=== PATIENT | female | born 1950 | race Native Hawaiian/Other Pacific Islander ===

== ENCOUNTER → 2018-04-23 09:42 | Outpatient (CLI) | payer MEDICARE, OTHER, SELFPAY ==
--- NOTE | 2018-04-23 09:44 | DI.RAD.S_ITS ---
PROCEDURE: XR LUMBAR SPINE 2-3V INDICATIONS: LOW BACK PAIN TECHNIQUE: 3 views of the lumbar spine were acquired. COMPARISON: None. FINDINGS: Bones: 5 [id number] vertebrae are present. There is normal bony alignment. No vertebral body compression fractures. No suspicious bony lesions. Mild degenerative disc disease and facet osteoarthritis along the lumbosacral spine, best seen at L5-S1. Soft tissues: Overlying bowel gas pattern is normal. No suspicious soft tissue calcifications. IMPRESSION: No trauma or. There is mild degenerative disc disease and facet osteoarthritis along the lumbosacral spine, but not to the degree that definite spinal and foraminal stenosis would be suspected Dictated by: Bib Proctor M.D. on 04/23/2018 at 10:07 Approved by: Bib Proctor M.D. on 04/23/2018 at 10:09
== END ==
PROVIDERS: PCP Family Medicine; Visit Provider Family Medicine
DX: M54.5 Low back pain (principal); M51.37 Other intervertebral disc degeneration, lumbosacral region; M47.817 Spondylosis without myelopathy or radiculopathy, lumbosacral region
CPT/HCPCS: 72100

== ENCOUNTER → 2018-05-12 11:41 | Outpatient (CLI) | payer MEDICARE, OTHER, SELFPAY | PROVIDERS: PCP Family Medicine; Visit Provider Family Medicine | DX: M54.5 Low back pain (principal) ==

== ENCOUNTER → 2018-05-30 17:45 | Outpatient (CLI) | payer MEDICARE, OTHER, SELFPAY ==
--- NOTE | 2018-05-30 17:47 | DI.MRI.S_ITS ---
PROCEDURE: MR LUMBAR SPINE WO CON INDICATIONS: Severe low back pain right sided, TECHNIQUE: Noncontrast sagittal T1 spin echo and T2 fast echo, sagittal STIR, axial T1 and T2 fast spin echo through the lumbar spine. In cases with scoliosis, additional coronal T2 fast spin echo may be performed. COMPARISON: [facility], CR, XR LUMBAR SPINE 2-3V, 04/23/2018, 9:24. FINDINGS: Image quality: Excellent. Alignment and Curvature: There is minimal retrolisthesis of L2 on L3. 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 Marrow signal is otherwise normal. No acute vertebral body compression fractures. Spinal Cord: Conus medullaris terminates at the L1-L2 level. Visualized cord demonstrates normal signal and size. Paraspinous Soft Tissues: No paravertebral masses. L1-L2: Preserved disc height. Mild disc desiccation. There is mild posterior disc bulge. The central canal is patent. No foraminal stenosis. L2-L3: Mild loss of disc height and disc desiccation. There is circumferential disc bulge. The central canal is minimally narrowed. Mild bilateral foraminal stenosis. L3-L4: Preserved disc height. Moderate disc desiccation. There is mild broad disc bulge. Mild bilateral facet arthropathy and hypertrophy of ligamentum flavum. The central canal is patent. Mild bilateral foraminal stenosis. L4-L5: Preserved disc height. Moderate disc desiccation. There is mild broad disc bulge. Mild bilateral facet arthropathy and hypertrophy of ligamentum flavum. The central canal is patent. Mild bilateral foraminal stenosis. L5-S1: Preserved disc height. Moderate disc desiccation. There is mild broad disc bulge. Mild bilateral facet arthropathy. The central canal is patent. No foraminal stenosis. IMPRESSION: 1. Multilevel degenerative disc disease and facet arthropathy as described. 2. No significant central canal stenosis. 3. Mild bilateral foraminal stenosis at L2-L3, L3-L4 and L4-L5. Dictated by: Devonte Guerrero M.D. on 05/31/2018 at 19:50 Approved by: Devonte Guerrero M.D. on 06/02/2018 at 8:25
== END ==
PROVIDERS: PCP Family Medicine; Visit Provider Family Medicine
DX: M51.16 Intervertebral disc disorders with radiculopathy, lumbar region (principal); M51.17 Intervertebral disc disorders with radiculopathy, lumbosacral region; M47.26 Other spondylosis with radiculopathy, lumbar region; M47.27 Other spondylosis with radiculopathy, lumbosacral region; M48.061 Spinal stenosis, lumbar region without neurogenic claudication
CPT/HCPCS: 72148

== ENCOUNTER 2018-10-17 13:00 | Outpatient (RCR) | payer MEDICARE, OTHER, SELFPAY ==
--- NOTE | 2018-07-22 17:42 | PT.OIE ---
Current Diagnoses Radiculopathy, lumbosacral region (07/22/18) Past Medical History (Last Reviewed 04/21/18 @ 16:54 by Abdullahi Kim MD) Low back pain with sciatica (Chronic) Gastroesophageal reflux disease without esophagitis (Chronic 09/27/15) Mixed hyperlipidemia (Chronic 09/27/15) Overactive bladder (Chronic 09/27/15) Parkinson's disease (Chronic 09/27/15) Seasonal allergic rhinitis (Chronic 09/27/15) Plantar fasciitis of right foot (Chronic 12/17/17) GERD (gastroesophageal reflux disease) (Acute) Allergic rhinitis (Chronic) Chronic back pain (Chronic) Deviated septum (Chronic) Diabetes (Chronic) Eczema (Chronic) Hearing loss (Chronic) Hyperlipemia (Chronic) Hypertension (Chronic) Parkinson's disease (Chronic ~2008) Urinary incontinence (Chronic) Vertigo (Chronic) Foot pain (Resolved) Past Surgical History (Last Reviewed 04/21/18 @ 16:54 by Abdullahi Kim MD) Status post cholecystectomy Provider Visit Care Team Role Provider Type Suresh Severino MD Attending Provider Physician Primary Care Provider Specialty: Internal Medicine Address: [address] [place] [address] Email: Physical Therapy Initial Evaluation PT-OP-A Visit Information Start: 07/22/18 15:53 Freq: Status: Active Protocol: Document 07/22/18 17:30 EA (Rec: 07/23/18 14:29 EA [id number]) Out-Patient Physical Therapy Visit Information Visit Information Visit Type Initial Evaluation Visit Start Time 15:15 Visit Stop Time 15:55 Total Visit Minutes 40 Visit Number 1 Evaluation Information Evaluation Date 07/22/18 PT-OP-B Current Condition Start: 07/22/18 15:53 Freq: Status: Active Protocol: Document 07/22/18 17:30 EA (Rec: 07/23/18 14:29 EA [id number]) Current Condition History of Current Condition Onset Date Chronic LBP: aggravated 2017 Current Complaints Localized LBP R > L History of Current Condition Present condition of low back pain has been on and off years ago and easily managed with rest and medication; last summer she reported that pain started to increase and never go away; states pain is intermittent and localized to low back area and aggravated more upon standing and walking . Pt denies loss of function and sensory alteration both LE . 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 Prior Treatments and Tests None identified Future Testing and Treatments Planned None identified Treatment Goals Patient/Caregiver Goals Be able to walk and stand more than 5 or 10 mins. Prior Functional Status Baseline Function- ADL's Independent Baseline Function- Mobility Independent Baseline Function- Gait Able to amb > 10 mins wiht no AD Baseline Function- Work/School activites with standing position > than 10 mins Current Functional Impairments (Reported) Functional Limitations- ADL's Unable to perform ADL's that requires > 5 mins of standing Functional Limitations- Mobility/Gait Limited to 0-5 mins amb PT-OP-C Subjective Start: 07/22/18 15:53 Freq: Status: Active Protocol: Document 07/22/18 17:30 EA (Rec: 07/23/18 14:29 EA [id number]) OP-PT Subjective Patient Comments Patient Comments Patient would like to be able to walk more than 5 or 10 mins without increase in back symptoms. Patient Reported Progress Worse Patient Questionnaires Oswestry Low Back Index Oswestry Impairment 40 to 59% Impaired (Score 40- 59) PT-OP-F Manual Assessment Start: 07/22/18 15:53 Freq: Status: Active Protocol: Document 07/22/18 17:30 EA (Rec: 07/23/18 14:29 EA [id number]) Manual Assessments Soft Tissue Assessment Soft Tissue Mobility Assessment Tightness to right paralumbars , QL Joint Mobility Assessment Joint Mobility Assessment L2-L5 facets hypomobility PT-OP-G Mobility & Gait Start: 07/22/18 15:53 Freq: Status: Active Protocol: Document 07/22/18 17:30 EA (Rec: 07/23/18 14:29 EA [id number]) OP Gait Assessment Gait Gait Assistance Required: Independent Able to Maintain Weight Bearing Status Yes During Gait Assistive Devices Assistive Device Straight Cane Gait Deviations General Gait Pattern Festinating Comments Gait Comments mild Shuffling (PD ) PT-OP-J Posture/Palpation/Skin Start: 07/22/18 15:53 Freq: Status: Active Protocol: Document 07/22/18 17:31 EA (Rec: 07/24/18 12:37 EA [id number]) Posture Evaluation Position Standing Head/C-Spine Posture Forward Head T-Spine Posture Increased Kyphosis L-Spine Posture Increased Lordosis Shoulder Posture (L) Rounded (R) Rounded Scapula Posture (L) Protracted (R) Protracted Pelvis Posture Anteriorly Tilted (R) Iliac Crest Superior (R) Iliac Crest Inferior Ankle/Foot Posture (L) Forefoot Abducted (R) Forefoot Abducted Palpation Assessment Location One Palpation Location Right pralaumbras, QL Palpation Findings Soft Tissue Tightness Tenderness PT-OP-K Range of Motion Start: 07/22/18 15:53 Freq: Status: Active Protocol: Document 07/22/18 17:31 EA (Rec: 07/24/18 12:37 EA [id number]) Lumbar Spine Range of Motion Lumbar Spine Active Percentage Testing Position Standing Flexion 85 Extension 65 Rotation Left 50 Rotation Right 50 Lateral Flexion Left 65 Lateral Flexion Right 65 ROM Limitations Soft Tissue Tightness Pain PT-OP-L Special Tests Start: 07/22/18 15:53 Freq: Status: Active Protocol: Document 07/22/18 17:30 EA (Rec: 07/23/18 14:29 EA [id number]) Special Tests Lumbar Spine Special Tests Other- 1 Test Results Post quadrant test: positive to right facets joint dysfunction Straight Leg Raise Test Results negative Slump Test Results negative PT-OP-M Strength Start: 07/22/18 15:53 Freq: Status: Active Protocol: Document 07/22/18 17:30 EA (Rec: 07/23/18 14:29 EA [id number]) Trunk Strength Trunk Manual Muscle Testing Flexion 4- Good- Extension 4- Good- Rotation Left 4 Good Rotation Right 4 Good Lateral Flexion Left 4- Good- Lateral Flexion Right 4- Good- PT-OP-Q Treatments Start: 07/22/18 15:53 Freq: Status: Active Protocol: Document 07/22/18 17:30 EA (Rec: 07/23/18 14:29 EA [id number]) Self-Care/Home Management Treatment Education Patient Education Body Mechanics Fall Risk Home Exercise Program Posture Safety PT-OP-T Assessment and Plan Start: 07/22/18 15:53 Freq: Status: Active Protocol: Document 07/22/18 17:30 EA (Rec: 07/23/18 14:29 EA [id number]) Physical Therapy Assessment Rehab Potential Rehabilitation Potential Fair Evaluation Complexity Number of Personal Factors/Comorbidities 1-2 Number of Body Systems Impaired 3 Clinical Presentation at Evaluation Evolving Impairments Impairments Activity Tolerance Balance Functional Mobility Gait Pain Posture ROM Soft Tissue Mobility Strength Other Impairments Chronicity of the condition Goals Five Impairment No HEP in place Athletic Turf Worker Goal (LTG) Patient will comply to HEP and will exhibit safety to all recommended home exercises program. LTG Duration 4 wks Four Impairment Impaired lumbosacral ROM [facility] Goal (LTG) Patient will reach near to normal lumbar Extension/side flexion, rotation with no symptoms provocation to enhance functional mobility. LTG Duration 4 wks Three Impairment Impaired tolerance to ADL's Athletic Turf Worker Goal (LTG) Patient will increase tolerance to ADL's > 5mins without increase in low back pain LTG Duration 4 wks Two Impairment Impaired standing tolerance [facility] Goal (LTG) Patient will tolerate standing good posture more than 5 mins with no increase in symptoms LTG Duration 4 wks One Impairment Limited ambulation tolerance [facility] Goal (LTG) Patient will ambulate > 10 mins with no increase in back symptoms with STC. LTG Duration 4 wks Assessment Summary Assessment Pleasant 68 y/o F patient with referring diagnosis of lumbar radiculopathy. Today patient demonstrates stiff hip gait with signs of PD gait. Special tests reveals positive with lumbar facets joint dysfunction to right side with no nerve root involvement. Moderate tenderness noted over right paralumbars and with limited ROM to SF/Extension/ rotation on both side. Due to above bodily dysfunction, patient unable to perform long standing, walking, and other activities that requires standing posture. In my professional opinion, patient would benefit with skilled PT to address the aforementioned issues. Physical Therapy Plan Frequency and Duration Frequency of Treatment 2x/Week Plan of Care Start Date 07/22/18 Plan of Care End Date 09/02/18 Therapeutic Interventions Therapeutic Interventions Coordination Training Gait Training Joint Mobilizations Manual Therapy Patient/Caregiver Education Self-Care/Home Management Soft Tissue Mobilization Therapeutic Exercises Modalities Cold Pack/Ice Massage Electric Stimulation Hot Packs Next Visit Focus/Plan Next Note Type Treatment Note Next Visit Plan Provide HEP
--- NOTE | 2018-07-22 17:43 | PT.OPPOC ---
Current Diagnoses Radiculopathy, lumbosacral region (07/22/18) Provider Visit Care Team Role Provider Type Suresh Severino MD Attending Provider Physician Primary Care Provider Specialty: Internal Medicine Address: [address] [place] [address], [facility] Email: Plan Of Care PT-OP-T Assessment and Plan Start: 07/22/18 15:53 Freq: Status: Active Protocol: Document 07/22/18 17:30 EA (Rec: 07/23/18 14:29 EA [id number]) Physical Therapy Assessment Rehab Potential Rehabilitation Potential Fair Evaluation Complexity Number of Personal Factors/Comorbidities 1-2 Number of Body Systems Impaired 3 Clinical Presentation at Evaluation Evolving Impairments Impairments Activity Tolerance Balance Functional Mobility Gait Pain Posture ROM Soft Tissue Mobility Strength Other Impairments Chronicity of the condition Goals Five Impairment No HEP in place Claim Clerk Goal (LTG) Patient will comply to HEP and will exhibit safety to all recommended home exercises program. LTG Duration 4 wks Four Impairment Impaired lumbosacral ROM Claim Clerk Goal (LTG) Patient will reach near to normal lumbar Extension/side flexion, rotation with no symptoms provocation to enhance functional mobility. LTG Duration 4 wks Three Impairment Impaired tolerance to ADL's Claim Clerk Goal (LTG) Patient will increase tolerance to ADL's > 5mins without increase in low back pain LTG Duration 4 wks Two Impairment Impaired standing tolerance Claim Clerk Goal (LTG) Patient will tolerate standing good posture more than 5 mins with no increase in symptoms LTG Duration 4 wks One Impairment Limited ambulation tolerance Claim Clerk Goal (LTG) Patient will ambulate > 10 mins with no increase in back symptoms with STC. LTG Duration 4 wks Assessment Summary Assessment Pleasant 68 y/o F patient with referring diagnosis of lumbar radiculopathy. Today patient demonstrates stiff hip gait with signs of PD gait. Special tests reveals positive with lumbar facets joint dysfunction to right side with no nerve root involvement. Moderate tenderness noted over right paralumbars and with limited ROM to SF/Extension/ rotation on both side. Due to above bodily dysfunction, patient unable to perform long standing, walking, and other activities that requires standing posture. In my professional opinion, patient would benefit with skilled PT to address the aforementioned issues. Physical Therapy Plan Frequency and Duration Frequency of Treatment 2x/Week Plan of Care Start Date 07/22/18 Plan of Care End Date 09/02/18 Therapeutic Interventions Therapeutic Interventions Coordination Training Gait Training Joint Mobilizations Manual Therapy Patient/Caregiver Education Self-Care/Home Management Soft Tissue Mobilization Therapeutic Exercises Modalities Cold Pack/Ice Massage Electric Stimulation Hot Packs Next Visit Focus/Plan Next Note Type Treatment Note Next Visit Plan Provide HEP Plan of Care Dates Plan of Care Start Date 07/22/18 Plan of Care End Date 09/02/18 Please Sign and Return: I have reviewed this Plan of Care and certify that the skilled therapy services above are required to meet the patient?s needs. Physician Signature Date Printed Name and Credentials Clinical Instructor Signature Printed Name and Credentials
--- NOTE | 2018-07-25 15:48 | PT.OTN ---
Current Diagnoses Radiculopathy, lumbosacral region (07/25/18) Physical Therapy Treatment Note PT-OP-A Visit Information Start: 07/22/18 15:53 Freq: Status: Active Protocol: Document 07/25/18 15:12 SA (Rec: 07/25/18 15:24 SA [id number]) Out-Patient Physical Therapy Visit Information Visit Information Visit Type Treatment Note Visit Start Time 14:25 Visit Stop Time 15:10 Total Visit Minutes 45 Visit Number 2 Number of STILL OPERATOR BATCH OR CONTINUOUS Visits 1 PT-OP-B Current Condition Start: 07/22/18 15:53 Freq: Status: Active Protocol: Document 07/22/18 17:30 EA (Rec: 07/23/18 14:29 EA [id number]) Current Condition History of Current Condition Onset Date Chronic LBP: aggravated 2017 Current Complaints Localized LBP R > L History of Current Condition Present condition of low back pain has been on and off years ago and easily managed with rest and medication; last summer she reported that pain started to increase and never go away; states pain is intermittent and localized to low back area and aggravated more upon standing and walking . Pt denies loss of function and sensory alteration both LE . 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 Prior Treatments and Tests None identified Future Testing and Treatments Planned None identified Treatment Goals Patient/Caregiver Goals Be able to walk and stand more than 5 or 10 mins. Prior Functional Status Baseline Function- ADL's Independent Baseline Function- Mobility Independent Baseline Function- Gait Able to amb > 10 mins wiht no AD Baseline Function- Work/School activites with standing position > than 10 mins Current Functional Impairments (Reported) Functional Limitations- ADL's Unable to perform ADL's that requires > 5 mins of standing Functional Limitations- Mobility/Gait Limited to 0-5 mins amb PT-OP-C Subjective Start: 07/22/18 15:53 Freq: Status: Active Protocol: Document 07/25/18 15:12 SA (Rec: 07/25/18 15:24 SA [id number]) OP-PT Subjective Patient Comments Patient Comments Pt has been doing seated stretches at home with good tolerance. Haven't tried walking much lately. PT-OP-F Manual Assessment Start: 07/22/18 15:53 Freq: Status: Active Protocol: Document 07/22/18 17:30 EA (Rec: 07/23/18 14:29 EA [id number]) Manual Assessments Soft Tissue Assessment Soft Tissue Mobility Assessment Tightness to right paralumbars , QL Joint Mobility Assessment Joint Mobility Assessment L2-L5 facets hypomobility PT-OP-G Mobility & Gait Start: 07/22/18 15:53 Freq: Status: Active Protocol: Document 07/22/18 17:30 EA (Rec: 07/23/18 14:29 EA [id number]) OP Gait Assessment Gait Gait Assistance Required: Independent Able to Maintain Weight Bearing Status Yes During Gait Assistive Devices Assistive Device Straight Cane Gait Deviations General Gait Pattern Festinating Comments Gait Comments mild Shuffling (PD ) PT-OP-J Posture/Palpation/Skin Start: 07/22/18 15:53 Freq: Status: Active Protocol: Document 07/22/18 17:31 EA (Rec: 07/24/18 12:37 EA [id number]) Posture Evaluation Position Standing Head/C-Spine Posture Forward Head T-Spine Posture Increased Kyphosis L-Spine Posture Increased Lordosis Shoulder Posture (L) Rounded (R) Rounded Scapula Posture (L) Protracted (R) Protracted Pelvis Posture Anteriorly Tilted (R) Iliac Crest Superior (R) Iliac Crest Inferior Ankle/Foot Posture (L) Forefoot Abducted (R) Forefoot Abducted Palpation Assessment Location One Palpation Location Right pralaumbras, QL Palpation Findings Soft Tissue Tightness Tenderness PT-OP-K Range of Motion Start: 07/22/18 15:53 Freq: Status: Active Protocol: Document 07/22/18 17:31 EA (Rec: 07/24/18 12:37 EA [id number]) Lumbar Spine Range of Motion Lumbar Spine Active Percentage Testing Position Standing Flexion 85 Extension 65 Rotation Left 50 Rotation Right 50 Lateral Flexion Left 65 Lateral Flexion Right 65 ROM Limitations Soft Tissue Tightness Pain PT-OP-L Special Tests Start: 07/22/18 15:53 Freq: Status: Active Protocol: Document 07/22/18 17:30 EA (Rec: 07/23/18 14:29 EA [id number]) Special Tests Lumbar Spine Special Tests Other- 1 Test Results Post quadrant test: positive to right facets joint dysfunction Straight Leg Raise Test Results negative Slump Test Results negative PT-OP-M Strength Start: 07/22/18 15:53 Freq: Status: Active Protocol: Document 07/22/18 17:30 EA (Rec: 07/23/18 14:29 EA [id number]) Trunk Strength Trunk Manual Muscle Testing Flexion 4- Good- Extension 4- Good- Rotation Left 4 Good Rotation Right 4 Good Lateral Flexion Left 4- Good- Lateral Flexion Right 4- Good- PT-OP-Q Treatments Start: 07/22/18 15:53 Freq: Status: Active Protocol: Document 07/25/18 15:12 SA (Rec: 07/25/18 15:24 SA [id number]) Therapeutic Exercises Supine Exercises Pelvic tilts Reps/Minutes 10x Comments Tactile cues for technique. HS stretch Side bilateral Reps/Minutes 2x 20 each Sitting Exercises QL stretch Side bilateral Reps/Minutes 30 x 2 Comments Focus on stretching R side Standing Exercises Lateral trunk lean Resistance towards L side Equipment Used at wall Reps/Minutes 2x 30 Comments to tolerance Manual Therapy Treatment Soft Tissue Mobilization STM/MFR Body Location Lumbar paraspinals/QL Mobilization Type Cross-Friction Myofascial Release Rolling Sustained Pressure Intensity/Depth Moderate Body Position Hooklying Comments Pt in L side lying position, focus on R lumbar paraspinals PT-OP-R Modalities Start: 07/22/18 15:53 Freq: Status: Active Protocol: Document 07/25/18 15:12 SA (Rec: 07/25/18 15:48 SA [email or web address]) Electric Stimulation Electric Stimulation IFC Body Location Lumbar paraspinals Duration (Minutes) 15 Contraction Type Normal Target/Sweep Sweep Patient Position Hooklying Combined With Heat/Cold Hot Pack PT-OP-T Assessment and Plan Start: 07/22/18 15:53 Freq: Status: Active Protocol: Document 07/25/18 15:12 SA (Rec: 07/25/18 15:48 [email or web address]) Physical Therapy Assessment Assessment Summary Assessment Pt presents with tigh R lumbar paraspinals and QL. Limits prolonged standing/walking activity d/t pain. HEP hand out given with stretches to complete at home. STM and E- stim completed to address pain and muscle tightness spasm. Physical Therapy Plan Next Visit Focus/Plan Next Note Type Treatment Note Next Visit Plan Assess response to STM and e- stim. Progress stretching program and core strengthening .
--- NOTE | 2018-08-01 15:43 | PT.OTN ---
Current Diagnoses Radiculopathy, lumbosacral region (08/01/18) Physical Therapy Treatment Note PT-OP-A Visit Information Start: 07/22/18 15:53 Freq: Status: Active Protocol: Document 08/01/18 15:32 SA (Rec: 08/01/18 15:43 SA [email or web address]) Out-Patient Physical Therapy Visit Information Visit Information Visit Type Treatment Note Visit Start Time 14:25 Visit Stop Time 15:15 Visit Number 3 Number of INCLINOMETER TESTER Visits 1 PT-OP-B Current Condition Start: 07/22/18 15:53 Freq: Status: Active Protocol: Document 07/22/18 17:30 EA (Rec: 07/23/18 14:29 EA [id number]) Current Condition History of Current Condition Onset Date Chronic LBP: aggravated 2017 Current Complaints Localized LBP R > L History of Current Condition Present condition of low back pain has been on and off years ago and easily managed with rest and medication; last summer she reported that pain started to increase and never go away; states pain is intermittent and localized to low back area and aggravated more upon standing and walking . Pt denies loss of function and sensory alteration both LE . 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 Prior Treatments and Tests None identified Future Testing and Treatments Planned None identified Treatment Goals Patient/Caregiver Goals Be able to walk and stand more than 5 or 10 mins. Prior Functional Status Baseline Function- ADL's Independent Baseline Function- Mobility Independent Baseline Function- Gait Able to amb > 10 mins wiht no AD Baseline Function- Work/School activites with standing position > than 10 mins Current Functional Impairments (Reported) Functional Limitations- ADL's Unable to perform ADL's that requires > 5 mins of standing Functional Limitations- Mobility/Gait Limited to 0-5 mins amb PT-OP-C Subjective Start: 07/22/18 15:53 Freq: Status: Active Protocol: Document 08/01/18 15:32 SA (Rec: 08/01/18 15:43 SA [email or web address]) OP-PT Subjective Patient Comments Patient Comments Pt needed clarification with some of her HEP, has been consistent at home. Tolerated manual therapy well but was a little sore after last visit. PT-OP-F Manual Assessment Start: 07/22/18 15:53 Freq: Status: Active Protocol: Document 07/22/18 17:30 EA (Rec: 07/23/18 14:29 EA [id number]) Manual Assessments Soft Tissue Assessment Soft Tissue Mobility Assessment Tightness to right paralumbars , QL Joint Mobility Assessment Joint Mobility Assessment L2-L5 facets hypomobility PT-OP-G Mobility & Gait Start: 07/22/18 15:53 Freq: Status: Active Protocol: Document 07/22/18 17:30 EA (Rec: 07/23/18 14:29 EA [id number]) OP Gait Assessment Gait Gait Assistance Required: Independent Able to Maintain Weight Bearing Status Yes During Gait Assistive Devices Assistive Device Straight Cane Gait Deviations General Gait Pattern Festinating Comments Gait Comments mild Shuffling (PD ) PT-OP-J Posture/Palpation/Skin Start: 07/22/18 15:53 Freq: Status: Active Protocol: Document 07/22/18 17:31 EA (Rec: 07/24/18 12:37 EA [id number]) Posture Evaluation Position Standing Head/C-Spine Posture Forward Head T-Spine Posture Increased Kyphosis L-Spine Posture Increased Lordosis Shoulder Posture (L) Rounded (R) Rounded Scapula Posture (L) Protracted (R) Protracted Pelvis Posture Anteriorly Tilted (R) Iliac Crest Superior (R) Iliac Crest Inferior Ankle/Foot Posture (L) Forefoot Abducted (R) Forefoot Abducted Palpation Assessment Location One Palpation Location Right pralaumbras, QL Palpation Findings Soft Tissue Tightness Tenderness PT-OP-K Range of Motion Start: 07/22/18 15:53 Freq: Status: Active Protocol: Document 07/22/18 17:31 EA (Rec: 07/24/18 12:37 EA [id number]) Lumbar Spine Range of Motion Lumbar Spine Active Percentage Testing Position Standing Flexion 85 Extension 65 Rotation Left 50 Rotation Right 50 Lateral Flexion Left 65 Lateral Flexion Right 65 ROM Limitations Soft Tissue Tightness Pain PT-OP-L Special Tests Start: 07/22/18 15:53 Freq: Status: Active Protocol: Document 07/22/18 17:30 EA (Rec: 07/23/18 14:29 EA [id number]) Special Tests Lumbar Spine Special Tests Other- 1 Test Results Post quadrant test: positive to right facets joint dysfunction Straight Leg Raise Test Results negative Slump Test Results negative PT-OP-M Strength Start: 07/22/18 15:53 Freq: Status: Active Protocol: Document 07/22/18 17:30 EA (Rec: 07/23/18 14:29 EA [id number]) Trunk Strength Trunk Manual Muscle Testing Flexion 4- Good- Extension 4- Good- Rotation Left 4 Good Rotation Right 4 Good Lateral Flexion Left 4- Good- Lateral Flexion Right 4- Good- PT-OP-Q Treatments Start: 07/22/18 15:53 Freq: Status: Active Protocol: Document 08/01/18 15:32 SA (Rec: 08/01/18 15:43 SA [email or web address]) Therapeutic Exercises Supine Exercises SL heel slides with abdominal bracing Side bilateral Reps/Minutes 10x each Pelvic tilts Reps/Minutes 15x Comments tactile cues HS stretch Side bilateral Reps/Minutes 2x 20 each Sitting Exercises QL stretch Side bilateral Reps/Minutes 30 x 2 Comments Focus on stretching R side Standing Exercises Lateral trunk lean Resistance towards L side Equipment Used at wall Reps/Minutes 2x 30 Comments to tolerance PT-OP-R Modalities Start: 07/22/18 15:53 Freq: Status: Active Protocol: Document 08/01/18 15:43 SA (Rec: 08/01/18 15:43 SA [email or web address]) Electric Stimulation Electric Stimulation IFC Contraction Type Normal Target/Sweep Sweep Cycle Continuous Patient Position Hooklying Combined With Heat/Cold Hot Pack PT-OP-T Assessment and Plan Start: 07/22/18 15:53 Freq: Status: Active Protocol: Document 08/01/18 15:32 SA (Rec: 08/01/18 15:43 SA [email or web address]) Physical Therapy Assessment Progress Towards Goals Progress Towards Goals Progressing Toward Goals Progress Comments Pt reports decreased pain overall but had some pain setting tables for restoration thanksgiving dinner earlier today. Assessment Summary Assessment Pt tolerated STM/E-stim well with some soreness but overall decrease in pain and improved tolerance of ADLs. Physical Therapy Plan Next Visit Focus/Plan Next Note Type Treatment Note Next Visit Plan Continue STM/E-stim and progress core stabilization as tolerated.
--- NOTE | 2018-08-12 16:07 | PT.OTN ---
Current Diagnoses Radiculopathy, lumbosacral region (08/12/18) Physical Therapy Treatment Note PT-OP-A Visit Information Start: 07/22/18 15:53 Freq: Status: Active Protocol: Document 08/12/18 15:52 EA (Rec: 08/12/18 16:01 EA [id number]) Out-Patient Physical Therapy Visit Information Visit Information Visit Type Treatment Note Visit Start Time 15:15 Visit Stop Time 16:00 Visit Number 4 Number of LUNCHROOM AIDE Visits 1 PT-OP-B Current Condition Start: 07/22/18 15:53 Freq: Status: Active Protocol: Document 07/22/18 17:30 EA (Rec: 07/23/18 14:29 EA [id number]) Current Condition History of Current Condition Onset Date Chronic LBP: aggravated 2017 Current Complaints Localized LBP R > L History of Current Condition Present condition of low back pain has been on and off years ago and easily managed with rest and medication; last summer she reported that pain started to increase and never go away; states pain is intermittent and localized to low back area and aggravated more upon standing and walking . Pt denies loss of function and sensory alteration both LE . 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 Prior Treatments and Tests None identified Future Testing and Treatments Planned None identified Treatment Goals Patient/Caregiver Goals Be able to walk and stand more than 5 or 10 mins. Prior Functional Status Baseline Function- ADL's Independent Baseline Function- Mobility Independent Baseline Function- Gait Able to amb > 10 mins wiht no AD Baseline Function- Work/School activites with standing position > than 10 mins Current Functional Impairments (Reported) Functional Limitations- ADL's Unable to perform ADL's that requires > 5 mins of standing Functional Limitations- Mobility/Gait Limited to 0-5 mins amb PT-OP-C Subjective Start: 07/22/18 15:53 Freq: Status: Active Protocol: Document 08/12/18 15:52 EA (Rec: 08/12/18 16:01 EA [id number]) OP-PT Subjective Patient Comments Patient Comments Pt received with cane with shuffling gait; states she always forgot to remember. Patient also reports low back pain is still on off but is now compliant with HEP. PT-OP-F Manual Assessment Start: 07/22/18 15:53 Freq: Status: Active Protocol: Document 07/22/18 17:30 EA (Rec: 07/23/18 14:29 EA [id number]) Manual Assessments Soft Tissue Assessment Soft Tissue Mobility Assessment Tightness to right paralumbars , QL Joint Mobility Assessment Joint Mobility Assessment L2-L5 facets hypomobility PT-OP-G Mobility & Gait Start: 07/22/18 15:53 Freq: Status: Active Protocol: Document 07/22/18 17:30 EA (Rec: 07/23/18 14:29 EA [id number]) OP Gait Assessment Gait Gait Assistance Required: Independent Able to Maintain Weight Bearing Status Yes During Gait Assistive Devices Assistive Device Straight Cane Gait Deviations General Gait Pattern Festinating Comments Gait Comments mild Shuffling (PD ) PT-OP-J Posture/Palpation/Skin Start: 07/22/18 15:53 Freq: Status: Active Protocol: Document 07/22/18 17:31 EA (Rec: 07/24/18 12:37 EA [id number]) Posture Evaluation Position Standing Head/C-Spine Posture Forward Head T-Spine Posture Increased Kyphosis L-Spine Posture Increased Lordosis Shoulder Posture (L) Rounded (R) Rounded Scapula Posture (L) Protracted (R) Protracted Pelvis Posture Anteriorly Tilted (R) Iliac Crest Superior (R) Iliac Crest Inferior Ankle/Foot Posture (L) Forefoot Abducted (R) Forefoot Abducted Palpation Assessment Location One Palpation Location Right pralaumbras, QL Palpation Findings Soft Tissue Tightness Tenderness PT-OP-K Range of Motion Start: 07/22/18 15:53 Freq: Status: Active Protocol: Document 07/22/18 17:31 EA (Rec: 07/24/18 12:37 EA [id number]) Lumbar Spine Range of Motion Lumbar Spine Active Percentage Testing Position Standing Flexion 85 Extension 65 Rotation Left 50 Rotation Right 50 Lateral Flexion Left 65 Lateral Flexion Right 65 ROM Limitations Soft Tissue Tightness Pain PT-OP-L Special Tests Start: 07/22/18 15:53 Freq: Status: Active Protocol: Document 07/22/18 17:30 EA (Rec: 07/23/18 14:29 EA [id number]) Special Tests Lumbar Spine Special Tests Other- 1 Test Results Post quadrant test: positive to right facets joint dysfunction Straight Leg Raise Test Results negative Slump Test Results negative PT-OP-M Strength Start: 07/22/18 15:53 Freq: Status: Active Protocol: Document 07/22/18 17:30 EA (Rec: 07/23/18 14:29 EA [id number]) Trunk Strength Trunk Manual Muscle Testing Flexion 4- Good- Extension 4- Good- Rotation Left 4 Good Rotation Right 4 Good Lateral Flexion Left 4- Good- Lateral Flexion Right 4- Good- PT-OP-Q Treatments Start: 07/22/18 15:53 Freq: Status: Active Protocol: Document 08/12/18 15:52 EA (Rec: 08/12/18 16:01 EA [id number]) Cardio Equipment Recumbent Stepper (Sci-Fit) Duration (Minutes) 5 Resistance 2 Seat Position 12 Therapeutic Exercises Supine Exercises 2 Supine Exercise Name Trunk rotation Reps/Minutes x 10reps x 2 sets 1 Supine Exercise Name PPT w/ head lift w/ SLR Reps/Minutes x 5 reps x 5 reps Comments isomet to head and PPt Pelvic tilts Supine Exercise Name PPT with marching Equipment Used x 5 marching x 5 reps HS stretch Side bilateral Reps/Minutes 2x 20 each Sitting Exercises QL stretch Side bilateral Reps/Minutes 30 x 2 Comments Focus on stretching R side Manual Therapy Treatment Soft Tissue Mobilization STM/MFR Body Location Lumbar paraspinals/QL Mobilization Type Cross-Friction Myofascial Release Rolling Sustained Pressure Intensity/Depth Moderate Body Position Hooklying Comments Pt in L side lying position, focus on R lumbar paraspinals PT-OP-R Modalities Start: 07/22/18 15:53 Freq: Status: Active Protocol: Document 08/12/18 15:52 EA (Rec: 08/12/18 16:01 EA [id number]) Electric Stimulation Electric Stimulation IFC Body Location Lumbar paraspinals Duration (Minutes) 15 Contraction Type Normal Target/Sweep Sweep Patient Position Sitting Combined With Heat/Cold Hot Pack PT-OP-T Assessment and Plan Start: 07/22/18 15:53 Freq: Status: Active Protocol: Document 08/12/18 15:52 EA (Rec: 08/12/18 16:01 EA [id number]) Physical Therapy Assessment Assessment Summary Assessment Pt tolerated treatment well. recommends to use cane/gait devices for safety. Physical Therapy Plan Next Visit Focus/Plan Next Note Type Treatment Note Next Visit Plan Continue STM/E-stim and progress core stabilization as tolerated.
--- NOTE | 2018-08-15 15:20 | PT.OTN ---
Current Diagnoses Radiculopathy, lumbosacral region (08/15/18) Physical Therapy Treatment Note PT-OP-A Visit Information Start: 07/22/18 15:53 Freq: Status: Active Protocol: Document 08/15/18 15:10 SA (Rec: 08/15/18 15:20 SA [email or web address]) Out-Patient Physical Therapy Visit Information Visit Information Visit Type Treatment Note Visit Start Time 14:30 Visit Stop Time 15:15 Visit Number 5 Number of SENIOR ANALYTICAL CHEMIST Visits 2 PT-OP-B Current Condition Start: 07/22/18 15:53 Freq: Status: Active Protocol: Document 07/22/18 17:30 EA (Rec: 07/23/18 14:29 EA [id number]) Current Condition History of Current Condition Onset Date Chronic LBP: aggravated 2017 Current Complaints Localized LBP R > L History of Current Condition Present condition of low back pain has been on and off years ago and easily managed with rest and medication; last summer she reported that pain started to increase and never go away; states pain is intermittent and localized to low back area and aggravated more upon standing and walking . Pt denies loss of function and sensory alteration both LE . 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 Prior Treatments and Tests None identified Future Testing and Treatments Planned None identified Treatment Goals Patient/Caregiver Goals Be able to walk and stand more than 5 or 10 mins. Prior Functional Status Baseline Function- ADL's Independent Baseline Function- Mobility Independent Baseline Function- Gait Able to amb > 10 mins wiht no AD Baseline Function- Work/School activites with standing position > than 10 mins Current Functional Impairments (Reported) Functional Limitations- ADL's Unable to perform ADL's that requires > 5 mins of standing Functional Limitations- Mobility/Gait Limited to 0-5 mins amb PT-OP-C Subjective Start: 07/22/18 15:53 Freq: Status: Active Protocol: Document 08/15/18 15:10 SA (Rec: 08/15/18 15:20 SA [email or web address]) OP-PT Subjective Patient Comments Patient Comments Pt reports having increased low back soreness from helping decorate holiness, notes that she was more aware of her posture and body mechanics and was able to correct during. Pt using SPC today. PT-OP-F Manual Assessment Start: 07/22/18 15:53 Freq: Status: Active Protocol: Document 07/22/18 17:30 EA (Rec: 07/23/18 14:29 EA [id number]) Manual Assessments Soft Tissue Assessment Soft Tissue Mobility Assessment Tightness to right paralumbars , QL Joint Mobility Assessment Joint Mobility Assessment L2-L5 facets hypomobility PT-OP-G Mobility & Gait Start: 07/22/18 15:53 Freq: Status: Active Protocol: Document 07/22/18 17:30 EA (Rec: 07/23/18 14:29 EA [id number]) OP Gait Assessment Gait Gait Assistance Required: Independent Able to Maintain Weight Bearing Status Yes During Gait Assistive Devices Assistive Device Straight Cane Gait Deviations General Gait Pattern Festinating Comments Gait Comments mild Shuffling (PD ) PT-OP-J Posture/Palpation/Skin Start: 07/22/18 15:53 Freq: Status: Active Protocol: Document 07/22/18 17:31 EA (Rec: 07/24/18 12:37 EA [id number]) Posture Evaluation Position Standing Head/C-Spine Posture Forward Head T-Spine Posture Increased Kyphosis L-Spine Posture Increased Lordosis Shoulder Posture (L) Rounded (R) Rounded Scapula Posture (L) Protracted (R) Protracted Pelvis Posture Anteriorly Tilted (R) Iliac Crest Superior (R) Iliac Crest Inferior Ankle/Foot Posture (L) Forefoot Abducted (R) Forefoot Abducted Palpation Assessment Location One Palpation Location Right pralaumbras, QL Palpation Findings Soft Tissue Tightness Tenderness PT-OP-K Range of Motion Start: 07/22/18 15:53 Freq: Status: Active Protocol: Document 07/22/18 17:31 EA (Rec: 07/24/18 12:37 EA [id number]) Lumbar Spine Range of Motion Lumbar Spine Active Percentage Testing Position Standing Flexion 85 Extension 65 Rotation Left 50 Rotation Right 50 Lateral Flexion Left 65 Lateral Flexion Right 65 ROM Limitations Soft Tissue Tightness Pain PT-OP-L Special Tests Start: 07/22/18 15:53 Freq: Status: Active Protocol: Document 07/22/18 17:30 EA (Rec: 07/23/18 14:29 EA [id number]) Special Tests Lumbar Spine Special Tests Other- 1 Test Results Post quadrant test: positive to right facets joint dysfunction Straight Leg Raise Test Results negative Slump Test Results negative PT-OP-M Strength Start: 07/22/18 15:53 Freq: Status: Active Protocol: Document 07/22/18 17:30 EA (Rec: 07/23/18 14:29 EA [id number]) Trunk Strength Trunk Manual Muscle Testing Flexion 4- Good- Extension 4- Good- Rotation Left 4 Good Rotation Right 4 Good Lateral Flexion Left 4- Good- Lateral Flexion Right 4- Good- PT-OP-Q Treatments Start: 07/22/18 15:53 Freq: Status: Active Protocol: Document 08/15/18 15:10 SA (Rec: 08/15/18 15:20 SA [email or web address]) Therapeutic Exercises Supine Exercises 2 Supine Exercise Name Trunk rotation Reps/Minutes x 10reps x 2 sets 1 Supine Exercise Name PPT w/ head lift w/ SLR Reps/Minutes x 5 reps x 5 reps Comments isomet to head and PPt SL heel slides with abdominal bracing Side bilateral Reps/Minutes 10x each Pelvic tilts Supine Exercise Name PPT with marching Equipment Used x 5 marching x 5 reps HS stretch Side bilateral Reps/Minutes 2x 20 each Sitting Exercises QL stretch Side bilateral Reps/Minutes 30 x 2 Comments Focus on stretching R side Manual Therapy Treatment Soft Tissue Mobilization STM/MFR Body Location Lumbar paraspinals/QL Mobilization Type Cross-Friction Myofascial Release Rolling Sustained Pressure Intensity/Depth Moderate Body Position Hooklying Comments Pt seated with forward leaning onto mat/pillows. PT-OP-R Modalities Start: 07/22/18 15:53 Freq: Status: Active Protocol: Document 08/15/18 15:10 SA (Rec: 08/15/18 15:20 SA [email or web address]) Electric Stimulation Electric Stimulation IFC Body Location Lumbar paraspinals Duration (Minutes) 15 Contraction Type Normal Target/Sweep Sweep Patient Position Sitting Combined With Heat/Cold Hot Pack PT-OP-T Assessment and Plan Start: 07/22/18 15:53 Freq: Status: Active Protocol: Document 08/15/18 15:10 SA (Rec: 08/15/18 15:20 SA [email or web address]) Physical Therapy Assessment Progress Towards Goals Progress Towards Goals Progressing Toward Goals Assessment Summary Assessment Noted tightness through R lumbar paraspinals with relief after STM and heat and noted decrease in tightness. Physical Therapy Plan Next Visit Focus/Plan Next Note Type Treatment Note Next Visit Plan Continue with STM, E-stim and progressing core stability program.
--- NOTE | 2018-08-19 16:39 | PT.OTN ---
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 Pt denies loss of function and sensory alteration both LE . 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 Prior Treatments and Tests None identified Future Testing and Treatments Planned None identified Treatment Goals Patient/Caregiver Goals Be able to walk and stand more than 5 or 10 mins. Prior Functional Status Baseline Function- ADL's Independent Baseline Function- Mobility Independent Baseline Function- Gait Able to amb > 10 mins wiht no AD Baseline Function- Work/School activites with standing position > than 10 mins Current Functional Impairments (Reported) Functional Limitations- ADL's Unable to perform ADL's that requires > 5 mins of standing Functional Limitations- Mobility/Gait Limited to 0-5 mins amb PT-OP-C Subjective Start: 07/22/18 15:53 Freq: Status: Active Protocol: Document 08/19/18 15:19 EA (Rec: 08/19/18 15:52 EA [id number]) OP-PT Subjective Patient Comments Patient Comments Pt reports I overdo it; 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 Patient Reported Progress Improving PT-OP-F Manual Assessment Start: 07/22/18 15:53 Freq: Status: Active Protocol: Document 07/22/18 17:30 EA (Rec: 07/23/18 14:29 EA [id number]) Manual Assessments Soft Tissue Assessment Soft Tissue Mobility Assessment Tightness to right paralumbars , QL Joint Mobility Assessment Joint Mobility Assessment L2-L5 facets hypomobility PT-OP-G Mobility & Gait Start: 07/22/18 15:53 Freq: Status: Active Protocol: Document 07/22/18 17:30 EA (Rec: 07/23/18 14:29 EA [id number]) OP Gait Assessment Gait Gait Assistance Required: Independent Able to Maintain Weight Bearing Status Yes During Gait Assistive Devices Assistive Device Straight Cane Gait Deviations General Gait Pattern Festinating Comments Gait Comments mild Shuffling (PD ) PT-OP-J Posture/Palpation/Skin Start: 07/22/18 15:53 Freq: Status: Active Protocol: Document 07/22/18 17:31 EA (Rec: 07/24/18 12:37 EA [id number]) Posture Evaluation Position Standing Head/C-Spine Posture Forward Head T-Spine Posture Increased Kyphosis L-Spine Posture Increased Lordosis Shoulder Posture (L) Rounded (R) Rounded Scapula Posture (L) Protracted (R) Protracted Pelvis Posture Anteriorly Tilted (R) Iliac Crest Superior (R) Iliac Crest Inferior Ankle/Foot Posture (L) Forefoot Abducted (R) Forefoot Abducted Palpation Assessment Location One Palpation Location Right pralaumbras, QL Palpation Findings Soft Tissue Tightness Tenderness PT-OP-K Range of Motion Start: 07/22/18 15:53 Freq: Status: Active Protocol: Document 07/22/18 17:31 EA (Rec: 07/24/18 12:37 EA [id number]) Lumbar Spine Range of Motion Lumbar Spine Active Percentage Testing Position Standing Flexion 85 Extension 65 Rotation Left 50 Rotation Right 50 Lateral Flexion Left 65 Lateral Flexion Right 65 ROM Limitations Soft Tissue Tightness Pain PT-OP-L Special Tests Start: 07/22/18 15:53 Freq: Status: Active Protocol: Document 07/22/18 17:30 EA (Rec: 07/23/18 14:29 EA [id number]) Special Tests Lumbar Spine Special Tests Other- 1 Test Results Post quadrant test: positive to right facets joint dysfunction Straight Leg Raise Test Results negative Slump Test Results negative PT-OP-M Strength Start: 07/22/18 15:53 Freq: Status: Active Protocol: Document 07/22/18 17:30 EA (Rec: 07/23/18 14:29 EA [id number]) Trunk Strength Trunk Manual Muscle Testing Flexion 4- Good- Extension 4- Good- Rotation Left 4 Good Rotation Right 4 Good Lateral Flexion Left 4- Good- Lateral Flexion Right 4- Good- PT-OP-Q Treatments Start: 07/22/18 15:53 Freq: Status: Active Protocol: Document 08/19/18 15:19 EA (Rec: 08/19/18 15:52 EA [id number]) Cardio Equipment Recumbent Bicycle Duration (Minutes) 5 Resistance 4 Seat Position 5 Therapeutic Exercises Supine Exercises 2 Supine Exercise Name Trunk rotation Reps/Minutes x 10reps x 2 sets 1 Supine Exercise Name PPT w/ head lift w/ SLR Reps/Minutes x 5 reps x 5 reps Comments isomet to head and PPt Pelvic tilts Supine Exercise Name PPT with marching Equipment Used x 5 marching x 5 reps HS stretch Side bilateral Reps/Minutes 2x 20 each Sitting Exercises QL stretch Side bilateral Reps/Minutes 30 x 2 Comments Focus on stretching R side Manual Therapy Treatment Soft Tissue Mobilization STM/MFR Body Location Lumbar paraspinals/QL Mobilization Type Rolling Sustained Pressure Trigger Point Release Intensity/Depth Moderate Comments sit on EOB lowest height while leaning towars floor; with rotation. PT-OP-R Modalities Start: 07/22/18 15:53 Freq: Status: Active Protocol: Document 08/19/18 15:19 EA (Rec: 08/19/18 15:52 EA [id number]) Electric Stimulation Electric Stimulation IFC Body Location Lumbar paraspinals Duration (Minutes) 15 Contraction Type Normal Target/Sweep Sweep Patient Position Sitting Combined With Heat/Cold Hot Pack PT-OP-T Assessment and Plan Start: 07/22/18 15:53 Freq: Status: Active Protocol: Document 08/19/18 15:19 EA (Rec: 08/19/18 15:52 EA [id number]) Physical Therapy Assessment Assessment Summary Assessment Relief of discomfort and tightness noted after manual therapy. Patient advised to perform fwd leaning to the floor at home to do frequently . Physical Therapy Plan Next Visit Focus/Plan Next Note Type Treatment Note Next Visit Plan Continue with STM, E-stim and progressing core stability program.
--- NOTE | 2018-08-22 15:43 | PT.OTN ---
Current Diagnoses Radiculopathy, lumbosacral region (08/22/18) Physical Therapy Treatment Note PT-OP-A Visit Information Start: 07/22/18 15:53 Freq: Status: Active Protocol: Document 08/22/18 15:35 SA (Rec: 08/22/18 15:43 SA [id number]) Out-Patient Physical Therapy Visit Information Visit Information Visit Type Treatment Note Visit Start Time 14:30 Visit Stop Time 15:17 Visit Number 7 Number of MANAGEMENT LEAD Visits 1 PT-OP-B Current Condition Start: 07/22/18 15:53 Freq: Status: Active Protocol: Document 07/22/18 17:30 EA (Rec: 07/23/18 14:29 EA [id number]) Current Condition History of Current Condition Onset Date Chronic LBP: aggravated 2017 Current Complaints Localized LBP R > L History of Current Condition Present condition of low back pain has been on and off years ago and easily managed with rest and medication; last summer she reported that pain started to increase and never go away; states pain is intermittent and localized to low back area and aggravated more upon standing and walking . Pt denies loss of function and sensory alteration both LE . 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 Prior Treatments and Tests None identified Future Testing and Treatments Planned None identified Treatment Goals Patient/Caregiver Goals Be able to walk and stand more than 5 or 10 mins. Prior Functional Status Baseline Function- ADL's Independent Baseline Function- Mobility Independent Baseline Function- Gait Able to amb > 10 mins wiht no AD Baseline Function- Work/School activites with standing position > than 10 mins Current Functional Impairments (Reported) Functional Limitations- ADL's Unable to perform ADL's that requires > 5 mins of standing Functional Limitations- Mobility/Gait Limited to 0-5 mins amb PT-OP-C Subjective Start: 07/22/18 15:53 Freq: Status: Active Protocol: Document 08/22/18 15:35 SA (Rec: 08/22/18 15:43 SA [id number]) OP-PT Subjective Patient Comments Patient Comments Feeling about the same today, felt a little after last visit but it did not last. PT-OP-F Manual Assessment Start: 07/22/18 15:53 Freq: Status: Active Protocol: Document 07/22/18 17:30 EA (Rec: 07/23/18 14:29 EA [id number]) Manual Assessments Soft Tissue Assessment Soft Tissue Mobility Assessment Tightness to right paralumbars , QL Joint Mobility Assessment Joint Mobility Assessment L2-L5 facets hypomobility PT-OP-G Mobility & Gait Start: 07/22/18 15:53 Freq: Status: Active Protocol: Document 07/22/18 17:30 EA (Rec: 07/23/18 14:29 EA [id number]) OP Gait Assessment Gait Gait Assistance Required: Independent Able to Maintain Weight Bearing Status Yes During Gait Assistive Devices Assistive Device Straight Cane Gait Deviations General Gait Pattern Festinating Comments Gait Comments mild Shuffling (PD ) PT-OP-J Posture/Palpation/Skin Start: 07/22/18 15:53 Freq: Status: Active Protocol: Document 07/22/18 17:31 EA (Rec: 07/24/18 12:37 EA [id number]) Posture Evaluation Position Standing Head/C-Spine Posture Forward Head T-Spine Posture Increased Kyphosis L-Spine Posture Increased Lordosis Shoulder Posture (L) Rounded (R) Rounded Scapula Posture (L) Protracted (R) Protracted Pelvis Posture Anteriorly Tilted (R) Iliac Crest Superior (R) Iliac Crest Inferior Ankle/Foot Posture (L) Forefoot Abducted (R) Forefoot Abducted Palpation Assessment Location One Palpation Location Right pralaumbras, QL Palpation Findings Soft Tissue Tightness Tenderness PT-OP-K Range of Motion Start: 07/22/18 15:53 Freq: Status: Active Protocol: Document 07/22/18 17:31 EA (Rec: 07/24/18 12:37 EA [id number]) Lumbar Spine Range of Motion Lumbar Spine Active Percentage Testing Position Standing Flexion 85 Extension 65 Rotation Left 50 Rotation Right 50 Lateral Flexion Left 65 Lateral Flexion Right 65 ROM Limitations Soft Tissue Tightness Pain PT-OP-L Special Tests Start: 07/22/18 15:53 Freq: Status: Active Protocol: Document 07/22/18 17:30 EA (Rec: 07/23/18 14:29 EA [id number]) Special Tests Lumbar Spine Special Tests Other- 1 Test Results Post quadrant test: positive to right facets joint dysfunction Straight Leg Raise Test Results negative Slump Test Results negative PT-OP-M Strength Start: 07/22/18 15:53 Freq: Status: Active Protocol: Document 07/22/18 17:30 EA (Rec: 07/23/18 14:29 EA [id number]) Trunk Strength Trunk Manual Muscle Testing Flexion 4- Good- Extension 4- Good- Rotation Left 4 Good Rotation Right 4 Good Lateral Flexion Left 4- Good- Lateral Flexion Right 4- Good- PT-OP-Q Treatments Start: 07/22/18 15:53 Freq: Status: Active Protocol: Document 08/22/18 15:35 SA (Rec: 08/22/18 15:43 SA [email or web address]) Cardio Equipment Recumbent Bicycle Duration (Minutes) 5 Resistance 5 Seat Position 5 Therapeutic Exercises Supine Exercises 2 Supine Exercise Name Trunk rotation Reps/Minutes x 10reps x 2 sets 1 Supine Exercise Name PPT w/ head lift w/ SLR Reps/Minutes x 5 reps x 5 reps Comments isomet to head and PPt SL heel slides with abdominal bracing Side bilateral Reps/Minutes 10x each Pelvic tilts Supine Exercise Name PPT with marching Equipment Used x 5 marching x 5 reps HS stretch Side bilateral Reps/Minutes 2x 20 each Sitting Exercises QL stretch Side bilateral Reps/Minutes 30 x 2 Comments Focus on stretching R side Manual Therapy Treatment Soft Tissue Mobilization STM/MFR Body Location Lumbar paraspinals/QL Mobilization Type Rolling Sustained Pressure Trigger Point Release Intensity/Depth Moderate Comments Pt seated with leaning onto mat/pillows. PT-OP-R Modalities Start: 07/22/18 15:53 Freq: Status: Active Protocol: Document 08/22/18 15:35 SA (Rec: 08/22/18 15:43 SA [email or web address]) Electric Stimulation Electric Stimulation IFC Body Location Lumbar paraspinals Duration (Minutes) 15 Contraction Type Normal Target/Sweep Sweep Patient Position Sitting Combined With Heat/Cold Hot Pack PT-OP-T Assessment and Plan Start: 07/22/18 15:53 Freq: Status: Active Protocol: Document 08/22/18 15:35 SA (Rec: 08/22/18 15:43 SA [id number]) Physical Therapy Assessment Assessment Summary Assessment Review of forward leaning stretch for HEP, pt making gradual gains and tolerating manual therapy well. Physical Therapy Plan Next Visit Focus/Plan Next Note Type Treatment Note Next Visit Plan Continue to progress core stability as tolerated and E- stim/manual for pain management.
--- NOTE | 2018-08-26 16:45 | PT.OTN ---
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 Pt denies loss of function and sensory alteration both LE . 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 Prior Treatments and Tests None identified Future Testing and Treatments Planned None identified Treatment Goals Patient/Caregiver Goals Be able to walk and stand more than 5 or 10 mins. Prior Functional Status Baseline Function- ADL's Independent Baseline Function- Mobility Independent Baseline Function- Gait Able to amb > 10 mins wiht no AD Baseline Function- Work/School activites with standing position > than 10 mins Current Functional Impairments (Reported) Functional Limitations- ADL's Unable to perform ADL's that requires > 5 mins of standing Functional Limitations- Mobility/Gait Limited to 0-5 mins amb PT-OP-C Subjective Start: 07/22/18 15:53 Freq: Status: Active Protocol: Document 08/26/18 15:21 EA (Rec: 08/26/18 15:24 EA [id number]) OP-PT Subjective Patient Comments Patient Comments Pt reports she was dizzy after last session and balance is quite hard; states she is much feeling better today. Patient Reported Progress Improving PT-OP-F Manual Assessment Start: 07/22/18 15:53 Freq: Status: Active Protocol: Document 07/22/18 17:30 EA (Rec: 07/23/18 14:29 EA [id number]) Manual Assessments Soft Tissue Assessment Soft Tissue Mobility Assessment Tightness to right paralumbars , QL Joint Mobility Assessment Joint Mobility Assessment L2-L5 facets hypomobility PT-OP-G Mobility & Gait Start: 07/22/18 15:53 Freq: Status: Active Protocol: Document 07/22/18 17:30 EA (Rec: 07/23/18 14:29 EA [id number]) OP Gait Assessment Gait Gait Assistance Required: Independent Able to Maintain Weight Bearing Status Yes During Gait Assistive Devices Assistive Device Straight Cane Gait Deviations General Gait Pattern Festinating Comments Gait Comments mild Shuffling (PD ) PT-OP-J Posture/Palpation/Skin Start: 07/22/18 15:53 Freq: Status: Active Protocol: Document 07/22/18 17:31 EA (Rec: 07/24/18 12:37 EA [id number]) Posture Evaluation Position Standing Head/C-Spine Posture Forward Head T-Spine Posture Increased Kyphosis L-Spine Posture Increased Lordosis Shoulder Posture (L) Rounded (R) Rounded Scapula Posture (L) Protracted (R) Protracted Pelvis Posture Anteriorly Tilted (R) Iliac Crest Superior (R) Iliac Crest Inferior Ankle/Foot Posture (L) Forefoot Abducted (R) Forefoot Abducted Palpation Assessment Location One Palpation Location Right pralaumbras, QL Palpation Findings Soft Tissue Tightness Tenderness PT-OP-K Range of Motion Start: 07/22/18 15:53 Freq: Status: Active Protocol: Document 07/22/18 17:31 EA (Rec: 07/24/18 12:37 EA [id number]) Lumbar Spine Range of Motion Lumbar Spine Active Percentage Testing Position Standing Flexion 85 Extension 65 Rotation Left 50 Rotation Right 50 Lateral Flexion Left 65 Lateral Flexion Right 65 ROM Limitations Soft Tissue Tightness Pain PT-OP-L Special Tests Start: 07/22/18 15:53 Freq: Status: Active Protocol: Document 07/22/18 17:30 EA (Rec: 07/23/18 14:29 EA [id number]) Special Tests Lumbar Spine Special Tests Other- 1 Test Results Post quadrant test: positive to right facets joint dysfunction Straight Leg Raise Test Results negative Slump Test Results negative PT-OP-M Strength Start: 07/22/18 15:53 Freq: Status: Active Protocol: Document 07/22/18 17:30 EA (Rec: 07/23/18 14:29 EA [id number]) Trunk Strength Trunk Manual Muscle Testing Flexion 4- Good- Extension 4- Good- Rotation Left 4 Good Rotation Right 4 Good Lateral Flexion Left 4- Good- Lateral Flexion Right 4- Good- PT-OP-Q Treatments Start: 07/22/18 15:53 Freq: Status: Active Protocol: Document 08/26/18 15:21 EA (Rec: 08/26/18 15:24 EA [id number]) Therapeutic Exercises Supine Exercises 2 Supine Exercise Name Trunk rotation Reps/Minutes x 10reps x 2 sets 1 Supine Exercise Name PPT w/ head lift w/ SLR Reps/Minutes x 5 reps x 5 reps Comments isomet to head and PPt Pelvic tilts Supine Exercise Name PPT with marching Equipment Used x 5 marching x 5 reps HS stretch Side bilateral Reps/Minutes 2x 20 each Sitting Exercises 1 Sitting Exercise Name Paralumbars stretch Reps/Minutes x 10 reps x 5 SH Comments FWD flexion with arm support in thefront (bolster) QL stretch Side bilateral Reps/Minutes 30 x 2 Comments Focus on stretching R side Manual Therapy Treatment Soft Tissue Mobilization STM/MFR Body Location Lumbar paraspinals/QL Mobilization Type Rolling Sustained Pressure Trigger Point Release Intensity/Depth Moderate Comments Pt seated with leaning onto bolster PT-OP-R Modalities Start: 07/22/18 15:53 Freq: Status: Active Protocol: Document 08/26/18 15:21 EA (Rec: 08/26/18 15:24 EA [id number]) Electric Stimulation Electric Stimulation IFC Body Location Lumbar paraspinals Duration (Minutes) 15 Contraction Type Normal Target/Sweep Sweep Patient Position Sitting Combined With Heat/Cold Hot Pack PT-OP-T Assessment and Plan Start: 07/22/18 15:53 Freq: Status: Active Protocol: Document 08/26/18 15:55 EA (Rec: 08/26/18 15:56 EA [id number]) Physical Therapy Assessment Assessment Summary Assessment Slight tenderness only onted to left QL, paralumabrs and SI joint. No discomfort noted during therex. Patient is progressing well. Physical Therapy Plan Next Visit Focus/Plan Next Note Type Treatment Note
--- NOTE | 2018-08-29 15:39 | PT.OTN ---
Current Diagnoses Radiculopathy, lumbosacral region (08/29/18) Physical Therapy Treatment Note PT-OP-A Visit Information Start: 07/22/18 15:53 Freq: Status: Active Protocol: Document 08/29/18 15:32 SA (Rec: 08/29/18 15:39 SA [email or web address]) Out-Patient Physical Therapy Visit Information Visit Information Visit Type Treatment Note Visit Start Time 14:30 Visit Stop Time 15:17 Visit Number 9 Number of TECHNICAL ADJUSTER Visits 1 PT-OP-B Current Condition Start: 07/22/18 15:53 Freq: Status: Active Protocol: Document 07/22/18 17:30 EA (Rec: 07/23/18 14:29 EA [id number]) Current Condition History of Current Condition Onset Date Chronic LBP: aggravated 2017 Current Complaints Localized LBP R > L History of Current Condition Present condition of low back pain has been on and off years ago and easily managed with rest and medication; last summer she reported that pain started to increase and never go away; states pain is intermittent and localized to low back area and aggravated more upon standing and walking . Pt denies loss of function and sensory alteration both LE . 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 Prior Treatments and Tests None identified Future Testing and Treatments Planned None identified Treatment Goals Patient/Caregiver Goals Be able to walk and stand more than 5 or 10 mins. Prior Functional Status Baseline Function- ADL's Independent Baseline Function- Mobility Independent Baseline Function- Gait Able to amb > 10 mins wiht no AD Baseline Function- Work/School activites with standing position > than 10 mins Current Functional Impairments (Reported) Functional Limitations- ADL's Unable to perform ADL's that requires > 5 mins of standing Functional Limitations- Mobility/Gait Limited to 0-5 mins amb PT-OP-C Subjective Start: 07/22/18 15:53 Freq: Status: Active Protocol: Document 08/29/18 15:32 SA (Rec: 08/29/18 15:39 SA [email or web address]) OP-PT Subjective Patient Comments Patient Comments No c/o dizziness. Pt reports she has decreased frequency with LBP but about the same intensity. Patient Reported Progress Improving PT-OP-F Manual Assessment Start: 07/22/18 15:53 Freq: Status: Active Protocol: Document 07/22/18 17:30 EA (Rec: 07/23/18 14:29 EA [id number]) Manual Assessments Soft Tissue Assessment Soft Tissue Mobility Assessment Tightness to right paralumbars , QL Joint Mobility Assessment Joint Mobility Assessment L2-L5 facets hypomobility PT-OP-G Mobility & Gait Start: 07/22/18 15:53 Freq: Status: Active Protocol: Document 07/22/18 17:30 EA (Rec: 07/23/18 14:29 EA [id number]) OP Gait Assessment Gait Gait Assistance Required: Independent Able to Maintain Weight Bearing Status Yes During Gait Assistive Devices Assistive Device Straight Cane Gait Deviations General Gait Pattern Festinating Comments Gait Comments mild Shuffling (PD ) PT-OP-J Posture/Palpation/Skin Start: 07/22/18 15:53 Freq: Status: Active Protocol: Document 07/22/18 17:31 EA (Rec: 07/24/18 12:37 EA [id number]) Posture Evaluation Position Standing Head/C-Spine Posture Forward Head T-Spine Posture Increased Kyphosis L-Spine Posture Increased Lordosis Shoulder Posture (L) Rounded (R) Rounded Scapula Posture (L) Protracted (R) Protracted Pelvis Posture Anteriorly Tilted (R) Iliac Crest Superior (R) Iliac Crest Inferior Ankle/Foot Posture (L) Forefoot Abducted (R) Forefoot Abducted Palpation Assessment Location One Palpation Location Right pralaumbras, QL Palpation Findings Soft Tissue Tightness Tenderness PT-OP-K Range of Motion Start: 07/22/18 15:53 Freq: Status: Active Protocol: Document 07/22/18 17:31 EA (Rec: 07/24/18 12:37 EA [id number]) Lumbar Spine Range of Motion Lumbar Spine Active Percentage Testing Position Standing Flexion 85 Extension 65 Rotation Left 50 Rotation Right 50 Lateral Flexion Left 65 Lateral Flexion Right 65 ROM Limitations Soft Tissue Tightness Pain PT-OP-L Special Tests Start: 07/22/18 15:53 Freq: Status: Active Protocol: Document 07/22/18 17:30 EA (Rec: 07/23/18 14:29 EA [id number]) Special Tests Lumbar Spine Special Tests Other- 1 Test Results Post quadrant test: positive to right facets joint dysfunction Straight Leg Raise Test Results negative Slump Test Results negative PT-OP-M Strength Start: 07/22/18 15:53 Freq: Status: Active Protocol: Document 07/22/18 17:30 EA (Rec: 07/23/18 14:29 EA [id number]) Trunk Strength Trunk Manual Muscle Testing Flexion 4- Good- Extension 4- Good- Rotation Left 4 Good Rotation Right 4 Good Lateral Flexion Left 4- Good- Lateral Flexion Right 4- Good- PT-OP-Q Treatments Start: 07/22/18 15:53 Freq: Status: Active Protocol: Document 08/29/18 15:32 SA (Rec: 08/29/18 15:39 SA [email or web address]) Cardio Equipment Recumbent Stepper (Sci-Fit) Duration (Minutes) 5 Resistance 4 Therapeutic Exercises Supine Exercises 2 Supine Exercise Name Trunk rotation Reps/Minutes x 10reps x 2 sets 1 Supine Exercise Name PPT w/ head lift w/ SLR Reps/Minutes x 5 reps x 5 reps Comments isomet to head and PPt SL heel slides with abdominal bracing Side bilateral Reps/Minutes 10x each Pelvic tilts Supine Exercise Name PPT with marching Equipment Used x 5 marching x 5 reps HS stretch Side bilateral Reps/Minutes 2x 20 each Sitting Exercises QL stretch Side bilateral Reps/Minutes 30 x 2 Comments Focus on stretching R side Manual Therapy Treatment Soft Tissue Mobilization STM/MFR Body Location Lumbar paraspinals/QL Mobilization Type Rolling Sustained Pressure Trigger Point Release Intensity/Depth Moderate Comments Pt seated with leaning onto bolster PT-OP-R Modalities Start: 07/22/18 15:53 Freq: Status: Active Protocol: Document 08/29/18 15:32 SA (Rec: 08/29/18 15:39 SA [email or web address]) Electric Stimulation Electric Stimulation IFC Body Location Lumbar paraspinals Duration (Minutes) 15 Contraction Type Normal Target/Sweep Sweep Patient Position Sitting Combined With Heat/Cold Hot Pack PT-OP-T Assessment and Plan Start: 07/22/18 15:53 Freq: Status: Active Protocol: Document 08/29/18 15:32 SA (Rec: 08/29/18 15:39 SA [email or web address]) Physical Therapy Assessment Assessment Summary Assessment Pt consistent with HEP, demonstrates good exercise tolerance and improving lumbar mobility. Physical Therapy Plan Next Visit Focus/Plan Next Note Type Treatment Note Next Visit Plan Continue to progress stretching and core stability program as tolerated.
--- NOTE | 2018-09-23 15:37 | PT.OTN ---
Current Diagnoses Radiculopathy, lumbosacral region (09/23/18) Physical Therapy Treatment Note PT-OP-A Visit Information Start: 07/22/18 15:53 Freq: Status: Active Protocol: Document 09/23/18 15:29 SA (Rec: 09/23/18 15:37 SA [email or web address]) Out-Patient Physical Therapy Visit Information Visit Information Visit Type Treatment Note Visit Start Time 13:45 Visit Stop Time 14:33 Visit Number 9 Number of SAND ANALYST Visits 2 PT-OP-B Current Condition Start: 07/22/18 15:53 Freq: Status: Active Protocol: Document 07/22/18 17:30 EA (Rec: 07/23/18 14:29 EA [id number]) Current Condition History of Current Condition Onset Date Chronic LBP: aggravated 2017 Current Complaints Localized LBP R > L History of Current Condition Present condition of low back pain has been on and off years ago and easily managed with rest and medication; last summer she reported that pain started to increase and never go away; states pain is intermittent and localized to low back area and aggravated more upon standing and walking . Pt denies loss of function and sensory alteration both LE . 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 Prior Treatments and Tests None identified Future Testing and Treatments Planned None identified Treatment Goals Patient/Caregiver Goals Be able to walk and stand more than 5 or 10 mins. Prior Functional Status Baseline Function- ADL's Independent Baseline Function- Mobility Independent Baseline Function- Gait Able to amb > 10 mins wiht no AD Baseline Function- Work/School activites with standing position > than 10 mins Current Functional Impairments (Reported) Functional Limitations- ADL's Unable to perform ADL's that requires > 5 mins of standing Functional Limitations- Mobility/Gait Limited to 0-5 mins amb PT-OP-C Subjective Start: 07/22/18 15:53 Freq: Status: Active Protocol: Document 09/23/18 15:29 SA (Rec: 09/23/18 15:37 SA [email or web address]) OP-PT Subjective Patient Comments Patient Comments Pt reports having overdone it over the holidays with cooking and carrying gifts. Continues with stretching at home. PT-OP-F Manual Assessment Start: 07/22/18 15:53 Freq: Status: Active Protocol: Document 07/22/18 17:30 EA (Rec: 07/23/18 14:29 EA [id number]) Manual Assessments Soft Tissue Assessment Soft Tissue Mobility Assessment Tightness to right paralumbars , QL Joint Mobility Assessment Joint Mobility Assessment L2-L5 facets hypomobility PT-OP-G Mobility & Gait Start: 07/22/18 15:53 Freq: Status: Active Protocol: Document 07/22/18 17:30 EA (Rec: 07/23/18 14:29 EA [id number]) OP Gait Assessment Gait Gait Assistance Required: Independent Able to Maintain Weight Bearing Status Yes During Gait Assistive Devices Assistive Device Straight Cane Gait Deviations General Gait Pattern Festinating Comments Gait Comments mild Shuffling (PD ) PT-OP-J Posture/Palpation/Skin Start: 07/22/18 15:53 Freq: Status: Active Protocol: Document 07/22/18 17:31 EA (Rec: 07/24/18 12:37 EA [id number]) Posture Evaluation Position Standing Head/C-Spine Posture Forward Head T-Spine Posture Increased Kyphosis L-Spine Posture Increased Lordosis Shoulder Posture (L) Rounded (R) Rounded Scapula Posture (L) Protracted (R) Protracted Pelvis Posture Anteriorly Tilted (R) Iliac Crest Superior (R) Iliac Crest Inferior Ankle/Foot Posture (L) Forefoot Abducted (R) Forefoot Abducted Palpation Assessment Location One Palpation Location Right pralaumbras, QL Palpation Findings Soft Tissue Tightness Tenderness PT-OP-K Range of Motion Start: 07/22/18 15:53 Freq: Status: Active Protocol: Document 07/22/18 17:31 EA (Rec: 07/24/18 12:37 EA [id number]) Lumbar Spine Range of Motion Lumbar Spine Active Percentage Testing Position Standing Flexion 85 Extension 65 Rotation Left 50 Rotation Right 50 Lateral Flexion Left 65 Lateral Flexion Right 65 ROM Limitations Soft Tissue Tightness Pain PT-OP-L Special Tests Start: 07/22/18 15:53 Freq: Status: Active Protocol: Document 07/22/18 17:30 EA (Rec: 07/23/18 14:29 EA [id number]) Special Tests Lumbar Spine Special Tests Other- 1 Test Results Post quadrant test: positive to right facets joint dysfunction Straight Leg Raise Test Results negative Slump Test Results negative PT-OP-M Strength Start: 07/22/18 15:53 Freq: Status: Active Protocol: Document 07/22/18 17:30 EA (Rec: 07/23/18 14:29 EA [id number]) Trunk Strength Trunk Manual Muscle Testing Flexion 4- Good- Extension 4- Good- Rotation Left 4 Good Rotation Right 4 Good Lateral Flexion Left 4- Good- Lateral Flexion Right 4- Good- PT-OP-Q Treatments Start: 07/22/18 15:53 Freq: Status: Active Protocol: Document 09/23/18 15:29 SA (Rec: 09/23/18 15:37 SA [email or web address]) Cardio Equipment Recumbent Stepper (Sci-Fit) Duration (Minutes) 5 Resistance 4 Therapeutic Exercises Supine Exercises 2 Supine Exercise Name Trunk rotation Reps/Minutes x 10reps x 2 sets 1 Supine Exercise Name PPT w/ head lift w/ SLR Reps/Minutes x 5 reps x 5 reps Comments isomet to head and PPt SL heel slides with abdominal bracing Side bilateral Reps/Minutes 10x each Pelvic tilts Supine Exercise Name PPT with marching Equipment Used x 5 marching x 5 reps HS stretch Side bilateral Reps/Minutes 2x 20 each Sitting Exercises QL stretch Side bilateral Reps/Minutes 30 x 2 Comments Focus on stretching R side Manual Therapy Treatment Soft Tissue Mobilization STM/MFR Body Location Lumbar paraspinals/QL Mobilization Type Rolling Sustained Pressure Trigger Point Release Body Position Sitting PT-OP-R Modalities Start: 07/22/18 15:53 Freq: Status: Active Protocol: Document 09/23/18 15:29 SA (Rec: 09/23/18 15:37 [email or web address]) Electric Stimulation Electric Stimulation IFC Body Location Lumbar paraspinals Duration (Minutes) 15 Contraction Type Normal Target/Sweep Sweep Patient Position Sitting Combined With Heat/Cold Hot Pack PT-OP-T Assessment and Plan Start: 07/22/18 15:53 Freq: Status: Active Protocol: Document 09/23/18 15:29 SA (Rec: 09/23/18 15:37 [email or web address]) Physical Therapy Assessment Assessment Summary Assessment Pt with slight increase in symptoms, noted tightness through L QL and paraspinals that responded well with manual therapy. Physical Therapy Plan Next Visit Focus/Plan Next Note Type Treatment Note Next Visit Plan Progress strengthening/ stability program. Follow up with postural correction recommendations.
--- NOTE | 2018-09-26 13:53 | PT.OTN ---
Current Diagnoses Radiculopathy, lumbosacral region (09/26/18) Physical Therapy Treatment Note PT-OP-A Visit Information Start: 07/22/18 15:53 Freq: Status: Active Protocol: Document 09/26/18 13:43 SA (Rec: 09/26/18 13:53 SA [email or web address]) Out-Patient Physical Therapy Visit Information Visit Information Visit Type Treatment Note Visit Start Time 12:15 Visit Stop Time 13:05 Visit Number 11 Number of OIL WELL PUMPER Visits 3 PT-OP-B Current Condition Start: 07/22/18 15:53 Freq: Status: Active Protocol: Document 07/22/18 17:30 EA (Rec: 07/23/18 14:29 EA [id number]) Current Condition History of Current Condition Onset Date Chronic LBP: aggravated 2017 Current Complaints Localized LBP R > L History of Current Condition Present condition of low back pain has been on and off years ago and easily managed with rest and medication; last summer she reported that pain started to increase and never go away; states pain is intermittent and localized to low back area and aggravated more upon standing and walking . Pt denies loss of function and sensory alteration both LE . 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 Prior Treatments and Tests None identified Future Testing and Treatments Planned None identified Treatment Goals Patient/Caregiver Goals Be able to walk and stand more than 5 or 10 mins. Prior Functional Status Baseline Function- ADL's Independent Baseline Function- Mobility Independent Baseline Function- Gait Able to amb > 10 mins wiht no AD Baseline Function- Work/School activites with standing position > than 10 mins Current Functional Impairments (Reported) Functional Limitations- ADL's Unable to perform ADL's that requires > 5 mins of standing Functional Limitations- Mobility/Gait Limited to 0-5 mins amb PT-OP-C Subjective Start: 07/22/18 15:53 Freq: Status: Active Protocol: Document 09/26/18 13:43 SA (Rec: 09/26/18 13:53 SA [email or web address]) OP-PT Subjective Patient Comments Patient Comments PT reports she is having a good week, feeling like the new Parkinson's medication is helping and her LB symptoms have decreased in occurance. PT-OP-F Manual Assessment Start: 07/22/18 15:53 Freq: Status: Active Protocol: Document 07/22/18 17:30 EA (Rec: 07/23/18 14:29 EA [id number]) Manual Assessments Soft Tissue Assessment Soft Tissue Mobility Assessment Tightness to right paralumbars , QL Joint Mobility Assessment Joint Mobility Assessment L2-L5 facets hypomobility PT-OP-G Mobility & Gait Start: 07/22/18 15:53 Freq: Status: Active Protocol: Document 07/22/18 17:30 EA (Rec: 07/23/18 14:29 EA [id number]) OP Gait Assessment Gait Gait Assistance Required: Independent Able to Maintain Weight Bearing Status Yes During Gait Assistive Devices Assistive Device Straight Cane Gait Deviations General Gait Pattern Festinating Comments Gait Comments mild Shuffling (PD ) PT-OP-J Posture/Palpation/Skin Start: 07/22/18 15:53 Freq: Status: Active Protocol: Document 07/22/18 17:31 EA (Rec: 07/24/18 12:37 EA [id number]) Posture Evaluation Position Standing Head/C-Spine Posture Forward Head T-Spine Posture Increased Kyphosis L-Spine Posture Increased Lordosis Shoulder Posture (L) Rounded (R) Rounded Scapula Posture (L) Protracted (R) Protracted Pelvis Posture Anteriorly Tilted (R) Iliac Crest Superior (R) Iliac Crest Inferior Ankle/Foot Posture (L) Forefoot Abducted (R) Forefoot Abducted Palpation Assessment Location One Palpation Location Right pralaumbras, QL Palpation Findings Soft Tissue Tightness Tenderness PT-OP-K Range of Motion Start: 07/22/18 15:53 Freq: Status: Active Protocol: Document 07/22/18 17:31 EA (Rec: 07/24/18 12:37 EA [id number]) Lumbar Spine Range of Motion Lumbar Spine Active Percentage Testing Position Standing Flexion 85 Extension 65 Rotation Left 50 Rotation Right 50 Lateral Flexion Left 65 Lateral Flexion Right 65 ROM Limitations Soft Tissue Tightness Pain PT-OP-L Special Tests Start: 07/22/18 15:53 Freq: Status: Active Protocol: Document 07/22/18 17:30 EA (Rec: 07/23/18 14:29 EA [id number]) Special Tests Lumbar Spine Special Tests Other- 1 Test Results Post quadrant test: positive to right facets joint dysfunction Straight Leg Raise Test Results negative Slump Test Results negative PT-OP-M Strength Start: 07/22/18 15:53 Freq: Status: Active Protocol: Document 07/22/18 17:30 EA (Rec: 07/23/18 14:29 EA [id number]) Trunk Strength Trunk Manual Muscle Testing Flexion 4- Good- Extension 4- Good- Rotation Left 4 Good Rotation Right 4 Good Lateral Flexion Left 4- Good- Lateral Flexion Right 4- Good- PT-OP-Q Treatments Start: 07/22/18 15:53 Freq: Status: Active Protocol: Document 09/26/18 13:43 SA (Rec: 09/26/18 13:53 SA [email or web address]) Cardio Equipment Recumbent Bicycle Duration (Minutes) 6 Resistance 4 Therapeutic Exercises Supine Exercises 2 Supine Exercise Name Trunk rotation Reps/Minutes x 10reps x 2 sets 1 Supine Exercise Name PPT w/ head lift w/ SLR Reps/Minutes 10 reps each Comments isomet to head and PPt SL heel slides with abdominal bracing Side bilateral Reps/Minutes 10x each Pelvic tilts Supine Exercise Name PPT with marching Equipment Used x 5 marching x 5 reps Sitting Exercises QL stretch Side bilateral Reps/Minutes 30 x 2 Comments Focus on stretching R side Other Exercises Wall postural stretch Side bilateral Reps/Minutes 30 x 3 Comments Focus on thoracic ext and neutral spine Manual Therapy Treatment Soft Tissue Mobilization STM/MFR Body Location Lumbar paraspinals/QL Mobilization Type Rolling Sustained Pressure Trigger Point Release Body Position Sitting PT-OP-R Modalities Start: 07/22/18 15:53 Freq: Status: Active Protocol: Document 09/26/18 13:43 SA (Rec: 09/26/18 13:53 SA [email or web address]) Electric Stimulation Electric Stimulation IFC Body Location Lumbar paraspinals Duration (Minutes) 15 Contraction Type Normal Target/Sweep Sweep Patient Position Sitting Combined With Heat/Cold Hot Pack PT-OP-T Assessment and Plan Start: 07/22/18 15:53 Freq: Status: Active Protocol: Document 09/26/18 13:43 SA (Rec: 09/26/18 13:53 SA [email or web address]) Physical Therapy Assessment Assessment Summary Assessment Decreased muscle tightness noted through lumbar paraspinals. Education on postural correction in both seated/standing and wall stretch given for HEP. Pt feels she is walking better and notes an improvement in shuffling when she pays attention to her posture. Physical Therapy Plan Next Visit Focus/Plan Next Note Type Treatment Note Next Visit Plan Progress core stab. program and assess posture with mobility tasks.
--- NOTE | 2018-09-30 17:00 | PT.OPPOC ---
Current Diagnoses Radiculopathy, lumbosacral region (09/30/18) Provider Visit Care Team Role Provider Type Suresh Severino MD Attending Provider Physician Primary Care Provider Specialty: Internal Medicine Address: [address] [place] [address], [facility] Email: Plan Of Care PT-OP-T Assessment and Plan Start: 07/22/18 15:53 Freq: Status: Active Protocol: Document 09/30/18 15:09 FARTUN (Rec: 09/30/18 15:13 FARTUN [id number]) Physical Therapy Assessment Rehab Potential Rehabilitation Potential Fair Impairments Impairments Activity Tolerance Balance Functional Mobility Gait Pain Posture ROM Soft Tissue Mobility Strength Other Impairments Chronicity of the condition Goals Five Impairment No HEP in place Wood Model Builder Goal (LTG) Patient will comply to HEP and will exhibit safety to all recommended home exercises program. LTG Duration 4 wks Four Impairment Impaired lumbosacral ROM Fpc Goal (LTG) Patient will reach near to normal lumbar Extension/side flexion, rotation with no symptoms provocation to enhance functional mobility. LTG Duration 4 wks Three Impairment Impaired tolerance to ADL's Fpc Goal (LTG) Patient will increase tolerance to ADL's > 5mins without increase in low back pain LTG Duration 4 wks Two Impairment Impaired standing tolerance Fpc Goal (LTG) Patient will tolerate standing good posture more than 5 mins with no increase in symptoms LTG Duration 4 wks One Impairment Limited ambulation tolerance Wood Model Builder Goal (LTG) Patient will ambulate > 10 mins with no increase in back symptoms with STC. LTG Duration 4 wks Progress Towards Goals Progress Towards Goals Slow Progress due to Activity Tolerance Slow Progress due to Medical Issues Assessment Summary Assessment Pleasant 68 y/o F patient with a referring diagnosis of lumbar radiculopathy that has been under my care for almost two months now. Patient exhibited slow progress at this time due to other medical issues. Obesity and movement disorder seems to limit patient ability to tolerate recommended exercises and corrected posture. Patient at this time learned home exercises program safely and has been following recommended body mechanics. Patient reports of pain frequency also has been less in the past weeks. Patient willingness to continue skilled PT still high . Patient will continue to benefit skilled PT with the main focus of decreasing back symptoms. Physical Therapy Plan Frequency and Duration Frequency of Treatment 2x/Week Duration of Treatment 4 wks Plan of Care Start Date 09/30/18 Plan of Care End Date 10/28/18 Therapeutic Interventions Therapeutic Interventions Coordination Training Gait Training Joint Mobilizations Manual Therapy Patient/Caregiver Education Self-Care/Home Management Soft Tissue Mobilization Therapeutic Exercises Modalities Cold Pack/Ice Massage Electric Stimulation Hot Packs Next Visit Focus/Plan Next Note Type Treatment Note Next Visit Plan Progress core stab. program and assess posture with mobility tasks. Plan of Care Dates Plan of Care Start Date 09/30/18 Plan of Care End Date 10/28/18 Please Sign and Return: I have reviewed this Plan of Care and certify that the skilled therapy services above are required to meet the patient?s needs. Physician Signature Date Printed Name and Credentials Clinical Instructor Signature Printed Name and Credentials
--- NOTE | 2018-09-30 17:00 | PT.OTRE ---
Current Diagnoses Radiculopathy, lumbosacral region (09/30/18) Past Medical History (Last Reviewed 04/21/18 @ 16:54 by Abdullahi Kim MD) Low back pain with sciatica (Chronic) Gastroesophageal reflux disease without esophagitis (Chronic 09/27/15) Mixed hyperlipidemia (Chronic 09/27/15) Overactive bladder (Chronic 09/27/15) Parkinson's disease (Chronic 09/27/15) Seasonal allergic rhinitis (Chronic 09/27/15) Plantar fasciitis of right foot (Chronic 12/17/17) GERD (gastroesophageal reflux disease) (Acute) Allergic rhinitis (Chronic) Chronic back pain (Chronic) Deviated septum (Chronic) Diabetes (Chronic) Eczema (Chronic) Hearing loss (Chronic) Hyperlipemia (Chronic) Hypertension (Chronic) Parkinson's disease (Chronic ~2008) Urinary incontinence (Chronic) Vertigo (Chronic) Foot pain (Resolved) Surgical History (Last Reviewed 04/21/18 @ 16:54 by Abdullahi Kim MD) Status post cholecystectomy Provider Visit Care Team Role Provider Type Suresh Severino MD Attending Provider Physician Primary Care Provider Specialty: Internal Medicine Address: [address] [place] [address], [facility] Email: Physical Therapy Re-Evaluation PT-OP-A Visit Information Start: 07/22/18 15:53 Freq: Status: Active Protocol: Document 09/30/18 15:09 EA (Rec: 09/30/18 15:13 EA [id number]) Out-Patient Physical Therapy Visit Information Visit Information Visit Type Treatment Note Visit Start Time 14:30 Visit Stop Time 15:17 Visit Number 12 Number of EMBOSSING PRESS OPERATOR APPRENTICE Visits 1 PT-OP-B Current Condition Start: 07/22/18 15:53 Freq: Status: Active Protocol: Document 07/22/18 17:30 EA (Rec: 07/23/18 14:29 EA [id number]) Current Condition History of Current Condition Onset Date Chronic LBP: aggravated 2017 Current Complaints Localized LBP R > L History of Current Condition Present condition of low back pain has been on and off years ago and easily managed with rest and medication; last summer she reported that pain started to increase and never go away; states pain is intermittent and localized to low back area and aggravated more upon standing and walking . Pt denies loss of function and sensory alteration both LE . 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 Prior Treatments and Tests None identified Future Testing and Treatments Planned None identified Treatment Goals Patient/Caregiver Goals Be able to walk and stand more than 5 or 10 mins. Prior Functional Status Baseline Function- ADL's Independent Baseline Function- Mobility Independent Baseline Function- Gait Able to amb > 10 mins wiht no AD Baseline Function- Work/School activites with standing position > than 10 mins Current Functional Impairments (Reported) Functional Limitations- ADL's Unable to perform ADL's that requires > 5 mins of standing Functional Limitations- Mobility/Gait Limited to 0-5 mins amb PT-OP-C Subjective Start: 07/22/18 15:53 Freq: Status: Active Protocol: Document 09/30/18 15:09 EA (Rec: 09/30/18 15:13 EA [id number]) OP-PT Subjective Patient Comments Patient Comments Pt reports less frequent pain but intensity is not change; states standing for a long time increased pain. Patient Reported Progress Improving PT-OP-F Manual Assessment Start: 07/22/18 15:53 Freq: Status: Active Protocol: Document 09/30/18 17:00 EA (Rec: 10/01/18 07:27 EA [id number]) Manual Assessments Soft Tissue Assessment Soft Tissue Mobility Assessment Tightness to right paralumbars , QL Joint Mobility Assessment Joint Mobility Assessment L2-L5 facets hypomobility PT-OP-G Mobility & Gait Start: 07/22/18 15:53 Freq: Status: Active Protocol: Document 09/30/18 17:00 EA (Rec: 10/01/18 07:27 EA [id number]) OP Gait Assessment Gait Gait Assistance Required: Independent Able to Maintain Weight Bearing Status Yes During Gait Assistive Devices Assistive Device Straight Cane Gait Deviations General Gait Pattern Festinating Comments Gait Comments mild Shuffling (PD ) PT-OP-J Posture/Palpation/Skin Start: 07/22/18 15:53 Freq: Status: Active Protocol: Document 09/30/18 17:00 EA (Rec: 10/01/18 07:27 EA [id number]) Posture Evaluation Position Standing Head/C-Spine Posture Forward Head T-Spine Posture Increased Kyphosis L-Spine Posture Increased Lordosis Shoulder Posture (L) Rounded (R) Rounded Scapula Posture (L) Protracted (R) Protracted Pelvis Posture Anteriorly Tilted (R) Iliac Crest Superior (R) Iliac Crest Inferior Ankle/Foot Posture (L) Forefoot Abducted (R) Forefoot Abducted Palpation Assessment Location One Palpation Location Right pralaumbras, QL Palpation Findings Soft Tissue Tightness Tenderness PT-OP-K Range of Motion Start: 07/22/18 15:53 Freq: Status: Active Protocol: Document 09/30/18 17:00 EA (Rec: 10/01/18 07:28 EA [id number]) Lumbar Spine Range of Motion Lumbar Spine Active Percentage Testing Position Standing Flexion 85 Extension 65 Rotation Left 50 Rotation Right 50 Lateral Flexion Left 65 Lateral Flexion Right 65 ROM Limitations Soft Tissue Tightness Pain PT-OP-L Special Tests Start: 07/22/18 15:53 Freq: Status: Active Protocol: Document 09/30/18 17:00 EA (Rec: 10/01/18 07:27 EA [id number]) Special Tests Lumbar Spine Special Tests Other- 1 Test Results Post quadrant test: positive to right facets joint dysfunction Straight Leg Raise Test Results negative Slump Test Results negative PT-OP-M Strength Start: 07/22/18 15:53 Freq: Status: Active Protocol: Document 09/30/18 17:00 EA (Rec: 10/01/18 07:27 EA [id number]) Trunk Strength Trunk Manual Muscle Testing Flexion 4- Good- Extension 4- Good- Rotation Left 4 Good Rotation Right 4 Good Lateral Flexion Left 4- Good- Lateral Flexion Right 4- Good- PT-OP-Q Treatments Start: 07/22/18 15:53 Freq: Status: Active Protocol: Document 09/30/18 17:00 EA (Rec: 10/01/18 07:28 EA [id number]) Therapeutic Exercises Supine Exercises 2 Supine Exercise Name Trunk rotation Reps/Minutes x 10reps x 2 sets 1 Supine Exercise Name PPT w/ head lift w/ SLR Reps/Minutes 10 reps each Comments isomet to head and PPt SL heel slides with abdominal bracing Side bilateral Reps/Minutes 10x each Pelvic tilts Supine Exercise Name PPT with marching Equipment Used x 5 marching x 5 reps HS stretch Side bilateral Reps/Minutes 2x 20 each Sitting Exercises 1 Sitting Exercise Name Paralumbars stretch Reps/Minutes x 10 reps x 5 SH Comments FWD flexion with arm support in thefront (bolster) QL stretch Side bilateral Reps/Minutes 30 x 2 Comments Focus on stretching R side Standing Exercises Lateral trunk lean Resistance towards L side Equipment Used at wall Reps/Minutes 2x 30 Comments to tolerance Other Exercises Wall postural stretch Side bilateral Reps/Minutes 30 x 3 Comments Focus on thoracic ext and neutral spine Manual Therapy Treatment Soft Tissue Mobilization STM/MFR Body Location Lumbar paraspinals/QL Mobilization Type Rolling Sustained Pressure Trigger Point Release Body Position Sitting PT-OP-R Modalities Start: 07/22/18 15:53 Freq: Status: Active Protocol: Document 09/30/18 17:00 EA (Rec: 10/01/18 07:29 EA [id number]) Electric Stimulation Electric Stimulation IFC Body Location Lumbar paraspinals Duration (Minutes) 15 Intensity 27 Contraction Type Normal Target/Sweep Sweep Patient Position Sitting Combined With Heat/Cold Hot Pack PT-OP-T Assessment and Plan Start: 07/22/18 15:53 Freq: Status: Active Protocol: Document 09/30/18 15:09 EA (Rec: 09/30/18 15:13 EA [id number]) Physical Therapy Assessment Rehab Potential Rehabilitation Potential Fair Impairments Impairments Activity Tolerance Balance Functional Mobility Gait Pain Posture ROM Soft Tissue Mobility Strength Other Impairments Chronicity of the condition Goals Five Impairment No HEP in place Programming Coordinator Goal (LTG) Patient will comply to HEP and will exhibit safety to all recommended home exercises program. LTG Duration 4 wks Four Impairment Impaired lumbosacral ROM Programming Coordinator Goal (LTG) Patient will reach near to normal lumbar Extension/side flexion, rotation with no symptoms provocation to enhance functional mobility. LTG Duration 4 wks Three Impairment Impaired tolerance to ADL's Programming Coordinator Goal (LTG) Patient will increase tolerance to ADL's > 5mins without increase in low back pain LTG Duration 4 wks Two Impairment Impaired standing tolerance Prison Goal (LTG) Patient will tolerate standing good posture more than 5 mins with no increase in symptoms LTG Duration 4 wks One Impairment Limited ambulation tolerance Programming Coordinator Goal (LTG) Patient will ambulate > 10 mins with no increase in back symptoms with STC. LTG Duration 4 wks Progress Towards Goals Progress Towards Goals Slow Progress due to Activity Tolerance Slow Progress due to Medical Issues Assessment Summary Assessment Pleasant 68 y/o F patient with a referring diagnosis of lumbar radiculopathy that has been under my care for almost two months now. Patient exhibited slow progress at this time due to other medical issues. Obesity and movement disorder seems to limit patient ability to tolerate recommended exercises and corrected posture. Patient at this time learned home exercises program safely and has been following recommended body mechanics. Patient reports of pain frequency also has been less in the past weeks. Patient willingness to continue skilled PT still high . Patient will continue to benefit skilled PT with the main focus of decreasing back symptoms. Physical Therapy Plan Frequency and Duration Frequency of Treatment 2x/Week Duration of Treatment 4 wks Plan of Care Start Date 09/30/18 Plan of Care End Date 10/28/18 Therapeutic Interventions Therapeutic Interventions Coordination Training Gait Training Joint Mobilizations Manual Therapy Patient/Caregiver Education Self-Care/Home Management Soft Tissue Mobilization Therapeutic Exercises Modalities Cold Pack/Ice Massage Electric Stimulation Hot Packs Next Visit Focus/Plan Next Note Type Treatment Note Next Visit Plan Progress core stab. program and assess posture with mobility tasks.
--- NOTE | 2018-10-03 10:59 | PT.OTN ---
Current Diagnoses Radiculopathy, lumbosacral region (10/03/18) Physical Therapy Treatment Note PT-OP-A Visit Information Start: 07/22/18 15:53 Freq: Status: Active Protocol: Document 10/03/18 10:48 SA (Rec: 10/03/18 10:59 SA [id number]) Out-Patient Physical Therapy Visit Information Visit Information Visit Type Treatment Note Visit Start Time 08:15 Visit Stop Time 09:05 Visit Number 13 Number of RADIAL DRILL PRESS OPERATOR Visits 1 PT-OP-B Current Condition Start: 07/22/18 15:53 Freq: Status: Active Protocol: Document 07/22/18 17:30 EA (Rec: 07/23/18 14:29 EA [id number]) Current Condition History of Current Condition Onset Date Chronic LBP: aggravated 2017 Current Complaints Localized LBP R > L History of Current Condition Present condition of low back pain has been on and off years ago and easily managed with rest and medication; last summer she reported that pain started to increase and never go away; states pain is intermittent and localized to low back area and aggravated more upon standing and walking . Pt denies loss of function and sensory alteration both LE . 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 Prior Treatments and Tests None identified Future Testing and Treatments Planned None identified Treatment Goals Patient/Caregiver Goals Be able to walk and stand more than 5 or 10 mins. Prior Functional Status Baseline Function- ADL's Independent Baseline Function- Mobility Independent Baseline Function- Gait Able to amb > 10 mins wiht no AD Baseline Function- Work/School activites with standing position > than 10 mins Current Functional Impairments (Reported) Functional Limitations- ADL's Unable to perform ADL's that requires > 5 mins of standing Functional Limitations- Mobility/Gait Limited to 0-5 mins amb PT-OP-C Subjective Start: 07/22/18 15:53 Freq: Status: Active Protocol: Document 10/03/18 10:48 SA (Rec: 10/03/18 10:59 SA [id number]) OP-PT Subjective Patient Comments Patient Comments Pt reports she is walking beter and paying more attention to not shuffling, feels her low back pain is decreasing in occurance. PT-OP-F Manual Assessment Start: 07/22/18 15:53 Freq: Status: Active Protocol: Document 09/30/18 17:00 EA (Rec: 10/01/18 07:27 EA [id number]) Manual Assessments Soft Tissue Assessment Soft Tissue Mobility Assessment Tightness to right paralumbars , QL Joint Mobility Assessment Joint Mobility Assessment L2-L5 facets hypomobility PT-OP-G Mobility & Gait Start: 07/22/18 15:53 Freq: Status: Active Protocol: Document 09/30/18 17:00 EA (Rec: 10/01/18 07:27 EA [id number]) OP Gait Assessment Gait Gait Assistance Required: Independent Able to Maintain Weight Bearing Status Yes During Gait Assistive Devices Assistive Device Straight Cane Gait Deviations General Gait Pattern Festinating Comments Gait Comments mild Shuffling (PD ) PT-OP-J Posture/Palpation/Skin Start: 07/22/18 15:53 Freq: Status: Active Protocol: Document 09/30/18 17:00 EA (Rec: 10/01/18 07:27 EA [id number]) Posture Evaluation Position Standing Head/C-Spine Posture Forward Head T-Spine Posture Increased Kyphosis L-Spine Posture Increased Lordosis Shoulder Posture (L) Rounded (R) Rounded Scapula Posture (L) Protracted (R) Protracted Pelvis Posture Anteriorly Tilted (R) Iliac Crest Superior (R) Iliac Crest Inferior Ankle/Foot Posture (L) Forefoot Abducted (R) Forefoot Abducted Palpation Assessment Location One Palpation Location Right pralaumbras, QL Palpation Findings Soft Tissue Tightness Tenderness PT-OP-K Range of Motion Start: 07/22/18 15:53 Freq: Status: Active Protocol: Document 09/30/18 17:00 EA (Rec: 10/01/18 07:28 EA [id number]) Lumbar Spine Range of Motion Lumbar Spine Active Percentage Testing Position Standing Flexion 85 Extension 65 Rotation Left 50 Rotation Right 50 Lateral Flexion Left 65 Lateral Flexion Right 65 ROM Limitations Soft Tissue Tightness Pain PT-OP-L Special Tests Start: 07/22/18 15:53 Freq: Status: Active Protocol: Document 09/30/18 17:00 EA (Rec: 10/01/18 07:27 EA [id number]) Special Tests Lumbar Spine Special Tests Other- 1 Test Results Post quadrant test: positive to right facets joint dysfunction Straight Leg Raise Test Results negative Slump Test Results negative PT-OP-M Strength Start: 07/22/18 15:53 Freq: Status: Active Protocol: Document 09/30/18 17:00 EA (Rec: 10/01/18 07:27 EA [id number]) Trunk Strength Trunk Manual Muscle Testing Flexion 4- Good- Extension 4- Good- Rotation Left 4 Good Rotation Right 4 Good Lateral Flexion Left 4- Good- Lateral Flexion Right 4- Good- PT-OP-Q Treatments Start: 07/22/18 15:53 Freq: Status: Active Protocol: Document 10/03/18 10:48 SA (Rec: 10/03/18 10:59 SA [email or web address]) Cardio Equipment Recumbent Stepper (Sci-Fit) Duration (Minutes) 6 Resistance 4 Therapeutic Exercises Supine Exercises Pelvic tilts Supine Exercise Name PPT with marching Equipment Used 10x each leg Sitting Exercises Seated pelvic tilt with controlled marching Side bilateral Reps/Minutes 10 x each 1 Sitting Exercise Name Paralumbars stretch Reps/Minutes x 10 reps x 5 SH Comments FWD flexion with arm support in thefront (bolster) QL stretch Side bilateral Reps/Minutes 30 x 2 Comments Focus on stretching R side Standing Exercises Lateral trunk lean Resistance towards L side Equipment Used at wall Reps/Minutes 2x 30 Comments to tolerance Other Exercises Wall postural stretch Side bilateral Reps/Minutes 30 x 3 Comments Focus on thoracic ext and neutral spine Manual Therapy Treatment Soft Tissue Mobilization STM/MFR Body Location Lumbar paraspinals/QL Mobilization Type Rolling Sustained Pressure Trigger Point Release Body Position Sitting PT-OP-R Modalities Start: 07/22/18 15:53 Freq: Status: Active Protocol: Document 10/03/18 10:48 SA (Rec: 10/03/18 10:59 SA [email or web address]) Electric Stimulation Electric Stimulation IFC Body Location Lumbar paraspinals Duration (Minutes) 15 Intensity 26 Contraction Type Normal Target/Sweep Sweep Patient Position Sitting Combined With Heat/Cold Hot Pack PT-OP-T Assessment and Plan Start: 07/22/18 15:53 Freq: Status: Active Protocol: Document 10/03/18 10:48 SA (Rec: 10/03/18 10:59 SA [email or web address]) Physical Therapy Assessment Assessment Summary Assessment Pt progressing well, on new Parkinson's med that she believes are helping. Doing well with postural awareness and HEP. Physical Therapy Plan Next Visit Focus/Plan Next Note Type Treatment Note Next Visit Plan Progress core stab and postural correction program as tolerated.
--- NOTE | 2018-10-07 12:05 | PT.OTN ---
Current Diagnoses Radiculopathy, lumbosacral region (10/07/18) Physical Therapy Treatment Note PT-OP-A Visit Information Start: 07/22/18 15:53 Freq: Status: Active Protocol: Document 10/07/18 10:27 EA (Rec: 10/07/18 10:31 EA [id number]) Out-Patient Physical Therapy Visit Information Visit Information Visit Type Treatment Note Visit Start Time 09:45 Visit Stop Time 10:30 Visit Number 14 Number of INSIDE STEWARD/STEWARDESS Visits 1 PT-OP-B Current Condition Start: 07/22/18 15:53 Freq: Status: Active Protocol: Document 07/22/18 17:30 EA (Rec: 07/23/18 14:29 EA [id number]) Current Condition History of Current Condition Onset Date Chronic LBP: aggravated 2017 Current Complaints Localized LBP R > L History of Current Condition Present condition of low back pain has been on and off years ago and easily managed with rest and medication; last summer she reported that pain started to increase and never go away; states pain is intermittent and localized to low back area and aggravated more upon standing and walking . Pt denies loss of function and sensory alteration both LE . 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 Prior Treatments and Tests None identified Future Testing and Treatments Planned None identified Treatment Goals Patient/Caregiver Goals Be able to walk and stand more than 5 or 10 mins. Prior Functional Status Baseline Function- ADL's Independent Baseline Function- Mobility Independent Baseline Function- Gait Able to amb > 10 mins wiht no AD Baseline Function- Work/School activites with standing position > than 10 mins Current Functional Impairments (Reported) Functional Limitations- ADL's Unable to perform ADL's that requires > 5 mins of standing Functional Limitations- Mobility/Gait Limited to 0-5 mins amb PT-OP-C Subjective Start: 07/22/18 15:53 Freq: Status: Active Protocol: Document 10/07/18 10:27 EA (Rec: 10/07/18 10:31 EA [id number]) OP-PT Subjective Patient Comments Patient Comments Pt reports low pain is improving; states complaint with HEP and aware of proper sitting and standing posture PT-OP-F Manual Assessment Start: 07/22/18 15:53 Freq: Status: Active Protocol: Document 09/30/18 17:00 EA (Rec: 10/01/18 07:27 EA [id number]) Manual Assessments Soft Tissue Assessment Soft Tissue Mobility Assessment Tightness to right paralumbars , QL Joint Mobility Assessment Joint Mobility Assessment L2-L5 facets hypomobility PT-OP-G Mobility & Gait Start: 07/22/18 15:53 Freq: Status: Active Protocol: Document 09/30/18 17:00 EA (Rec: 10/01/18 07:27 EA [id number]) OP Gait Assessment Gait Gait Assistance Required: Independent Able to Maintain Weight Bearing Status Yes During Gait Assistive Devices Assistive Device Straight Cane Gait Deviations General Gait Pattern Festinating Comments Gait Comments mild Shuffling (PD ) PT-OP-J Posture/Palpation/Skin Start: 07/22/18 15:53 Freq: Status: Active Protocol: Document 09/30/18 17:00 EA (Rec: 10/01/18 07:27 EA [id number]) Posture Evaluation Position Standing Head/C-Spine Posture Forward Head T-Spine Posture Increased Kyphosis L-Spine Posture Increased Lordosis Shoulder Posture (L) Rounded (R) Rounded Scapula Posture (L) Protracted (R) Protracted Pelvis Posture Anteriorly Tilted (R) Iliac Crest Superior (R) Iliac Crest Inferior Ankle/Foot Posture (L) Forefoot Abducted (R) Forefoot Abducted Palpation Assessment Location One Palpation Location Right pralaumbras, QL Palpation Findings Soft Tissue Tightness Tenderness PT-OP-K Range of Motion Start: 07/22/18 15:53 Freq: Status: Active Protocol: Document 09/30/18 17:00 EA (Rec: 10/01/18 07:28 EA [id number]) Lumbar Spine Range of Motion Lumbar Spine Active Percentage Testing Position Standing Flexion 85 Extension 65 Rotation Left 50 Rotation Right 50 Lateral Flexion Left 65 Lateral Flexion Right 65 ROM Limitations Soft Tissue Tightness Pain PT-OP-L Special Tests Start: 07/22/18 15:53 Freq: Status: Active Protocol: Document 09/30/18 17:00 EA (Rec: 10/01/18 07:27 EA [id number]) Special Tests Lumbar Spine Special Tests Other- 1 Test Results Post quadrant test: positive to right facets joint dysfunction Straight Leg Raise Test Results negative Slump Test Results negative PT-OP-M Strength Start: 07/22/18 15:53 Freq: Status: Active Protocol: Document 09/30/18 17:00 EA (Rec: 10/01/18 07:27 EA [id number]) Trunk Strength Trunk Manual Muscle Testing Flexion 4- Good- Extension 4- Good- Rotation Left 4 Good Rotation Right 4 Good Lateral Flexion Left 4- Good- Lateral Flexion Right 4- Good- PT-OP-Q Treatments Start: 07/22/18 15:53 Freq: Status: Active Protocol: Document 10/07/18 10:27 EA (Rec: 10/07/18 10:31 EA [id number]) Cardio Equipment Recumbent Stepper (Sci-Fit) Duration (Minutes) 6 Resistance 4 Therapeutic Exercises Supine Exercises 2 Supine Exercise Name Trunk rotation Reps/Minutes x 10reps x 2 sets 1 Supine Exercise Name PPT w/ head lift w/ SLR Reps/Minutes 10 reps each Comments isomet to head and PPt Pelvic tilts Supine Exercise Name PPT with marching Equipment Used 10x each leg HS stretch Side bilateral Reps/Minutes 2x 20 each Sitting Exercises 1 Sitting Exercise Name Paralumbars stretch Reps/Minutes x 10 reps x 5 SH Comments FWD flexion with arm support in thefront (bolster) QL stretch Side bilateral Reps/Minutes 30 x 2 Comments Focus on stretching R side Other Exercises Wall postural stretch Side bilateral Reps/Minutes 30 x 3 Comments Focus on thoracic ext and neutral spine Manual Therapy Treatment Soft Tissue Mobilization STM/MFR Body Location Lumbar paraspinals/QL Mobilization Type Rolling Sustained Pressure Trigger Point Release Body Position Sitting Self-Care/Home Management Treatment Education Patient Education Body Mechanics Pain Management Posture PT-OP-R Modalities Start: 07/22/18 15:53 Freq: Status: Active Protocol: Document 10/07/18 10:27 EA (Rec: 10/07/18 10:31 EA [id number]) Electric Stimulation Electric Stimulation IFC Body Location Lumbar paraspinals Duration (Minutes) 15 Intensity 26 Contraction Type Normal Target/Sweep Sweep Patient Position Sitting Combined With Heat/Cold Hot Pack PT-OP-T Assessment and Plan Start: 07/22/18 15:53 Freq: Status: Active Protocol: Document 10/07/18 10:27 EA (Rec: 10/07/18 10:31 EA [id number]) Physical Therapy Assessment Assessment Summary Assessment Noted decreased low back symptoms with improved lumbar ROM. Patient is progressing well. Physical Therapy Plan Next Visit Focus/Plan Next Note Type Treatment Note Next Visit Plan Progress core stab and postural correction program as tolerated.
--- NOTE | 2018-10-10 16:05 | PT.OTN ---
Current Diagnoses Radiculopathy, lumbosacral region (10/10/18) Physical Therapy Treatment Note PT-OP-A Visit Information Start: 07/22/18 15:53 Freq: Status: Active Protocol: Document 10/10/18 15:57 SA (Rec: 10/10/18 16:05 SA [email or web address]) Out-Patient Physical Therapy Visit Information Visit Information Visit Type Treatment Note Visit Start Time 13:45 Visit Stop Time 14:32 Visit Number 15 Number of COMMUNITY HEALTH EDUCATOR Visits 1 PT-OP-B Current Condition Start: 07/22/18 15:53 Freq: Status: Active Protocol: Document 07/22/18 17:30 EA (Rec: 07/23/18 14:29 EA [id number]) Current Condition History of Current Condition Onset Date Chronic LBP: aggravated 2017 Current Complaints Localized LBP R > L History of Current Condition Present condition of low back pain has been on and off years ago and easily managed with rest and medication; last summer she reported that pain started to increase and never go away; states pain is intermittent and localized to low back area and aggravated more upon standing and walking . Pt denies loss of function and sensory alteration both LE . 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 Prior Treatments and Tests None identified Future Testing and Treatments Planned None identified Treatment Goals Patient/Caregiver Goals Be able to walk and stand more than 5 or 10 mins. Prior Functional Status Baseline Function- ADL's Independent Baseline Function- Mobility Independent Baseline Function- Gait Able to amb > 10 mins wiht no AD Baseline Function- Work/School activites with standing position > than 10 mins Current Functional Impairments (Reported) Functional Limitations- ADL's Unable to perform ADL's that requires > 5 mins of standing Functional Limitations- Mobility/Gait Limited to 0-5 mins amb PT-OP-C Subjective Start: 07/22/18 15:53 Freq: Status: Active Protocol: Document 10/10/18 15:57 SA (Rec: 10/10/18 16:05 SA [email or web address]) OP-PT Subjective Patient Comments Patient Comments Pt progressing with decreasing pain levels and consistancy with HEP. PT-OP-F Manual Assessment Start: 07/22/18 15:53 Freq: Status: Active Protocol: Document 09/30/18 17:00 EA (Rec: 10/01/18 07:27 EA [id number]) Manual Assessments Soft Tissue Assessment Soft Tissue Mobility Assessment Tightness to right paralumbars , QL Joint Mobility Assessment Joint Mobility Assessment L2-L5 facets hypomobility PT-OP-G Mobility & Gait Start: 07/22/18 15:53 Freq: Status: Active Protocol: Document 09/30/18 17:00 EA (Rec: 10/01/18 07:27 EA [id number]) OP Gait Assessment Gait Gait Assistance Required: Independent Able to Maintain Weight Bearing Status Yes During Gait Assistive Devices Assistive Device Straight Cane Gait Deviations General Gait Pattern Festinating Comments Gait Comments mild Shuffling (PD ) PT-OP-J Posture/Palpation/Skin Start: 07/22/18 15:53 Freq: Status: Active Protocol: Document 09/30/18 17:00 EA (Rec: 10/01/18 07:27 EA [id number]) Posture Evaluation Position Standing Head/C-Spine Posture Forward Head T-Spine Posture Increased Kyphosis L-Spine Posture Increased Lordosis Shoulder Posture (L) Rounded (R) Rounded Scapula Posture (L) Protracted (R) Protracted Pelvis Posture Anteriorly Tilted (R) Iliac Crest Superior (R) Iliac Crest Inferior Ankle/Foot Posture (L) Forefoot Abducted (R) Forefoot Abducted Palpation Assessment Location One Palpation Location Right pralaumbras, QL Palpation Findings Soft Tissue Tightness Tenderness PT-OP-K Range of Motion Start: 07/22/18 15:53 Freq: Status: Active Protocol: Document 09/30/18 17:00 EA (Rec: 10/01/18 07:28 EA [id number]) Lumbar Spine Range of Motion Lumbar Spine Active Percentage Testing Position Standing Flexion 85 Extension 65 Rotation Left 50 Rotation Right 50 Lateral Flexion Left 65 Lateral Flexion Right 65 ROM Limitations Soft Tissue Tightness Pain PT-OP-L Special Tests Start: 07/22/18 15:53 Freq: Status: Active Protocol: Document 09/30/18 17:00 EA (Rec: 10/01/18 07:27 EA [id number]) Special Tests Lumbar Spine Special Tests Other- 1 Test Results Post quadrant test: positive to right facets joint dysfunction Straight Leg Raise Test Results negative Slump Test Results negative PT-OP-M Strength Start: 07/22/18 15:53 Freq: Status: Active Protocol: Document 09/30/18 17:00 EA (Rec: 10/01/18 07:27 EA [id number]) Trunk Strength Trunk Manual Muscle Testing Flexion 4- Good- Extension 4- Good- Rotation Left 4 Good Rotation Right 4 Good Lateral Flexion Left 4- Good- Lateral Flexion Right 4- Good- PT-OP-Q Treatments Start: 07/22/18 15:53 Freq: Status: Active Protocol: Document 10/10/18 15:57 SA (Rec: 10/10/18 16:05 SA [email or web address]) Cardio Equipment Recumbent Elliptical ([employer]) Duration (Minutes) 6 Resistance 4 Therapeutic Exercises Supine Exercises 2 Supine Exercise Name Trunk rotation Reps/Minutes x 10reps x 2 sets 1 Supine Exercise Name PPT w/ head lift w/ SLR Reps/Minutes 10 reps each Comments isomet to head and PPt HS stretch Side bilateral Reps/Minutes 2x 20 each Sitting Exercises Seated pelvic tilt with controlled marching Side bilateral Reps/Minutes 15x each QL stretch Side bilateral Reps/Minutes 30 x 2 Comments Focus on stretching R side Other Exercises Wall postural stretch Side bilateral Reps/Minutes 30 x 3 Comments Focus on thoracic ext and neutral spine Manual Therapy Treatment Soft Tissue Mobilization STM/MFR Body Location Lumbar paraspinals/QL Mobilization Type Rolling Sustained Pressure Trigger Point Release Body Position Sitting PT-OP-R Modalities Start: 07/22/18 15:53 Freq: Status: Active Protocol: Document 10/10/18 15:57 SA (Rec: 10/10/18 16:05 [email or web address]) Electric Stimulation Electric Stimulation IFC Body Location Lumbar paraspinals Duration (Minutes) 15 Intensity 26 Contraction Type Normal Target/Sweep Sweep Patient Position Sitting Combined With Heat/Cold Hot Pack PT-OP-T Assessment and Plan Start: 07/22/18 15:53 Freq: Status: Active Protocol: Document 10/10/18 15:57 SA (Rec: 10/10/18 16:05 [email or web address]) Physical Therapy Assessment Assessment Summary Assessment Pt progressing well with decreasing sx, and ability to tolerate standing activity with increasing postural awareness. Physical Therapy Plan Next Visit Focus/Plan Next Note Type Treatment Note Next Visit Plan Cont to progress core stab program and postural awareness as tolerated.
--- NOTE | 2018-10-14 16:12 | PT.OTN ---
Current Diagnoses Radiculopathy, lumbosacral region (10/14/18) Physical Therapy Treatment Note PT-OP-A Visit Information Start: 07/22/18 15:53 Freq: Status: Active Protocol: Document 10/14/18 15:49 SA (Rec: 10/14/18 16:12 SA [email or web address]) Out-Patient Physical Therapy Visit Information Visit Information Visit Type Treatment Note Visit Start Time 13:45 Visit Stop Time 14:35 Visit Number 16 Number of JEWEL STRIPPER Visits 2 PT-OP-B Current Condition Start: 07/22/18 15:53 Freq: Status: Active Protocol: Document 07/22/18 17:30 EA (Rec: 07/23/18 14:29 EA [id number]) Current Condition History of Current Condition Onset Date Chronic LBP: aggravated 2017 Current Complaints Localized LBP R > L History of Current Condition Present condition of low back pain has been on and off years ago and easily managed with rest and medication; last summer she reported that pain started to increase and never go away; states pain is intermittent and localized to low back area and aggravated more upon standing and walking . Pt denies loss of function and sensory alteration both LE . 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 Prior Treatments and Tests None identified Future Testing and Treatments Planned None identified Treatment Goals Patient/Caregiver Goals Be able to walk and stand more than 5 or 10 mins. Prior Functional Status Baseline Function- ADL's Independent Baseline Function- Mobility Independent Baseline Function- Gait Able to amb > 10 mins wiht no AD Baseline Function- Work/School activites with standing position > than 10 mins Current Functional Impairments (Reported) Functional Limitations- ADL's Unable to perform ADL's that requires > 5 mins of standing Functional Limitations- Mobility/Gait Limited to 0-5 mins amb PT-OP-C Subjective Start: 07/22/18 15:53 Freq: Status: Active Protocol: Document 10/14/18 15:49 SA (Rec: 10/14/18 16:12 SA [email or web address]) OP-PT Subjective Patient Comments Patient Comments Pt reports having overdone it last week with cleaning and moving furniture in home. She had one painful day but felt better the next day and is back to baseline. PT-OP-F Manual Assessment Start: 07/22/18 15:53 Freq: Status: Active Protocol: Document 09/30/18 17:00 EA (Rec: 10/01/18 07:27 EA [id number]) Manual Assessments Soft Tissue Assessment Soft Tissue Mobility Assessment Tightness to right paralumbars , QL Joint Mobility Assessment Joint Mobility Assessment L2-L5 facets hypomobility PT-OP-G Mobility & Gait Start: 07/22/18 15:53 Freq: Status: Active Protocol: Document 09/30/18 17:00 EA (Rec: 10/01/18 07:27 EA [id number]) OP Gait Assessment Gait Gait Assistance Required: Independent Able to Maintain Weight Bearing Status Yes During Gait Assistive Devices Assistive Device Straight Cane Gait Deviations General Gait Pattern Festinating Comments Gait Comments mild Shuffling (PD ) PT-OP-J Posture/Palpation/Skin Start: 07/22/18 15:53 Freq: Status: Active Protocol: Document 09/30/18 17:00 EA (Rec: 10/01/18 07:27 EA [id number]) Posture Evaluation Position Standing Head/C-Spine Posture Forward Head T-Spine Posture Increased Kyphosis L-Spine Posture Increased Lordosis Shoulder Posture (L) Rounded (R) Rounded Scapula Posture (L) Protracted (R) Protracted Pelvis Posture Anteriorly Tilted (R) Iliac Crest Superior (R) Iliac Crest Inferior Ankle/Foot Posture (L) Forefoot Abducted (R) Forefoot Abducted Palpation Assessment Location One Palpation Location Right pralaumbras, QL Palpation Findings Soft Tissue Tightness Tenderness PT-OP-K Range of Motion Start: 07/22/18 15:53 Freq: Status: Active Protocol: Document 09/30/18 17:00 EA (Rec: 10/01/18 07:28 EA [id number]) Lumbar Spine Range of Motion Lumbar Spine Active Percentage Testing Position Standing Flexion 85 Extension 65 Rotation Left 50 Rotation Right 50 Lateral Flexion Left 65 Lateral Flexion Right 65 ROM Limitations Soft Tissue Tightness Pain PT-OP-L Special Tests Start: 07/22/18 15:53 Freq: Status: Active Protocol: Document 09/30/18 17:00 EA (Rec: 10/01/18 07:27 EA [id number]) Special Tests Lumbar Spine Special Tests Other- 1 Test Results Post quadrant test: positive to right facets joint dysfunction Straight Leg Raise Test Results negative Slump Test Results negative PT-OP-M Strength Start: 07/22/18 15:53 Freq: Status: Active Protocol: Document 09/30/18 17:00 EA (Rec: 10/01/18 07:27 EA [id number]) Trunk Strength Trunk Manual Muscle Testing Flexion 4- Good- Extension 4- Good- Rotation Left 4 Good Rotation Right 4 Good Lateral Flexion Left 4- Good- Lateral Flexion Right 4- Good- PT-OP-Q Treatments Start: 07/22/18 15:53 Freq: Status: Active Protocol: Document 10/14/18 15:49 SA (Rec: 10/14/18 16:12 SA [email or web address]) Cardio Equipment Recumbent Stepper ([employer]) Duration (Minutes) 6 Resistance 4 Therapeutic Exercises Sitting Exercises Seated pelvic tilt with controlled marching Side bilateral Reps/Minutes 20x each 1 Sitting Exercise Name Paralumbars stretch Reps/Minutes x 10 reps x 5 SH Comments FWD flexion with arm support in thefront (bolster) QL stretch Side bilateral Reps/Minutes 30 x 2 Comments Focus on stretching R side Other Exercises seated ball squeeze Equipment Used ball Reps/Minutes 10 x 10 Comments cues for engaging pelvic floor /abdominals Wall postural stretch Side bilateral Reps/Minutes 30 x 3 Comments Focus on thoracic ext and neutral spine Manual Therapy Treatment Soft Tissue Mobilization STM/MFR Body Location Lumbar paraspinals/QL Mobilization Type Rolling Sustained Pressure Trigger Point Release Body Position Sitting Comments L side focus PT-OP-R Modalities Start: 07/22/18 15:53 Freq: Status: Active Protocol: Document 10/14/18 16:12 SA (Rec: 10/14/18 16:12 SA [email or web address]) Electric Stimulation Electric Stimulation IFC Body Location Lumbar paraspinals Duration (Minutes) 15 Intensity 26 Contraction Type Normal Target/Sweep Sweep Patient Position Sitting Combined With Heat/Cold Hot Pack PT-OP-T Assessment and Plan Start: 07/22/18 15:53 Freq: Status: Active Protocol: Document 10/14/18 15:49 SA (Rec: 10/14/18 16:12 SA [email or web address]) Physical Therapy Assessment Assessment Summary Assessment Pt continues to progress with minor set back last week. Consistent with HEP and tolerating progressions well. Improving postural awareness. Physical Therapy Plan Next Visit Focus/Plan Next Note Type Treatment Note Next Visit Plan Pt continues to progress, with decreased symptoms and improving activity tolerance outside of clinic.
--- NOTE | 2018-10-17 14:02 | PT.OTN ---
Current Diagnoses Radiculopathy, lumbosacral region (10/17/18) Physical Therapy Treatment Note PT-OP-A Visit Information Start: 07/22/18 15:53 Freq: Status: Active Protocol: Document 10/17/18 13:50 SA (Rec: 10/17/18 14:02 SA [email or web address]) Out-Patient Physical Therapy Visit Information Visit Information Visit Type Treatment Note Visit Start Time 13:00 Visit Stop Time 13:50 Total Visit Minutes 50 Visit Number 17 Number of DANCING MASTER Visits 3 PT-OP-B Current Condition Start: 07/22/18 15:53 Freq: Status: Active Protocol: Document 07/22/18 17:30 EA (Rec: 07/23/18 14:29 EA [id number]) Current Condition History of Current Condition Onset Date Chronic LBP: aggravated 2017 Current Complaints Localized LBP R > L History of Current Condition Present condition of low back pain has been on and off years ago and easily managed with rest and medication; last summer she reported that pain started to increase and never go away; states pain is intermittent and localized to low back area and aggravated more upon standing and walking . Pt denies loss of function and sensory alteration both LE . 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 Prior Treatments and Tests None identified Future Testing and Treatments Planned None identified Treatment Goals Patient/Caregiver Goals Be able to walk and stand more than 5 or 10 mins. Prior Functional Status Baseline Function- ADL's Independent Baseline Function- Mobility Independent Baseline Function- Gait Able to amb > 10 mins wiht no AD Baseline Function- Work/School activites with standing position > than 10 mins Current Functional Impairments (Reported) Functional Limitations- ADL's Unable to perform ADL's that requires > 5 mins of standing Functional Limitations- Mobility/Gait Limited to 0-5 mins amb PT-OP-C Subjective Start: 07/22/18 15:53 Freq: Status: Active Protocol: Document 10/17/18 13:50 SA (Rec: 10/17/18 14:02 SA [email or web address]) OP-PT Subjective Patient Comments Patient Comments Pt was sore after last visit, reports not feeling well and having increased body soreness . Did her HEP a few times but did skip a day. PT-OP-F Manual Assessment Start: 07/22/18 15:53 Freq: Status: Active Protocol: Document 09/30/18 17:00 EA (Rec: 10/01/18 07:27 EA [id number]) Manual Assessments Soft Tissue Assessment Soft Tissue Mobility Assessment Tightness to right paralumbars , QL Joint Mobility Assessment Joint Mobility Assessment L2-L5 facets hypomobility PT-OP-G Mobility & Gait Start: 07/22/18 15:53 Freq: Status: Active Protocol: Document 09/30/18 17:00 EA (Rec: 10/01/18 07:27 EA [id number]) OP Gait Assessment Gait Gait Assistance Required: Independent Able to Maintain Weight Bearing Status Yes During Gait Assistive Devices Assistive Device Straight Cane Gait Deviations General Gait Pattern Festinating Comments Gait Comments mild Shuffling (PD ) PT-OP-J Posture/Palpation/Skin Start: 07/22/18 15:53 Freq: Status: Active Protocol: Document 09/30/18 17:00 EA (Rec: 10/01/18 07:27 EA [id number]) Posture Evaluation Position Standing Head/C-Spine Posture Forward Head T-Spine Posture Increased Kyphosis L-Spine Posture Increased Lordosis Shoulder Posture (L) Rounded (R) Rounded Scapula Posture (L) Protracted (R) Protracted Pelvis Posture Anteriorly Tilted (R) Iliac Crest Superior (R) Iliac Crest Inferior Ankle/Foot Posture (L) Forefoot Abducted (R) Forefoot Abducted Palpation Assessment Location One Palpation Location Right pralaumbras, QL Palpation Findings Soft Tissue Tightness Tenderness PT-OP-K Range of Motion Start: 07/22/18 15:53 Freq: Status: Active Protocol: Document 09/30/18 17:00 EA (Rec: 10/01/18 07:28 EA [id number]) Lumbar Spine Range of Motion Lumbar Spine Active Percentage Testing Position Standing Flexion 85 Extension 65 Rotation Left 50 Rotation Right 50 Lateral Flexion Left 65 Lateral Flexion Right 65 ROM Limitations Soft Tissue Tightness Pain PT-OP-L Special Tests Start: 07/22/18 15:53 Freq: Status: Active Protocol: Document 09/30/18 17:00 EA (Rec: 10/01/18 07:27 EA [id number]) Special Tests Lumbar Spine Special Tests Other- 1 Test Results Post quadrant test: positive to right facets joint dysfunction Straight Leg Raise Test Results negative Slump Test Results negative PT-OP-M Strength Start: 07/22/18 15:53 Freq: Status: Active Protocol: Document 09/30/18 17:00 EA (Rec: 10/01/18 07:27 EA [id number]) Trunk Strength Trunk Manual Muscle Testing Flexion 4- Good- Extension 4- Good- Rotation Left 4 Good Rotation Right 4 Good Lateral Flexion Left 4- Good- Lateral Flexion Right 4- Good- PT-OP-Q Treatments Start: 07/22/18 15:53 Freq: Status: Active Protocol: Document 10/17/18 13:50 SA (Rec: 10/17/18 14:02 SA [email or web address]) Cardio Equipment Recumbent Stepper ([employer]) Duration (Minutes) 6 Resistance 2.8 Other Cues for long strides Therapeutic Exercises Supine Exercises 1 Supine Exercise Name PPT w/ head lift w/ SLR Reps/Minutes 12 x each Comments isomet to head and PPt HS stretch Side bilateral Equipment Used manual Reps/Minutes 30 x 3 each Sitting Exercises Seated pelvic tilt with controlled marching Side bilateral Reps/Minutes 20x each QL stretch Side bilateral Reps/Minutes 30 x 2 Comments Focus on stretching R side Other Exercises seated ball squeeze Equipment Used ball Reps/Minutes 10 x 10 Comments cues for engaging pelvic floor /abdominals Wall postural stretch Side bilateral Reps/Minutes 30 x 3 Comments Focus on thoracic ext and neutral spine Manual Therapy Treatment Soft Tissue Mobilization STM/MFR Body Location Lumbar paraspinals/QL Mobilization Type Rolling Sustained Pressure Trigger Point Release Body Position Sitting PT-OP-R Modalities Start: 07/22/18 15:53 Freq: Status: Active Protocol: Document 10/17/18 13:50 SA (Rec: 10/17/18 14:02 SA [email or web address]) Electric Stimulation Electric Stimulation IFC Body Location Lumbar paraspinals Duration (Minutes) 15 Intensity 23 Contraction Type Normal Target/Sweep Sweep Patient Position Sitting Combined With Heat/Cold Hot Pack PT-OP-T Assessment and Plan Start: 07/22/18 15:53 Freq: Status: Active Protocol: Document 10/17/18 13:50 SA (Rec: 10/17/18 14:02 SA [email or web address]) Physical Therapy Assessment Assessment Summary Assessment Pt tolerating ther ex well and mostly consistent with HEP, Improving posture especially with gait. Physical Therapy Plan Next Visit Focus/Plan Next Note Type Treatment Note Next Visit Plan Cont to progress core stability program and stretching as tolerated.
--- NOTE | 2018-10-21 16:05 | PT.OTN ---
Current Diagnoses Radiculopathy, lumbosacral region (10/21/18) Physical Therapy Treatment Note PT-OP-A Visit Information Start: 07/22/18 15:53 Freq: Status: Active Protocol: Document 10/21/18 15:08 EA (Rec: 10/21/18 15:15 EA [id number]) Out-Patient Physical Therapy Visit Information Visit Information Visit Type Treatment Note Visit Start Time 14:30 Visit Stop Time 15:18 Total Visit Minutes 48 Visit Number 18 PT-OP-B Current Condition Start: 07/22/18 15:53 Freq: Status: Active Protocol: Document 07/22/18 17:30 EA (Rec: 07/23/18 14:29 EA [id number]) Current Condition History of Current Condition Onset Date Chronic LBP: aggravated 2017 Current Complaints Localized LBP R > L History of Current Condition Present condition of low back pain has been on and off years ago and easily managed with rest and medication; last summer she reported that pain started to increase and never go away; states pain is intermittent and localized to low back area and aggravated more upon standing and walking . Pt denies loss of function and sensory alteration both LE . 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 Prior Treatments and Tests None identified Future Testing and Treatments Planned None identified Treatment Goals Patient/Caregiver Goals Be able to walk and stand more than 5 or 10 mins. Prior Functional Status Baseline Function- ADL's Independent Baseline Function- Mobility Independent Baseline Function- Gait Able to amb > 10 mins wiht no AD Baseline Function- Work/School activites with standing position > than 10 mins Current Functional Impairments (Reported) Functional Limitations- ADL's Unable to perform ADL's that requires > 5 mins of standing Functional Limitations- Mobility/Gait Limited to 0-5 mins amb PT-OP-C Subjective Start: 07/22/18 15:53 Freq: Status: Active Protocol: Document 10/21/18 15:08 EA (Rec: 10/21/18 15:15 EA [id number]) OP-PT Subjective Patient Comments Patient Comments Pt reports no pain or discomfort to low back since the last visit; states low back is improving well. Pt also mentioned that she is ready for anothe prohram once she is discharge to her low back complaint. Patient Reported Progress Improving PT-OP-F Manual Assessment Start: 07/22/18 15:53 Freq: Status: Active Protocol: Document 09/30/18 17:00 EA (Rec: 10/01/18 07:27 EA [id number]) Manual Assessments Soft Tissue Assessment Soft Tissue Mobility Assessment Tightness to right paralumbars , QL Joint Mobility Assessment Joint Mobility Assessment L2-L5 facets hypomobility PT-OP-G Mobility & Gait Start: 07/22/18 15:53 Freq: Status: Active Protocol: Document 09/30/18 17:00 EA (Rec: 10/01/18 07:27 EA [id number]) OP Gait Assessment Gait Gait Assistance Required: Independent Able to Maintain Weight Bearing Status Yes During Gait Assistive Devices Assistive Device Straight Cane Gait Deviations General Gait Pattern Festinating Comments Gait Comments mild Shuffling (PD ) PT-OP-J Posture/Palpation/Skin Start: 07/22/18 15:53 Freq: Status: Active Protocol: Document 09/30/18 17:00 EA (Rec: 10/01/18 07:27 EA [id number]) Posture Evaluation Position Standing Head/C-Spine Posture Forward Head T-Spine Posture Increased Kyphosis L-Spine Posture Increased Lordosis Shoulder Posture (L) Rounded (R) Rounded Scapula Posture (L) Protracted (R) Protracted Pelvis Posture Anteriorly Tilted (R) Iliac Crest Superior (R) Iliac Crest Inferior Ankle/Foot Posture (L) Forefoot Abducted (R) Forefoot Abducted Palpation Assessment Location One Palpation Location Right pralaumbras, QL Palpation Findings Soft Tissue Tightness Tenderness PT-OP-K Range of Motion Start: 07/22/18 15:53 Freq: Status: Active Protocol: Document 09/30/18 17:00 EA (Rec: 10/01/18 07:28 EA [id number]) Lumbar Spine Range of Motion Lumbar Spine Active Percentage Testing Position Standing Flexion 85 Extension 65 Rotation Left 50 Rotation Right 50 Lateral Flexion Left 65 Lateral Flexion Right 65 ROM Limitations Soft Tissue Tightness Pain PT-OP-L Special Tests Start: 07/22/18 15:53 Freq: Status: Active Protocol: Document 09/30/18 17:00 EA (Rec: 10/01/18 07:27 EA [id number]) Special Tests Lumbar Spine Special Tests Other- 1 Test Results Post quadrant test: positive to right facets joint dysfunction Straight Leg Raise Test Results negative Slump Test Results negative PT-OP-M Strength Start: 07/22/18 15:53 Freq: Status: Active Protocol: Document 09/30/18 17:00 EA (Rec: 10/01/18 07:27 EA [id number]) Trunk Strength Trunk Manual Muscle Testing Flexion 4- Good- Extension 4- Good- Rotation Left 4 Good Rotation Right 4 Good Lateral Flexion Left 4- Good- Lateral Flexion Right 4- Good- PT-OP-Q Treatments Start: 07/22/18 15:53 Freq: Status: Active Protocol: Document 10/21/18 15:08 EA (Rec: 10/21/18 15:15 EA [id number]) Cardio Equipment Recumbent Stepper (Sci-Fit) Duration (Minutes) 6 Resistance 2.8 Other Cues for long strides Therapeutic Exercises Supine Exercises 3 Supine Exercise Name Bridge and bridge with pilvic rotation Reps/Minutes x 5 reps x 5 sets 2 Supine Exercise Name Trunk rotation Reps/Minutes x 10reps x 2 sets 1 Supine Exercise Name PPT w/ head lift w/ SLR Reps/Minutes 12 x each Comments isomet to head and PPt SL heel slides with abdominal bracing Supine Exercise Name PPT with marching Reps/Minutes x 5 reps x 5 sets HS stretch Side bilateral Equipment Used manual Reps/Minutes 30 x 3 each Sitting Exercises Seated pelvic tilt with controlled marching Side bilateral Reps/Minutes 20x each 1 Sitting Exercise Name Paralumbars stretch Reps/Minutes x 10 reps x 5 SH Comments FWD flexion with arm support in thefront (bolster) QL stretch Side bilateral Reps/Minutes 30 x 2 Comments Focus on stretching R side Other Exercises seated ball squeeze Equipment Used ball Reps/Minutes 10 x 10 Comments cues for engaging pelvic floor /abdominals PT-OP-R Modalities Start: 07/22/18 15:53 Freq: Status: Active Protocol: Document 10/21/18 15:08 EA (Rec: 10/21/18 15:15 EA [id number]) Hot Pack/Cold Pack Treatment Hot Pack Location Paralumbars Treatment Duration (minutes) 10 Patient Tolerance Good PT-OP-T Assessment and Plan Start: 07/22/18 15:53 Freq: Status: Active Protocol: Document 10/21/18 15:08 EA (Rec: 10/21/18 15:15 EA [id number]) Physical Therapy Assessment Assessment Summary Assessment No signs of discomfort noted during therex. Patient is progressing well. Physical Therapy Plan Next Visit Focus/Plan Next Visit Plan Discharge patient to [facility] as necessary.
--- NOTE | 2019-01-13 15:49 | PT.OPDS ---
Current Diagnoses Radiculopathy, lumbosacral region (10/17/18) Provider Visit Care Team Role Provider Type Suresh Severino MD Attending Provider Physician Primary Care Provider Specialty: Internal Medicine Address: [address] [place] [address], [facility] Email: Visit Number Visit Number 18 Discharge Summary PT-OP-B Current Condition Start: 07/22/18 15:53 Freq: Status: Active Protocol: Document 07/22/18 17:30 EA (Rec: 07/23/18 14:29 EA [id number]) Current Condition History of Current Condition Onset Date Chronic LBP: aggravated 2017 Current Complaints Localized LBP R > L History of Current Condition Present condition of low back pain has been on and off years ago and easily managed with rest and medication; last summer she reported that pain started to increase and never go away; states pain is intermittent and localized to low back area and aggravated more upon standing and walking . Pt denies loss of function and sensory alteration both LE . 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 Prior Treatments and Tests None identified Future Testing and Treatments Planned None identified Treatment Goals Patient/Caregiver Goals Be able to walk and stand more than 5 or 10 mins. Prior Functional Status Baseline Function- ADL's Independent Baseline Function- Mobility Independent Baseline Function- Gait Able to amb > 10 mins wiht no AD Baseline Function- Work/School activites with standing position > than 10 mins Current Functional Impairments (Reported) Functional Limitations- ADL's Unable to perform ADL's that requires > 5 mins of standing Functional Limitations- Mobility/Gait Limited to 0-5 mins amb PT-OP-C Subjective Start: 07/22/18 15:53 Freq: Status: Active Protocol: Document 01/13/19 15:47 EA (Rec: 01/13/19 15:49 EA [id number]) OP-PT Subjective Patient Comments Patient Comments Pt is discharge after her request on last visit. PT-OP-F Manual Assessment Start: 07/22/18 15:53 Freq: Status: Active Protocol: Document 09/30/18 17:00 EA (Rec: 10/01/18 07:27 EA [id number]) Manual Assessments Soft Tissue Assessment Soft Tissue Mobility Assessment Tightness to right paralumbars , QL Joint Mobility Assessment Joint Mobility Assessment L2-L5 facets hypomobility PT-OP-G Mobility & Gait Start: 07/22/18 15:53 Freq: Status: Active Protocol: Document 09/30/18 17:00 EA (Rec: 10/01/18 07:27 EA [id number]) OP Gait Assessment Gait Gait Assistance Required: Independent Able to Maintain Weight Bearing Status Yes During Gait Assistive Devices Assistive Device Straight Cane Gait Deviations General Gait Pattern Festinating Comments Gait Comments mild Shuffling (PD ) PT-OP-J Posture/Palpation/Skin Start: 07/22/18 15:53 Freq: Status: Active Protocol: Document 09/30/18 17:00 EA (Rec: 10/01/18 07:27 EA [id number]) Posture Evaluation Position Standing Head/C-Spine Posture Forward Head T-Spine Posture Increased Kyphosis L-Spine Posture Increased Lordosis Shoulder Posture (L) Rounded (R) Rounded Scapula Posture (L) Protracted (R) Protracted Pelvis Posture Anteriorly Tilted (R) Iliac Crest Superior (R) Iliac Crest Inferior Ankle/Foot Posture (L) Forefoot Abducted (R) Forefoot Abducted Palpation Assessment Location One Palpation Location Right pralaumbras, QL Palpation Findings Soft Tissue Tightness Tenderness PT-OP-K Range of Motion Start: 07/22/18 15:53 Freq: Status: Active Protocol: Document 09/30/18 17:00 EA (Rec: 10/01/18 07:28 EA [id number]) Lumbar Spine Range of Motion Lumbar Spine Active Percentage Testing Position Standing Flexion 85 Extension 65 Rotation Left 50 Rotation Right 50 Lateral Flexion Left 65 Lateral Flexion Right 65 ROM Limitations Soft Tissue Tightness Pain PT-OP-L Special Tests Start: 07/22/18 15:53 Freq: Status: Active Protocol: Document 09/30/18 17:00 EA (Rec: 10/01/18 07:27 EA [id number]) Special Tests Lumbar Spine Special Tests Other- 1 Test Results Post quadrant test: positive to right facets joint dysfunction Straight Leg Raise Test Results negative Slump Test Results negative PT-OP-M Strength Start: 07/22/18 15:53 Freq: Status: Active Protocol: Document 09/30/18 17:00 EA (Rec: 10/01/18 07:27 EA [id number]) Trunk Strength Trunk Manual Muscle Testing Flexion 4- Good- Extension 4- Good- Rotation Left 4 Good Rotation Right 4 Good Lateral Flexion Left 4- Good- Lateral Flexion Right 4- Good- PT-OP-T Assessment and Plan Start: 07/22/18 15:53 Freq: Status: Active Protocol: Document 01/13/19 15:47 EA (Rec: 01/13/19 15:49 EA [id number]) Physical Therapy Assessment Assessment Summary Assessment Pt is discharge upon request on last visit. Physical Therapy Plan Discharge Physical Therapy Discharge Reasons Patient Request
== END 2019-03-12 12:19 | disposition home or self-care (01) ==
LOC: PHYS 13:00
PROVIDERS: PCP Student in an Organized Health Care Education/Training Program; Visit Provider Student in an Organized Health Care Education/Training Program
DX: M54.17 Radiculopathy, lumbosacral region (principal)
CPT/HCPCS: 97014; 97110; 97140; 97162; 97535; G0283

== ENCOUNTER 2019-02-20 11:00 | Outpatient (RCR) | payer MEDICARE, OTHER, SELFPAY ==
--- NOTE | 2019-01-26 14:19 | PT.OIE ---
Current Diagnoses Parkinson's disease (01/26/19) Past Medical History (Last Reviewed 04/21/18 @ 16:54 by Abdullahi Kim MD) Low back pain with sciatica (Chronic) Gastroesophageal reflux disease without esophagitis (Chronic 09/27/15) Mixed hyperlipidemia (Chronic 09/27/15) Overactive bladder (Chronic 09/27/15) Parkinson's disease (Chronic 09/27/15) Seasonal allergic rhinitis (Chronic 09/27/15) Plantar fasciitis of right foot (Chronic 12/17/17) GERD (gastroesophageal reflux disease) (Acute) Allergic rhinitis (Chronic) Chronic back pain (Chronic) Deviated septum (Chronic) Diabetes (Chronic) Eczema (Chronic) Hearing loss (Chronic) Hyperlipemia (Chronic) Hypertension (Chronic) Parkinson's disease (Chronic ~2008) Urinary incontinence (Chronic) Vertigo (Chronic) Foot pain (Resolved) Past Surgical History (Last Reviewed 04/21/18 @ 16:54 by Abdullahi Kim MD) Status post cholecystectomy Provider Visit Care Team Role Provider Type ALIDA Richards Primary Care Provider Advanced Lawn Mower Specialty: Family Practice Address: [address] [place] [address], [id number] Email: Ofelia Simon MD Attending Provider Non-Staff Specialty: Neurology Address: [address] [place] [address], [id number] Email: Physical Therapy Initial Evaluation PT-OP-A Visit Information Start: 01/26/19 08:29 Freq: Status: Active Protocol: Document 01/26/19 11:00 AMB (Rec: 01/26/19 12:47 AMB [email or web address]) Out-Patient Physical Therapy Visit Information Visit Information Visit Type Initial Evaluation Visit Start Time 11:00 Visit Stop Time 11:55 Total Visit Minutes 55 Visit Number 1 PT-OP-B Current Condition Start: 01/26/19 08:29 Freq: Status: Active Protocol: Document 01/26/19 11:00 AMB (Rec: 01/26/19 14:01 AMB [email or web address]) Current Condition History of Current Condition Onset Date chronic Current Complaints difficulty with gross and fine motor activities due to Parkinson's. History of Current Condition Ale reports she has had the diagnosis of Parkinson's for about 10 years. About 6 months ago, she got a new neurologist, who changed her medications, and she has noticed significant improvement. That said, she is no longer able to walk the 2 miles per day that she used to. She denies recent falls, but is fearful of falling. She lives alone in a single level home with 2 steps with a railing to enter. She does all of her own driving, cleaning and cooking, but does use a stool to do yardwork and no longer mows her lawn. Treatment Goals Patient/Caregiver Goals Improve gait/ balance, bed mobility, sit to stand from low surface, donning a jacket, folding laundry. Current Functional Impairments (Reported) Functional Limitations- ADL's Difficulty donning a jacket, getting up from a low surface. It has been years since she has attempted a floor transfer . Personal Factors Other Personal Factors That May Effect Back pain, posterior R knee Therapy/Recovery pain, long standing intermittent vertigo per the patient associated with her allergies that she takes meclizine for PRN, urinary incontinence. PT-OP-D Balance Start: 01/26/19 08:29 Freq: Status: Active Protocol: Document 01/26/19 11:00 AMB (Rec: 01/26/19 13:02 AMB [email or web address]) Balance Tests Single Limb Standing Single Limb- Right unable Single Limb- Left unable Semi-Tandem Standing Semi-Tandem Standing Balance good with EO, unable with EC Other Other Balance Tests Performed NBOS with HT 30 seconds. PT-OP-E Functional Tests Start: 01/26/19 08:29 Freq: Status: Active Protocol: Document 01/26/19 11:00 AMB (Rec: 01/26/19 13:02 AMB [email or web address]) Functional Tests 6 Minute Walk Test Distance 1039 Device Used none Comments no LOB, but no armswing on L Five Times Sit to Stand Test Score 12 PT-OP-G Mobility & Gait Start: 01/26/19 08:29 Freq: Status: Active Protocol: Document 01/26/19 11:00 AMB (Rec: 01/26/19 13:02 AMB [email or web address]) OP Gait Assessment Comments Gait Comments Pt ambulates with bilateral feet turned out, poor swing through. Reduced trunk rotation, minimal arm swing on the right and absent on the left. No AD. PT-OP-H Neuro Start: 01/26/19 08:29 Freq: Status: Active Protocol: Document 01/26/19 12:47 AMB (Rec: 01/26/19 12:59 AMB [email or web address]) Coordination Evaluation Upper Extremity Tests Left Pronation/Supination Test Minimal Impairment Lower Extremity Tests Foot Tapping Test Minimal Impairment PT-OP-J Posture/Palpation/Skin Start: 01/26/19 08:29 Freq: Status: Active Protocol: Document 01/26/19 12:47 AMB (Rec: 01/26/19 12:59 AMB [email or web address]) Posture Evaluation Comments Posture Comments Pt with sig. forward head, thoracic kyphosis, with tendency to externall rotation hips bilaterally PT-OP-K Range of Motion Start: 01/26/19 08:29 Freq: Status: Active Protocol: Document 01/26/19 12:47 AMB (Rec: 01/26/19 12:59 AMB [email or web address]) Shoulder Goniometric Range of Motion Shoulder Measured in Degrees Right Active Flexion 130 Left Active Flexion 120 PT-OP-M Strength Start: 01/26/19 08:29 Freq: Status: Active Protocol: Document 01/26/19 12:47 AMB (Rec: 01/26/19 12:59 AMB [email or web address]) Knee Strength Knee Manual Muscle Testing Right Flexion (S2) 4 Good Extension (L3) 4+ Good+ Left Flexion (S2) 4+ Good+ Extension (L3) 4+ Good+ Ankle/Foot Strength Ankle and Foot Manual Muscle Testing Right Dorsiflexion (L4) 4+ Good+ Left Dorsiflexion (L4) 4 Good PT-OP-Q Treatments Start: 01/26/19 08:29 Freq: Status: Active Protocol: Document 01/26/19 11:00 AMB (Rec: 01/26/19 14:01 AMB [email or web address]) Neuro Re-Education Treatment Balance Activities 1 Details Forward stepping without UE support Reps/Duration 10 ea LE Comments vc for BIG LE and UE movement. PT-OP-T Assessment and Plan Start: 01/26/19 08:29 Freq: Status: Active Protocol: Document 01/26/19 11:00 AMB (Rec: 01/26/19 14:18 AMB [email or web address]) Physical Therapy Assessment Rehab Potential Rehabilitation Potential Good Evaluation Complexity Number of Personal Factors/Comorbidities 3 or More Number of Body Systems Impaired 4 or More Clinical Presentation at Evaluation Evolving Impairments Impairments Activity Tolerance Balance Functional Activities Gait ROM Transfers Goals Four Impairment Upper extremity function Short Term Goal (STG) Ale will don a jacket in less than 30 seconds. STG Duration 2 weeks Penitentiary Goal (LTG) Ale will improve her shoulder flexion to bilaterally 140 degrees of flexion. LTG Duration 4 weeks Three Impairment transfers Short Term Goal (STG) Ale will move from sit to stand from a 12 height chair without use of UEs. STG Duration 2 weeks [employer] Se[employer] Goal (LTG) Ale will perform all bed mobility independently. LTG Duration 4 weeks Two Impairment Impaired standing tolerance Penitentiary Goal (LTG) Patient will tolerate standing good posture more than 5 mins with no increase in symptoms LTG Duration 4 wks One Impairment Gait Short Term Goal (STG) Ale will walk for 4 minutes over grass, gravel, and slight inclines safely and without fear of falling. [employer] Goal (LTG) Ale will improve her 6 minute walk test score by one standard deviation to at least 1341 feet. LTG Duration 4 weeks Assessment Summary Assessment Ale attends physical therapy with the diagnosis of Parkinson's disease. She ambulates without assistive device and has resting tremor of both UEs. Her 6 minute walk test was over 2 standard deviations away from the norm for her gender/age. The quality of her gait was also impaired with decreased trunk rotation/ arm swing and decreased stability especially with fatigue. While she does not report falls, she is fearful of them, and has reduced her activity level significantly over the last few years. She will benefit from the [facility] program for Parkinson's. Physical Therapy Plan Frequency and Duration Frequency of Treatment 4x/Week Duration of Treatment 4 weeks Plan of Care Start Date 01/26/19 Plan of Care End Date 03/23/19 Therapeutic Interventions Therapeutic Interventions Gait Training Home Exercise Program Manual Therapy Neuromuscular Re-education Self-Care/Home Management Therapeutic Activities Therapeutic Exercises Next Visit Focus/Plan Next Note Type Treatment Note Next Visit Plan Begin LSVT BIG treatment
--- NOTE | 2019-01-26 14:22 | PT.OPPOC ---
Current Diagnoses Parkinson's disease (01/26/19) Provider Visit Care Team Role Provider Type ALIDA Richards Primary Care Provider Advanced Office Specialist Specialty: Family Practice Address: [address] [place] [address], [id number] Email: Ofelia Simon MD Attending Provider Non-Staff Specialty: Neurology Address: [address] [place] [address], [id number] Email: Plan Of Care PT-OP-T Assessment and Plan Start: 01/26/19 08:29 Freq: Status: Active Protocol: Document 01/26/19 11:00 AMB (Rec: 01/26/19 14:18 AMB [email or web address]) Physical Therapy Assessment Rehab Potential Rehabilitation Potential Good Evaluation Complexity Number of Personal Factors/Comorbidities 3 or More Number of Body Systems Impaired 4 or More Clinical Presentation at Evaluation Evolving Impairments Impairments Activity Tolerance Balance Functional Activities Gait ROM Transfers Goals Four Impairment Upper extremity function Short Term Goal (STG) Ale will don a jacket in less than 30 seconds. STG Duration 2 weeks Halfway Goal (LTG) Ale will improve her shoulder flexion to bilaterally 140 degrees of flexion. LTG Duration 4 weeks Three Impairment transfers Short Term Goal (STG) Ale will move from sit to stand from a 12 height chair without use of UEs. STG Duration 2 weeks Halfway Goal (LTG) Ale will perform all bed mobility independently. LTG Duration 4 weeks Two Impairment Impaired standing tolerance Intensive Care Nurse Goal (LTG) Patient will tolerate standing good posture more than 5 mins with no increase in symptoms LTG Duration 4 wks One Impairment Gait Short Term Goal (STG) Ale will walk for 4 minutes over grass, gravel, and slight inclines safely and without fear of falling. Halfway Goal (LTG) Ale will improve her 6 minute walk test score by one standard deviation to at least 1341 feet. LTG Duration 4 weeks Assessment Summary Assessment Ale attends physical therapy with the diagnosis of Parkinson's disease. She ambulates without assistive device and has resting tremor of both UEs. Her 6 minute walk test was over 2 standard deviations away from the norm for her gender/age. The quality of her gait was also impaired with decreased trunk rotation/ arm swing and decreased stability especially with fatigue. While she does not report falls, she is fearful of them, and has reduced her acitivity level significantly over the last few years. She will benefit from the [facility] program for Parkinson's. Physical Therapy Plan Frequency and Duration Frequency of Treatment 4x/Week Duration of Treatment 4 weeks Plan of Care Start Date 01/26/19 Plan of Care End Date 03/23/19 Therapeutic Interventions Therapeutic Interventions Gait Training Home Exercise Program Manual Therapy Neuromuscular Re-education Self-Care/Home Management Therapeutic Activities Therapeutic Exercises Next Visit Focus/Plan Next Note Type Treatment Note Next Visit Plan Begin LSVT MOVL treatment Plan of Care Dates Plan of Care Start Date 01/26/19 Plan of Care End Date 03/23/19 Please Sign and Return: I have reviewed this Plan of Care and certify that the skilled therapy services above are required to meet the patient?s needs. Physician Signature Date Printed Name and Credentials Clinical Instructor Signature Printed Name and Credentials
--- NOTE | 2019-01-27 12:53 | PT.OTN ---
Current Diagnoses Parkinson's disease (01/27/19) Physical Therapy Treatment Note PT-OP-A Visit Information Start: 01/26/19 08:29 Freq: Status: Active Protocol: Document 01/27/19 11:00 AMB (Rec: 01/27/19 12:53 AMB [email or web address]) Out-Patient Physical Therapy Visit Information Visit Information Visit Type Treatment Note Visit Start Time 11:00 Visit Stop Time 12:00 Total Visit Minutes 55 Visit Number 2 PT-OP-B Current Condition Start: 01/26/19 08:29 Freq: Status: Active Protocol: Document 01/26/19 11:00 AMB (Rec: 01/26/19 14:01 AMB [email or web address]) Current Condition History of Current Condition Onset Date chronic Current Complaints difficulty with gross and fine motor activities due to Parkinson's. History of Current Condition Ale reports she has had the diagnosis of Parkinson's for about 10 years. About 6 months ago, she got a new neurologist, who changed her medications, and she has noticed significant improvement. That said, she is no longer able to walk the 2 miles per day that she used to. She denies recent falls, but is fearful of falling. She lives alone in a single level home with 2 steps with a railing to enter. She does all of her own driving, cleaning and cooking, but does use a stool to do yardwork and no longer mows her lawn. Treatment Goals Patient/Caregiver Goals Improve gait/ balance, bed mobility, sit to stand from low surface, donning a jacket, folding laundry. Current Functional Impairments (Reported) Functional Limitations- ADL's Difficulty donning a jacket, getting up from a low surface. It has been years since she has attempted a floor transfer . Personal Factors Other Personal Factors That May Effect Back pain, posterior R knee Therapy/Recovery pain, long standing intermittent vertigo per the patient associated with her allergies that she takes meclinzine for PRN, urinary incontinence. 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 PT-OP-D Balance Start: 01/26/19 08:29 Freq: Status: Active Protocol: Document 01/26/19 11:00 AMB (Rec: 01/26/19 13:02 AMB [email or web address]) Balance Tests Single Limb Standing Single Limb- Right unable Single Limb- Left unable Semi-Tandem Standing Semi-Tandem Standing Balance good with EO, unable with EC Other Other Balance Tests Performed NBOS with HT 30 seconds. PT-OP-E Functional Tests Start: 01/26/19 08:29 Freq: Status: Active Protocol: Document 01/26/19 11:00 AMB (Rec: 01/26/19 13:02 AMB [email or web address]) Functional Tests 6 Minute Walk Test Distance 1039 Device Used none Comments no LOB, but no armswing on L Five Times Sit to Stand Test Score 12 PT-OP-G Mobility & Gait Start: 01/26/19 08:29 Freq: Status: Active Protocol: Document 01/26/19 11:00 AMB (Rec: 01/26/19 13:02 AMB [email or web address]) OP Gait Assessment Comments Gait Comments Pt ambulates with bilateral feet turned out, poor swing through. Reduced trunk rotation, minimal arm swing on the right and absent on the left. No AD. PT-OP-H Neuro Start: 01/26/19 08:29 Freq: Status: Active Protocol: Document 01/26/19 12:47 AMB (Rec: 01/26/19 12:59 AMB [email or web address]) Coordination Evaluation Upper Extremity Tests Left Pronation/Supination Test Minimal Impairment Lower Extremity Tests Foot Tapping Test Minimal Impairment PT-OP-J Posture/Palpation/Skin Start: 01/26/19 08:29 Freq: Status: Active Protocol: Document 01/26/19 12:47 AMB (Rec: 01/26/19 12:59 AMB [email or web address]) Posture Evaluation Comments Posture Comments Pt with sig. forward head, thoracic kyphosis, with tendency to externall rotation hips bilaterally PT-OP-K Range of Motion Start: 01/26/19 08:29 Freq: Status: Active Protocol: Document 01/26/19 12:47 AMB (Rec: 01/26/19 12:59 AMB [email or web address]) Shoulder Goniometric Range of Motion Shoulder Measured in Degrees Right Active Flexion 130 Left Active Flexion 120 PT-OP-M Strength Start: 01/26/19 08:29 Freq: Status: Active Protocol: Document 01/26/19 12:47 AMB (Rec: 01/26/19 12:59 AMB [email or web address]) Knee Strength Knee Manual Muscle Testing Right Flexion (S2) 4 Good Extension (L3) 4+ Good+ Left Flexion (S2) 4+ Good+ Extension (L3) 4+ Good+ Ankle/Foot Strength Ankle and Foot Manual Muscle Testing Right Dorsiflexion (L4) 4+ Good+ Left Dorsiflexion (L4) 4 Good PT-OP-Q Treatments Start: 01/26/19 08:29 Freq: Status: Active Protocol: Document 01/27/19 11:00 AMB (Rec: 01/27/19 12:53 AMB [email or web address]) Therapeutic Activity Therapeutic Activity 2 Name bed mobility Comments encouraged bent knees, log roll, bridging for easier movement 1 Name sit to stand Reps/Minutes 5 Comments low plinth Neuro Re-Education Treatment Balance Activities 2 Details forward and sideways rock and reach Reps/Duration x10 ea side Comments UE support with chair 1 Details Forward, side, backward stepping Equipment with UE support Reps/Duration 10 ea LE Comments vc for BIG LE and UE movement. Coordination Activities 2 Details side to side Reps/Duration 8 sets of 10 1 Details floor to ceiling Reps/Duration 8 sets of 10 PT-OP-T Assessment and Plan Start: 01/26/19 08:29 Freq: Status: Active Protocol: Document 01/27/19 11:00 AMB (Rec: 01/27/19 12:53 AMB [email or web address]) Physical Therapy Assessment Assessment Summary Assessment Ale did well today, harder to keep the left arm big than the right. Physical Therapy Plan Next Visit Focus/Plan Next Note Type Treatment Note Next Visit Plan Begin LSVT BIG treatment
--- NOTE | 2019-01-28 15:54 | PT.OTN ---
Current Diagnoses Parkinson's disease (01/28/19) Physical Therapy Treatment Note PT-OP-A Visit Information Start: 01/26/19 08:29 Freq: Status: Active Protocol: Document 01/28/19 11:00 AMB (Rec: 01/28/19 15:54 AMB [email or web address]) Out-Patient Physical Therapy Visit Information Visit Information Visit Type Treatment Note Visit Start Time 11:00 Visit Stop Time 12:00 Total Visit Minutes 60 Visit Number 3 PT-OP-B Current Condition Start: 01/26/19 08:29 Freq: Status: Active Protocol: Document 01/26/19 11:00 AMB (Rec: 01/26/19 14:01 AMB [email or web address]) Current Condition History of Current Condition Onset Date chronic Current Complaints difficulty with gross and fine motor activities due to Parkinson's. History of Current Condition Ale reports she has had the diagnosis of Parkinson's for about 10 years. About 6 months ago, she got a new neurologist, who changed her medications, and she has noticed significant improvement. That said, she is no longer able to walk the 2 miles per day that she used to. She denies recent falls, but is fearful of falling. She lives alone in a single level home with 2 steps with a railing to enter. She does all of her own driving, cleaning and cooking, but does use a stool to do yardwork and no longer mows her lawn. Treatment Goals Patient/Caregiver Goals Improve gait/ balance, bed mobility, sit to stand from low surface, donning a jacket, folding laundry. Current Functional Impairments (Reported) Functional Limitations- ADL's Difficulty donning a jacket, getting up from a low surface. It has been years since she has attempted a floor transfer . Personal Factors Other Personal Factors That May Effect Back pain, posterior R knee Therapy/Recovery pain, long standing intermittent vertigo per the patient associated with her allergies that she takes meclinzine for PRN, urinary incontinence. PT-OP-C Subjective Start: 01/26/19 08:29 Freq: Status: Active Protocol: Document 01/28/19 11:00 AMB (Rec: 01/28/19 15:54 AMB [email or web address]) OP-PT Subjective Patient Comments Patient Comments Ale states that folding was easier yesterday. Getting into bed was also easier, but the rolling over in bed (on her mattress) is still hard because it is much softer than the tables here. PT-OP-D Balance Start: 01/26/19 08:29 Freq: Status: Active Protocol: Document 01/26/19 11:00 AMB (Rec: 01/26/19 13:02 AMB [email or web address]) Balance Tests Single Limb Standing Single Limb- Right unable Single Limb- Left unable Semi-Tandem Standing Semi-Tandem Standing Balance good with EO, unable with EC Other Other Balance Tests Performed NBOS with HT 30 seconds. PT-OP-E Functional Tests Start: 01/26/19 08:29 Freq: Status: Active Protocol: Document 01/26/19 11:00 AMB (Rec: 01/26/19 13:02 AMB [email or web address]) Functional Tests 6 Minute Walk Test Distance 1039 Device Used none Comments no LOB, but no armswing on L Five Times Sit to Stand Test Score 12 PT-OP-G Mobility & Gait Start: 01/26/19 08:29 Freq: Status: Active Protocol: Document 01/26/19 11:00 AMB (Rec: 01/26/19 13:02 AMB [email or web address]) OP Gait Assessment Comments Gait Comments Pt ambulates with bilateral feet turned out, poor swing through. Reduced trunk rotation, minimal arm swing on the right and absent on the left. No AD. PT-OP-H Neuro Start: 01/26/19 08:29 Freq: Status: Active Protocol: Document 01/26/19 12:47 AMB (Rec: 01/26/19 12:59 AMB [email or web address]) Coordination Evaluation Upper Extremity Tests Left Pronation/Supination Test Minimal Impairment Lower Extremity Tests Foot Tapping Test Minimal Impairment PT-OP-J Posture/Palpation/Skin Start: 01/26/19 08:29 Freq: Status: Active Protocol: Document 01/26/19 12:47 AMB (Rec: 01/26/19 12:59 AMB [email or web address]) Posture Evaluation Comments Posture Comments Pt with sig. forward head, thoracic kyphosis, with tendency to externall rotation hips bilaterally PT-OP-K Range of Motion Start: 01/26/19 08:29 Freq: Status: Active Protocol: Document 01/26/19 12:47 AMB (Rec: 01/26/19 12:59 AMB [email or web address]) Shoulder Goniometric Range of Motion Shoulder Measured in Degrees Right Active Flexion 130 Left Active Flexion 120 PT-OP-M Strength Start: 01/26/19 08:29 Freq: Status: Active Protocol: Document 01/26/19 12:47 AMB (Rec: 01/26/19 12:59 AMB [email or web address]) Knee Strength Knee Manual Muscle Testing Right Flexion (S2) 4 Good Extension (L3) 4+ Good+ Left Flexion (S2) 4+ Good+ Extension (L3) 4+ Good+ Ankle/Foot Strength Ankle and Foot Manual Muscle Testing Right Dorsiflexion (L4) 4+ Good+ Left Dorsiflexion (L4) 4 Good PT-OP-Q Treatments Start: 01/26/19 08:29 Freq: Status: Active Protocol: Document 01/28/19 11:00 AMB (Rec: 01/28/19 15:54 AMB [email or web address]) Therapeutic Exercises Standing Exercises 1 Standing Exercise Name t band shoulder extension Resistance #3 Comments alternating Therapeutic Activity Therapeutic Activity 2 Name bed mobility Comments encouraged bent knees, log roll, bridging for easier movement 1 Name sit to stand Reps/Minutes 10 Comments low plinth Gait Training Gait Activity 2 Description hurdles Surface firm Comments needed UE support 1 Description BIG walking Device Used none Level of Assistance SBA Surface smooth Distance/Duration 10 min Treatment Focus even arm swing Neuro Re-Education Treatment Balance Activities 2 Details forward and sideways rock and reach Reps/Duration x10 ea side Comments UE support with chair 1 Details Forward, side, backward stepping Equipment with UE support Reps/Duration 10 ea LE Comments vc for BIG LE and UE movement. Coordination Activities 2 Details side to side Reps/Duration 8 sets of 10 1 Details floor to ceiling Reps/Duration 8 sets of 10 PT-OP-T Assessment and Plan Start: 01/26/19 08:29 Freq: Status: Active Protocol: Document 01/28/19 11:00 AMB (Rec: 01/28/19 15:54 AMB [email or web address]) Physical Therapy Assessment Assessment Summary Assessment Pt did well with mirror feedback, beginning to understand idea that what feels normal is not big enough . Physical Therapy Plan Next Visit Focus/Plan Next Note Type Treatment Note Next Visit Plan Continue to progress gait
--- NOTE | 2019-02-03 12:00 | PT.OTN ---
Current Diagnoses Parkinson's disease (02/03/19) Physical Therapy Treatment Note PT-OP-A Visit Information Start: 01/26/19 08:29 Freq: Status: Active Protocol: Document 02/03/19 11:00 AMB (Rec: 02/04/19 08:51 AMB [email or web address]) Out-Patient Physical Therapy Visit Information Visit Information Visit Type Treatment Note Visit Start Time 11:00 Visit Stop Time 12:00 Total Visit Minutes 60 Visit Number 4 PT-OP-B Current Condition Start: 01/26/19 08:29 Freq: Status: Active Protocol: Document 01/26/19 11:00 AMB (Rec: 01/26/19 14:01 AMB [email or web address]) Current Condition History of Current Condition Onset Date chronic Current Complaints difficulty with gross and fine motor activities due to Parkinson's. History of Current Condition Ale reports she has had the diagnosis of Parkinson's for about 10 years. About 6 months ago, she got a new neurologist, who changed her medications, and she has noticed significant improvement. That said, she is no longer able to walk the 2 miles per day that she used to. She denies recent falls, but is fearful of falling. She lives alone in a single level home with 2 steps with a railing to enter. She does all of her own driving, cleaning and cooking, but does use a stool to do yardwork and no longer mows her lawn. Treatment Goals Patient/Caregiver Goals Improve gait/ balance, bed mobility, sit to stand from low surface, donning a jacket, folding laundry. Current Functional Impairments (Reported) Functional Limitations- ADL's Difficulty donning a jacket, getting up from a low surface. It has been years since she has attempted a floor transfer . Personal Factors Other Personal Factors That May Effect Back pain, posterior R knee Therapy/Recovery pain, long standing intermittent vertigo per the patient associated with her allergies that she takes meclinzine for PRN, urinary incontinence. PT-OP-C Subjective Start: 01/26/19 08:29 Freq: Status: Active Protocol: Document 02/03/19 11:00 AMB (Rec: 02/04/19 08:51 AMB [email or web address]) OP-PT Subjective Patient Comments Patient Comments Ale's back was painful after helping out at her [employer] sale over the weekend, but she has been doing her exercises. PT-OP-D Balance Start: 01/26/19 08:29 Freq: Status: Active Protocol: Document 01/26/19 11:00 AMB (Rec: 01/26/19 13:02 AMB [email or web address]) Balance Tests Single Limb Standing Single Limb- Right unable Single Limb- Left unable Semi-Tandem Standing Semi-Tandem Standing Balance good with EO, unable with EC Other Other Balance Tests Performed NBOS with HT 30 seconds. PT-OP-E Functional Tests Start: 01/26/19 08:29 Freq: Status: Active Protocol: Document 01/26/19 11:00 AMB (Rec: 01/26/19 13:02 AMB [email or web address]) Functional Tests 6 Minute Walk Test Distance 1039 Device Used none Comments no LOB, but no armswing on L Five Times Sit to Stand Test Score 12 PT-OP-G Mobility & Gait Start: 01/26/19 08:29 Freq: Status: Active Protocol: Document 01/26/19 11:00 AMB (Rec: 01/26/19 13:02 AMB [email or web address]) OP Gait Assessment Comments Gait Comments Pt ambulates with bilateral feet turned out, poor swing through. Reduced trunk rotation, minimal arm swing on the right and absent on the left. No AD. PT-OP-H Neuro Start: 01/26/19 08:29 Freq: Status: Active Protocol: Document 01/26/19 12:47 AMB (Rec: 01/26/19 12:59 AMB [email or web address]) Coordination Evaluation Upper Extremity Tests Left Pronation/Supination Test Minimal Impairment Lower Extremity Tests Foot Tapping Test Minimal Impairment PT-OP-J Posture/Palpation/Skin Start: 01/26/19 08:29 Freq: Status: Active Protocol: Document 01/26/19 12:47 AMB (Rec: 01/26/19 12:59 AMB [email or web address]) Posture Evaluation Comments Posture Comments Pt with sig. forward head, thoracic kyphosis, with tendency to externall rotation hips bilaterally PT-OP-K Range of Motion Start: 01/26/19 08:29 Freq: Status: Active Protocol: Document 01/26/19 12:47 AMB (Rec: 01/26/19 12:59 AMB [email or web address]) Shoulder Goniometric Range of Motion Shoulder Measured in Degrees Right Active Flexion 130 Left Active Flexion 120 PT-OP-M Strength Start: 01/26/19 08:29 Freq: Status: Active Protocol: Document 01/26/19 12:47 AMB (Rec: 01/26/19 12:59 AMB [email or web address]) Knee Strength Knee Manual Muscle Testing Right Flexion (S2) 4 Good Extension (L3) 4+ Good+ Left Flexion (S2) 4+ Good+ Extension (L3) 4+ Good+ Ankle/Foot Strength Ankle and Foot Manual Muscle Testing Right Dorsiflexion (L4) 4+ Good+ Left Dorsiflexion (L4) 4 Good PT-OP-Q Treatments Start: 01/26/19 08:29 Freq: Status: Active Protocol: Document 02/03/19 11:00 AMB (Rec: 02/04/19 08:51 AMB [email or web address]) Therapeutic Exercises Standing Exercises 1 Standing Exercise Name t band shoulder extension Resistance #3 Reps/Minutes 2x10 Comments alternating Therapeutic Activity Therapeutic Activity 1 Name sit to stand Reps/Minutes 10 Comments low plinth Gait Training Gait Activity 1 Description BIG walking Device Used none Level of Assistance SBA Surface smooth Distance/Duration 10 min Treatment Focus even arm swing Comments with mirror feedback Neuro Re-Education Treatment Balance Activities 2 Details forward and sideways rock and reach Reps/Duration x10 ea side Comments UE support with chair 1 Details Forward, side, backward stepping Equipment with UE support Reps/Duration 10 ea LE Comments vc for BIG LE and UE movement. Coordination Activities 2 Details side to side Reps/Duration 8 sets of 10 1 Details floor to ceiling Reps/Duration 8 sets of 10 PT-OP-T Assessment and Plan Start: 01/26/19 08:29 Freq: Status: Active Protocol: Document 02/03/19 11:00 AMB (Rec: 02/04/19 08:51 AMB [email or web address]) Physical Therapy Assessment Assessment Summary Assessment Ale continues to require light UE support to get maximum amplitude with exercises, but could consider to start decreasing reliance on UE support. Physical Therapy Plan Next Visit Focus/Plan Next Note Type Treatment Note Next Visit Plan Continue to progress gait
--- NOTE | 2019-02-05 13:44 | PT.OTN ---
Current Diagnoses Parkinson's disease (02/05/19) Physical Therapy Treatment Note PT-OP-A Visit Information Start: 01/26/19 08:29 Freq: Status: Active Protocol: Document 02/04/19 11:00 AMB (Rec: 02/05/19 13:04 AMB [email or web address]) Out-Patient Physical Therapy Visit Information Visit Information Visit Type Treatment Note Visit Start Time 11:00 Visit Stop Time 12:00 Total Visit Minutes 60 Visit Number 5 PT-OP-B Current Condition Start: 01/26/19 08:29 Freq: Status: Active Protocol: Document 01/26/19 11:00 AMB (Rec: 01/26/19 14:01 AMB [email or web address]) Current Condition History of Current Condition Onset Date chronic Current Complaints difficulty with gross and fine motor activities due to Parkinson's. History of Current Condition Ale reports she has had the diagnosis of Parkinson's for about 10 years. About 6 months ago, she got a new neurologist, who changed her medications, and she has noticed significant improvement. That said, she is no longer able to walk the 2 miles per day that she used to. She denies recent falls, but is fearful of falling. She lives alone in a single level home with 2 steps with a railing to enter. She does all of her own driving, cleaning and cooking, but does use a stool to do yardwork and no longer mows her lawn. Treatment Goals Patient/Caregiver Goals Improve gait/ balance, bed mobility, sit to stand from low surface, donning a jacket, folding laundry. Current Functional Impairments (Reported) Functional Limitations- ADL's Difficulty donning a jacket, getting up from a low surface. It has been years since she has attempted a floor transfer . Personal Factors Other Personal Factors That May Effect Back pain, posterior R knee Therapy/Recovery pain, long standing intermittent vertigo per the patient associated with her allergies that she takes meclinzine for PRN, urinary incontinence. PT-OP-C Subjective Start: 01/26/19 08:29 Freq: Status: Active Protocol: Document 02/04/19 11:00 AMB (Rec: 02/05/19 13:04 AMB [email or web address]) OP-PT Subjective Patient Comments Patient Comments Ale is doing well, noticing improvement with bed mobility, people are telling her she is looking better when she is walking. PT-OP-D Balance Start: 01/26/19 08:29 Freq: Status: Active Protocol: Document 01/26/19 11:00 AMB (Rec: 01/26/19 13:02 AMB [email or web address]) Balance Tests Single Limb Standing Single Limb- Right unable Single Limb- Left unable Semi-Tandem Standing Semi-Tandem Standing Balance good with EO, unable with EC Other Other Balance Tests Performed NBOS with HT 30 seconds. PT-OP-E Functional Tests Start: 01/26/19 08:29 Freq: Status: Active Protocol: Document 01/26/19 11:00 AMB (Rec: 01/26/19 13:02 AMB [email or web address]) Functional Tests 6 Minute Walk Test Distance 1039 Device Used none Comments no LOB, but no armswing on L Five Times Sit to Stand Test Score 12 PT-OP-G Mobility & Gait Start: 01/26/19 08:29 Freq: Status: Active Protocol: Document 01/26/19 11:00 AMB (Rec: 01/26/19 13:02 AMB [email or web address]) OP Gait Assessment Comments Gait Comments Pt ambulates with bilateral feet turned out, poor swing through. Reduced trunk rotation, minimal arm swing on the right and absent on the left. No AD. PT-OP-H Neuro Start: 01/26/19 08:29 Freq: Status: Active Protocol: Document 01/26/19 12:47 AMB (Rec: 01/26/19 12:59 AMB [email or web address]) Coordination Evaluation Upper Extremity Tests Left Pronation/Supination Test Minimal Impairment Lower Extremity Tests Foot Tapping Test Minimal Impairment PT-OP-J Posture/Palpation/Skin Start: 01/26/19 08:29 Freq: Status: Active Protocol: Document 01/26/19 12:47 AMB (Rec: 01/26/19 12:59 AMB [email or web address]) Posture Evaluation Comments Posture Comments Pt with sig. forward head, thoracic kyphosis, with tendency to externall rotation hips bilaterally PT-OP-K Range of Motion Start: 01/26/19 08:29 Freq: Status: Active Protocol: Document 01/26/19 12:47 AMB (Rec: 01/26/19 12:59 AMB [email or web address]) Shoulder Goniometric Range of Motion Shoulder Measured in Degrees Right Active Flexion 130 Left Active Flexion 120 PT-OP-M Strength Start: 05/13/19 08:29 Freq: Status: Active Protocol: Document 01/26/19 12:47 AMB (Rec: 01/26/19 12:59 AMB [email or web address]) Knee Strength Knee Manual Muscle Testing Right Flexion (S2) 4 Good Extension (L3) 4+ Good+ Left Flexion (S2) 4+ Good+ Extension (L3) 4+ Good+ Ankle/Foot Strength Ankle and Foot Manual Muscle Testing Right Dorsiflexion (L4) 4+ Good+ Left Dorsiflexion (L4) 4 Good PT-OP-Q Treatments Start: 01/26/19 08:29 Freq: Status: Active Protocol: Document 02/04/19 11:00 AMB (Rec: 02/05/19 13:43 AMB [email or web address]) Therapeutic Exercises Standing Exercises 1 Standing Exercise Name t band shoulder extension Resistance #3 Reps/Minutes 2x10 Comments alternating Therapeutic Activity Therapeutic Activity 1 Name sit to stand Reps/Minutes 10 Comments 16 box Gait Training Gait Activity 1 Description BIG walking Device Used none Level of Assistance SBA Surface outdoors Distance/Duration 10 min Treatment Focus even arm swing Comments over uneven terrain- grass, curb, stairs- CGA to descend stairs Neuro Re-Education Treatment Balance Activities 2 Details forward and sideways rock and reach Reps/Duration x10 ea side Comments UE support with chair 1 Details Forward, side, backward stepping Equipment with UE support Reps/Duration 10 ea LE Comments vc for BIG LE and UE movement. Coordination Activities 2 Details side to side Reps/Duration 8 sets of 10 1 Details floor to ceiling Reps/Duration 8 sets of 10 PT-OP-T Assessment and Plan Start: 01/26/19 08:29 Freq: Status: Active Protocol: Document 02/04/19 11:00 AMB (Rec: 02/05/19 13:04 AMB [email or web address]) Physical Therapy Assessment Assessment Summary Assessment Pt needed 1 instance of Wolf to descend stairs safely, got fatigued/SOB with walking outside for 6 minutes (slight incline). Physical Therapy Plan Next Visit Focus/Plan Next Note Type Treatment Note Next Visit Plan Progress dynamic balance
--- NOTE | 2019-02-05 14:16 | PT.OTN ---
Current Diagnoses Parkinson's disease (02/05/19) Physical Therapy Treatment Note PT-OP-A Visit Information Start: 01/26/19 08:29 Freq: Status: Active Protocol: Document 02/05/19 11:00 AMB (Rec: 02/05/19 14:16 AMB [email or web address]) Out-Patient Physical Therapy Visit Information Visit Information Visit Type Treatment Note Visit Start Time 11:00 Visit Stop Time 12:00 Total Visit Minutes 60 Visit Number 5 PT-OP-B Current Condition Start: 01/26/19 08:29 Freq: Status: Active Protocol: Document 01/26/19 11:00 AMB (Rec: 01/26/19 14:01 AMB [email or web address]) Current Condition History of Current Condition Onset Date chronic Current Complaints difficulty with gross and fine motor activities due to Parkinson's. History of Current Condition Ale reports she has had the diagnosis of Parkinson's for about 10 years. About 6 months ago, she got a new neurologist, who changed her medications, and she has noticed significant improvement. That said, she is no longer able to walk the 2 miles per day that she used to. She denies recent falls, but is fearful of falling. She lives alone in a single level home with 2 steps with a railing to enter. She does all of her own driving, cleaning and cooking, but does use a stool to do yardwork and no longer mows her lawn. Treatment Goals Patient/Caregiver Goals Improve gait/ balance, bed mobility, sit to stand from low surface, donning a jacket, folding laundry. Current Functional Impairments (Reported) Functional Limitations- ADL's Difficulty donning a jacket, getting up from a low surface. It has been years since she has attempted a floor transfer . Personal Factors Other Personal Factors That May Effect Back pain, posterior R knee Therapy/Recovery pain, long standing intermittent vertigo per the patient associated with her allergies that she takes meclinzine for PRN, urinary incontinence. PT-OP-C Subjective Start: 01/26/19 08:29 Freq: Status: Active Protocol: Document 02/05/19 11:00 AMB (Rec: 02/05/19 14:16 AMB [email or web address]) OP-PT Subjective Patient Comments Patient Comments Ale states her back did not hurt at all with her exercises , but leaning over and picking up bags out of the closet did flare her sx. PT-OP-D Balance Start: 01/26/19 08:29 Freq: Status: Active Protocol: Document 01/26/19 11:00 AMB (Rec: 01/26/19 13:02 AMB [email or web address]) Balance Tests Single Limb Standing Single Limb- Right unable Single Limb- Left unable Semi-Tandem Standing Semi-Tandem Standing Balance good with EO, unable with EC Other Other Balance Tests Performed NBOS with HT 30 seconds. PT-OP-E Functional Tests Start: 01/26/19 08:29 Freq: Status: Active Protocol: Document 01/26/19 11:00 AMB (Rec: 01/26/19 13:02 AMB [email or web address]) Functional Tests 6 Minute Walk Test Distance 1039 Device Used none Comments no LOB, but no armswing on L Five Times Sit to Stand Test Score 12 PT-OP-G Mobility & Gait Start: 01/26/19 08:29 Freq: Status: Active Protocol: Document 01/26/19 11:00 AMB (Rec: 01/26/19 13:02 AMB [email or web address]) OP Gait Assessment Comments Gait Comments Pt ambulates with bilateral feet turned out, poor swing through. Reduced trunk rotation, minimal arm swing on the right and absent on the left. No AD. PT-OP-H Neuro Start: 01/26/19 08:29 Freq: Status: Active Protocol: Document 01/26/19 12:47 AMB (Rec: 01/26/19 12:59 AMB [email or web address]) Coordination Evaluation Upper Extremity Tests Left Pronation/Supination Test Minimal Impairment Lower Extremity Tests Foot Tapping Test Minimal Impairment PT-OP-J Posture/Palpation/Skin Start: 01/26/19 08:29 Freq: Status: Active Protocol: Document 01/26/19 12:47 AMB (Rec: 01/26/19 12:59 AMB [email or web address]) Posture Evaluation Comments Posture Comments Pt with sig. forward head, thoracic kyphosis, with tendency to externall rotation hips bilaterally PT-OP-K Range of Motion Start: 01/26/19 08:29 Freq: Status: Active Protocol: Document 01/26/19 12:47 AMB (Rec: 01/26/19 12:59 AMB [email or web address]) Shoulder Goniometric Range of Motion Shoulder Measured in Degrees Right Active Flexion 130 Left Active Flexion 120 PT-OP-M Strength Start: 01/26/19 08:29 Freq: Status: Active Protocol: Document 01/26/19 12:47 AMB (Rec: 01/26/19 12:59 AMB [email or web address]) Knee Strength Knee Manual Muscle Testing Right Flexion (S2) 4 Good Extension (L3) 4+ Good+ Left Flexion (S2) 4+ Good+ Extension (L3) 4+ Good+ Ankle/Foot Strength Ankle and Foot Manual Muscle Testing Right Dorsiflexion (L4) 4+ Good+ Left Dorsiflexion (L4) 4 Good PT-OP-Q Treatments Start: 01/26/19 08:29 Freq: Status: Active Protocol: Document 02/05/19 11:00 AMB (Rec: 02/05/19 14:16 AMB [email or web address]) Therapeutic Exercises Standing Exercises 1 Standing Exercise Name t band shoulder extension Resistance #3 Reps/Minutes 2x10 Comments alternating Therapeutic Activity Therapeutic Activity 2 Name 10# lift from knee to waist Reps/Minutes 10 min Comments vc hips back posture 1 Name sit to stand Reps/Minutes 10 Comments low plinth Gait Training Gait Activity 1 Description BIG walking Device Used none Level of Assistance SBA Surface smooth surfaces Distance/Duration 5 min Treatment Focus even arm swing Comments inside Neuro Re-Education Treatment Balance Activities 2 Details forward and sideways rock and reach Reps/Duration x12 ea side Comments UE support with chair 1 Details Forward, side, backward stepping Equipment with UE support Reps/Duration 10 ea LE Comments vc for BIG LE and UE movement. Coordination Activities 2 Details side to side Reps/Duration 8 sets of 10 1 Details floor to ceiling Reps/Duration 8 sets of 10 PT-OP-T Assessment and Plan Start: 01/26/19 08:29 Freq: Status: Active Protocol: Document 02/05/19 11:00 AMB (Rec: 02/05/19 14:16 AMB [email or web address]) Physical Therapy Assessment Assessment Summary Assessment Ale did have some back pain after lifting training today, but it resolved quickly with stretching. Physical Therapy Plan Next Visit Focus/Plan Next Note Type Treatment Note Next Visit Plan Progress dynamic balance
--- NOTE | 2019-02-06 15:51 | PT.OTN ---
Current Diagnoses Parkinson's disease (02/06/19) Physical Therapy Treatment Note PT-OP-A Visit Information Start: 01/26/19 08:29 Freq: Status: Active Protocol: Document 02/06/19 11:00 AMB (Rec: 02/06/19 13:46 AMB [email or web address]) Out-Patient Physical Therapy Visit Information Visit Information Visit Type Treatment Note Visit Start Time 11:00 Visit Stop Time 12:00 Total Visit Minutes 60 Visit Number 7 PT-OP-B Current Condition Start: 01/26/19 08:29 Freq: Status: Active Protocol: Document 01/26/19 11:00 AMB (Rec: 01/26/19 14:01 AMB [email or web address]) Current Condition History of Current Condition Onset Date chronic Current Complaints difficulty with gross and fine motor activities due to Parkinson's. History of Current Condition Ale reports she has had the diagnosis of Parkinson's for about 10 years. About 6 months ago, she got a new neurologist, who changed her medications, and she has noticed significant improvement. That said, she is no longer able to walk the 2 miles per day that she used to. She denies recent falls, but is fearful of falling. She lives alone in a single level home with 2 steps with a railing to enter. She does all of her own driving, cleaning and cooking, but does use a stool to do yardwork and no longer mows her lawn. Treatment Goals Patient/Caregiver Goals Improve gait/ balance, bed mobility, sit to stand from low surface, donning a jacket, folding laundry. Current Functional Impairments (Reported) Functional Limitations- ADL's Difficulty donning a jacket, getting up from a low surface. It has been years since she has attempted a floor transfer . Personal Factors Other Personal Factors That May Effect Back pain, posterior R knee Therapy/Recovery pain, long standing intermittent vertigo per the patient associated with her allergies that she takes meclinzine for PRN, urinary incontinence. PT-OP-C Subjective Start: 01/26/19 08:29 Freq: Status: Active Protocol: Document 02/06/19 11:00 AMB (Rec: 02/06/19 15:51 AMB [email or web address]) OP-PT Subjective Patient Comments Patient Comments The patient states she is doing well today. Going to be doing yardwork today. PT-OP-D Balance Start: 01/26/19 08:29 Freq: Status: Active Protocol: Document 01/26/19 11:00 AMB (Rec: 01/26/19 13:02 AMB [email or web address]) Balance Tests Single Limb Standing Single Limb- Right unable Single Limb- Left unable Semi-Tandem Standing Semi-Tandem Standing Balance good with EO, unable with EC Other Other Balance Tests Performed NBOS with HT 30 seconds. PT-OP-E Functional Tests Start: 01/26/19 08:29 Freq: Status: Active Protocol: Document 01/26/19 11:00 AMB (Rec: 01/26/19 13:02 AMB [email or web address]) Functional Tests 6 Minute Walk Test Distance 1039 Device Used none Comments no LOB, but no armswing on L Five Times Sit to Stand Test Score 12 PT-OP-G Mobility & Gait Start: 01/26/19 08:29 Freq: Status: Active Protocol: Document 01/26/19 11:00 AMB (Rec: 01/26/19 13:02 AMB [email or web address]) OP Gait Assessment Comments Gait Comments Pt ambulates with bilateral feet turned out, poor swing through. Reduced trunk rotation, minimal arm swing on the right and absent on the left. No AD. PT-OP-H Neuro Start: 01/26/19 08:29 Freq: Status: Active Protocol: Document 01/26/19 12:47 AMB (Rec: 01/26/19 12:59 AMB [email or web address]) Coordination Evaluation Upper Extremity Tests Left Pronation/Supination Test Minimal Impairment Lower Extremity Tests Foot Tapping Test Minimal Impairment PT-OP-J Posture/Palpation/Skin Start: 01/26/19 08:29 Freq: Status: Active Protocol: Document 01/26/19 12:47 AMB (Rec: 01/26/19 12:59 AMB [email or web address]) Posture Evaluation Comments Posture Comments Pt with sig. forward head, thoracic kyphosis, with tendency to externall rotation hips bilaterally PT-OP-K Range of Motion Start: 01/26/19 08:29 Freq: Status: Active Protocol: Document 01/26/19 12:47 AMB (Rec: 01/26/19 12:59 AMB [email or web address]) Shoulder Goniometric Range of Motion Shoulder Measured in Degrees Right Active Flexion 130 Left Active Flexion 120 PT-OP-M Strength Start: 01/26/19 08:29 Freq: Status: Active Protocol: Document 01/26/19 12:47 AMB (Rec: 01/26/19 12:59 AMB [email or web address]) Knee Strength Knee Manual Muscle Testing Right Flexion (S2) 4 Good Extension (L3) 4+ Good+ Left Flexion (S2) 4+ Good+ Extension (L3) 4+ Good+ Ankle/Foot Strength Ankle and Foot Manual Muscle Testing Right Dorsiflexion (L4) 4+ Good+ Left Dorsiflexion (L4) 4 Good PT-OP-Q Treatments Start: 01/26/19 08:29 Freq: Status: Active Protocol: Document 02/06/19 11:00 AMB (Rec: 02/06/19 15:51 AMB [email or web address]) Therapeutic Activity Therapeutic Activity 1 Name sit to stand Reps/Minutes 10 Comments 16 box Gait Training Gait Activity 2 Description forward, sideways, backward walking Device Used none Level of Assistance smooth 1 Description BIG walking Device Used none Level of Assistance SBA Surface smooth surfaces Distance/Duration 5 min Treatment Focus even arm swing Comments inside Neuro Re-Education Treatment Balance Activities 2 Details forward and sideways rock and reach Reps/Duration x12 ea side Comments UE support with chair 1 Details Forward, side, backward stepping Equipment with UE support Reps/Duration 10 ea LE Comments vc for BIG LE and UE movement. Coordination Activities 2 Details side to side Reps/Duration 8 sets of 10 1 Details floor to ceiling Reps/Duration 8 sets of 10 PT-OP-T Assessment and Plan Start: 01/26/19 08:29 Freq: Status: Active Protocol: Document 02/06/19 11:00 AMB (Rec: 02/06/19 15:51 AMB [email or web address]) Physical Therapy Assessment Assessment Summary Assessment Ale is progressing appropriately, still took 12 seconds to do 5x sit to stand. Physical Therapy Plan Next Visit Focus/Plan Next Note Type Treatment Note Next Visit Plan Progress dynamic balance. Recheck 6 minute walk test.
--- NOTE | 2019-02-10 15:39 | PT.OTN ---
Current Diagnoses Parkinson's disease (02/10/19) Physical Therapy Treatment Note PT-OP-A Visit Information Start: 01/26/19 08:29 Freq: Status: Active Protocol: Document 02/10/19 11:00 AMB (Rec: 02/10/19 13:00 AMB [email or web address]) Out-Patient Physical Therapy Visit Information Visit Information Visit Type Treatment Note Visit Start Time 11:00 Visit Stop Time 12:00 Total Visit Minutes 60 Visit Number 8 PT-OP-B Current Condition Start: 01/26/19 08:29 Freq: Status: Active Protocol: Document 01/26/19 11:00 AMB (Rec: 01/26/19 14:01 AMB [email or web address]) Current Condition History of Current Condition Onset Date chronic Current Complaints difficulty with gross and fine motor activities due to Parkinson's. History of Current Condition Ale reports she has had the diagnosis of Parkinson's for about 10 years. About 6 months ago, she got a new neurologist, who changed her medications, and she has noticed significant improvement. That said, she is no longer able to walk the 2 miles per day that she used to. She denies recent falls, but is fearful of falling. She lives alone in a single level home with 2 steps with a railing to enter. She does all of her own driving, cleaning and cooking, but does use a stool to do yardwork and no longer mows her lawn. Treatment Goals Patient/Caregiver Goals Improve gait/ balance, bed mobility, sit to stand from low surface, donning a jacket, folding laundry. Current Functional Impairments (Reported) Functional Limitations- ADL's Difficulty donning a jacket, getting up from a low surface. It has been years since she has attempted a floor transfer . Personal Factors Other Personal Factors That May Effect Back pain, posterior R knee Therapy/Recovery pain, long standing intermittent vertigo per the patient associated with her allergies that she takes meclinzine for PRN, urinary incontinence. PT-OP-C Subjective Start: 01/26/19 08:29 Freq: Status: Active Protocol: Document 02/10/19 11:00 AMB (Rec: 02/10/19 13:00 AMB [email or web address]) OP-PT Subjective Patient Comments Patient Comments Ale states she is tired, she went window shopping on Saturday and did yardwork on Saturday and is still recovering, but she is doing all of her exercises. PT-OP-D Balance Start: 01/26/19 08:29 Freq: Status: Active Protocol: Document 01/26/19 11:00 AMB (Rec: 01/26/19 13:02 AMB [email or web address]) Balance Tests Single Limb Standing Single Limb- Right unable Single Limb- Left unable Semi-Tandem Standing Semi-Tandem Standing Balance good with EO, unable with EC Other Other Balance Tests Performed NBOS with HT 30 seconds. PT-OP-E Functional Tests Start: 01/26/19 08:29 Freq: Status: Active Protocol: Document 01/26/19 11:00 AMB (Rec: 01/26/19 13:02 AMB [email or web address]) Functional Tests 6 Minute Walk Test Distance 1039 Device Used none Comments no LOB, but no armswing on L Five Times Sit to Stand Test Score 12 PT-OP-G Mobility & Gait Start: 01/26/19 08:29 Freq: Status: Active Protocol: Document 01/26/19 11:00 AMB (Rec: 01/26/19 13:02 AMB [email or web address]) OP Gait Assessment Comments Gait Comments Pt ambulates with bilateral feet turned out, poor swing through. Reduced trunk rotation, minimal arm swing on the right and absent on the left. No AD. PT-OP-H Neuro Start: 01/26/19 08:29 Freq: Status: Active Protocol: Document 01/26/19 12:47 AMB (Rec: 01/26/19 12:59 AMB [email or web address]) Coordination Evaluation Upper Extremity Tests Left Pronation/Supination Test Minimal Impairment Lower Extremity Tests Foot Tapping Test Minimal Impairment PT-OP-J Posture/Palpation/Skin Start: 01/26/19 08:29 Freq: Status: Active Protocol: Document 01/26/19 12:47 AMB (Rec: 01/26/19 12:59 AMB [email or web address]) Posture Evaluation Comments Posture Comments Pt with sig. forward head, thoracic kyphosis, with tendency to externall rotation hips bilaterally PT-OP-K Range of Motion Start: 01/26/19 08:29 Freq: Status: Active Protocol: Document 01/26/19 12:47 AMB (Rec: 01/26/19 12:59 AMB [email or web address]) Shoulder Goniometric Range of Motion Shoulder Measured in Degrees Right Active Flexion 130 Left Active Flexion 120 PT-OP-M Strength Start: 01/26/19 08:29 Freq: Status: Active Protocol: Document 01/26/19 12:47 AMB (Rec: 01/26/19 12:59 AMB [email or web address]) Knee Strength Knee Manual Muscle Testing Right Flexion (S2) 4 Good Extension (L3) 4+ Good+ Left Flexion (S2) 4+ Good+ Extension (L3) 4+ Good+ Ankle/Foot Strength Ankle and Foot Manual Muscle Testing Right Dorsiflexion (L4) 4+ Good+ Left Dorsiflexion (L4) 4 Good PT-OP-Q Treatments Start: 01/26/19 08:29 Freq: Status: Active Protocol: Document 02/10/19 11:00 AMB (Rec: 02/10/19 13:00 AMB [email or web address]) Gait Training Gait Activity 2 Description stairs Device Used 1 rail Distance/Duration 2 flights, ascend descend 1 Description BIG walking Device Used none Level of Assistance SBA Surface smooth surfaces Distance/Duration 5 min Treatment Focus even arm swing Comments inside Neuro Re-Education Treatment Balance Activities 2 Details forward and sideways rock and reach Reps/Duration x12 ea side Comments UE support with chair 1 Details Forward, side, backward stepping Equipment with UE support Reps/Duration 10 ea LE Comments vc for BIG LE and UE movement. Coordination Activities 2 Details side to side Reps/Duration 8 sets of 10 1 Details floor to ceiling Reps/Duration 8 sets of 10 PT-OP-T Assessment and Plan Start: 01/26/19 08:29 Freq: Status: Active Protocol: Document 02/10/19 11:00 AMB (Rec: 02/10/19 13:00 AMB [email or web address]) Physical Therapy Assessment Assessment Summary Assessment Ale continues to get SOB with walking faster, and needs vc for good gait mechanics, but SpO2 was 98 after stairs. Physical Therapy Plan Next Visit Focus/Plan Next Note Type Treatment Note Next Visit Plan Progress dynamic balance. Recheck 6 minute walk test.
--- NOTE | 2019-02-11 13:35 | PT.OTN ---
Current Diagnoses Parkinson's disease (02/11/19) Physical Therapy Treatment Note PT-OP-A Visit Information Start: 01/26/19 08:29 Freq: Status: Active Protocol: Document 02/11/19 11:00 AMB (Rec: 02/11/19 13:35 AMB [email or web address]) Out-Patient Physical Therapy Visit Information Visit Information Visit Type Treatment Note Visit Start Time 11:00 Visit Stop Time 12:00 Total Visit Minutes 60 Visit Number 9 PT-OP-B Current Condition Start: 01/26/19 08:29 Freq: Status: Active Protocol: Document 01/26/19 11:00 AMB (Rec: 01/26/19 14:01 AMB [email or web address]) Current Condition History of Current Condition Onset Date chronic Current Complaints difficulty with gross and fine motor activities due to Parkinson's. History of Current Condition Ale reports she has had the diagnosis of Parkinson's for about 10 years. About 6 months ago, she got a new neurologist, who changed her medications, and she has noticed significant improvement. That said, she is no longer able to walk the 2 miles per day that she used to. She denies recent falls, but is fearful of falling. She lives alone in a single level home with 2 steps with a railing to enter. She does all of her own driving, cleaning and cooking, but does use a stool to do yardwork and no longer mows her lawn. Treatment Goals Patient/Caregiver Goals Improve gait/ balance, bed mobility, sit to stand from low surface, donning a jacket, folding laundry. Current Functional Impairments (Reported) Functional Limitations- ADL's Difficulty donning a jacket, getting up from a low surface. It has been years since she has attempted a floor transfer . Personal Factors Other Personal Factors That May Effect Back pain, posterior R knee Therapy/Recovery pain, long standing intermittent vertigo per the patient associated with her allergies that she takes meclinzine for PRN, urinary incontinence. PT-OP-C Subjective Start: 01/26/19 08:29 Freq: Status: Active Protocol: Document 02/11/19 11:00 AMB (Rec: 02/11/19 13:35 AMB [email or web address]) OP-PT Subjective Patient Comments Patient Comments Ale was quite tired yesterday, and is still a bit tired today. PT-OP-D Balance Start: 01/26/19 08:29 Freq: Status: Active Protocol: Document 01/26/19 11:00 AMB (Rec: 01/26/19 13:02 AMB [email or web address]) Balance Tests Single Limb Standing Single Limb- Right unable Single Limb- Left unable Semi-Tandem Standing Semi-Tandem Standing Balance good with EO, unable with EC Other Other Balance Tests Performed NBOS with HT 30 seconds. PT-OP-E Functional Tests Start: 01/26/19 08:29 Freq: Status: Active Protocol: Document 01/26/19 11:00 AMB (Rec: 01/26/19 13:02 AMB [email or web address]) Functional Tests 6 Minute Walk Test Distance 1039 Device Used none Comments no LOB, but no armswing on L Five Times Sit to Stand Test Score 12 PT-OP-G Mobility & Gait Start: 01/26/19 08:29 Freq: Status: Active Protocol: Document 01/26/19 11:00 AMB (Rec: 01/26/19 13:02 AMB [email or web address]) OP Gait Assessment Comments Gait Comments Pt ambulates with bilateral feet turned out, poor swing through. Reduced trunk rotation, minimal arm swing on the right and absent on the left. No AD. PT-OP-H Neuro Start: 01/26/19 08:29 Freq: Status: Active Protocol: Document 01/26/19 12:47 AMB (Rec: 01/26/19 12:59 AMB [email or web address]) Coordination Evaluation Upper Extremity Tests Left Pronation/Supination Test Minimal Impairment Lower Extremity Tests Foot Tapping Test Minimal Impairment PT-OP-J Posture/Palpation/Skin Start: 01/26/19 08:29 Freq: Status: Active Protocol: Document 01/26/19 12:47 AMB (Rec: 01/26/19 12:59 AMB [email or web address]) Posture Evaluation Comments Posture Comments Pt with sig. forward head, thoracic kyphosis, with tendency to externall rotation hips bilaterally PT-OP-K Range of Motion Start: 01/26/19 08:29 Freq: Status: Active Protocol: Document 01/26/19 12:47 AMB (Rec: 01/26/19 12:59 AMB [email or web address]) Shoulder Goniometric Range of Motion Shoulder Measured in Degrees Right Active Flexion 130 Left Active Flexion 120 PT-OP-M Strength Start: 01/26/19 08:29 Freq: Status: Active Protocol: Document 01/26/19 12:47 AMB (Rec: 01/26/19 12:59 AMB [email or web address]) Knee Strength Knee Manual Muscle Testing Right Flexion (S2) 4 Good Extension (L3) 4+ Good+ Left Flexion (S2) 4+ Good+ Extension (L3) 4+ Good+ Ankle/Foot Strength Ankle and Foot Manual Muscle Testing Right Dorsiflexion (L4) 4+ Good+ Left Dorsiflexion (L4) 4 Good PT-OP-Q Treatments Start: 01/26/19 08:29 Freq: Status: Active Protocol: Document 02/11/19 11:00 AMB (Rec: 02/11/19 13:35 AMB [email or web address]) Therapeutic Exercises Standing Exercises 2 Standing Exercise Name alternating tap ups Reps/Minutes 2x15 Comments 4 step 1 Standing Exercise Name t band shoulder extension Resistance #3 Reps/Minutes 2x10 Comments alternating Therapeutic Activity Therapeutic Activity 3 Name donning jacket Comments punch/ using momentum 1 Name sit to stand Reps/Minutes 10 Comments 16 box Gait Training Gait Activity 1 Description BIG walking Device Used none Level of Assistance SBA Surface smooth surfaces Distance/Duration 5 min Treatment Focus even arm swing Comments inside Neuro Re-Education Treatment Balance Activities 2 Details forward and sideways rock and reach Reps/Duration x12 ea side Comments UE support with chair 1 Details Forward, side, backward stepping Equipment with UE support Reps/Duration 10 ea LE Comments vc for BIG LE and UE movement. Coordination Activities 2 Details side to side Reps/Duration 8 sets of 10 1 Details floor to ceiling Reps/Duration 8 sets of 10 PT-OP-T Assessment and Plan Start: 01/26/19 08:29 Freq: Status: Active Protocol: Document 02/11/19 11:00 AMB (Rec: 02/11/19 13:35 AMB [email or web address]) Physical Therapy Assessment Assessment Summary Assessment Pt finds dressing to be difficult on some days, but not all days. Physical Therapy Plan Next Visit Focus/Plan Next Note Type Progress Note Next Visit Plan 10th visit next visit
--- NOTE | 2019-02-12 16:40 | PT.OTN ---
Current Diagnoses Parkinson's disease (02/12/19) Physical Therapy Treatment Note PT-OP-A Visit Information Start: 01/26/19 08:29 Freq: Status: Active Protocol: Document 02/12/19 11:00 AMB (Rec: 02/12/19 16:40 AMB [email or web address]) Out-Patient Physical Therapy Visit Information Visit Information Visit Type Treatment Note Visit Start Time 11:00 Visit Stop Time 12:00 Total Visit Minutes 60 Visit Number 10 PT-OP-B Current Condition Start: 01/26/19 08:29 Freq: Status: Active Protocol: Document 01/26/19 11:00 AMB (Rec: 01/26/19 14:01 AMB [email or web address]) Current Condition History of Current Condition Onset Date chronic Current Complaints difficulty with gross and fine motor activities due to Parkinson's. History of Current Condition Ale reports she has had the diagnosis of Parkinson's for about 10 years. About 6 months ago, she got a new neurologist, who changed her medications, and she has noticed significant improvement. That said, she is no longer able to walk the 2 miles per day that she used to. She denies recent falls, but is fearful of falling. She lives alone in a single level home with 2 steps with a railing to enter. She does all of her own driving, cleaning and cooking, but does use a stool to do yardwork and no longer mows her lawn. Treatment Goals Patient/Caregiver Goals Improve gait/ balance, bed mobility, sit to stand from low surface, donning a jacket, folding laundry. Current Functional Impairments (Reported) Functional Limitations- ADL's Difficulty donning a jacket, getting up from a low surface. It has been years since she has attempted a floor transfer . Personal Factors Other Personal Factors That May Effect Back pain, posterior R knee Therapy/Recovery pain, long standing intermittent vertigo per the patient associated with her allergies that she takes meclinzine for PRN, urinary incontinence. PT-OP-C Subjective Start: 01/26/19 08:29 Freq: Status: Active Protocol: Document 02/12/19 11:00 AMB (Rec: 02/12/19 16:40 AMB [email or web address]) OP-PT Subjective Patient Comments Patient Comments Better today, concerned about balance- sounds like ability to dual task while walking. PT-OP-D Balance Start: 01/26/19 08:29 Freq: Status: Active Protocol: Document 01/26/19 11:00 AMB (Rec: 01/26/19 13:02 AMB [email or web address]) Balance Tests Single Limb Standing Single Limb- Right unable Single Limb- Left unable Semi-Tandem Standing Semi-Tandem Standing Balance good with EO, unable with EC Other Other Balance Tests Performed NBOS with HT 30 seconds. PT-OP-E Functional Tests Start: 01/26/19 08:29 Freq: Status: Active Protocol: Document 01/26/19 11:00 AMB (Rec: 01/26/19 13:02 AMB [email or web address]) Functional Tests 6 Minute Walk Test Distance 1039 Device Used none Comments no LOB, but no armswing on L Five Times Sit to Stand Test Score 12 PT-OP-G Mobility & Gait Start: 01/26/19 08:29 Freq: Status: Active Protocol: Document 01/26/19 11:00 AMB (Rec: 01/26/19 13:02 AMB [email or web address]) OP Gait Assessment Comments Gait Comments Pt ambulates with bilateral feet turned out, poor swing through. Reduced trunk rotation, minimal arm swing on the right and absent on the left. No AD. PT-OP-H Neuro Start: 01/26/19 08:29 Freq: Status: Active Protocol: Document 01/26/19 12:47 AMB (Rec: 01/26/19 12:59 AMB [email or web address]) Coordination Evaluation Upper Extremity Tests Left Pronation/Supination Test Minimal Impairment Lower Extremity Tests Foot Tapping Test Minimal Impairment PT-OP-J Posture/Palpation/Skin Start: 01/26/19 08:29 Freq: Status: Active Protocol: Document 01/26/19 12:47 AMB (Rec: 01/26/19 12:59 AMB [email or web address]) Posture Evaluation Comments Posture Comments Pt with sig. forward head, thoracic kyphosis, with tendency to externall rotation hips bilaterally PT-OP-K Range of Motion Start: 01/26/19 08:29 Freq: Status: Active Protocol: Document 01/26/19 12:47 AMB (Rec: 01/26/19 12:59 AMB [email or web address]) Shoulder Goniometric Range of Motion Shoulder Measured in Degrees Right Active Flexion 130 Left Active Flexion 120 PT-OP-M Strength Start: 01/26/19 08:29 Freq: Status: Active Protocol: Document 01/26/19 12:47 AMB (Rec: 01/26/19 12:59 AMB [email or web address]) Knee Strength Knee Manual Muscle Testing Right Flexion (S2) 4 Good Extension (L3) 4+ Good+ Left Flexion (S2) 4+ Good+ Extension (L3) 4+ Good+ Ankle/Foot Strength Ankle and Foot Manual Muscle Testing Right Dorsiflexion (L4) 4+ Good+ Left Dorsiflexion (L4) 4 Good PT-OP-Q Treatments Start: 01/26/19 08:29 Freq: Status: Active Protocol: Document 02/12/19 11:00 AMB (Rec: 02/12/19 16:40 AMB [email or web address]) Gait Training Gait Activity 1 Description BIG walking Device Used none Level of Assistance SBA Surface smooth surfaces Distance/Duration 5 min Treatment Focus even arm swing Comments dual task, naming animals Neuro Re-Education Treatment Balance Activities 3 Details stride stance Comments EO HT/ EC 2 Details forward and sideways rock and reach Reps/Duration x12 ea side Comments UE support with chair 1 Details Forward, side, backward stepping Equipment with UE support Reps/Duration 10 ea LE Comments vc for BIG LE and UE movement. Coordination Activities 2 Details side to side Reps/Duration 8 sets of 10 1 Details floor to ceiling Reps/Duration 8 sets of 10 PT-OP-T Assessment and Plan Start: 01/26/19 08:29 Freq: Status: Active Protocol: Document 02/12/19 11:00 AMB (Rec: 02/12/19 16:40 AMB [email or web address]) Physical Therapy Assessment Assessment Summary Assessment Pt with difficulty dual tasking, static balance is ok, but dizziness does increase with fast head turns Physical Therapy Plan Next Visit Focus/Plan Next Note Type Treatment Note Next Visit Plan Progress balance while dual tasking, carrying
--- NOTE | 2019-02-13 17:50 | PT.OTN ---
Current Diagnoses Parkinson's disease (02/13/19) Physical Therapy Treatment Note PT-OP-A Visit Information Start: 01/26/19 08:29 Freq: Status: Active Protocol: Document 02/13/19 11:00 AMB (Rec: 02/13/19 17:50 AMB [email or web address]) Out-Patient Physical Therapy Visit Information Visit Information Visit Type Treatment Note Visit Start Time 11:00 Visit Stop Time 12:00 Total Visit Minutes 60 Visit Number 11 PT-OP-B Current Condition Start: 01/26/19 08:29 Freq: Status: Active Protocol: Document 01/26/19 11:00 AMB (Rec: 01/26/19 14:01 AMB [email or web address]) Current Condition History of Current Condition Onset Date chronic Current Complaints difficulty with gross and fine motor activities due to Parkinson's. History of Current Condition Ale reports she has had the diagnosis of Parkinson's for about 10 years. About 6 months ago, she got a new neurologist, who changed her medications, and she has noticed significant improvement. That said, she is no longer able to walk the 2 miles per day that she used to. She denies recent falls, but is fearful of falling. She lives alone in a single level home with 2 steps with a railing to enter. She does all of her own driving, cleaning and cooking, but does use a stool to do yardwork and no longer mows her lawn. Treatment Goals Patient/Caregiver Goals Improve gait/ balance, bed mobility, sit to stand from low surface, donning a jacket, folding laundry. Current Functional Impairments (Reported) Functional Limitations- ADL's Difficulty donning a jacket, getting up from a low surface. It has been years since she has attempted a floor transfer . Personal Factors Other Personal Factors That May Effect Back pain, posterior R knee Therapy/Recovery pain, long standing intermittent vertigo per the patient associated with her allergies that she takes meclinzine for PRN, urinary incontinence. PT-OP-C Subjective Start: 01/26/19 08:29 Freq: Status: Active Protocol: Document 02/13/19 11:00 AMB (Rec: 02/13/19 17:50 AMB [email or web address]) OP-PT Subjective Patient Comments Patient Comments Ale is doing well today, she is going to be going to [place] so she will be doing a lot of walking today. PT-OP-D Balance Start: 01/26/19 08:29 Freq: Status: Active Protocol: Document 01/26/19 11:00 AMB (Rec: 01/26/19 13:02 AMB [email or web address]) Balance Tests Single Limb Standing Single Limb- Right unable Single Limb- Left unable Semi-Tandem Standing Semi-Tandem Standing Balance good with EO, unable with EC Other Other Balance Tests Performed NBOS with HT 30 seconds. PT-OP-E Functional Tests Start: 01/26/19 08:29 Freq: Status: Active Protocol: Document 01/26/19 11:00 AMB (Rec: 01/26/19 13:02 AMB [email or web address]) Functional Tests 6 Minute Walk Test Distance 1039 Device Used none Comments no LOB, but no armswing on L Five Times Sit to Stand Test Score 12 PT-OP-G Mobility & Gait Start: 01/26/19 08:29 Freq: Status: Active Protocol: Document 01/26/19 11:00 AMB (Rec: 01/26/19 13:02 AMB [email or web address]) OP Gait Assessment Comments Gait Comments Pt ambulates with bilateral feet turned out, poor swing through. Reduced trunk rotation, minimal arm swing on the right and absent on the left. No AD. PT-OP-H Neuro Start: 01/26/19 08:29 Freq: Status: Active Protocol: Document 01/26/19 12:47 AMB (Rec: 01/26/19 12:59 AMB [email or web address]) Coordination Evaluation Upper Extremity Tests Left Pronation/Supination Test Minimal Impairment Lower Extremity Tests Foot Tapping Test Minimal Impairment PT-OP-J Posture/Palpation/Skin Start: 01/26/19 08:29 Freq: Status: Active Protocol: Document 01/26/19 12:47 AMB (Rec: 01/26/19 12:59 AMB [email or web address]) Posture Evaluation Comments Posture Comments Pt with sig. forward head, thoracic kyphosis, with tendency to externall rotation hips bilaterally PT-OP-K Range of Motion Start: 01/26/19 08:29 Freq: Status: Active Protocol: Document 01/26/19 12:47 AMB (Rec: 01/26/19 12:59 AMB [email or web address]) Shoulder Goniometric Range of Motion Shoulder Measured in Degrees Right Active Flexion 130 Left Active Flexion 120 PT-OP-M Strength Start: 01/26/19 08:29 Freq: Status: Active Protocol: Document 01/26/19 12:47 AMB (Rec: 01/26/19 12:59 AMB [email or web address]) Knee Strength Knee Manual Muscle Testing Right Flexion (S2) 4 Good Extension (L3) 4+ Good+ Left Flexion (S2) 4+ Good+ Extension (L3) 4+ Good+ Ankle/Foot Strength Ankle and Foot Manual Muscle Testing Right Dorsiflexion (L4) 4+ Good+ Left Dorsiflexion (L4) 4 Good PT-OP-Q Treatments Start: 01/26/19 08:29 Freq: Status: Active Protocol: Document 02/13/19 11:00 AMB (Rec: 02/13/19 17:50 AMB [email or web address]) Therapeutic Activity Therapeutic Activity 1 Name sit to stand Reps/Minutes 10 Comments 16 box Gait Training Gait Activity 3 Description walking with HT Comments horizontal and vertical. while carrying water cup. 1 Description BIG walking Device Used none Level of Assistance SBA Surface smooth surfaces Distance/Duration 5 min Treatment Focus even arm swing Comments dual task, naming animals Neuro Re-Education Treatment Balance Activities 3 Details stride stance Comments EO HT/ EC 2 Details forward and sideways rock and reach Reps/Duration x12 ea side Comments UE support with chair 1 Details Forward, side, backward stepping Equipment with UE support Reps/Duration 10 ea LE Comments vc for BIG LE and UE movement. Coordination Activities 2 Details side to side Reps/Duration 8 sets of 10 1 Details floor to ceiling Reps/Duration 8 sets of 10 PT-OP-T Assessment and Plan Start: 01/26/19 08:29 Freq: Status: Active Protocol: Document 02/13/19 11:00 AMB (Rec: 02/13/19 17:50 AMB [email or web address]) Physical Therapy Assessment Assessment Summary Assessment Pt did well with carrying tasks. Head turns while walking are more difficult. Physical Therapy Plan Next Visit Focus/Plan Next Note Type Treatment Note Next Visit Plan Progress balance while dual tasking, carrying
--- NOTE | 2019-02-16 14:12 | PT.OTN ---
Current Diagnoses Parkinson's disease (02/16/19) Physical Therapy Treatment Note PT-OP-A Visit Information Start: 01/26/19 08:29 Freq: Status: Active Protocol: Document 02/16/19 11:00 AMB (Rec: 02/16/19 13:12 AMB [email or web address]) Out-Patient Physical Therapy Visit Information Visit Information Visit Type Treatment Note PT-OP-B Current Condition Start: 01/26/19 08:29 Freq: Status: Active Protocol: Document 01/26/19 11:00 AMB (Rec: 01/26/19 14:01 AMB [email or web address]) Current Condition History of Current Condition Onset Date chronic Current Complaints difficulty with gross and fine motor activities due to Parkinson's. History of Current Condition Ale reports she has had the diagnosis of Parkinson's for about 10 years. About 6 months ago, she got a new neurologist, who changed her medications, and she has noticed significant improvement. That said, she is no longer able to walk the 2 miles per day that she used to. She denies recent falls, but is fearful of falling. She lives alone in a single level home with 2 steps with a railing to enter. She does all of her own driving, cleaning and cooking, but does use a stool to do yardwork and no longer mows her lawn. Treatment Goals Patient/Caregiver Goals Improve gait/ balance, bed mobility, sit to stand from low surface, donning a jacket, folding laundry. Current Functional Impairments (Reported) Functional Limitations- ADL's Difficulty donning a jacket, getting up from a low surface. It has been years since she has attempted a floor transfer . Personal Factors Other Personal Factors That May Effect Back pain, posterior R knee Therapy/Recovery pain, long standing intermittent vertigo per the patient associated with her allergies that she takes meclinzine for PRN, urinary incontinence. PT-OP-C Subjective Start: 01/26/19 08:29 Freq: Status: Active Protocol: Document 02/16/19 11:00 AMB (Rec: 02/16/19 14:12 AMB [email or web address]) OP-PT Subjective Patient Comments Patient Comments Ale walked 4x as long at her [place] walk this year as she did last year. She walked a mile with her cane. PT-OP-D Balance Start: 01/26/19 08:29 Freq: Status: Active Protocol: Document 01/26/19 11:00 AMB (Rec: 01/26/19 13:02 AMB [email or web address]) Balance Tests Single Limb Standing Single Limb- Right unable Single Limb- Left unable Semi-Tandem Standing Semi-Tandem Standing Balance good with EO, unable with EC Other Other Balance Tests Performed NBOS with HT 30 seconds. PT-OP-E Functional Tests Start: 01/26/19 08:29 Freq: Status: Active Protocol: Document 01/26/19 11:00 AMB (Rec: 01/26/19 13:02 AMB [email or web address]) Functional Tests 6 Minute Walk Test Distance 1039 Device Used none Comments no LOB, but no armswing on L Five Times Sit to Stand Test Score 12 PT-OP-G Mobility & Gait Start: 01/26/19 08:29 Freq: Status: Active Protocol: Document 01/26/19 11:00 AMB (Rec: 01/26/19 13:02 AMB [email or web address]) OP Gait Assessment Comments Gait Comments Pt ambulates with bilateral feet turned out, poor swing through. Reduced trunk rotation, minimal arm swing on the right and absent on the left. No AD. PT-OP-H Neuro Start: 01/26/19 08:29 Freq: Status: Active Protocol: Document 01/26/19 12:47 AMB (Rec: 01/26/19 12:59 AMB [email or web address]) Coordination Evaluation Upper Extremity Tests Left Pronation/Supination Test Minimal Impairment Lower Extremity Tests Foot Tapping Test Minimal Impairment PT-OP-J Posture/Palpation/Skin Start: 01/26/19 08:29 Freq: Status: Active Protocol: Document 01/26/19 12:47 AMB (Rec: 01/26/19 12:59 AMB [email or web address]) Posture Evaluation Comments Posture Comments Pt with sig. forward head, thoracic kyphosis, with tendency to externall rotation hips bilaterally PT-OP-K Range of Motion Start: 01/26/19 08:29 Freq: Status: Active Protocol: Document 01/26/19 12:47 AMB (Rec: 01/26/19 12:59 AMB [email or web address]) Shoulder Goniometric Range of Motion Shoulder Measured in Degrees Right Active Flexion 130 Left Active Flexion 120 PT-OP-M Strength Start: 01/26/19 08:29 Freq: Status: Active Protocol: Document 01/26/19 12:47 AMB (Rec: 01/26/19 12:59 AMB [email or web address]) Knee Strength Knee Manual Muscle Testing Right Flexion (S2) 4 Good Extension (L3) 4+ Good+ Left Flexion (S2) 4+ Good+ Extension (L3) 4+ Good+ Ankle/Foot Strength Ankle and Foot Manual Muscle Testing Right Dorsiflexion (L4) 4+ Good+ Left Dorsiflexion (L4) 4 Good PT-OP-Q Treatments Start: 01/26/19 08:29 Freq: Status: Active Protocol: Document 02/16/19 11:00 AMB (Rec: 02/16/19 14:12 AMB [email or web address]) Gait Training Gait Activity 3 Description walking with HT Comments horizontal and vertical. carrying 10# box. Throw toss ball. 1 Description BIG walking Device Used none Level of Assistance SBA Surface smooth surfaces Distance/Duration 5 min Treatment Focus even arm swing Comments dual task, conversation Neuro Re-Education Treatment Balance Activities 3 Details stride stance Comments EO HT/ EC 2 Details forward and sideways rock and reach Reps/Duration x12 ea side Comments UE support with chair 1 Details Forward, side, backward stepping Equipment with UE support Reps/Duration 10 ea LE Comments vc for BIG LE and UE movement. Coordination Activities 2 Details side to side Reps/Duration 8 sets of 10 1 Details floor to ceiling Reps/Duration 8 sets of 10 PT-OP-T Assessment and Plan Start: 01/26/19 08:29 Freq: Status: Active Protocol: Document 02/16/19 11:00 AMB (Rec: 02/16/19 14:12 AMB [email or web address]) Physical Therapy Assessment Assessment Summary Assessment Ale had a good day today, dual tasks are difficult, but better with sit to stand. Physical Therapy Plan Next Visit Focus/Plan Next Note Type Treatment Note Next Visit Plan Progress balance while dual tasking, carrying
--- NOTE | 2019-02-17 12:32 | PT.OTN ---
Current Diagnoses Parkinson's disease (02/17/19) Physical Therapy Treatment Note PT-OP-A Visit Information Start: 01/26/19 08:29 Freq: Status: Active Protocol: Document 02/17/19 11:00 AMB (Rec: 02/17/19 12:31 AMB [email or web address]) Out-Patient Physical Therapy Visit Information Visit Information Visit Type Treatment Note Visit Start Time 11:00 Visit Stop Time 12:00 Total Visit Minutes 60 Visit Number 13 PT-OP-B Current Condition Start: 01/26/19 08:29 Freq: Status: Active Protocol: Document 01/26/19 11:00 AMB (Rec: 01/26/19 14:01 AMB [email or web address]) Current Condition History of Current Condition Onset Date chronic Current Complaints difficulty with gross and fine motor activities due to Parkinson's. History of Current Condition Ale reports she has had the diagnosis of Parkinson's for about 10 years. About 6 months ago, she got a new neurologist, who changed her medications, and she has noticed significant improvement. That said, she is no longer able to walk the 2 miles per day that she used to. She denies recent falls, but is fearful of falling. She lives alone in a single level home with 2 steps with a railing to enter. She does all of her own driving, cleaning and cooking, but does use a stool to do yardwork and no longer mows her lawn. Treatment Goals Patient/Caregiver Goals Improve gait/ balance, bed mobility, sit to stand from low surface, donning a jacket, folding laundry. Current Functional Impairments (Reported) Functional Limitations- ADL's Difficulty donning a jacket, getting up from a low surface. It has been years since she has attempted a floor transfer . Personal Factors Other Personal Factors That May Effect Back pain, posterior R knee Therapy/Recovery pain, long standing intermittent vertigo per the patient associated with her allergies that she takes meclinzine for PRN, urinary incontinence. PT-OP-C Subjective Start: 01/26/19 08:29 Freq: Status: Active Protocol: Document 02/17/19 11:00 AMB (Rec: 02/17/19 12:31 AMB [email or web address]) OP-PT Subjective Patient Comments Patient Comments Doing well, but has been noticing increased posterior knee pain. PT-OP-D Balance Start: 01/26/19 08:29 Freq: Status: Active Protocol: Document 01/26/19 11:00 AMB (Rec: 01/26/19 13:02 AMB [email or web address]) Balance Tests Single Limb Standing Single Limb- Right unable Single Limb- Left unable Semi-Tandem Standing Semi-Tandem Standing Balance good with EO, unable with EC Other Other Balance Tests Performed NBOS with HT 30 seconds. PT-OP-E Functional Tests Start: 01/26/19 08:29 Freq: Status: Active Protocol: Document 01/26/19 11:00 AMB (Rec: 01/26/19 13:02 AMB [email or web address]) Functional Tests 6 Minute Walk Test Distance 1039 Device Used none Comments no LOB, but no armswing on L Five Times Sit to Stand Test Score 12 PT-OP-G Mobility & Gait Start: 01/26/19 08:29 Freq: Status: Active Protocol: Document 01/26/19 11:00 AMB (Rec: 01/26/19 13:02 AMB [email or web address]) OP Gait Assessment Comments Gait Comments Pt ambulates with bilateral feet turned out, poor swing through. Reduced trunk rotation, minimal arm swing on the right and absent on the left. No AD. PT-OP-H Neuro Start: 01/26/19 08:29 Freq: Status: Active Protocol: Document 01/26/19 12:47 AMB (Rec: 01/26/19 12:59 AMB [email or web address]) Coordination Evaluation Upper Extremity Tests Left Pronation/Supination Test Minimal Impairment Lower Extremity Tests Foot Tapping Test Minimal Impairment PT-OP-J Posture/Palpation/Skin Start: 01/26/19 08:29 Freq: Status: Active Protocol: Document 01/26/19 12:47 AMB (Rec: 01/26/19 12:59 AMB [email or web address]) Posture Evaluation Comments Posture Comments Pt with sig. forward head, thoracic kyphosis, with tendency to externall rotation hips bilaterally PT-OP-K Range of Motion Start: 01/26/19 08:29 Freq: Status: Active Protocol: Document 01/26/19 12:47 AMB (Rec: 01/26/19 12:59 AMB [email or web address]) Shoulder Goniometric Range of Motion Shoulder Measured in Degrees Right Active Flexion 130 Left Active Flexion 120 PT-OP-M Strength Start: 01/26/19 08:29 Freq: Status: Active Protocol: Document 01/26/19 12:47 AMB (Rec: 01/26/19 12:59 AMB [email or web address]) Knee Strength Knee Manual Muscle Testing Right Flexion (S2) 4 Good Extension (L3) 4+ Good+ Left Flexion (S2) 4+ Good+ Extension (L3) 4+ Good+ Ankle/Foot Strength Ankle and Foot Manual Muscle Testing Right Dorsiflexion (L4) 4+ Good+ Left Dorsiflexion (L4) 4 Good PT-OP-Q Treatments Start: 01/26/19 08:29 Freq: Status: Active Protocol: Document 02/17/19 11:00 AMB (Rec: 02/17/19 12:31 AMB [email or web address]) Gait Training Gait Activity 3 Description walking with HT Comments horizontal and vertical. 1 Description BIG walking Device Used none Level of Assistance SBA Surface smooth surfaces Distance/Duration 5 min Treatment Focus even arm swing Comments dual task, conversation, naming food alphabetically Neuro Re-Education Treatment Balance Activities 3 Details stride stance Comments EO HT/ EC 2 Details forward and sideways rock and reach Reps/Duration x12 ea side Comments UE support with chair 1 Details Forward, side, backward stepping Equipment with UE support Reps/Duration 10 ea LE Comments vc for BIG LE and UE movement. 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 Physical Therapy Plan Next Visit Focus/Plan Next Note Type Treatment Note Next Visit Plan Progress balance while dual tasking, carrying
--- NOTE | 2019-02-18 13:47 | PT.OTN ---
Current Diagnoses Parkinson's disease (02/17/19) Physical Therapy Treatment Note PT-OP-A Visit Information Start: 01/26/19 08:29 Freq: Status: Active Protocol: Document 02/18/19 11:00 AMB (Rec: 02/18/19 13:01 AMB [email or web address]) Out-Patient Physical Therapy Visit Information Visit Information Visit Type Treatment Note Visit Start Time 11:00 Visit Stop Time 12:00 Total Visit Minutes 60 Visit Number 14 PT-OP-B Current Condition Start: 01/26/19 08:29 Freq: Status: Active Protocol: Document 01/26/19 11:00 AMB (Rec: 01/26/19 14:01 AMB [email or web address]) Current Condition History of Current Condition Onset Date chronic Current Complaints difficulty with gross and fine motor activities due to Parkinson's. History of Current Condition Ale reports she has had the diagnosis of Parkinson's for about 10 years. About 6 months ago, she got a new neurologist, who changed her medications, and she has noticed significant improvement. That said, she is no longer able to walk the 2 miles per day that she used to. She denies recent falls, but is fearful of falling. She lives alone in a single level home with 2 steps with a railing to enter. She does all of her own driving, cleaning and cooking, but does use a stool to do yardwork and no longer mows her lawn. Treatment Goals Patient/Caregiver Goals Improve gait/ balance, bed mobility, sit to stand from low surface, donning a jacket, folding laundry. Current Functional Impairments (Reported) Functional Limitations- ADL's Difficulty donning a jacket, getting up from a low surface. It has been years since she has attempted a floor transfer . Personal Factors Other Personal Factors That May Effect Back pain, posterior R knee Therapy/Recovery pain, long standing intermittent vertigo per the patient associated with her allergies that she takes meclinzine for PRN, urinary incontinence. PT-OP-C Subjective Start: 01/26/19 08:29 Freq: Status: Active Protocol: Document 02/18/19 11:00 AMB (Rec: 02/18/19 13:01 AMB [email or web address]) OP-PT Subjective Patient Comments Patient Comments Pt doing well overall. Tried doing some exercises without UE support at home. PT-OP-D Balance Start: 01/26/19 08:29 Freq: Status: Active Protocol: Document 01/26/19 11:00 AMB (Rec: 01/26/19 13:02 AMB [email or web address]) Balance Tests Single Limb Standing Single Limb- Right unable Single Limb- Left unable Semi-Tandem Standing Semi-Tandem Standing Balance good with EO, unable with EC Other Other Balance Tests Performed NBOS with HT 30 seconds. PT-OP-E Functional Tests Start: 01/26/19 08:29 Freq: Status: Active Protocol: Document 02/18/19 11:21 AMB (Rec: 02/18/19 11:22 AMB [id number]) Functional Tests 6 Minute Walk Test Distance 1260 Device Used none PT-OP-G Mobility & Gait Start: 01/26/19 08:29 Freq: Status: Active Protocol: Document 01/26/19 11:00 AMB (Rec: 01/26/19 13:02 AMB [email or web address]) OP Gait Assessment Comments Gait Comments Pt ambulates with bilateral feet turned out, poor swing through. Reduced trunk rotation, minimal arm swing on the right and absent on the left. No AD. PT-OP-H Neuro Start: 01/26/19 08:29 Freq: Status: Active Protocol: Document 01/26/19 12:47 AMB (Rec: 01/26/19 12:59 AMB [email or web address]) Coordination Evaluation Upper Extremity Tests Left Pronation/Supination Test Minimal Impairment Lower Extremity Tests Foot Tapping Test Minimal Impairment PT-OP-J Posture/Palpation/Skin Start: 01/26/19 08:29 Freq: Status: Active Protocol: Document 01/26/19 12:47 AMB (Rec: 01/26/19 12:59 AMB [email or web address]) Posture Evaluation Comments Posture Comments Pt with sig. forward head, thoracic kyphosis, with tendency to externall rotation hips bilaterally PT-OP-K Range of Motion Start: 01/26/19 08:29 Freq: Status: Active Protocol: Document 01/26/19 12:47 AMB (Rec: 01/26/19 12:59 AMB [email or web address]) Shoulder Goniometric Range of Motion Shoulder Measured in Degrees Right Active Flexion 130 Left Active Flexion 120 PT-OP-M Strength Start: 01/26/19 08:29 Freq: Status: Active Protocol: Document 01/26/19 12:47 AMB (Rec: 01/26/19 12:59 AMB [email or web address]) Knee Strength Knee Manual Muscle Testing Right Flexion (S2) 4 Good Extension (L3) 4+ Good+ Left Flexion (S2) 4+ Good+ Extension (L3) 4+ Good+ Ankle/Foot Strength Ankle and Foot Manual Muscle Testing Right Dorsiflexion (L4) 4+ Good+ Left Dorsiflexion (L4) 4 Good PT-OP-Q Treatments Start: 01/26/19 08:29 Freq: Status: Active Protocol: Document 02/18/19 11:00 AMB (Rec: 02/18/19 13:01 AMB [email or web address]) Therapeutic Activity Therapeutic Activity 1 Name sit to stand Reps/Minutes 10 Comments 16 box Gait Training Gait Activity 1 Description BIG walking Device Used none Level of Assistance SBA Surface smooth surfaces Distance/Duration 6 min Treatment Focus even arm swing Neuro Re-Education Treatment Balance Activities 3 Details stride stance Comments EO HT/ EC 2 Details forward and sideways rock and reach Reps/Duration x12 ea side Comments UE support with chair 1 Details Forward, side, backward stepping Equipment with UE support Reps/Duration 10 ea LE Comments vc for BIG LE and UE movement. Coordination Activities 2 Details side to side Reps/Duration 8 sets of 10 1 Details floor to ceiling Reps/Duration 8 sets of 10 PT-OP-T Assessment and Plan Start: 01/26/19 08:29 Freq: Status: Active Protocol: Document 02/18/19 11:00 AMB (Rec: 02/18/19 13:01 AMB [email or web address]) Physical Therapy Assessment Assessment Summary Assessment Pt improved her 6MWT today in comparison to eval. Physical Therapy Plan Next Visit Focus/Plan Next Note Type Discharge Summary
--- NOTE | 2019-02-20 13:18 | PT.OTN ---
Current Diagnoses Parkinson's disease (02/20/19) Physical Therapy Treatment Note PT-OP-A Visit Information Start: 01/26/19 08:29 Freq: Status: Active Protocol: Document 02/20/19 11:00 AMB (Rec: 02/20/19 13:10 AMB [email or web address]) Out-Patient Physical Therapy Visit Information Visit Information Visit Type Discharge Summary Visit Start Time 11:00 Visit Stop Time 12:00 Total Visit Minutes 60 Visit Number 15 PT-OP-B Current Condition Start: 01/26/19 08:29 Freq: Status: Active Protocol: Document 01/26/19 11:00 AMB (Rec: 01/26/19 14:01 AMB [email or web address]) Current Condition History of Current Condition Onset Date chronic Current Complaints difficulty with gross and fine motor activities due to Parkinson's. History of Current Condition Ale reports she has had the diagnosis of Parkinson's for about 10 years. About 6 months ago, she got a new neurologist, who changed her medications, and she has noticed significant improvement. That said, she is no longer able to walk the 2 miles per day that she used to. She denies recent falls, but is fearful of falling. She lives alone in a single level home with 2 steps with a railing to enter. She does all of her own driving, cleaning and cooking, but does use a stool to do yardwork and no longer mows her lawn. Treatment Goals Patient/Caregiver Goals Improve gait/ balance, bed mobility, sit to stand from low surface, donning a jacket, folding laundry. Current Functional Impairments (Reported) Functional Limitations- ADL's Difficulty donning a jacket, getting up from a low surface. It has been years since she has attempted a floor transfer . Personal Factors Other Personal Factors That May Effect Back pain, posterior R knee Therapy/Recovery pain, long standing intermittent vertigo per the patient associated with her allergies that she takes meclinzine for PRN, urinary incontinence. PT-OP-C Subjective Start: 01/26/19 08:29 Freq: Status: Active Protocol: Document 02/20/19 11:00 AMB (Rec: 02/20/19 13:10 AMB [email or web address]) OP-PT Subjective Patient Comments Patient Comments Pt with increased back pain last two days, unsure why, but overall doing ok. PT-OP-D Balance Start: 01/26/19 08:29 Freq: Status: Active Protocol: Document 01/26/19 11:00 AMB (Rec: 01/26/19 13:02 AMB [email or web address]) Balance Tests Single Limb Standing Single Limb- Right unable Single Limb- Left unable Semi-Tandem Standing Semi-Tandem Standing Balance good with EO, unable with EC Other Other Balance Tests Performed NBOS with HT 30 seconds. PT-OP-E Functional Tests Start: 01/26/19 08:29 Freq: Status: Active Protocol: Document 02/18/19 11:21 AMB (Rec: 02/18/19 11:22 AMB [id number]) Functional Tests 6 Minute Walk Test Distance 1260 Device Used none PT-OP-G Mobility & Gait Start: 01/26/19 08:29 Freq: Status: Active Protocol: Document 01/26/19 11:00 AMB (Rec: 01/26/19 13:02 AMB [email or web address]) OP Gait Assessment Comments Gait Comments Pt ambulates with bilateral feet turned out, poor swing through. Reduced trunk rotation, minimal arm swing on the right and absent on the left. No AD. PT-OP-H Neuro Start: 01/26/19 08:29 Freq: Status: Active Protocol: Document 01/26/19 12:47 AMB (Rec: 01/26/19 12:59 AMB [email or web address]) Coordination Evaluation Upper Extremity Tests Left Pronation/Supination Test Minimal Impairment Lower Extremity Tests Foot Tapping Test Minimal Impairment PT-OP-J Posture/Palpation/Skin Start: 01/26/19 08:29 Freq: Status: Active Protocol: Document 01/26/19 12:47 AMB (Rec: 01/26/19 12:59 AMB [email or web address]) Posture Evaluation Comments Posture Comments Pt with sig. forward head, thoracic kyphosis, with tendency to externall rotation hips bilaterally PT-OP-K Range of Motion Start: 01/26/19 08:29 Freq: Status: Active Protocol: Document 02/20/19 11:11 AMB (Rec: 02/20/19 11:21 AMB [id number]) Shoulder Goniometric Range of Motion Shoulder Measured in Degrees Right Active Flexion 155 Left Active Flexion 135 PT-OP-M Strength Start: 01/26/19 08:29 Freq: Status: Active Protocol: Document 01/26/19 12:47 AMB (Rec: 01/26/19 12:59 AMB [email or web address]) Knee Strength Knee Manual Muscle Testing Right Flexion (S2) 4 Good Extension (L3) 4+ Good+ Left Flexion (S2) 4+ Good+ Extension (L3) 4+ Good+ Ankle/Foot Strength Ankle and Foot Manual Muscle Testing Right Dorsiflexion (L4) 4+ Good+ Left Dorsiflexion (L4) 4 Good PT-OP-Q Treatments Start: 01/26/19 08:29 Freq: Status: Active Protocol: Document 02/20/19 11:00 AMB (Rec: 02/20/19 13:10 AMB [email or web address]) Therapeutic Activity Therapeutic Activity 1 Name sit to stand Reps/Minutes 10 Comments 16 box Gait Training Gait Activity 1 Description BIG walking Device Used none Level of Assistance SBA Surface smooth surfaces Distance/Duration 5 min Treatment Focus even arm swing Neuro Re-Education Treatment Balance Activities 2 Details forward and sideways rock and reach Reps/Duration x12 ea side Comments Sideways needed UE support- not forward 1 Details Forward, side, backward stepping Reps/Duration 10 ea LE Comments vc for BIG LE and UE movement. Backward stepping needed UE support, others did not. Coordination Activities 2 Details side to side Reps/Duration 8 sets of 10 1 Details floor to ceiling Reps/Duration 8 sets of 10 PT-OP-T Assessment and Plan Start: 01/26/19 08:29 Freq: Status: Active Protocol: Document 02/20/19 11:00 AMB (Rec: 02/20/19 11:18 AMB [id number]) Physical Therapy Assessment Goals Five Impairment No HEP in place [employer] Goal (LTG) Patient will comply to HEP and will exhibit safety to all recommended home exercises program. LTG Duration MET Four Impairment Upper extremity function Short Term Goal (STG) Ale will don a jacket in less than 30 seconds. STG Duration MET [employer] Goal (LTG) Ale will improve her shoulder flexion to bilaterally 140 degrees of flexion. LTG Duration PROGRESS MADE Three Impairment transfers Short Term Goal (STG) Ale will move from sit to stand from a 12 height chair without use of UEs. STG Duration NOT MET, 16 chair only [employer] Goal (LTG) Ale will perform all bed mobility independently. LTG Duration MET Two Impairment Impaired standing tolerance [employer] Goal (LTG) Patient will tolerate standing good posture more than 5 mins with no increase in symptoms LTG Duration MET INTERMITTENTLY- depends on how her back has been feeling One Impairment Gait Short Term Goal (STG) Ale will walk for 4 minutes over grass, gravel, and slight inclines safely and without fear of falling. STG Duration MET [facility] Goal (LTG) Ale will improve her 6 minute walk test score by one standard deviation to at least 1341 feet. LTG Duration PROGRESS MADE Assessment Summary Assessment Pt is doing well. Her back pain comes and goes, but overall is better. She is faster with dressing more consistently, and her gait has improved well. She continues to have dizziness with head turns, but this is being managed by her ENT. 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 Physical Therapy Plan Discharge Physical Therapy Discharge Reasons Goals Met Discharge Comments Ale has improved well and should continue to improve as long as she is able to continue exercising.
== END 2019-03-12 11:24 | disposition home or self-care (01) ==
LOC: PHYS 11:00
PROVIDERS: PCP Nurse Practitioner; Visit Provider Psychiatry & Neurology Neurology
DX: G20 Parkinson's disease (principal)
CPT/HCPCS: 97112; 97116; 97162; 97530

== ENCOUNTER → 2019-06-05 10:39 | Outpatient (CLI) | payer MEDICARE, OTHER, SELFPAY ==
--- NOTE | 2019-06-05 | DI.MG.S_ITS ---
BILATERAL DIGITAL SCREENING MAMMOGRAM 3D/2D WITH CAD: 06/05/2019 CLINICAL: Routine screening. Comparison is made to exams dated: 06/03/2017 mammogram, 03/27/2016 mammogram, and 11/02/2014 mammogram - [facility]. The tissue of both breasts is predominantly fatty. Current study was also evaluated with a Computer Aided Detection (CAD) system. No significant masses, calcifications, or other findings are seen in either breast. There has been no significant interval change. IMPRESSION: NEGATIVE There is no mammographic evidence of malignancy. A 1 year screening mammogram is recommended. This exam was interpreted at Station ID: [id number]. NOTE: For mammograms, a report in lay terms will be sent to the patient. Approximately 15% of breast malignancies will not be visualized mammographically. In the management of a palpable breast mass, a negative mammogram must not discourage biopsy of a clinically suspicious lesion. Electronically Signed By: Henny cuellar/mingo:06/08/2019 16:28:04 letter sent: Normal Exam ACR BI-RADS Category 1: Negative [id number]
== END ==
PROVIDERS: PCP Nurse Practitioner; Visit Provider Nurse Practitioner
DX: Z12.31 Encounter for screening mammogram for malignant neoplasm of breast (principal)
CPT/HCPCS: 77063; 77067

== ENCOUNTER → 2019-06-08 08:27 | Outpatient (CLI) | payer MEDICARE, OTHER, SELFPAY | PROVIDERS: PCP Nurse Practitioner; Visit Provider Nurse Practitioner | DX: Z12.31 Encounter for screening mammogram for malignant neoplasm of breast (principal); Z53.9 Procedure and treatment not carried out, unspecified reason ==

== ENCOUNTER → 2019-11-23 16:37 | Outpatient (CLI) | payer MEDICARE, OTHER, SELFPAY | PROVIDERS: PCP Nurse Practitioner; Visit Provider Obstetrics & Gynecology | DX: R32 Unspecified urinary incontinence (principal) | CPT/HCPCS: 87077; 87086; 87186 ==

== ENCOUNTER → 2019-12-02 12:20 | Outpatient (CLI) | payer MEDICARE, OTHER, SELFPAY | PROVIDERS: PCP Nurse Practitioner; Referring Provider Obstetrics & Gynecology; Visit Provider Obstetrics & Gynecology | DX: N39.0 Urinary tract infection, site not specified (principal) | CPT/HCPCS: 87086 ==

== ENCOUNTER → 2020-02-11 10:31 | Outpatient (CLI) | payer MEDICARE, OTHER, SELFPAY ==
--- NOTE | 2020-02-11 10:33 | DI.RAD.S_ITS ---
PROCEDURE: XR LUMBAR SPINE MIN 4V INDICATIONS: LBP TECHNIQUE: 4 views of the lumbar spine were acquired. COMPARISON: [facility], , XR LUMBAR SPINE 2-3V, 04/23/2018, 9:24. FINDINGS: Bones: 5 nonrib-bearing vertebrae are present. There is normal bony alignment. No vertebral body compression fractures. No suspicious bony lesions. Note is made of a mild degree of degenerative disc height reduction and endplate osteophyte formation over the upper and middle thirds of the LS spine. Mild facet osteoarthritis is present at the middle third of the LS spine and become slightly more prominent at L4-5 and L5-S1. Soft tissues: Overlying bowel gas pattern is normal. No suspicious soft tissue calcifications. Oblique images: No pars defects. IMPRESSION: Mild degenerative disc disease and facet osteoarthritis little if any worsening from the comparison study from 04/23/18. No compression fracture found. Dictated by: Bib Proctor M.D. on 02/11/2020 at 11:27 Approved by: Bib Proctor M.D. on 02/11/2020 at 11:29
== END ==
PROVIDERS: PCP Nurse Practitioner; Referring Provider Physical Medicine & Rehabilitation; Visit Provider Physical Medicine & Rehabilitation
DX: M51.16 Intervertebral disc disorders with radiculopathy, lumbar region (principal); M47.26 Other spondylosis with radiculopathy, lumbar region; M47.27 Other spondylosis with radiculopathy, lumbosacral region
CPT/HCPCS: 72110

== ENCOUNTER → 2020-09-14 15:42 | Outpatient (CLI) | payer MEDICARE, OTHER, SELFPAY ==
--- NOTE | 2020-09-14 15:43 | DI.MRI.S_ITS ---
PROCEDURE: MR LUMBAR SPINE WO CON INDICATIONS: LOW BACK PAIN TECHNIQUE: Noncontrast sagittal T1 spin echo and T2 fast echo, sagittal STIR, axial T1 and T2 fast spin echo through the lumbar spine. In cases with scoliosis, additional coronal T2 fast spin echo may be performed. COMPARISON: [facility], MR, MR LUMBAR SPINE WO CON, 05/30/2018, 18:12. [facility], CR, XR LUMBAR SPINE 2-3V, 04/23/2018, 9:24. FINDINGS: Image quality: Excellent. Alignment and Curvature: 5 lumbar type vertebral bodies are present by plain film. Mild grade 1 retrolisthesis of L2 on L3, L3 on L4, and L5 on S1. There is otherwise normal bony alignment. Bone Marrow: Marrow is of normal overall signal. No acute vertebral body compression fractures. Minimal reactive signal within the endplates adjacent to the L3-L4 and L4-L5 intervertebral discs. Spinal Cord: Conus medullaris terminates at the mid L2 level. Visualized cord demonstrates normal signal and size. Paraspinous Soft Tissues: No paravertebral masses. L1-L2: Mild disc desiccation and diffuse disc bulge. Mild facet and ligamentum flavum hypertrophy. Mild canal stenosis. Mild bilateral foraminal stenosis. No change. L2-L3: Mild disc height loss. Moderate disc desiccation. Mild diffuse disc bulge. Mild facet and ligamentum flavum hypertrophy. Mild epidural lipomatosis. Mild canal stenosis. Mild bilateral foraminal stenosis. No change. L3-L4: Moderate disc desiccation. Mild diffuse disc bulge. Mild facet and ligamentum flavum hypertrophy. Mild epidural lipomatosis. Mild canal stenosis. Moderate bilateral foraminal stenosis. No change. L4-L5: Moderate disc desiccation. Mild diffuse disc bulge. Mild facet and ligamentum flavum hypertrophy. Mild epidural lipomatosis. Mild canal stenosis. Moderate bilateral foraminal stenosis. No change. L5-S1: Moderate disc desiccation. Mild diffuse disc bulge. Mild bilateral facet hypertrophy. Mild canal stenosis. Moderate bilateral foraminal stenosis. No change. IMPRESSION: 1. Multilevel degenerative disc and facet disease, as well as ligamentum flavum hypertrophy and epidural lipomatosis. 2. Multilevel mild canal stenoses. 3. Multilevel foraminal stenoses, worst at L3-L4, L4-L5, and L5-S1 where there are moderate foraminal stenoses present. Dictated by: April Antonio M.D. on 09/14/2020 at 16:42 Approved by: April Antonio M.D. on 09/14/2020 at 16:45
== END ==
PROVIDERS: PCP Nurse Practitioner; Referring Provider Physical Medicine & Rehabilitation Pain Medicine; Visit Provider Physical Medicine & Rehabilitation Pain Medicine
DX: M54.5 Low back pain (principal); M48.061 Spinal stenosis, lumbar region without neurogenic claudication; E88.2 Lipomatosis, not elsewhere classified
CPT/HCPCS: 72148

== ENCOUNTER → 2021-04-04 09:39 | Outpatient (CLI) | payer MEDICARE, OTHER, SELFPAY ==
--- NOTE | 2021-04-04 | DI.MRI.S_ITS ---
PROCEDURE: MR BRAIN (IAC) WWO CON INDICATIONS: bilateral tinnitus TECHNIQUE: Noncontrast sagittal T1 spin echo, axial FLAIR, axial gradient echo, axial diffusion and ADC through the brain. Axial thin-slice 3D CISS, coronal TruFISP, axial T1 spin echo with fat saturation through the internal auditory canals. After the administration of contrast, thin slice axial and coronal T1 spin echo with fat saturation through the internal auditory canals, and axial T1 spin echo with fat saturation through the brain. COMPARISON: None. FINDINGS: Image quality: Degraded by patient motion artifact. Cerebellopontine angles: No cerebellopontine angle masses. Inner ear structures appear normally formed. No suspicious enhancement in the internal auditory canal or along the course of the 7th cranial nerve. CSF spaces: Ventricles are normal in size and shape. No extra-axial fluid collections. Basal cisterns are patent. Brain: No intracranial bleeds or mass effects. Mcdonald-white matter interface is intact. No abnormal intracranial enhancement. 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 Diffusion weighted images demonstrate no acute ischemic insults. Brainstem appears normal. Normal intravascular flow voids are present. Dural sinuses demonstrate normal postcontrast enhancement. Skull and face: Calvarial marrow signal is normal. Orbits appear normal. Sinuses: Small mucous retention cyst noted in the right maxillary sinus. The mastoids are clear. IMPRESSION: 1. No acute intracranial disease process. 2. No abnormal intracranial mass or mass effect. 3. No vestibular schwannoma. 4. No suspicious postcontrast enhancement. 5. No areas of acute or chronic infarction. Dictated by: Stephanie Ordaz MD, PhD on 04/04/2021 at 16:41 Approved by: Stephanie Ordaz MD, PhD on 04/04/2021 at 16:45
== END ==
PROVIDERS: PCP Nurse Practitioner; Referring Provider Otolaryngology; Visit Provider Otolaryngology
DX: H90.5 Unspecified sensorineural hearing loss (principal); H93.13 Tinnitus, bilateral; G20 Parkinson's disease; J34.1 Cyst and mucocele of nose and nasal sinus
CPT/HCPCS: 70553; A9579

== ENCOUNTER → 2021-04-28 12:07 | Outpatient (CLI) | payer MEDICARE, OTHER, SELFPAY ==
--- NOTE | 2021-04-28 12:08 | DI.US.S_ITS ---
PROCEDURE: US PERIPH VENOUS LOW EXTREM LT INDICATIONS: LT LEG SWELLING , PAIN TECHNIQUE: Real-time imaging, as well as color and pulse Doppler interrogation, were performed of the lower extremity deep veins from the inguinal ligament to the popliteal fossa. COMPARISON: None. FINDINGS: The common femoral, femoral and popliteal veins are normally compressible, and free of intraluminal thrombus. Color and pulse Doppler demonstrate normal phasic intraluminal flow. There is normal augmentation response to distal compression maneuver. IMPRESSION: No DVT in the left lower extremity. Dictated by: Omar Vyas M.D. on 04/28/2021 at 12:47 Approved by: Omar Vyas M.D. on 04/28/2021 at 12:49
== END ==
PROVIDERS: PCP Nurse Practitioner; Referring Provider Registered Nurse; Visit Provider Registered Nurse
DX: R60.0 Localized edema (principal); M79.605 Pain in left leg
CPT/HCPCS: 93971

== ENCOUNTER → 2021-05-03 09:29 | Outpatient (CLI) | payer MEDICARE, OTHER, SELFPAY ==
[2021-05-03 10:56] LABS: Alanine Aminotransferase 9 IU/L (<35); Albumin 4.6 g/dL (3.5-5.0); Albumin Globulin Ratio 1.3 (1.0-2.8); Alkaline Phosphatase 148 U/L (38-126); Aspartate Aminotransferase 45 IU/L (14-36); BUN Creatinine Ratio 31.6 (6-22); Bilirubin Total 1.5 mg/dL (0.2-1.3); Blood Urea Nitrogen 18 mg/dL (7-17); Calcium 10.2 mg/dL (8.4-10.2); Carbon Dioxide 28 mmol/L (22-32); Chloride 99 mmol/L (98-107); Cholesterol 207 mg/dL (140-199); Estimated Glomerular Filt Rate > 60.0 mL/min (>60); Globulin 3.6 g/dL (1.7-4.1); Glucose 137 mg/dL (80-110); HDL Cholesterol 54 mg/dL (40-60); HEMOLYSIS < 15 (0-50); LDL Cholesterol Calculated 112 mg/dL (<100); Potassium 4.1 mmol/L (3.4-5.1); Sodium 136 mmol/L (137-145); Total Protein 8.2 g/dL (6.3-8.2); Triglycerides 204 mg/dL (35-150)
[2021-05-03 11:33] LABS: Free T3, Triiodothyronine Free 4.36 pg/mL (2.77-5.27); Free T4, Direct Thyroxine 1.49 ng/dL (0.78-2.19)
[2021-05-03 11:47] LABS: Thyroid Stimulating Hormone 0.835 uIU/mL (0.47-4.68)
== END ==
PROVIDERS: PCP Nurse Practitioner; Referring Provider Nurse Practitioner; Visit Provider Nurse Practitioner
DX: E78.5 Hyperlipidemia, unspecified (principal); F32.9 Major depressive disorder, single episode, unspecified; G20 Parkinson's disease; Z79.899 Other long term (current) drug therapy
CPT/HCPCS: 36415; 80053; 80061; 84439; 84443; 84481

== ENCOUNTER → 2021-05-31 08:07 | Outpatient (CLI) | payer MEDICARE, OTHER, SELFPAY ==
--- NOTE | 2021-05-31 08:08 | DI.US.S_ITS ---
PROCEDURE: US ABDOMEN LIMITED INDICATIONS: POSSIBLE FATTY LIVER TECHNIQUE: Real-time scanning was performed of the abdominal and retroperitoneal organs, with image documentation. COMPARISON: None. FINDINGS: Liver: Liver is normal in size and homogeneously increased in echotexture. Gallbladder: Surgically absent Biliary ducts: Intrahepatic bile ducts are non-dilated. Extrahepatic bile duct caliber measures 5.3 mm. Normal is 6-7 mm or less in diameter, or 10 mm or less post-cholecystectomy. Pancreas: Not well seen IMPRESSION: 1. Hepatic steatosis. 2. No acute process. Dictated by: April Antonio M.D. on 05/31/2021 at 11:22 Approved by: April Antonio M.D. on 05/31/2021 at 11:23
[2021-05-31 10:44] LABS: Hemoglobin A1C% w Est Avg Glu 6.4 % (4.0-6.0)
[2021-05-31 11:41] LABS: Alanine Aminotransferase < 4 IU/L (<35); Albumin 4.2 g/dL (3.5-5.0); Albumin Globulin Ratio 1.4 (1.0-2.8); Alkaline Phosphatase 114 U/L (38-126); Aspartate Aminotransferase 24 IU/L (14-36); Bilirubin Unconjugated 0.7 mg/dL (0.0-1.1); Glucose 127 mg/dL (80-110); HEMOLYSIS < 15 (0-50); Total Protein 7.2 g/dL (6.3-8.2)
== END ==
PROVIDERS: PCP Nurse Practitioner; Referring Provider Nurse Practitioner; Visit Provider Nurse Practitioner
DX: R79.89 Other specified abnormal findings of blood chemistry (principal); R73.01 Impaired fasting glucose; K76.0 Fatty (change of) liver, not elsewhere classified
CPT/HCPCS: 36415; 76705; 80076; 82947; 83036

== ENCOUNTER 2021-08-04 18:53 | Emergency (ER) | payer MEDICARE, OTHER, SELFPAY ==
[2021-08-04 18:58] VITALS: BP 155/75; PULSE 98; RESP 16; TEMP 36.3; O2SAT 96; BMI 45.6
[2021-08-04 23:46] VITALS: BP 149/92; PULSE 84; RESP 20; O2SAT 96
--- NOTE | 2021-08-04 23:48 | PC.NURSE ---
she scratched her lower right leg tonight causing blood to squirt.medics put kerlix pressure dressing on with coban and tape,no new blood on dressing,when I removed the dressing blood squirted About one foot,I cleaned the area and noted a pinpoint area that was oozing blood,surgicel with 4 by 4 covering with coban covering.
--- NOTE | 2021-08-04 23:48 | ED.EXTPRO ---
HPI - Extremity Problem General Chief complaint: Extremity Problem,Nontraumatic Stated complaint: RIGHT CALF BROKE VEIN BLOOD EVERYWHERE Time Seen by Provider: 08/04/21 23:48 Source: patient Mode of arrival: Ambulatory History of Present Illness HPI Narrative: 71-year-old woman with history of Parkinson's disease, morbid obesity currently on Celecoxib was at home this evening reach down to scratch the right outer calf and then noticed dramatic bleeding. Completely painless. She has a small superficial varicosity that she scratched and has continued to bleed. She has had an extended emergency room stay due to high volumes and after 5 not hours of compression it is still bleeding. Related Data Home Medications Medication Instructions Recorded Confirmed ASPIRIN (Aspirin EC) 81 mg PO Q DAY #0 01/10/11 04/20/21 [ALLERGY SHOTS] #0 01/10/11 04/20/21 carbidopa 25 mg-levodopa 100 mg 1 tab PO QID tab 11/16/19 04/20/21 tablet carbidopa ER 50 mg-levodopa 200 mg 1 tab PO BEDTIME 11/16/19 04/20/21 tablet,extended release magnesium oxide 250 mg PO DAILY 11/16/19 04/20/21 ropinirole 8 mg tablet,extended 8 mg PO DAILY 11/16/19 04/20/21 release 24 hr (Requip XL) acetaminophen 500 mg capsule 1,000 mg PO Q6H PRN 02/24/20 04/20/21 loratadine 10 mg tablet (Claritin) 10 mg PO DAILY 02/24/20 04/20/21 meclizine 25 mg tablet 25 mg PO DAILY 02/24/20 04/20/21 omega-3 fatty acids 1,000 mg 1,000 mg PO BID 05/11/21 05/11/21 capsule (Fish Oil Concentrate) Previous Rx's Medication Instructions Recorded disabled parking permit See Rx Instructions .ROUTE 05/08/18 .COMPLEX #1 celecoxib 200 mg capsule See Rx Instructions .ROUTE 08/02/20 .COMPLEX #180 cap duloxetine 30 mg capsule,delayed 30 mg PO BID #180 cap 08/26/20 release omeprazole 40 mg capsule,delayed 40 mg PO QDAY #90 cap 05/11/21 release cholecalciferol (vitamin D3) 50 50 mcg PO DAILY #180 cap 06/16/21 mcg (2,000 unit) capsule tolterodine 2 mg capsule,extended See Rx Instructions .ROUTE 07/21/21 release 24 hr .COMPLEX #90 cap Allergies Allergy/AdvReac Type Severity Reaction Status Date / Time CONSUELO Inhibitors Allergy Mild COUGH Verified 08/04/21 19:01 [CONSUELO INHIBITORS] Review of Systems Review of Systems Narrative: Pertinent positive and negative findings as per HPI Remainder of review of systems is otherwise unremarkable for Constitutional: Fevers, chills, weakness ENT: No sore throat, neck pain, ear pain CV: Chest pain, palpitations, Respiratory: Cough, wheeze, dyspnea GI: Nausea, vomiting, diarrhea, : Dysuria, hematuria, Patient History Medical History Allergic rhinitis Chronic back pain Depression Deviated septum Diabetes Eczema Facet arthropathy, lumbar Foot pain Gastroesophageal reflux disease without esophagitis (09/27/15) GERD (gastroesophageal reflux disease) Hearing loss Hepatic steatosis Hyperlipemia Hypertension Leg edema, left Low back pain with sciatica Mixed hyperlipidemia (09/27/15) Obesity, Class III, BMI 40-49.9 (morbid obesity) Other dietary vitamin B12 deficiency anemia Overactive bladder (09/27/15) Parkinson's disease (09/27/15) Parkinson's disease (~2008) Plantar fasciitis of right foot (12/17/17) Pre-diabetes Seasonal allergic rhinitis (09/27/15) Urinary incontinence Urinary urgency Vertigo Surgical History Status post cholecystectomy Family History Brother Stroke Father No problems noted. Mother No problems noted. Sister No problems noted. Social History Smoking Status: Never smoker Smoking Status: Never smoker Substance Use Type: does not use Exam Narrative Exam Narrative: General: Alert appropriate in no acute distress Respiratory: Able to speak in full sentences, no obvious respiratory distress Skin: No obvious rashes, warm and dry Neurologic: Grossly intact no obvious asymmetries or abnormalities Psych: appropriate insight and affect, cooperative Extremity: Right lateral calf with 2 superficial varicosity 1 of which has a small abrasion across it and is continuing to bleed despite hours of pressure. Initial Vital Signs Initial Vital Signs: Vital Signs Temperature 97.3 F L 08/04/21 18:58 Pulse Rate 98 H 08/04/21 18:58 Respiratory Rate 16 08/04/21 18:58 Blood Pressure 155/75 H 08/04/21 18:58 Pulse Oximetry 96 08/04/21 18:58 Procedures Laceration Repair Right lateral calf varicosity: Time of procedure: 00:59 Site: lower extremity Side (If applicable): right Size (cm): 1 Description: other (Bleeding superficial varicosity) Local Anesthetic: lidocaine 1% Amount of anesthesia used (mL): 2 Skin layer closed with: nylon Number of sutures: 1 Technique: horizontal mattress Course Vital Signs Vital signs: Vital Signs - 8 hr 08/04/21 18:58 08/04/21 23:46 Temperature 97.3 F L Pulse Rate 98 H 84 Respiratory Rate 16 20 Blood Pressure 155/75 H 149/92 H Pulse Oximetry 96 96 MDM - Extremity (Nontraumatic) MDM Narrative Medical decision making narrative: 71-year-old woman who has scratched a superficial varicosity continue bleeding. Was anesthetized with lidocaine, of horizontal mattress suture was used for hemostasis with excellent results. She will need the suture out in about a week. No evidence of additional injury or damage in she is safe for home discharge Discharge Plan Departure Patient Disposition: Home Clinical Impression: Superficial varicosities, Bleeding Instructions: DI on Treatment of Varicose Veins of the Leg Activity Restrictions/Additional Instructions: Thank you for coming in today, I appreciate your patience with your extended wait. You scratched a superficial blood vessel and caused it to bleed. It was anesthetized and a small stitch was placed to control the bleeding. You will need the stitch taken out on or about 1127. You can go to your primary care physician or return to the emergency department or walk-in clinic to have the stent removed. Please keep a small dressing and antibiotic ointment over the stitch. If you have new or worsening symptoms or continued bleeding, please return to the ER Prescriptions: No Action ASPIRIN (Aspirin EC) 81 mg PO Q DAY Qty: 0 0RF [ALLERGY SHOTS] Qty: 0 0RF disabled parking permit See Rx Instructions .ROUTE .COMPLEX Qty: 1 0RF Dose Instruction: I find that patient has a medical condition that qualifies for disabled parking priveleges ; ; Rx Instructions: I find that patient has a medical condition that qualifies for disabled parking priveleges ; ; tolterodine 2 mg capsule,extended release 24hr See Rx Instructions .ROUTE .COMPLEX Qty: 90 2RF Hold Instructions: waiting to see urology, did not start Dose Instruction: TAKE ONE CAPSULE BY MOUTH ONE TIME DAILY Rx Instructions: TAKE ONE CAPSULE BY MOUTH ONE TIME DAILY carbidopa-levodopa 25-100 mg tablet 1 tab PO QID 0RF ropinirole [Requip XL] 8 mg tablet extended release 24 hr 8 mg PO DAILY 0RF carbidopa-levodopa 50-200 mg tablet extended release 1 tab PO BEDTIME 0RF magnesium oxide 250 mg magnesium tablet 250 mg PO DAILY 0RF cholecalciferol (vitamin D3) 50 mcg (2,000 unit) capsule 50 mcg PO DAILY Qty: 180 3RF celecoxib 200 mg capsule See Rx Instructions .ROUTE .COMPLEX Qty: 180 3RF Dose Instruction: TAKE ONE CAPSULE BY MOUTH ONE TIME DAILY Rx Instructions: TAKE ONE CAPSULE BY MOUTH TWICE DAILY duloxetine 30 mg capsule,delayed release(DR/EC) 30 mg PO BID Qty: 180 3RF Rx Instructions: Take 1 cap twice per day. omega-3 fatty acids [Fish Oil Concentrate] 1,000 mg capsule 1,000 mg PO BID 0RF omeprazole 40 mg capsule,delayed release(DR/EC) 40 mg PO QDAY Qty: 90 3RF acetaminophen 500 mg capsule 1,000 mg PO Q6H PRN0RF meclizine 25 mg tablet 25 mg PO DAILY 0RF loratadine [Claritin] 10 mg tablet 10 mg PO DAILY 0RF Referrals: Kaye Cox ARNP [Primary Care Provider] -
[2021-08-05] MEDS: BACITRACIN OINT 0.9 GM PCKT 1 APPLIC TOP (00:55)
[2021-08-05] MEDS: LIDOCAINE 1% (PF) 2 ML INJ (00:56)
[2021-08-05 00:59] VITALS: BP 155/74; PULSE 80; RESP 16; O2SAT 98
== END 2021-08-05 01:06 | disposition home or self-care (01) ==
PROVIDERS: Emergency Provider Emergency Medicine; PCP Nurse Practitioner
DX: I83.891 Varicose veins of right lower extremity with other complications (principal); R58 Hemorrhage, not elsewhere classified
CPT/HCPCS: 12001; 99282

== ENCOUNTER → 2021-12-18 09:18 | Outpatient (CLI) | payer MEDICARE, OTHER, SELFPAY ==
[2021-12-18 11:07] LABS: Alanine Aminotransferase 7 IU/L (<35); Albumin 4.4 g/dL (3.5-5.0); Albumin Globulin Ratio 1.3 (1.0-2.8); Alkaline Phosphatase 107 U/L (38-126); Aspartate Aminotransferase 34 IU/L (14-36); BUN Creatinine Ratio 39.1 (6-22); Bilirubin Total 1.2 mg/dL (0.2-1.3); Blood Urea Nitrogen 27 mg/dL (7-17); Calcium 9.8 mg/dL (8.4-10.2); Carbon Dioxide 30 mmol/L (22-32); Chloride 100 mmol/L (98-107); Cholesterol 203 mg/dL (140-199); Estimated Glomerular Filt Rate > 60.0 mL/min (>60); Globulin 3.4 g/dL (1.7-4.1); Glucose 137 mg/dL (80-110); HDL Cholesterol 51 mg/dL (40-60); HEMOLYSIS < 15 (0-50); Hemoglobin A1C% w Est Avg Glu 6.8 % (4.0-6.0); LDL Cholesterol Calculated 119 mg/dL (<100); Potassium 4.3 mmol/L (3.4-5.1); Sodium 137 mmol/L (137-145); Total Protein 7.8 g/dL (6.3-8.2); Triglycerides 167 mg/dL (35-150)
== END ==
PROVIDERS: PCP Nurse Practitioner; Referring Provider Nurse Practitioner; Visit Provider Nurse Practitioner
DX: R73.01 Impaired fasting glucose (principal); E78.5 Hyperlipidemia, unspecified; E78.2 Mixed hyperlipidemia; Z79.899 Other long term (current) drug therapy
CPT/HCPCS: 36415; 80053; 80061; 83036

== ENCOUNTER → 2022-06-21 11:07 | Outpatient (CLI) | payer MEDICARE, OTHER, SELFPAY ==
[2022-06-21 12:02] LABS: Hemoglobin A1C% w Est Avg Glu 6.6 % (4.0-6.0)
[2022-06-21 12:09] LABS: Alanine Aminotransferase 7 IU/L (<35); Albumin 4.2 g/dL (3.5-5.0); Albumin Globulin Ratio 1.1 (1.0-2.8); Alkaline Phosphatase 123 U/L (38-126); Aspartate Aminotransferase 36 IU/L (14-36); BUN Creatinine Ratio 28.3 (6-22); Bilirubin Total 1.3 mg/dL (0.2-1.3); Blood Urea Nitrogen 17 mg/dL (7-17); Calcium 9.5 mg/dL (8.4-10.2); Carbon Dioxide 29 mmol/L (22-32); Chloride 100 mmol/L (98-107); Cholesterol 190 mg/dL (140-199); Estimated Glomerular Filt Rate > 60 mL/min (>60); Globulin 3.8 g/dL (1.7-4.1); Glucose 118 mg/dL (80-110); HDL Cholesterol 47 mg/dL (40-60); HEMOLYSIS < 15 (0-50); LDL Cholesterol Calculated 113 mg/dL (<100); Potassium 4.1 mmol/L (3.4-5.1); Sodium 140 mmol/L (137-145); Triglycerides 151 mg/dL (35-150)
[2022-06-21 12:32] LABS: Free T3, Triiodothyronine Free 4.74 pg/mL (2.77-5.27); Free T4, Direct Thyroxine 1.52 ng/dL (0.78-2.19)
== END ==
PROVIDERS: PCP Nurse Practitioner; Referring Provider Nurse Practitioner; Visit Provider Nurse Practitioner
DX: R73.01 Impaired fasting glucose (principal); E78.5 Hyperlipidemia, unspecified; K76.0 Fatty (change of) liver, not elsewhere classified; R73.03 Prediabetes; R79.89 Other specified abnormal findings of blood chemistry; Z79.899 Other long term (current) drug therapy
CPT/HCPCS: 36415; 80053; 80061; 83036; 84439; 84443; 84481

== ENCOUNTER → 2022-10-27 12:30 | Outpatient (CLI) | payer MEDICARE, OTHER, SELFPAY ==
[2022-10-27 14:21] LABS: Influenza A - CEPHEID Flu A NEGATIVE (NEGATIVE); Influenza B - CEPHEID Flu B NEGATIVE (NEGATIVE); Respiratory Syncytial Virus Negative (Negative)
[2022-10-27 14:22] LABS: COVID-19 CEPHEID 4-PLEX PCR Negative (Negative)
== END ==
PROVIDERS: Family Provider Nurse Practitioner; PCP Nurse Practitioner; Visit Provider Physician Assistant
DX: J02.9 Acute pharyngitis, unspecified (principal); Z20.822 Contact with and (suspected) exposure to COVID-19
CPT/HCPCS: 0241U; 87070

== ENCOUNTER → 2022-11-10 09:14 | Outpatient (CLI) | payer MEDICARE, OTHER, SELFPAY ==
[2022-11-10 10:07] LABS: Alanine Aminotransferase 10 IU/L (<35); Albumin 4.5 g/dL (3.5-5.0); Albumin Globulin Ratio 1.1 (1.0-2.8); Alkaline Phosphatase 140 U/L (38-126); Aspartate Aminotransferase 26 IU/L (14-36); BUN Creatinine Ratio 37.9 (6-22); Bilirubin Total 1.2 mg/dL (0.2-1.3); Blood Urea Nitrogen 22 mg/dL (7-17); Calcium 10.4 mg/dL (8.4-10.2); Carbon Dioxide 31 mmol/L (22-32); Chloride 96 mmol/L (98-107); Cholesterol 139 mg/dL (140-199); Estimated Glomerular Filt Rate > 60 mL/min (>60); Glucose 154 mg/dL (80-110); HDL Cholesterol 49 mg/dL (40-60); HEMOLYSIS < 15 (0-50); LDL Cholesterol Calculated 62 mg/dL (<100); Potassium 4.1 mmol/L (3.4-5.1); Sodium 139 mmol/L (137-145); Total Protein 8.5 g/dL (6.3-8.2); Triglycerides 138 mg/dL (35-150)
[2022-11-10 10:19] LABS: Hemoglobin A1C% w Est Avg Glu 7.2 % (4.0-6.0)
[2022-11-10 15:13] LABS: Creatinine Urine Random 108.3 mg/dL
[2022-11-10 15:16] LABS: Microalbumi Creatinin Ratio Ur 33.2 ug/mg CR (<30); Microalbumin Urine Random 3.6 mg/dL (0-1.6)
== END ==
PROVIDERS: Family Provider Nurse Practitioner; PCP Nurse Practitioner; Referring Provider Nurse Practitioner; Visit Provider Nurse Practitioner
DX: E11.69 Type 2 diabetes mellitus with other specified complication (principal); E11.9 Type 2 diabetes mellitus without complications; E78.5 Hyperlipidemia, unspecified; Z79.899 Other long term (current) drug therapy
CPT/HCPCS: 36415; 80053; 80061; 82043; 82570; 83036

== ENCOUNTER 2023-01-11 13:45 | Outpatient (RCR) | payer MEDICARE, OTHER, SELFPAY ==
--- NOTE | 2022-09-26 12:00 | PT.OPPOC ---
Physical, Occupational & Speech Therapy At [facility] Current Diagnoses Parkinson's disease (09/26/22) Other abnormalities of gait and mobility (09/26/22) Repeated falls (09/26/22) Weakness (09/26/22) Visit Care Team Role Provider Type ALIDA Richards Attending Provider Advanced Shirt Closer Family Provider Primary Care Provider Referring Provider Specialty: [facility] Address: [address] [place] [address], [facility] Email: [email or web address] Plan Of Care PT-OP-T Assessment and Plan Start: 09/26/22 08:30 Freq: Status: Active Protocol: Document 09/26/22 11:15 AW (Rec: 09/26/22 13:45 AW [id number]) Physical Therapy Assessment Rehab Potential Rehabilitation Potential Good Evaluation Complexity Number of Personal Factors/Comorbidities 3 or More Number of Body Systems Impaired 4 or More Clinical Presentation at Evaluation Evolving Impairments Impairments Balance,Functional Activities, Gait,Pain,Posture,Strength, Transfers Goals Four Impairment balance Mcc Goal (LTG) Pt will score 45 or greater on Mejias Balance Scale as a measure of reduced falls risk. LTG Duration 12/19/22 Three Impairment transfers Mcc Goal (LTG) Pt will complete floor recovery with environmental support SBA. LTG Duration 12/19/22 Two Impairment transfers Short Term Goal (STG) Ale will complete 12 reps on 30 Second Sit to Stand test from standard height chair without use of UE's. STG Duration 11/07/22 Computer Aided Drafter Goal (LTG) Pt will perform all bed mobility independently LTG Duration 12/19/22 One Impairment gait Short Term Goal (STG) Ale will walk 1010 feet on 6 Minute Walk Test with tripod cane or LRAD with no LOB. Mcc Goal (LTG) Ale will walk 1100 feet or greater on 6 Minute Walk Test with tripod cane or LRAD with no LOB. Assessment Summary Assessment Ale is a 72 yo woman with 10 + year history of Parkinson's disease. She attends physical therapy with increasing falls frequency (4 falls in the past six months) and hopes to improve her strength and mobility to reduce falls risk. She completed LSVT BIG protocol in 2019 and kept up with her daily exercises for a while but it has now been several months since she did them. At discharge from [facility], her 6 Minute Walk Test was 1260 feet with no cane. On assessment today, Ale walked 916 feet with a tripod cane. She is expected to benefit from skilled PT to address her gait and balance impairments for reduction in falls risk. Physical Therapy Plan Frequency and Duration Frequency of Treatment 2x/Week Plan of Care Start Date 09/26/22 Plan of Care End Date 12/19/22 Next Visit Focus/Plan Next Note Type Treatment Note Next Visit Plan Assess DGI. Initiate selected BIG exercises. Static balance. Dynamic balance as tolerated. Plan of Care Dates Plan of Care Start Date 09/26/22 Plan of Care End Date 12/19/22 Electronically Signed by: America Jefferson, PT 09/27/22 [id number] If you are in agreement with this Plan of Care, please return a signed and dated copy. I have reviewed this Plan of Care and certify that the skilled therapy services above are required to meet the patient?s needs. Physician Signature Date Printed Name and Credentials Clinical Instructor Signature Printed Name and Credentials
--- NOTE | 2022-09-26 12:00 | PT.OIE ---
Current Diagnoses Parkinson's disease (09/26/22) Other abnormalities of gait and mobility (09/26/22) Repeated falls (09/26/22) Weakness (09/26/22) Past Medical History (Last Reviewed 08/15/22 @ 09:16 by ALIDA Richards) Allergic rhinitis Chronic back pain Chronic lower back pain Depression Deviated septum Diabetes Eczema Facet arthropathy, lumbar Foot pain Gastroesophageal reflux disease without esophagitis (09/27/15) GERD (gastroesophageal reflux disease) Hearing loss Hepatic steatosis Hyperlipemia Hyperlipidemia associated with type 2 diabetes mellitus Hypertension Leg edema, left Low back pain with sciatica Mixed hyperlipidemia (09/27/15) Obesity, Class III, BMI 40-49.9 (morbid obesity) Other dietary vitamin B12 deficiency anemia Overactive bladder (09/27/15) Parkinson's disease (09/27/15) Parkinson's disease (~2008) Plantar fasciitis of right foot (12/17/17) Pre-diabetes Seasonal allergic rhinitis (09/27/15) Urinary incontinence Urinary urgency Vertigo Past Surgical History (Last Reviewed 08/15/22 @ 09:16 by ALIDA Richards) Status post cholecystectomy Visit Care Team Role Provider Type ALIDA Richards Attending Provider Advanced Substation Design Draftsperson Family Provider Primary Care Provider Referring Provider Specialty: [facility] Address: [address] [place] [address], [facility] Email: [email or web address] Physical Therapy Initial Evaluation PT-OP-A Visit Information Start: 09/26/22 08:30 Freq: Status: Active Protocol: Document 09/26/22 11:15 AW (Rec: 09/26/22 08:50 AW [id number]) Out-Patient Physical Therapy Visit Information Visit Information Visit Type Initial Evaluation Visit Start Time 10:30 Visit Stop Time 11:15 Total Visit Minutes 45 Visit Number 1 Evaluation Information Evaluation Date 09/26/22 PT-OP-B Current Condition Start: 09/26/22 08:30 Freq: Status: Active Protocol: Document 09/26/22 11:15 AW (Rec: 09/26/22 08:50 AW [id number]) Current Condition History of Current Condition Onset Date chronic Current Complaints falls, decreased balance, decreased strength History of Current Condition Ale was diagnosed with Parkinson's disease ~12 years ago. She had good response to medication changes 3-4 years ago. In the past 6 months, her tremors (BUE primarily and now LLE>RLE) have worsened and are affecting her balance. She has fallen 4 times in the past six months - stepping off a curb, chasing her dog, moving her garbage cans outside in the dark, and missing a chair while attempting to sit at [facility]. She is unable to get herself off the floor and has had to call EMS. She now has a Apozy alert device. She is scheduled with [facility] neurology next week and hopes to have her medication adjusted again to see if that helps. She is now using a tripod cane when outside of the house. She is often carrying it as a backup in case she needs it. She lives alone in a single level home with 2 steps/railing to enter. She drives, cooks, and cleans . She has reinforcing iron worker helper for deep cleaning and yard work. She has a bed rail and uses it to assist with bed mobility. She sleeps in either the bed or in her lift recliner. Prior Treatments and Tests PT for back pain in 2018. PT per LSVT BIG protocol 2019. Treatment Goals Patient/Caregiver Goals Improve strength in arms and legs to be able to get up and down from the floor. Improve balance to the point of not needing assistive device. Personal Factors Other Personal Factors That May Effect Back pain, R knee pain, Therapy/Recovery intermittent vertigo related to allergies (takes meclizine prn and gets monthly shots), urinary incontinence, BMI>45. PT-OP-C Subjective Start: 09/26/22 08:30 Freq: Status: Active Protocol: Document 09/26/22 11:15 AW (Rec: 09/26/22 12:38 AW [id number]) Patient Questionnaires ABC- Activity Specific Balance Confidence Scale ABC Score 36 ABC Functional Impairment 60 to <80% Impaired (Score 21- 40) OP-PT Pain Assessment Pain Assessment Grid Paper Pain Assessment Grid Completed No: Pt reports chronic low back pain PT-OP-D Balance Start: 09/26/22 08:30 Freq: Status: Active Protocol: Document 09/26/22 11:15 AW (Rec: 09/26/22 12:38 AW [id number]) Balance Tests Single Limb Standing Single Limb- Right unable Single Limb- Left unable Semi-Tandem Standing Semi-Tandem Standing Balance ok with EO, unable with EC Tandem Tandem Standing unable Other Other Balance Tests Performed NBOS with head turns and nods up to 30 seconds PT-OP-E Functional Tests Start: 09/26/22 08:30 Freq: Status: Active Protocol: Document 09/26/22 11:15 AW (Rec: 09/26/22 12:38 AW [id number]) Functional Tests 6 Minute Walk Test Distance 916 feet Device Used tripod cane Comments decreased from 1260 feet without device in February 2019 Five Times Sit to Stand Test Score 13.2 sec Comments no UE support; from black tx table at lowest height PT-OP-G Mobility & Gait Start: 09/26/22 08:30 Freq: Status: Active Protocol: Document 09/26/22 11:15 AW (Rec: 09/26/22 12:42 AW [id number]) OP Mobility Evaluation Bed Mobility Supine to and from Sit Uses bed rail at home. Needs min A in clinic. Needs cues to bridge hips for lateral scoot on the mat. Transfers Floor Transfers Not attempted OP Gait Assessment Comments Gait Comments Pt walks with feet turned out (B hip ER), reduced foot clearance but moderate step length. She uses tripod cane in RUE. Minimal trunk rotation noted. Minimal RUE swing. Absent LUE swing PT-OP-H Neuro Start: 09/26/22 08:30 Freq: Status: Active Protocol: Document 09/26/22 11:15 AW (Rec: 09/26/22 12:42 AW [id number]) Coordination Evaluation Upper Extremity Tests Left Finger to Nose Test Minimal Impairment Finger to Therapist's Finger Test Minimal Impairment Pronation/Supination Test Minimal Impairment Lower Extremity Tests Right Foot Tapping Test Minimal Impairment PT-OP-J Posture/Palpation/Skin Start: 09/26/22 08:30 Freq: Status: Active Protocol: Document 09/26/22 11:15 AW (Rec: 09/26/22 12:42 AW [id number]) Posture Evaluation Comments Posture Comments Pt has significantly forward head, increased thoracic kyphosis, and tendency toward bilateral hip ER in stance and in gait. PT-OP-M Strength Start: 09/26/22 08:30 Freq: Status: Active Protocol: Document 09/26/22 11:15 AW (Rec: 09/26/22 13:45 AW [id number]) Hip Strength Hip Manual Muscle Testing Left Flexion (L2) 4 Good Extension (S1) 4 Good Abduction 4 Good Right Flexion (L2) 4+ Good+ Extension (S1) 4 Good Abduction 4 Good Knee Strength Knee Manual Muscle Testing Left Flexion (S2) 4+ Good+ Extension (L3) 4+ Good+ Right Flexion (S2) 4 Good Extension (L3) 4+ Good+ Ankle/Foot Strength Ankle and Foot Manual Muscle Testing Left Dorsiflexion (L4) 4 Good Right Dorsiflexion (L4) 4+ Good+ PT-OP-T Assessment and Plan Start: 09/26/22 08:30 Freq: Status: Active Protocol: Document 09/26/22 11:15 AW (Rec: 09/26/22 13:45 AW [id number]) Physical Therapy Assessment Rehab Potential Rehabilitation Potential Good Evaluation Complexity Number of Personal Factors/Comorbidities 3 or More Number of Body Systems Impaired 4 or More Clinical Presentation at Evaluation Evolving Impairments Impairments Balance,Functional Activities, Gait,Pain,Posture,Strength, Transfers Goals Four Impairment balance Fpc Goal (LTG) Pt will score 45 or greater on Mejias Balance Scale as a measure of reduced falls risk. LTG Duration 12/19/22 Three Impairment transfers Delivery Route Driver Goal (LTG) Pt will complete floor recovery with environmental support SBA. LTG Duration 12/19/22 Two Impairment transfers Short Term Goal (STG) Ale will complete 12 reps on 30 Second Sit to Stand test from standard height chair without use of UE's. STG Duration 11/07/22 Delivery Route Driver Goal (LTG) Pt will perform all bed mobility independently LTG Duration 12/19/22 One Impairment gait Short Term Goal (STG) Ale will walk 1010 feet on 6 Minute Walk Test with tripod cane or LRAD with no LOB. Delivery Route Driver Goal (LTG) Ale will walk 1100 feet or greater on 6 Minute Walk Test with tripod cane or LRAD with no LOB. Assessment Summary Assessment Ale is a 72 yo woman with 10 + year history of Parkinson's disease. She attends physical therapy with increasing falls frequency (4 falls in the past six months) and hopes to improve her strength and mobility to reduce falls risk. She completed LSVT BIG protocol in 2019 and kept up with her daily exercises for a while but it has now been several months since she did them. At discharge from [facility], her 6 Minute Walk Test was 1260 feet with no cane. On assessment today, Ale walked 916 feet with a tripod cane. She is expected to benefit from skilled PT to address her gait and balance impairments for reduction in falls risk. Physical Therapy Plan Frequency and Duration Frequency of Treatment 2x/Week Plan of Care Start Date 09/26/22 Plan of Care End Date 12/19/22 Next Visit Focus/Plan Next Note Type Treatment Note Next Visit Plan Assess DGI. Initiate selected [facility] exercises. Static balance. Dynamic balance as tolerated.
--- NOTE | 2022-10-01 12:36 | PT.OTN ---
Current Diagnoses Parkinson's disease (10/01/22) Other abnormalities of gait and mobility (10/01/22) Repeated falls (10/01/22) Weakness (10/01/22) Physical Therapy Treatment Note PT-OP-A Visit Information Start: 09/26/22 08:30 Freq: Status: Active Protocol: Document 10/01/22 09:19 NBM (Rec: 10/01/22 09:53 NBM [id number]) Out-Patient Physical Therapy Visit Information Visit Information Visit Type Treatment Note Visit Start Time 09:09 Visit Stop Time 09:53 Total Visit Minutes 44 Visit Number 2 Number of MEDICAID BILLER Visits 1 Evaluation Information Evaluation Date 09/26/22 PT-OP-B Current Condition Start: 09/26/22 08:30 Freq: Status: Active Protocol: Document 09/26/22 11:15 AW (Rec: 09/26/22 08:50 AW [id number]) Current Condition History of Current Condition Onset Date chronic Current Complaints falls, decreased balance, decreased strength History of Current Condition Ale was diagnosed with Parkinson's disease ~12 years ago. She had good response to medication changes 3-4 years ago. In the past 6 months, her tremors (BUE primarily and now LLE>RLE) have worsened and are affecting her balance. She has fallen 4 times in the past six months - stepping off a curb, chasing her dog, moving her garbage cans outside in the dark, and missing a chair while attempting to sit at [employer]. She is unable to get herself off the floor and has had to call EMS. She now has a [employer] alert device. She is scheduled with [facility] neurology next week and hopes to have her medication adjusted again to see if that helps. She is now using a tripod cane when outside of the house. She is often carrying it as a backup in case she needs it. She lives alone in a single level home with 2 steps/railing to enter. She drives, cooks, and cleans . She has mother helper for deep cleaning and yard work. She has a bed rail and uses it to assist with bed mobility. She sleeps in either the bed or in her lift recliner. Prior Treatments and Tests PT for back pain in 2018. PT per LSVT BIG protocol 2019. Treatment Goals Patient/Caregiver Goals Improve strength in arms and legs to be able to get up and down from the floor. Improve balance to the point of not needing assistive device. Personal Factors Other Personal Factors That May Effect Back pain, R knee pain, Therapy/Recovery intermittent vertigo related to allergies (takes meclizine prn and gets monthly shots), urinary incontinence, BMI>45. PT-OP-C Subjective Start: 09/26/22 08:30 Freq: Status: Active Protocol: Document 10/01/22 09:19 NBM (Rec: 10/01/22 09:53 NBM [id number]) OP-PT Subjective Patient Comments Patient Comments Pt states she still has a video of BIG exercises and wants to get stronger to start using them. She gets so physically tired and she's used to walking all over. Pt has appt next week w/ Parkinson's . Last fall a month ago when her foot caught going uphill on wet grass. Toes catch on things. PT-OP-D Balance Start: 09/26/22 08:30 Freq: Status: Active Protocol: Document 09/26/22 11:15 AW (Rec: 09/26/22 12:38 AW [id number]) Balance Tests Single Limb Standing Single Limb- Right unable Single Limb- Left unable Semi-Tandem Standing Semi-Tandem Standing Balance ok with EO, unable with EC Tandem Tandem Standing unable Other Other Balance Tests Performed NBOS with head turns and nods up to 30 seconds PT-OP-E Functional Tests Start: 09/26/22 08:30 Freq: Status: Active Protocol: Document 10/01/22 09:19 NBM (Rec: 10/01/22 12:32 NBM [id number]) Functional Tests Dynamic Gait Index (DGI) DGI Impairment Rating 40 to <60% Impaired (Score 10- 14) PT-OP-G Mobility & Gait Start: 09/26/22 08:30 Freq: Status: Active Protocol: Document 09/26/22 11:15 AW (Rec: 09/26/22 12:42 AW [id number]) OP Mobility Evaluation Bed Mobility Supine to and from Sit Uses bed rail at home. Needs min A in clinic. Needs cues to bridge hips for lateral scoot on the mat. Transfers Floor Transfers Not attempted OP Gait Assessment Comments Gait Comments Pt walks with feet turned out (B hip ER), reduced foot clearance but moderate step length. She uses tripod cane in RUE. Minimal trunk rotation noted. Minimal RUE swing. Absent LUE swing PT-OP-H Neuro Start: 09/26/22 08:30 Freq: Status: Active Protocol: Document 09/26/22 11:15 AW (Rec: 09/26/22 12:42 AW [id number]) Coordination Evaluation Upper Extremity Tests Left Finger to Nose Test Minimal Impairment Finger to Therapist's Finger Test Minimal Impairment Pronation/Supination Test Minimal Impairment Lower Extremity Tests Right Foot Tapping Test Minimal Impairment PT-OP-J Posture/Palpation/Skin Start: 09/26/22 08:30 Freq: Status: Active Protocol: Document 09/26/22 11:15 AW (Rec: 09/26/22 12:42 AW [id number]) Posture Evaluation Comments Posture Comments Pt has significantly forward head, increased thoracic kyphosis, and tendency toward bilateral hip ER in stance and in gait. PT-OP-M Strength Start: 09/26/22 08:30 Freq: Status: Active Protocol: Document 09/26/22 11:15 AW (Rec: 09/26/22 13:45 AW [id number]) Hip Strength Hip Manual Muscle Testing Left Flexion (L2) 4 Good Extension (S1) 4 Good Abduction 4 Good Right Flexion (L2) 4+ Good+ Extension (S1) 4 Good Abduction 4 Good Knee Strength Knee Manual Muscle Testing Left Flexion (S2) 4+ Good+ Extension (L3) 4+ Good+ Right Flexion (S2) 4 Good Extension (L3) 4+ Good+ Ankle/Foot Strength Ankle and Foot Manual Muscle Testing Left Dorsiflexion (L4) 4 Good Right Dorsiflexion (L4) 4+ Good+ PT-OP-Q Treatments Start: 09/26/22 08:30 Freq: Status: Active Protocol: Document 10/01/22 09:19 NBM (Rec: 10/01/22 09:53 NBM [id number]) Cardio Equipment Recumbent Stepper (Sci-Fit) Duration (Minutes) 8 Resistance 1.0 Seat Position 11 Therapeutic Exercises Sitting Exercises DF/PF Sitting Exercise Name resisted dorsiflexion/plantar flexion - added to HEP Side bilateral Resistance Lvl 1 Tb Equipment Used mesh chair Reps/Minutes x10 ea Comments simple cues for toes up, slowly down, or point toes down, slowly relax Therapeutic Activity Therapeutic Activity STS Name Sit to Stand - added to HEP Reps/Minutes x8 Comments cues for controlled descent, glute squeeze at top. Self-Care/Home Management Treatment Education Patient Education Fall Risk,Home Exercise Program,Safety Other Education Added to HEP: sit to stand w/ out UE support, resisted DF/PF - HO and Lvl1 Tb given. PT-OP-T Assessment and Plan Start: 09/26/22 08:30 Freq: Status: Active Protocol: Document 10/01/22 09:19 [facility] (Rec: 10/01/22 09:53 [facility] [id number]) Physical Therapy Assessment Goals Four Impairment balance Long-Term Goal (LTG) Pt will score 45 or greater on Mejias Balance Scale as a measure of reduced falls risk. LTG Duration 12/19/22 Three Impairment transfers Optometry Doctor Goal (LTG) Pt will complete floor recovery with environmental support SBA. LTG Duration 12/19/22 Two Impairment transfers Short Term Goal (STG) Ale will complete 12 reps on 30 Second Sit to Stand test from standard height chair without use of UE's. STG Duration 11/07/22 Optometry Doctor Goal (LTG) Pt will perform all bed mobility independently LTG Duration 12/19/22 One Impairment gait Short Term Goal (STG) Ale will walk 1010 feet on 6 Minute Walk Test with tripod cane or LRAD with no LOB. Optometry Doctor Goal (LTG) Ale will walk 1100 feet or greater on 6 Minute Walk Test with tripod cane or LRAD with no LOB. Assessment Summary Assessment Pt requires cues for controlled eccentric motion and upright posture with Sit to Stand, and fatigues easily. DGI indicates fall risk in older adults 13/24, with gait deviations consistently towards the right. Added to HEP: sit to stand w/out UE support, resisted DF/PF - HO and Lvl1 Tb given. Physical Therapy Plan Frequency and Duration Frequency of Treatment 2x/Week Plan of Care Start Date 09/26/22 Plan of Care End Date 12/19/22 Next Visit Focus/Plan Next Note Type Treatment Note Next Visit Plan Initiate selected BIG exercises. Static balance. Dynamic balance as tolerated.
--- NOTE | 2022-10-03 11:19 | PT.OTN ---
Current Diagnoses Parkinson's disease (10/03/22) Other abnormalities of gait and mobility (10/03/22) Repeated falls (10/03/22) Weakness (10/03/22) Physical Therapy Treatment Note PT-OP-A Visit Information Start: 09/26/22 08:30 Freq: Status: Active Protocol: Document 10/03/22 10:34 AW (Rec: 10/03/22 11:19 AW [id number]) Out-Patient Physical Therapy Visit Information Visit Information Visit Type Treatment Note PT-OP-B Current Condition Start: 09/26/22 08:30 Freq: Status: Active Protocol: Document 09/26/22 11:15 AW (Rec: 09/26/22 08:50 AW [id number]) Current Condition History of Current Condition Onset Date chronic Current Complaints falls, decreased balance, decreased strength History of Current Condition Ale was diagnosed with Parkinson's disease ~12 years ago. She had good response to medication changes 3-4 years ago. In the past 6 months, her tremors (BUE primarily and now LLE>RLE) have worsened and are affecting her balance. She has fallen 4 times in the past six months - stepping off a curb, chasing her dog, moving her garbage cans outside in the dark, and missing a chair while attempting to sit at [employer]. She is unable to get herself off the floor and has had to call EMS. She now has a [employer] alert device. She is scheduled with [facility] neurology next week and hopes to have her medication adjusted again to see if that helps. She is now using a tripod cane when outside of the house. She is often carrying it as a backup in case she needs it. She lives alone in a single level home with 2 steps/railing to enter. She drives, cooks, and cleans . She has splicer helper for deep cleaning and yard work. She has a bed rail and uses it to assist with bed mobility. She sleeps in either the bed or in her lift recliner. Prior Treatments and Tests PT for back pain in 2018. PT per LSVT BIG protocol 2019. Treatment Goals Patient/Caregiver Goals Improve strength in arms and legs to be able to get up and down from the floor. Improve balance to the point of not needing assistive device. Personal Factors Other Personal Factors That May Effect Back pain, R knee pain, Therapy/Recovery intermittent vertigo related to allergies (takes meclizine prn and gets monthly shots), urinary incontinence, BMI>45. PT-OP-C Subjective Start: 09/26/22 08:30 Freq: Status: Active Protocol: Document 10/03/22 10:34 AW (Rec: 10/03/22 11:19 AW [id number]) OP-PT Subjective Patient Comments Patient Comments [place] good after last treatment PT-OP-D Balance Start: 09/26/22 08:30 Freq: Status: Active Protocol: Document 09/26/22 11:15 AW (Rec: 09/26/22 12:38 AW [id number]) Balance Tests Single Limb Standing Single Limb- Right unable Single Limb- Left unable Semi-Tandem Standing Semi-Tandem Standing Balance ok with EO, unable with EC Tandem Tandem Standing unable Other Other Balance Tests Performed NBOS with head turns and nods up to 30 seconds PT-OP-E Functional Tests Start: 09/26/22 08:30 Freq: Status: Active Protocol: Document 10/01/22 09:19 NBM (Rec: 10/01/22 12:32 NBM [id number]) Functional Tests Dynamic Gait Index (DGI) DGI Impairment Rating 40 to <60% Impaired (Score 10- 14) PT-OP-G Mobility & Gait Start: 09/26/22 08:30 Freq: Status: Active Protocol: Document 09/26/22 11:15 AW (Rec: 09/26/22 12:42 AW [id number]) OP Mobility Evaluation Bed Mobility Supine to and from Sit Uses bed rail at home. Needs min A in clinic. Needs cues to bridge hips for lateral scoot on the mat. Transfers Floor Transfers Not attempted OP Gait Assessment Comments Gait Comments Pt walks with feet turned out (B hip ER), reduced foot clearance but moderate step length. She uses tripod cane in RUE. Minimal trunk rotation noted. Minimal RUE swing. Absent LUE swing PT-OP-H Neuro Start: 09/26/22 08:30 Freq: Status: Active Protocol: Document 09/26/22 11:15 AW (Rec: 09/26/22 12:42 AW [id number]) Coordination Evaluation Upper Extremity Tests Left Finger to Nose Test Minimal Impairment Finger to Therapist's Finger Test Minimal Impairment Pronation/Supination Test Minimal Impairment Lower Extremity Tests Right Foot Tapping Test Minimal Impairment PT-OP-J Posture/Palpation/Skin Start: 09/26/22 08:30 Freq: Status: Active Protocol: Document 09/26/22 11:15 AW (Rec: 09/26/22 12:42 AW [id number]) Posture Evaluation Comments Posture Comments Pt has significantly forward head, increased thoracic kyphosis, and tendency toward bilateral hip ER in stance and in gait. PT-OP-M Strength Start: 09/26/22 08:30 Freq: Status: Active Protocol: Document 09/26/22 11:15 AW (Rec: 09/26/22 13:45 AW [id number]) Hip Strength Hip Manual Muscle Testing Left Flexion (L2) 4 Good Extension (S1) 4 Good Abduction 4 Good Right Flexion (L2) 4+ Good+ Extension (S1) 4 Good Abduction 4 Good Knee Strength Knee Manual Muscle Testing Left Flexion (S2) 4+ Good+ Extension (L3) 4+ Good+ Right Flexion (S2) 4 Good Extension (L3) 4+ Good+ Ankle/Foot Strength Ankle and Foot Manual Muscle Testing Left Dorsiflexion (L4) 4 Good Right Dorsiflexion (L4) 4+ Good+ PT-OP-Q Treatments Start: 09/26/22 08:30 Freq: Status: Active Protocol: Document 10/03/22 10:34 AW (Rec: 10/03/22 11:19 AW [id number]) Cardio Equipment Recumbent Stepper (Sci-Fit) Duration (Minutes) 8 Resistance 1.5 Seat Position 11 Other .8 mi Therapeutic Activity Therapeutic Activity STS Name Sit to Stand - added to HEP Reps/Minutes 2x5 Comments cues for controlled descent, glute squeeze at top. Neuro Re-Education Treatment Other Activities backward step Details backward step Reps/Duration x10 Comments adapted with chair support sideways step Details sideways step Reps/Duration x10 Comments adapted with chair support forward step Details forward step Reps/Duration x10 seated side to side Details seated side to side Reps/Duration x8 each direction floor to ceiling Details floor to ceiling Reps/Duration x10 Self-Care/Home Management Treatment Education Other Education Encouraged pt to re-engage with her LSVT BIG exercises. She has the DVD. Provided information on local [employer] program as well. PT-OP-T Assessment and Plan Start: 09/26/22 08:30 Freq: Status: Active Protocol: Document 10/03/22 10:34 AW (Rec: 10/03/22 11:19 AW [id number]) Physical Therapy Assessment Goals Four Impairment balance [place] Goal (LTG) Pt will score 45 or greater on Mejias Balance Scale as a measure of reduced falls risk. LTG Duration 12/19/22 Three Impairment transfers Residential Goal (LTG) Pt will complete floor recovery with environmental support SBA. LTG Duration 12/19/22 Two Impairment transfers Short Term Goal (STG) Ale will complete 12 reps on 30 Second Sit to Stand test from standard height chair without use of UE's. STG Duration 11/07/22 Residential Goal (LTG) Pt will perform all bed mobility independently LTG Duration 12/19/22 One Impairment gait Short Term Goal (STG) Ale will walk 1010 feet on 6 Minute Walk Test with tripod cane or LRAD with no LOB. Residential Goal (LTG) Ale will walk 1100 feet or greater on 6 Minute Walk Test with tripod cane or LRAD with no LOB. Assessment Summary Assessment Re-introduced LSVT BIG exercises (adapted with chair support). Pt did well and was encouraged to engage with her daily exercises again. Will continue to work some BIG exercises into treatment but also focus on balance more globally. Physical Therapy Plan Frequency and Duration Frequency of Treatment 2x/Week Plan of Care Start Date 09/26/22 Plan of Care End Date 12/19/22 Next Visit Focus/Plan Next Note Type Treatment Note Next Visit Plan Continue selected BIG exercises. Static balance. Dynamic balance as tolerated.
--- NOTE | 2022-10-10 16:30 | PT.OTN ---
Current Diagnoses Parkinson's disease (10/10/22) Other abnormalities of gait and mobility (10/10/22) Repeated falls (10/10/22) Weakness (10/10/22) Physical Therapy Treatment Note PT-OP-A Visit Information Start: 09/26/22 08:30 Freq: Status: Active Protocol: Document 10/10/22 12:51 AW (Rec: 10/10/22 15:17 AW [id number]) Out-Patient Physical Therapy Visit Information Visit Information Visit Type Treatment Note Visit Start Time 14:30 Visit Stop Time 15:15 Total Visit Minutes 45 Visit Number 4 Number of TRANSPORTATION TECHNICIAN Visits 0 PT-OP-B Current Condition Start: 09/26/22 08:30 Freq: Status: Active Protocol: Document 09/26/22 11:15 AW (Rec: 09/26/22 08:50 AW [id number]) Current Condition History of Current Condition Onset Date chronic Current Complaints falls, decreased balance, decreased strength History of Current Condition Ale was diagnosed with Parkinson's disease ~12 years ago. She had good response to medication changes 3-4 years ago. In the past 6 months, her tremors (BUE primarily and now LLE>RLE) have worsened and are affecting her balance. She has fallen 4 times in the past six months - stepping off a curb, chasing her dog, moving her garbage cans outside in the dark, and missing a chair while attempting to sit at [employer]. She is unable to get herself off the floor and has had to call EMS. She now has a [employer] alert device. She is scheduled with [facility] neurology next week and hopes to have her medication adjusted again to see if that helps. She is now using a tripod cane when outside of the house. She is often carrying it as a backup in case she needs it. She lives alone in a single level home with 2 steps/railing to enter. She drives, cooks, and cleans . She has help desk engineer for deep cleaning and yard work. She has a bed rail and uses it to assist with bed mobility. She sleeps in either the bed or in her lift recliner. Prior Treatments and Tests PT for back pain in 2018. PT per LSVT BIG protocol 2019. Treatment Goals Patient/Caregiver Goals Improve strength in arms and legs to be able to get up and down from the floor. Improve balance to the point of not needing assistive device. Personal Factors Other Personal Factors That May Effect Back pain, R knee pain, Therapy/Recovery intermittent vertigo related to allergies (takes meclizine prn and gets monthly shots), urinary incontinence, BMI>45. PT-OP-C Subjective Start: 09/26/22 08:30 Freq: Status: Active Protocol: Document 10/10/22 12:51 AW (Rec: 10/10/22 15:17 AW [id number]) OP-PT Subjective Patient Comments Patient Comments Ale has been having some back pain the past few days. It comes and goes but notices most difficulty with stairs. Saw neurology yesterday who declined to change sinemet dosing at this time since she' s already taking a relatively high dose. PT-OP-D Balance Start: 09/26/22 08:30 Freq: Status: Active Protocol: Document 09/26/22 11:15 AW (Rec: 09/26/22 12:38 AW [id number]) Balance Tests Single Limb Standing Single Limb- Right unable Single Limb- Left unable Semi-Tandem Standing Semi-Tandem Standing Balance ok with EO, unable with EC Tandem Tandem Standing unable Other Other Balance Tests Performed NBOS with head turns and nods up to 30 seconds PT-OP-E Functional Tests Start: 09/26/22 08:30 Freq: Status: Active Protocol: Document 10/01/22 09:19 NBM (Rec: 10/01/22 12:32 NBM [id number]) Functional Tests Dynamic Gait Index (DGI) DGI Impairment Rating 40 to <60% Impaired (Score 10- 14) PT-OP-G Mobility & Gait Start: 09/26/22 08:30 Freq: Status: Active Protocol: Document 09/26/22 11:15 AW (Rec: 09/26/22 12:42 AW [id number]) OP Mobility Evaluation Bed Mobility Supine to and from Sit Uses bed rail at home. Needs min A in clinic. Needs cues to bridge hips for lateral scoot on the mat. Transfers Floor Transfers Not attempted OP Gait Assessment Comments Gait Comments Pt walks with feet turned out (B hip ER), reduced foot clearance but moderate step length. She uses tripod cane in RUE. Minimal trunk rotation noted. Minimal RUE swing. Absent LUE swing PT-OP-H Neuro Start: 09/26/22 08:30 Freq: Status: Active Protocol: Document 09/26/22 11:15 AW (Rec: 09/26/22 12:42 AW [id number]) Coordination Evaluation Upper Extremity Tests Left Finger to Nose Test Minimal Impairment Finger to Therapist's Finger Test Minimal Impairment Pronation/Supination Test Minimal Impairment Lower Extremity Tests Right Foot Tapping Test Minimal Impairment PT-OP-J Posture/Palpation/Skin Start: 09/26/22 08:30 Freq: Status: Active Protocol: Document 09/26/22 11:15 AW (Rec: 09/26/22 12:42 AW [id number]) Posture Evaluation Comments Posture Comments Pt has significantly forward head, increased thoracic kyphosis, and tendency toward bilateral hip ER in stance and in gait. PT-OP-M Strength Start: 09/26/22 08:30 Freq: Status: Active Protocol: Document 09/26/22 11:15 AW (Rec: 09/26/22 13:45 AW [id number]) Hip Strength Hip Manual Muscle Testing Left Flexion (L2) 4 Good Extension (S1) 4 Good Abduction 4 Good Right Flexion (L2) 4+ Good+ Extension (S1) 4 Good Abduction 4 Good Knee Strength Knee Manual Muscle Testing Left Flexion (S2) 4+ Good+ Extension (L3) 4+ Good+ Right Flexion (S2) 4 Good Extension (L3) 4+ Good+ Ankle/Foot Strength Ankle and Foot Manual Muscle Testing Left Dorsiflexion (L4) 4 Good Right Dorsiflexion (L4) 4+ Good+ PT-OP-Q Treatments Start: 09/26/22 08:30 Freq: Status: Active Protocol: Document 10/10/22 12:51 AW (Rec: 10/10/22 15:17 AW [id number]) Cardio Equipment Recumbent Elliptical (Bi[employer]x) Duration (Minutes) 6 Resistance 2 Seat Position 10 seen Therapeutic Activity Therapeutic Activity STS Name Sit to Stand - added to HEP Reps/Minutes x10 Comments cues for controlled descent, glute squeeze at top. Neuro Re-Education Treatment Balance Activities foam stance Details foam stance Surface blue airex pads Equipment rail prn stride stance Details stride stance Surface firm Equipment rail support prn Comments easier with left foot forward corner balance Details corner balance - HEP Surface firm Equipment wall behind, chair in front Comments - WBOS EO - WBOS head turns and nods ( vertical most challenging) - NBOS EO - NBOS head turns Other Activities forward step Details forward step Reps/Duration x10 seated side to side Details seated side to side Reps/Duration x8 each direction floor to ceiling Details floor to ceiling Reps/Duration x10 Self-Care/Home Management Treatment Education Other Education Discussed recommended timing of sinemet dose with meals and clarified that pt should take her dose 30-60 minutes prior to meals. PT-OP-T Assessment and Plan Start: 09/26/22 08:30 Freq: Status: Active Protocol: Document 10/10/22 12:51 AW (Rec: 10/10/22 15:17 AW [id number]) Physical Therapy Assessment Goals Four Impairment balance Custodial Goal (LTG) Pt will score 45 or greater on Mejias Balance Scale as a measure of reduced falls risk. LTG Duration 12/19/22 Three Impairment transfers Pecan Cleaner Goal (LTG) Pt will complete floor recovery with environmental support SBA. LTG Duration 12/19/22 Two Impairment transfers Short Term Goal (STG) Ale will complete 12 reps on 30 Second Sit to Stand test from standard height chair without use of UE's. STG Duration 11/07/22 Custodial Goal (LTG) Pt will perform all bed mobility independently LTG Duration 12/19/22 One Impairment gait Short Term Goal (STG) Ale will walk 1010 feet on 6 Minute Walk Test with tripod cane or LRAD with no LOB. Custodial Goal (LTG) Ale will walk 1100 feet or greater on 6 Minute Walk Test with tripod cane or LRAD with no LOB. Assessment Summary Assessment Continued focus on selected LSVT BIG exercises and added static balance. Pt arrived reporting intermittent low back pain over the past few days but did not complain of increased pain during treatment. Pt is quite challenged in stride stance but did well with foam stance. Physical Therapy Plan Frequency and Duration Frequency of Treatment 2x/Week Plan of Care Start Date 09/26/22 Plan of Care End Date 12/19/22 Next Visit Focus/Plan Next Note Type Treatment Note Next Visit Plan Continue selected BIG exercises. Static balance. Dynamic balance as tolerated.
--- NOTE | 2022-10-12 12:24 | PT.OTN ---
Current Diagnoses Parkinson's disease (10/12/22) Other abnormalities of gait and mobility (10/12/22) Repeated falls (10/12/22) Weakness (10/12/22) Physical Therapy Treatment Note PT-OP-A Visit Information Start: 09/26/22 08:30 Freq: Status: Active Protocol: Document 10/12/22 11:43 NBM (Rec: 10/12/22 12:21 NBM [id number]) Out-Patient Physical Therapy Visit Information Visit Information Visit Type Treatment Note Visit Start Time 11:37 Visit Stop Time 12:15 Total Visit Minutes 38 Visit Number 5 Number of PARIMUTUEL CLERK Visits 1 Evaluation Information Evaluation Date 09/26/22 PT-OP-B Current Condition Start: 09/26/22 08:30 Freq: Status: Active Protocol: Document 09/26/22 11:15 AW (Rec: 09/26/22 08:50 AW [id number]) Current Condition History of Current Condition Onset Date chronic Current Complaints falls, decreased balance, decreased strength History of Current Condition Ale was diagnosed with Parkinson's disease ~12 years ago. She had good response to medication changes 3-4 years ago. In the past 6 months, her tremors (BUE primarily and now LLE>RLE) have worsened and are affecting her balance. She has fallen 4 times in the past six months - stepping off a curb, chasing her dog, moving her garbage cans outside in the dark, and missing a chair while attempting to sit at [employer]. She is unable to get herself off the floor and has had to call EMS. She now has a [employer] alert device. She is scheduled with [facility] neurology next week and hopes to have her medication adjusted again to see if that helps. She is now using a tripod cane when outside of the house. She is often carrying it as a backup in case she needs it. She lives alone in a single level home with 2 steps/railing to enter. She drives, cooks, and cleans . She has rotary driller helper for deep cleaning and yard work. She has a bed rail and uses it to assist with bed mobility. She sleeps in either the bed or in her lift recliner. Prior Treatments and Tests PT for back pain in 2018. PT per [facility] protocol 2019. Treatment Goals Patient/Caregiver Goals Improve strength in arms and legs to be able to get up and down from the floor. Improve balance to the point of not needing assistive device. Personal Factors Other Personal Factors That May Effect Back pain, R knee pain, Therapy/Recovery intermittent vertigo related to allergies (takes meclizine prn and gets monthly shots), urinary incontinence, BMI>45. PT-OP-C Subjective Start: 09/26/22 08:30 Freq: Status: Active Protocol: Document 10/12/22 11:43 NBM (Rec: 10/12/22 12:21 NBM [id number]) OP-PT Subjective Patient Comments Patient Comments Ale reports her back is hurting her, especially after just grocery shopping. PT-OP-D Balance Start: 09/26/22 08:30 Freq: Status: Active Protocol: Document 09/26/22 11:15 AW (Rec: 09/26/22 12:38 AW [id number]) Balance Tests Single Limb Standing Single Limb- Right unable Single Limb- Left unable Semi-Tandem Standing Semi-Tandem Standing Balance ok with EO, unable with EC Tandem Tandem Standing unable Other Other Balance Tests Performed NBOS with head turns and nods up to 30 seconds PT-OP-E Functional Tests Start: 09/26/22 08:30 Freq: Status: Active Protocol: Document 10/01/22 09:19 NBM (Rec: 10/01/22 12:32 NBM [id number]) Functional Tests Dynamic Gait Index (DGI) DGI Impairment Rating 40 to <60% Impaired (Score 10- 14) PT-OP-G Mobility & Gait Start: 09/26/22 08:30 Freq: Status: Active Protocol: Document 09/26/22 11:15 AW (Rec: 09/26/22 12:42 AW [id number]) OP Mobility Evaluation Bed Mobility Supine to and from Sit Uses bed rail at home. Needs min A in clinic. Needs cues to bridge hips for lateral scoot on the mat. Transfers Floor Transfers Not attempted OP Gait Assessment Comments Gait Comments Pt walks with feet turned out (B hip ER), reduced foot clearance but moderate step length. She uses tripod cane in RUE. Minimal trunk rotation noted. Minimal RUE swing. Absent LUE swing PT-OP-H Neuro Start: 09/26/22 08:30 Freq: Status: Active Protocol: Document 09/26/22 11:15 AW (Rec: 09/26/22 12:42 AW [id number]) Coordination Evaluation Upper Extremity Tests Left Finger to Nose Test Minimal Impairment Finger to Therapist's Finger Test Minimal Impairment Pronation/Supination Test Minimal Impairment Lower Extremity Tests Right Foot Tapping Test Minimal Impairment PT-OP-J Posture/Palpation/Skin Start: 09/26/22 08:30 Freq: Status: Active Protocol: Document 09/26/22 11:15 AW (Rec: 09/26/22 12:42 AW [id number]) Posture Evaluation Comments Posture Comments Pt has significantly forward head, increased thoracic kyphosis, and tendency toward bilateral hip ER in stance and in gait. PT-OP-M Strength Start: 09/26/22 08:30 Freq: Status: Active Protocol: Document 09/26/22 11:15 AW (Rec: 09/26/22 13:45 AW [id number]) Hip Strength Hip Manual Muscle Testing Left Flexion (L2) 4 Good Extension (S1) 4 Good Abduction 4 Good Right Flexion (L2) 4+ Good+ Extension (S1) 4 Good Abduction 4 Good Knee Strength Knee Manual Muscle Testing Left Flexion (S2) 4+ Good+ Extension (L3) 4+ Good+ Right Flexion (S2) 4 Good Extension (L3) 4+ Good+ Ankle/Foot Strength Ankle and Foot Manual Muscle Testing Left Dorsiflexion (L4) 4 Good Right Dorsiflexion (L4) 4+ Good+ PT-OP-Q Treatments Start: 09/26/22 08:30 Freq: Status: Active Protocol: Document 10/12/22 11:43 NBM (Rec: 10/12/22 12:21 NBM [id number]) Cardio Equipment Recumbent Elliptical (Biodex) Duration (Minutes) 5 Resistance 4 Seat Position 10 seen Therapeutic Activity Therapeutic Activity STS Name Sit to Stand Reps/Minutes x10 Comments cues for controlled descent, glute squeeze at top - pt reports feeling it in her thighs Neuro Re-Education Treatment Balance Activities foam stance Details foam stance Surface blue airex pads Equipment rail prn stride stance Details stride stance Surface firm Equipment rail support prn Comments easier with left foot forward Other Activities forward step Details forward step Reps/Duration x10 seated side to side Comments manuel arms extended to sides with finger flicks today x8 floor to ceiling Details floor to ceiling Reps/Duration x10 PT-OP-T Assessment and Plan Start: 09/26/22 08:30 Freq: Status: Active Protocol: Document 10/12/22 11:43 NB (Rec: 10/12/22 12:21 [facility] [id number]) Physical Therapy Assessment Goals Four Impairment balance Prison Goal (LTG) Pt will score 45 or greater on Mejias Balance Scale as a measure of reduced falls risk. LTG Duration 12/19/22 Three Impairment transfers Prison Goal (LTG) Pt will complete floor recovery with environmental support SBA. LTG Duration 12/19/22 Two Impairment transfers Short Term Goal (STG) Ale will complete 12 reps on 30 Second Sit to Stand test from standard height chair without use of UE's. STG Duration 11/07/22 Prison Goal (LTG) Pt will perform all bed mobility independently LTG Duration 12/19/22 One Impairment gait Short Term Goal (STG) Ale will walk 1010 feet on 6 Minute Walk Test with tripod cane or LRAD with no LOB. Plate Setter Goal (LTG) Ale will walk 1100 feet or greater on 6 Minute Walk Test with tripod cane or LRAD with no LOB. Assessment Summary Assessment Pt works hard and reports initial low back pain, but tolerates increased resistance on Biodex recumbant elliptical from 2 to 4 for 5 minutes without increase in pain. She struggles to remember sequencing for floor to ceiling ex but performance improves significantly with visual feedback. Physical Therapy Plan Frequency and Duration Frequency of Treatment 2x/Week Plan of Care Start Date 09/26/22 Plan of Care End Date 12/19/22 Next Visit Focus/Plan Next Note Type Treatment Note Next Visit Plan Continue selected BIG exercises. Static balance. Dynamic balance as tolerated.
--- NOTE | 2022-10-17 11:56 | PT.OTN ---
Current Diagnoses Parkinson's disease (10/17/22) Other abnormalities of gait and mobility (10/17/22) Repeated falls (10/17/22) Weakness (10/17/22) Physical Therapy Treatment Note PT-OP-A Visit Information Start: 09/26/22 08:30 Freq: Status: Active Protocol: Document 10/17/22 11:18 DCW (Rec: 10/17/22 11:56 DCW [id number]) Out-Patient Physical Therapy Visit Information Visit Information Visit Type Treatment Note Visit Start Time 11:18 Visit Stop Time 12:00 Total Visit Minutes 42 Visit Number 6 Number of COMMERCIAL SALES REPRESENTATIVE Visits 0 Evaluation Information Evaluation Date 09/26/22 PT-OP-B Current Condition Start: 09/26/22 08:30 Freq: Status: Active Protocol: Document 09/26/22 11:15 AW (Rec: 09/26/22 08:50 AW [id number]) Current Condition History of Current Condition Onset Date chronic Current Complaints falls, decreased balance, decreased strength History of Current Condition Ale was diagnosed with Parkinson's disease ~12 years ago. She had good response to medication changes 3-4 years ago. In the past 6 months, her tremors (BUE primarily and now LLE>RLE) have worsened and are affecting her balance. She has fallen 4 times in the past six months - stepping off a curb, chasing her dog, moving her garbage cans outside in the dark, and missing a chair while attempting to sit at [employer]. She is unable to get herself off the floor and has had to call EMS. She now has a [employer] alert device. She is scheduled with [facility] neurology next week and hopes to have her medication adjusted again to see if that helps. She is now using a tripod cane when outside of the house. She is often carrying it as a backup in case she needs it. She lives alone in a single level home with 2 steps/railing to enter. She drives, cooks, and cleans . She has bottler helper for deep cleaning and yard work. She has a bed rail and uses it to assist with bed mobility. She sleeps in either the bed or in her lift recliner. Prior Treatments and Tests PT for back pain in 2018. PT per [facility] protocol 2019. Treatment Goals Patient/Caregiver Goals Improve strength in arms and legs to be able to get up and down from the floor. Improve balance to the point of not needing assistive device. Personal Factors Other Personal Factors That May Effect Back pain, R knee pain, Therapy/Recovery intermittent vertigo related to allergies (takes meclizine prn and gets monthly shots), urinary incontinence, BMI>45. PT-OP-C Subjective Start: 09/26/22 08:30 Freq: Status: Active Protocol: Document 10/17/22 11:18 DCW (Rec: 10/17/22 11:56 DCW [id number]) OP-PT Subjective Patient Comments Patient Comments Pt reports her back is still bothering her quite a bit, but she has been able to continue performing her HEP. PT-OP-D Balance Start: 09/26/22 08:30 Freq: Status: Active Protocol: Document 09/26/22 11:15 AW (Rec: 09/26/22 12:38 AW [id number]) Balance Tests Single Limb Standing Single Limb- Right unable Single Limb- Left unable Semi-Tandem Standing Semi-Tandem Standing Balance ok with EO, unable with EC Tandem Tandem Standing unable Other Other Balance Tests Performed NBOS with head turns and nods up to 30 seconds PT-OP-E Functional Tests Start: 09/26/22 08:30 Freq: Status: Active Protocol: Document 10/01/22 09:19 NBM (Rec: 10/01/22 12:32 NBM [id number]) Functional Tests Dynamic Gait Index (DGI) DGI Impairment Rating 40 to <60% Impaired (Score 10- 14) PT-OP-G Mobility & Gait Start: 09/26/22 08:30 Freq: Status: Active Protocol: Document 09/26/22 11:15 AW (Rec: 09/26/22 12:42 AW [id number]) OP Mobility Evaluation Bed Mobility Supine to and from Sit Uses bed rail at home. Needs min A in clinic. Needs cues to bridge hips for lateral scoot on the mat. Transfers Floor Transfers Not attempted OP Gait Assessment Comments Gait Comments Pt walks with feet turned out (B hip ER), reduced foot clearance but moderate step length. She uses tripod cane in RUE. Minimal trunk rotation noted. Minimal RUE swing. Absent LUE swing PT-OP-H Neuro Start: 09/26/22 08:30 Freq: Status: Active Protocol: Document 09/26/22 11:15 AW (Rec: 09/26/22 12:42 AW [id number]) Coordination Evaluation Upper Extremity Tests Left Finger to Nose Test Minimal Impairment Finger to Therapist's Finger Test Minimal Impairment Pronation/Supination Test Minimal Impairment Lower Extremity Tests Right Foot Tapping Test Minimal Impairment PT-OP-J Posture/Palpation/Skin Start: 09/26/22 08:30 Freq: Status: Active Protocol: Document 09/26/22 11:15 AW (Rec: 09/26/22 12:42 AW [id number]) Posture Evaluation Comments Posture Comments Pt has significantly forward head, increased thoracic kyphosis, and tendency toward bilateral hip ER in stance and in gait. PT-OP-M Strength Start: 09/26/22 08:30 Freq: Status: Active Protocol: Document 09/26/22 11:15 AW (Rec: 09/26/22 13:45 AW [id number]) Hip Strength Hip Manual Muscle Testing Left Flexion (L2) 4 Good Extension (S1) 4 Good Abduction 4 Good Right Flexion (L2) 4+ Good+ Extension (S1) 4 Good Abduction 4 Good Knee Strength Knee Manual Muscle Testing Left Flexion (S2) 4+ Good+ Extension (L3) 4+ Good+ Right Flexion (S2) 4 Good Extension (L3) 4+ Good+ Ankle/Foot Strength Ankle and Foot Manual Muscle Testing Left Dorsiflexion (L4) 4 Good Right Dorsiflexion (L4) 4+ Good+ PT-OP-Q Treatments Start: 09/26/22 08:30 Freq: Status: Active Protocol: Document 10/17/22 11:18 DCW (Rec: 10/17/22 11:56 DCW [id number]) Cardio Equipment Recumbent Elliptical (Biodex) Duration (Minutes) 5 Resistance 4 Seat Position 10 seen Therapeutic Exercises Sitting Exercises DF/PF Sitting Exercise Name DF/PF Side bilateral Resistance Lvl 2 Reps/Minutes x15 Therapeutic Activity Therapeutic Activity STS Name Sit to Stand Reps/Minutes x10 Comments cues for controlled descent, glute squeeze at top - pt fatigued out right at 10 Neuro Re-Education Treatment Balance Activities foam stance Details foam stance Surface Curtis foam Equipment // bars PRN Comments EO/EC, Head turns stride stance Details stride stance Surface firm Equipment rail support prn Comments easier with left foot forward Other Activities backward step Details backward step Reps/Duration x10 Comments // bars Yellow T-band sideways step Details sideways step Reps/Duration x10 Comments // bars Yellow T-band forward step Details forward step Reps/Duration x10 Comments // bars Yellow T-band PT-OP-T Assessment and Plan Start: 09/26/22 08:30 Freq: Status: Active Protocol: Document 10/17/22 11:18 DCW (Rec: 10/17/22 11:56 DCW [id number]) Physical Therapy Assessment Goals Four Impairment balance Prison Goal (LTG) Pt will score 45 or greater on Mejias Balance Scale as a measure of reduced falls risk. LTG Duration 12/19/22 Three Impairment transfers Prison Goal (LTG) Pt will complete floor recovery with environmental support SBA. LTG Duration 12/19/22 Two Impairment transfers Short Term Goal (STG) Ale will complete 12 reps on 30 Second Sit to Stand test from standard height chair without use of UE's. STG Duration 11/07/22 Prison Goal (LTG) Pt will perform all bed mobility independently LTG Duration 12/19/22 One Impairment gait Short Term Goal (STG) Ale will walk 1010 feet on 6 Minute Walk Test with tripod cane or LRAD with no LOB. Sports Management Professor Goal (LTG) Ale will walk 1100 feet or greater on 6 Minute Walk Test with tripod cane or LRAD with no LOB. Assessment Summary Assessment Pt tolerated treatment well today, no complaints of her ongoing back pain, worked hard with balance challenges, able to tolerate increased difficulty with side-stepping with addition of resistance. Physical Therapy Plan Frequency and Duration Frequency of Treatment 2x/Week Plan of Care Start Date 09/26/22 Plan of Care End Date 12/19/22 Next Visit Focus/Plan Next Note Type Treatment Note Next Visit Plan Continue selected BIG exercises. Static balance. Dynamic balance as tolerated.
--- NOTE | 2022-10-19 13:45 | PT.OTN ---
Current Diagnoses Parkinson's disease (10/19/22) Other abnormalities of gait and mobility (10/19/22) Repeated falls (10/19/22) Weakness (10/19/22) Physical Therapy Treatment Note PT-OP-A Visit Information Start: 09/26/22 08:30 Freq: Status: Active Protocol: Document 10/19/22 13:06 SP (Rec: 10/19/22 13:49 SP [id number]) Out-Patient Physical Therapy Visit Information Visit Information Visit Type Treatment Note Visit Note 10th visit PN in 3 visits Visit Start Time 13:06 Visit Stop Time 13:45 Total Visit Minutes 39 Visit Number 7 Number of SITE DIRECTOR Visits 1 Evaluation Information Evaluation Date 09/26/22 PT-OP-B Current Condition Start: 09/26/22 08:30 Freq: Status: Active Protocol: Document 09/26/22 11:15 AW (Rec: 09/26/22 08:50 AW [id number]) Current Condition History of Current Condition Onset Date chronic Current Complaints falls, decreased balance, decreased strength History of Current Condition Ale was diagnosed with Parkinson's disease ~12 years ago. She had good response to medication changes 3-4 years ago. In the past 6 months, her tremors (BUE primarily and now LLE>RLE) have worsened and are affecting her balance. She has fallen 4 times in the past six months - stepping off a curb, chasing her dog, moving her garbage cans outside in the dark, and missing a chair while attempting to sit at [employer]. She is unable to get herself off the floor and has had to call EMS. She now has a [employer] alert device. She is scheduled with [facility] neurology next week and hopes to have her medication adjusted again to see if that helps. She is now using a tripod cane when outside of the house. She is often carrying it as a backup in case she needs it. She lives alone in a single level home with 2 steps/railing to enter. She drives, cooks, and cleans . She has air conditioner installer helper for deep cleaning and yard work. She has a bed rail and uses it to assist with bed mobility. She sleeps in either the bed or in her lift recliner. Prior Treatments and Tests PT for back pain in 2018. PT per [facility] protocol 2019. Treatment Goals Patient/Caregiver Goals Improve strength in arms and legs to be able to get up and down from the floor. Improve balance to the point of not needing assistive device. Personal Factors Other Personal Factors That May Effect Back pain, R knee pain, Therapy/Recovery intermittent vertigo related to allergies (takes meclizine prn and gets monthly shots), urinary incontinence, BMI>45. PT-OP-C Subjective Start: 09/26/22 08:30 Freq: Status: Active Protocol: Document 10/19/22 13:06 SP (Rec: 10/19/22 13:49 SP [id number]) OP-PT Subjective Patient Comments Patient Comments Pt reports good work out last tx and recovered quickly. Compliant with HEP. PT-OP-D Balance Start: 09/26/22 08:30 Freq: Status: Active Protocol: Document 09/26/22 11:15 AW (Rec: 09/26/22 12:38 AW [id number]) Balance Tests Single Limb Standing Single Limb- Right unable Single Limb- Left unable Semi-Tandem Standing Semi-Tandem Standing Balance ok with EO, unable with EC Tandem Tandem Standing unable Other Other Balance Tests Performed NBOS with head turns and nods up to 30 seconds PT-OP-E Functional Tests Start: 09/26/22 08:30 Freq: Status: Active Protocol: Document 10/01/22 09:19 NBM (Rec: 10/01/22 12:32 NBM [id number]) Functional Tests Dynamic Gait Index (DGI) DGI Impairment Rating 40 to <60% Impaired (Score 10- 14) PT-OP-G Mobility & Gait Start: 09/26/22 08:30 Freq: Status: Active Protocol: Document 09/26/22 11:15 AW (Rec: 09/26/22 12:42 AW [id number]) OP Mobility Evaluation Bed Mobility Supine to and from Sit Uses bed rail at home. Needs min A in clinic. Needs cues to bridge hips for lateral scoot on the mat. Transfers Floor Transfers Not attempted OP Gait Assessment Comments Gait Comments Pt walks with feet turned out (B hip ER), reduced foot clearance but moderate step length. She uses tripod cane in RUE. Minimal trunk rotation noted. Minimal RUE swing. Absent LUE swing PT-OP-H Neuro Start: 09/26/22 08:30 Freq: Status: Active Protocol: Document 09/26/22 11:15 AW (Rec: 09/26/22 12:42 AW [id number]) Coordination Evaluation Upper Extremity Tests Left Finger to Nose Test Minimal Impairment Finger to Therapist's Finger Test Minimal Impairment Pronation/Supination Test Minimal Impairment Lower Extremity Tests Right Foot Tapping Test Minimal Impairment PT-OP-J Posture/Palpation/Skin Start: 09/26/22 08:30 Freq: Status: Active Protocol: Document 09/26/22 11:15 AW (Rec: 09/26/22 12:42 AW [id number]) Posture Evaluation Comments Posture Comments Pt has significantly forward head, increased thoracic kyphosis, and tendency toward bilateral hip ER in stance and in gait. PT-OP-M Strength Start: 09/26/22 08:30 Freq: Status: Active Protocol: Document 09/26/22 11:15 AW (Rec: 09/26/22 13:45 AW [id number]) Hip Strength Hip Manual Muscle Testing Left Flexion (L2) 4 Good Extension (S1) 4 Good Abduction 4 Good Right Flexion (L2) 4+ Good+ Extension (S1) 4 Good Abduction 4 Good Knee Strength Knee Manual Muscle Testing Left Flexion (S2) 4+ Good+ Extension (L3) 4+ Good+ Right Flexion (S2) 4 Good Extension (L3) 4+ Good+ Ankle/Foot Strength Ankle and Foot Manual Muscle Testing Left Dorsiflexion (L4) 4 Good Right Dorsiflexion (L4) 4+ Good+ PT-OP-Q Treatments Start: 09/26/22 08:30 Freq: Status: Active Protocol: Document 10/19/22 13:06 SP (Rec: 10/19/22 13:49 SP [id number]) Cardio Equipment Recumbent Elliptical (Biodex) Duration (Minutes) 5 Resistance 4 Seat Position 10 seen Other light UEs, mostly LEs 45-50 RPMs, Gym Equipment Shuttle Recovery unilateral squat Resistance 37# (old band) Reps/Time x10 each LE Bilateral Squats Details cued ft // Resistance 62# (old bands) Reps/Time x10 Therapeutic Exercises Sitting Exercises STS Sitting Exercise Name arms across chest Resistance CGA Equipment Used mesh chair/ floor, mesh chair w/ blue brien disc stand on foam pad Reps/Minutes x5 floor, 5 reps uneven seat/ floor Comments cued // ft. ed not use lift recliner stand, good successful effort DF/PF Sitting Exercise Name DF(not PF 2/3) Side bilateral Resistance Lvl 2 Reps/Minutes x15 Comments good form- to support DF foot clearance Gait Training Gait Activity f/b walking Comments f/b 20 ft x4 laps, cued core/ posturing, L>R foot clearance Neuro Re-Education Treatment Balance Activities foam stance Details foam stance Surface blue foam Equipment Rail R PRN Comments EO Head turns EC 10 s stride stance Details stride stance Surface firm Equipment rail support prn Comments easier R forward EO HTs EC 1 sec before LOB Discussed corner balance home. PT-OP-T Assessment and Plan Start: 09/26/22 08:30 Freq: Status: Active Protocol: Document 10/19/22 13:06 SP (Rec: 10/19/22 13:49 SP [id number]) Physical Therapy Assessment Goals Four Impairment balance Pulp Screen Operator Goal (LTG) Pt will score 45 or greater on Mejias Balance Scale as a measure of reduced falls risk. LTG Duration 12/19/22 Three Impairment transfers Pulp Screen Operator Goal (LTG) Pt will complete floor recovery with environmental support SBA. LTG Duration 12/19/22 Two Impairment transfers Short Term Goal (STG) Ale will complete 12 reps on 30 Second Sit to Stand test from standard height chair without use of UE's. STG Duration 11/07/22 Pulp Screen Operator Goal (LTG) Pt will perform all bed mobility independently LTG Duration 12/19/22 One Impairment gait Short Term Goal (STG) Ale will walk 1010 feet on 6 Minute Walk Test with tripod cane or LRAD with no LOB. Intermediate Goal (LTG) Ale will walk 1100 feet or greater on 6 Minute Walk Test with tripod cane or LRAD with no LOB. Assessment Summary Assessment Pt improved stabilty with cues for increase posturing, use of core/glut book on head to allow uneven surface stance and head turns and EC up to 10 sec NBOS, slight HTs stagger stance. Reviewed resisted DF to support foot clearance gait f/b, improved understand mechanics post ed. She improved STS without UE support arms across chest and responded wellto introduction of shuttle recovery for LE strengthening. Physical Therapy Plan Frequency and Duration Frequency of Treatment 2x/Week Plan of Care Start Date 09/26/22 Plan of Care End Date 12/19/22 Next Visit Focus/Plan Next Note Type Treatment Note Next Visit Plan *PT Jesus Alberto to update therapeutic interventions and modalities (not submitted in eval POC), in POC at 10/29 appt with pt. POC: Continue selected BIG exercises. Static balance. Dynamic balance as tolerated.
--- NOTE | 2022-10-29 17:32 | PT.OTN ---
Current Diagnoses Parkinson's disease (10/29/22) Other abnormalities of gait and mobility (10/29/22) Repeated falls (10/29/22) Weakness (10/29/22) Physical Therapy Treatment Note PT-OP-A Visit Information Start: 09/26/22 08:30 Freq: Status: Active Protocol: Document 10/29/22 16:45 DCW (Rec: 10/29/22 17:31 DCW [id number]) Out-Patient Physical Therapy Visit Information Visit Information Visit Type Treatment Note Visit Note 10th visit PN in 2 visits Visit Start Time 16:45 Visit Stop Time 17:30 Total Visit Minutes 45 Visit Number 8 Number of BARREL LATHE OPERATOR INSIDE Visits 0 Evaluation Information Evaluation Date 09/26/22 PT-OP-B Current Condition Start: 09/26/22 08:30 Freq: Status: Active Protocol: Document 09/26/22 11:15 AW (Rec: 09/26/22 08:50 AW [id number]) Current Condition History of Current Condition Onset Date chronic Current Complaints falls, decreased balance, decreased strength History of Current Condition Ale was diagnosed with Parkinson's disease ~12 years ago. She had good response to medication changes 3-4 years ago. In the past 6 months, her tremors (BUE primarily and now LLE>RLE) have worsened and are affecting her balance. She has fallen 4 times in the past six months - stepping off a curb, chasing her dog, moving her garbage cans outside in the dark, and missing a chair while attempting to sit at [employer]. She is unable to get herself off the floor and has had to call EMS. She now has a [employer] alert device. She is scheduled with [facility] neurology next week and hopes to have her medication adjusted again to see if that helps. She is now using a tripod cane when outside of the house. She is often carrying it as a backup in case she needs it. She lives alone in a single level home with 2 steps/railing to enter. She drives, cooks, and cleans . She has furniture finisher helper for deep cleaning and yard work. She has a bed rail and uses it to assist with bed mobility. She sleeps in either the bed or in her lift recliner. Prior Treatments and Tests PT for back pain in 2018. PT per [facility] protocol 2019. Treatment Goals Patient/Caregiver Goals Improve strength in arms and legs to be able to get up and down from the floor. Improve balance to the point of not needing assistive device. Personal Factors Other Personal Factors That May Effect Back pain, R knee pain, Therapy/Recovery intermittent vertigo related to allergies (takes meclizine prn and gets monthly shots), urinary incontinence, BMI>45. PT-OP-C Subjective Start: 09/26/22 08:30 Freq: Status: Active Protocol: Document 10/29/22 16:45 DCW (Rec: 10/29/22 17:31 DCW [id number]) OP-PT Subjective Patient Comments Patient Comments Pt reports she has been sick the past few weeks, and today her balance is really bad. PT-OP-D Balance Start: 09/26/22 08:30 Freq: Status: Active Protocol: Document 09/26/22 11:15 AW (Rec: 09/26/22 12:38 AW [id number]) Balance Tests Single Limb Standing Single Limb- Right unable Single Limb- Left unable Semi-Tandem Standing Semi-Tandem Standing Balance ok with EO, unable with EC Tandem Tandem Standing unable Other Other Balance Tests Performed NBOS with head turns and nods up to 30 seconds PT-OP-E Functional Tests Start: 09/26/22 08:30 Freq: Status: Active Protocol: Document 10/01/22 09:19 NBM (Rec: 10/01/22 12:32 NBM [id number]) Functional Tests Dynamic Gait Index (DGI) DGI Impairment Rating 40 to <60% Impaired (Score 10- 14) PT-OP-G Mobility & Gait Start: 09/26/22 08:30 Freq: Status: Active Protocol: Document 09/26/22 11:15 AW (Rec: 09/26/22 12:42 AW [id number]) OP Mobility Evaluation Bed Mobility Supine to and from Sit Uses bed rail at home. Needs min A in clinic. Needs cues to bridge hips for lateral scoot on the mat. Transfers Floor Transfers Not attempted OP Gait Assessment Comments Gait Comments Pt walks with feet turned out (B hip ER), reduced foot clearance but moderate step length. She uses tripod cane in RUE. Minimal trunk rotation noted. Minimal RUE swing. Absent LUE swing PT-OP-H Neuro Start: 09/26/22 08:30 Freq: Status: Active Protocol: Document 09/26/22 11:15 AW (Rec: 09/26/22 12:42 AW [id number]) Coordination Evaluation Upper Extremity Tests Left Finger to Nose Test Minimal Impairment Finger to Therapist's Finger Test Minimal Impairment Pronation/Supination Test Minimal Impairment Lower Extremity Tests Right Foot Tapping Test Minimal Impairment PT-OP-J Posture/Palpation/Skin Start: 09/26/22 08:30 Freq: Status: Active Protocol: Document 09/26/22 11:15 AW (Rec: 09/26/22 12:42 AW [id number]) Posture Evaluation Comments Posture Comments Pt has significantly forward head, increased thoracic kyphosis, and tendency toward bilateral hip ER in stance and in gait. PT-OP-M Strength Start: 09/26/22 08:30 Freq: Status: Active Protocol: Document 09/26/22 11:15 AW (Rec: 09/26/22 13:45 AW [id number]) Hip Strength Hip Manual Muscle Testing Left Flexion (L2) 4 Good Extension (S1) 4 Good Abduction 4 Good Right Flexion (L2) 4+ Good+ Extension (S1) 4 Good Abduction 4 Good Knee Strength Knee Manual Muscle Testing Left Flexion (S2) 4+ Good+ Extension (L3) 4+ Good+ Right Flexion (S2) 4 Good Extension (L3) 4+ Good+ Ankle/Foot Strength Ankle and Foot Manual Muscle Testing Left Dorsiflexion (L4) 4 Good Right Dorsiflexion (L4) 4+ Good+ PT-OP-Q Treatments Start: 09/26/22 08:30 Freq: Status: Active Protocol: Document 10/29/22 16:45 DCW (Rec: 10/29/22 17:31 DCW [id number]) Cardio Equipment Recumbent Elliptical (Biodex) Duration (Minutes) 5 Resistance 4 Seat Position 10 seen Gym Equipment Shuttle Recovery unilateral squat Resistance 37# (old band) Reps/Time x10 each LE Bilateral Squats Details cued ft // Resistance 62# (old bands) Reps/Time x10 Therapeutic Exercises Sitting Exercises Marching Sitting Exercise Name Seated Marching Side bilateral Resistance 5# LAQ Sitting Exercise Name LAQ Side bilateral Resistance 5# DF/PF Sitting Exercise Name DF(not PF 10/29) Side bilateral Resistance Lvl 2 Reps/Minutes x15 Comments good form- to support DF foot clearance Standing Exercises Hamstring Curls Standing Exercise Name Hamstring Curls Side bilateral Resistance 5# Toe-Taps Standing Exercise Name Toe-taps Side bilateral Resistance 5# Equipment Used 6 step Neuro Re-Education Treatment Balance Activities foam stance Details foam stance Surface blue foam Equipment Rail R PRN Comments EO Head turns EC 10 s stride stance Details tandem stance Surface firm Equipment rail support prn Other Activities backward step Details backward step Reps/Duration x10 Comments // bars Yellow T-band sideways step Details sideways step Reps/Duration x10 Comments // bars Yellow T-band forward step Details forward step Reps/Duration x10 Comments // bars Yellow T-band PT-OP-T Assessment and Plan Start: 09/26/22 08:30 Freq: Status: Active Protocol: Document 10/29/22 16:45 DCW (Rec: 10/29/22 17:31 DCW [id number]) Physical Therapy Assessment Impairments Impairments Balance,Functional Activities, Gait,Pain,Posture,Strength, Transfers Goals Four Impairment balance Senior Data Quality Analyst Goal (LTG) Pt will score 45 or greater on Mejias Balance Scale as a measure of reduced falls risk. LTG Duration 12/19/22 Three Impairment transfers Senior Living Goal (LTG) Pt will complete floor recovery with environmental support SBA. LTG Duration 12/19/22 Two Impairment transfers Short Term Goal (STG) Ale will complete 12 reps on 30 Second Sit to Stand test from standard height chair without use of UE's. STG Duration 11/07/22 Senior Data Quality Analyst Goal (LTG) Pt will perform all bed mobility independently LTG Duration 12/19/22 One Impairment gait Short Term Goal (STG) Ale will walk 1010 feet on 6 Minute Walk Test with tripod cane or LRAD with no LOB. Senior Living Goal (LTG) Ale will walk 1100 feet or greater on 6 Minute Walk Test with tripod cane or LRAD with no LOB. Assessment Summary Assessment Focused today on just getting pt up and moving after her recent illness, felt better following treatment session, although still clearly quite limited overall due to poor activity tolerance. Physical Therapy Plan Frequency and Duration Frequency of Treatment 2x/Week Plan of Care Start Date 09/26/22 Plan of Care End Date 12/19/22 Therapeutic Interventions Therapeutic Interventions Balance Training,Gait Training ,Home Exercise Program, Neuromuscular Re-education, Patient/Caregiver Education, Self-Care/Home Management, Therapeutic Activities, Therapeutic Exercises Next Visit Focus/Plan Next Note Type Treatment Note Next Visit Plan POC: Continue selected BIG exercises. Static balance. Dynamic balance as tolerated.
--- NOTE | 2022-11-01 17:30 | PT.OTN ---
Current Diagnoses Parkinson's disease (11/01/22) Other abnormalities of gait and mobility (11/01/22) Repeated falls (11/01/22) Weakness (11/01/22) Physical Therapy Treatment Note PT-OP-A Visit Information Start: 09/26/22 08:30 Freq: Status: Active Protocol: Document 11/01/22 16:45 DCW (Rec: 11/01/22 17:30 DCW [id number]) Out-Patient Physical Therapy Visit Information Visit Information Visit Type Treatment Note Visit Note 10th visit PN next visit Visit Start Time 16:45 Visit Stop Time 17:30 Total Visit Minutes 45 Visit Number 9 Number of NIB ADJUSTER Visits 0 Evaluation Information Evaluation Date 09/26/22 PT-OP-B Current Condition Start: 09/26/22 08:30 Freq: Status: Active Protocol: Document 09/26/22 11:15 AW (Rec: 09/26/22 08:50 AW [id number]) Current Condition History of Current Condition Onset Date chronic Current Complaints falls, decreased balance, decreased strength History of Current Condition Ale was diagnosed with Parkinson's disease ~12 years ago. She had good response to medication changes 3-4 years ago. In the past 6 months, her tremors (BUE primarily and now LLE>RLE) have worsened and are affecting her balance. She has fallen 4 times in the past six months - stepping off a curb, chasing her dog, moving her garbage cans outside in the dark, and missing a chair while attempting to sit at [employer]. She is unable to get herself off the floor and has had to call EMS. She now has a [employer] alert device. She is scheduled with [facility] neurology next week and hopes to have her medication adjusted again to see if that helps. She is now using a tripod cane when outside of the house. She is often carrying it as a backup in case she needs it. She lives alone in a single level home with 2 steps/railing to enter. She drives, cooks, and cleans . She has paper processing machine helper for deep cleaning and yard work. She has a bed rail and uses it to assist with bed mobility. She sleeps in either the bed or in her lift recliner. Prior Treatments and Tests PT for back pain in 2018. PT per [facility] protocol 2019. Treatment Goals Patient/Caregiver Goals Improve strength in arms and legs to be able to get up and down from the floor. Improve balance to the point of not needing assistive device. Personal Factors Other Personal Factors That May Effect Back pain, R knee pain, Therapy/Recovery intermittent vertigo related to allergies (takes meclizine prn and gets monthly shots), urinary incontinence, BMI>45. PT-OP-C Subjective Start: 09/26/22 08:30 Freq: Status: Active Protocol: Document 11/01/22 16:45 DCW (Rec: 11/01/22 17:30 DCW [id number]) OP-PT Subjective Patient Comments Patient Comments It's about the same as usual. PT-OP-D Balance Start: 09/26/22 08:30 Freq: Status: Active Protocol: Document 09/26/22 11:15 AW (Rec: 09/26/22 12:38 AW [id number]) Balance Tests Single Limb Standing Single Limb- Right unable Single Limb- Left unable Semi-Tandem Standing Semi-Tandem Standing Balance ok with EO, unable with EC Tandem Tandem Standing unable Other Other Balance Tests Performed NBOS with head turns and nods up to 30 seconds PT-OP-E Functional Tests Start: 09/26/22 08:30 Freq: Status: Active Protocol: Document 10/01/22 09:19 NBM (Rec: 10/01/22 12:32 NBM [id number]) Functional Tests Dynamic Gait Index (DGI) DGI Impairment Rating 40 to <60% Impaired (Score 10- 14) PT-OP-G Mobility & Gait Start: 09/26/22 08:30 Freq: Status: Active Protocol: Document 09/26/22 11:15 AW (Rec: 09/26/22 12:42 AW [id number]) OP Mobility Evaluation Bed Mobility Supine to and from Sit Uses bed rail at home. Needs min A in clinic. Needs cues to bridge hips for lateral scoot on the mat. Transfers Floor Transfers Not attempted OP Gait Assessment Comments Gait Comments Pt walks with feet turned out (B hip ER), reduced foot clearance but moderate step length. She uses tripod cane in RUE. Minimal trunk rotation noted. Minimal RUE swing. Absent LUE swing PT-OP-H Neuro Start: 09/26/22 08:30 Freq: Status: Active Protocol: Document 09/26/22 11:15 AW (Rec: 09/26/22 12:42 AW [id number]) Coordination Evaluation Upper Extremity Tests Left Finger to Nose Test Minimal Impairment Finger to Therapist's Finger Test Minimal Impairment Pronation/Supination Test Minimal Impairment Lower Extremity Tests Right Foot Tapping Test Minimal Impairment PT-OP-J Posture/Palpation/Skin Start: 09/26/22 08:30 Freq: Status: Active Protocol: Document 09/26/22 11:15 AW (Rec: 09/26/22 12:42 AW [id number]) Posture Evaluation Comments Posture Comments Pt has significantly forward head, increased thoracic kyphosis, and tendency toward bilateral hip ER in stance and in gait. PT-OP-M Strength Start: 09/26/22 08:30 Freq: Status: Active Protocol: Document 09/26/22 11:15 AW (Rec: 09/26/22 13:45 AW [id number]) Hip Strength Hip Manual Muscle Testing Left Flexion (L2) 4 Good Extension (S1) 4 Good Abduction 4 Good Right Flexion (L2) 4+ Good+ Extension (S1) 4 Good Abduction 4 Good Knee Strength Knee Manual Muscle Testing Left Flexion (S2) 4+ Good+ Extension (L3) 4+ Good+ Right Flexion (S2) 4 Good Extension (L3) 4+ Good+ Ankle/Foot Strength Ankle and Foot Manual Muscle Testing Left Dorsiflexion (L4) 4 Good Right Dorsiflexion (L4) 4+ Good+ PT-OP-Q Treatments Start: 09/26/22 08:30 Freq: Status: Active Protocol: Document 11/01/22 16:45 DCW (Rec: 11/01/22 17:30 DCW [id number]) Cardio Equipment Recumbent Elliptical (Biodex) Duration (Minutes) 5 Resistance 4 Seat Position 11 Gym Equipment Shuttle Recovery unilateral squat Resistance 37# (old band) Reps/Time x10 each LE Bilateral Squats Details cued ft // Resistance 62# (old bands) Reps/Time x10 Therapeutic Exercises Sitting Exercises Marching Sitting Exercise Name Seated Marching Side bilateral Resistance 5# LAQ Sitting Exercise Name LAQ Side bilateral Resistance 5# DF/PF Sitting Exercise Name DF Side bilateral Resistance Lvl 2 Reps/Minutes x15 Comments good form- to support DF foot clearance Standing Exercises Hamstring Curls Standing Exercise Name Hamstring Curls Side bilateral Resistance 5# Toe-Taps Standing Exercise Name Toe-taps Side bilateral Resistance 5# Equipment Used 6 step Comments Fwd, Lateral Neuro Re-Education Treatment Balance Activities foam stance Details foam stance Surface blue foam Equipment Rail R PRN Comments EO Head turns EC 10 s stride stance Details tandem stance Surface firm Equipment rail support prn Other Activities backward step Details backward step Reps/Duration x10 Comments // bars Yellow T-band sideways step Details sideways step Reps/Duration x10 Comments // bars Yellow T-band (increase next time) forward step Details forward step Reps/Duration x10 Comments // bars Yellow T-band PT-OP-T Assessment and Plan Start: 09/26/22 08:30 Freq: Status: Active Protocol: Document 11/01/22 16:45 DCW (Rec: 11/01/22 17:30 DCW [id number]) Physical Therapy Assessment Impairments Impairments Balance,Functional Activities, Gait,Pain,Posture,Strength, Transfers Goals Four Impairment balance Penitentiary Goal (LTG) Pt will score 45 or greater on Mejias Balance Scale as a measure of reduced falls risk. LTG Duration 12/19/22 Three Impairment transfers Wood Carver Hand Goal (LTG) Pt will complete floor recovery with environmental support SBA. LTG Duration 12/19/22 Two Impairment transfers Short Term Goal (STG) Ale will complete 12 reps on 30 Second Sit to Stand test from standard height chair without use of UE's. STG Duration 11/07/22 Penitentiary Goal (LTG) Pt will perform all bed mobility independently LTG Duration 12/19/22 One Impairment gait Short Term Goal (STG) Ale will walk 1010 feet on 6 Minute Walk Test with tripod cane or LRAD with no LOB. Wood Carver Hand Goal (LTG) Ale will walk 1100 feet or greater on 6 Minute Walk Test with tripod cane or LRAD with no LOB. Assessment Summary Assessment Pt clearly fatigued by the end of her session today, but worked very hard throughout with minimal rest breaks. Will likely increase resistance in some exercises next visit. Physical Therapy Plan Frequency and Duration Frequency of Treatment 2x/Week Plan of Care Start Date 09/26/22 Plan of Care End Date 12/19/22 Therapeutic Interventions Therapeutic Interventions Balance Training,Gait Training ,Home Exercise Program, Neuromuscular Re-education, Patient/Caregiver Education, Self-Care/Home Management, Therapeutic Activities, Therapeutic Exercises Next Visit Focus/Plan Next Note Type Treatment Note Next Visit Plan POC: Continue selected BIG exercises. Static balance. Dynamic balance as tolerated.
--- NOTE | 2022-11-12 17:29 | PT.OTN ---
Current Diagnoses Parkinson's disease (11/12/22) Other abnormalities of gait and mobility (11/12/22) Repeated falls (11/12/22) Weakness (11/12/22) Physical Therapy Treatment Note PT-OP-A Visit Information Start: 09/26/22 08:30 Freq: Status: Active Protocol: Document 11/12/22 16:49 DCW (Rec: 11/12/22 17:29 DCW [id number]) Out-Patient Physical Therapy Visit Information Visit Information Visit Type Progress Note Visit Start Time 16:49 Visit Stop Time 17:30 Total Visit Minutes 41 Visit Number 10 Number of PHYSIOTHERAPIST'S ASSISTANT Visits 0 Evaluation Information Evaluation Date 09/26/22 PT-OP-B Current Condition Start: 09/26/22 08:30 Freq: Status: Active Protocol: Document 09/26/22 11:15 AW (Rec: 09/26/22 08:50 AW [id number]) Current Condition History of Current Condition Onset Date chronic Current Complaints falls, decreased balance, decreased strength History of Current Condition Ale was diagnosed with Parkinson's disease ~12 years ago. She had good response to medication changes 3-4 years ago. In the past 6 months, her tremors (BUE primarily and now LLE>RLE) have worsened and are affecting her balance. She has fallen 4 times in the past six months - stepping off a curb, chasing her dog, moving her garbage cans outside in the dark, and missing a chair while attempting to sit at [employer]. She is unable to get herself off the floor and has had to call EMS. She now has a [employer] alert device. She is scheduled with [facility] neurology next week and hopes to have her medication adjusted again to see if that helps. She is now using a tripod cane when outside of the house. She is often carrying it as a backup in case she needs it. She lives alone in a single level home with 2 steps/railing to enter. She drives, cooks, and cleans . She has caramel cutter helper for deep cleaning and yard work. She has a bed rail and uses it to assist with bed mobility. She sleeps in either the bed or in her lift recliner. Prior Treatments and Tests PT for back pain in 2018. PT per [facility] protocol 2019. Treatment Goals Patient/Caregiver Goals Improve strength in arms and legs to be able to get up and down from the floor. Improve balance to the point of not needing assistive device. Personal Factors Other Personal Factors That May Effect Back pain, R knee pain, Therapy/Recovery intermittent vertigo related to allergies (takes meclizine prn and gets monthly shots), urinary incontinence, BMI>45. PT-OP-C Subjective Start: 09/26/22 08:30 Freq: Status: Active Protocol: Document 11/12/22 16:49 DCW (Rec: 11/12/22 17:29 DCW [id number]) OP-PT Subjective Patient Comments Patient Comments I'm good today, but I was really really bad yesterday, I was really off balance. PT-OP-D Balance Start: 09/26/22 08:30 Freq: Status: Active Protocol: Document 11/12/22 16:49 DCW (Rec: 11/12/22 17:15 DCW [id number]) Balance Tests Mejias Balance Test Mejias Balance Test Score 47/56 Mejias Impairment Rating 1 to 19% Impaired (Score 45-55 ) Mejias Balance Assessment Evaluation Sitting to Standing Ability Independent w/out Hands Unsupported Stance Safely- 2 minutes Sitting Unsupported, Feet on Floor Safely- 2 minutes Standing to Sitting Ability Safely, Minimal Hand Use Transfer Ability Safely, Minimal Hand Use Unsupported Stance- Eyes Closed Safely, 10 seconds Unsupported Stance- Eyes Open Independent, 1 minute Reaching Forward Standing Safely, 5 inches Pick- Up Object From Floor Independent/Safe Look Behind Shoulder - Standing Shifts Weight Well Turning 360 Degrees Turns slowly, but safely Unsupported Stance, Alternating Feet on 4 Steps w/Supervision Stair Unsupported Tandem Stance Holds Tandem- 30 seconds Unilateral Leg Stance Lifts Leg/Unable to Hold Total Score Mejias Total Score (out of 56 points) 47 Mejias Impairment Rating 1 to 19% Impaired (Score 45-55 ) PT-OP-E Functional Tests Start: 09/26/22 08:30 Freq: Status: Active Protocol: Document 11/12/22 16:49 DCW (Rec: 11/12/22 17:19 DCW [id number]) Functional Tests Five Times Sit to Stand Test Score 15.6 sec Comments no UE support; from black tx table at lowest height PT-OP-G Mobility & Gait Start: 09/26/22 08:30 Freq: Status: Active Protocol: Document 09/26/22 11:15 AW (Rec: 09/26/22 12:42 AW [id number]) OP Mobility Evaluation Bed Mobility Supine to and from Sit Uses bed rail at home. Needs min A in clinic. Needs cues to bridge hips for lateral scoot on the mat. Transfers Floor Transfers Not attempted OP Gait Assessment Comments Gait Comments Pt walks with feet turned out (B hip ER), reduced foot clearance but moderate step length. She uses tripod cane in RUE. Minimal trunk rotation noted. Minimal RUE swing. Absent LUE swing PT-OP-H Neuro Start: 09/26/22 08:30 Freq: Status: Active Protocol: Document 09/26/22 11:15 AW (Rec: 09/26/22 12:42 AW [id number]) Coordination Evaluation Upper Extremity Tests Left Finger to Nose Test Minimal Impairment Finger to Therapist's Finger Test Minimal Impairment Pronation/Supination Test Minimal Impairment Lower Extremity Tests Right Foot Tapping Test Minimal Impairment PT-OP-J Posture/Palpation/Skin Start: 09/26/22 08:30 Freq: Status: Active Protocol: Document 09/26/22 11:15 AW (Rec: 09/26/22 12:42 AW [id number]) Posture Evaluation Comments Posture Comments Pt has significantly forward head, increased thoracic kyphosis, and tendency toward bilateral hip ER in stance and in gait. PT-OP-M Strength Start: 09/26/22 08:30 Freq: Status: Active Protocol: Document 09/26/22 11:15 AW (Rec: 09/26/22 13:45 AW [id number]) Hip Strength Hip Manual Muscle Testing Left Flexion (L2) 4 Good Extension (S1) 4 Good Abduction 4 Good Right Flexion (L2) 4+ Good+ Extension (S1) 4 Good Abduction 4 Good Knee Strength Knee Manual Muscle Testing Left Flexion (S2) 4+ Good+ Extension (L3) 4+ Good+ Right Flexion (S2) 4 Good Extension (L3) 4+ Good+ Ankle/Foot Strength Ankle and Foot Manual Muscle Testing Left Dorsiflexion (L4) 4 Good Right Dorsiflexion (L4) 4+ Good+ PT-OP-Q Treatments Start: 09/26/22 08:30 Freq: Status: Active Protocol: Document 11/12/22 16:49 DCW (Rec: 11/12/22 17:29 DCW [id number]) Cardio Equipment Recumbent Elliptical (Biode[employer]) Duration (Minutes) 5 Resistance 4 Seat Position 11 Therapeutic Exercises Standing Exercises Hamstring Curls Standing Exercise Name Hamstring Curls Side bilateral Resistance 5# Toe-Taps Standing Exercise Name Marching Side bilateral Resistance 5# PT-OP-T Assessment and Plan Start: 09/26/22 08:30 Freq: Status: Active Protocol: Document 11/12/22 16:49 DCW (Rec: 11/12/22 17:29 DCW [id number]) Physical Therapy Assessment Impairments Impairments Balance,Functional Activities, Gait,Pain,Posture,Strength, Transfers Goals Four Impairment balance Electrician Chief Goal (LTG) Pt will score 45 or greater on Mejias Balance Scale as a measure of reduced falls risk. LTG Duration Met: 47 Three Impairment transfers Correction Goal (LTG) Pt will complete floor recovery with environmental support SBA. LTG Duration 12/19/22 Two Impairment transfers Short Term Goal (STG) Ale will complete 12 reps on 30 Second Sit to Stand test from standard height chair without use of UE's. STG Duration 11/07/22 Correction Goal (LTG) Pt will perform all bed mobility independently LTG Duration 12/19/22 One Impairment gait Short Term Goal (STG) Ale will walk 1010 feet on 6 Minute Walk Test with tripod cane or LRAD with no LOB. Correction Goal (LTG) Ale will walk 1100 feet or greater on 6 Minute Walk Test with tripod cane or LRAD with no LOB. LTG Duration 12/19/22 Assessment Summary Assessment Pt showing some good improvement, Mejias Score of 47/ 56 suggests pt's risk of falling has decreased. Minimal change on 5xStS. Pt should continue to benefit from skilled therapy focusing on strength, balance, activity tolerance, and gait. Physical Therapy Plan Frequency and Duration Frequency of Treatment 2x/Week Plan of Care Start Date 09/26/22 Plan of Care End Date 12/19/22 Therapeutic Interventions Therapeutic Interventions Balance Training,Gait Training ,Home Exercise Program, Neuromuscular Re-education, Patient/Caregiver Education, Self-Care/Home Management, Therapeutic Activities, Therapeutic Exercises Next Visit Focus/Plan Next Note Type Treatment Note Next Visit Plan POC: Continue selected BIG exercises. Static balance. Dynamic balance as tolerated.
--- NOTE | 2022-11-19 11:31 | PT-OP ANOTE ---
S/w pt regarding missed 11:15a appt, pt apologies and states she had it written down for 11:45am. Offered pt next available appt w/ PT Jesus Alberto 11/21/22 10:15a check-in for 10:30a appointment, pt accepts. S/w front end manager who scheduled and called pt back to confirm Sat appt is scheduled.
--- NOTE | 2022-11-21 11:13 | PT.OTN ---
Current Diagnoses Parkinson's disease (11/21/22) Other abnormalities of gait and mobility (11/21/22) Repeated falls (11/21/22) Weakness (11/21/22) Physical Therapy Treatment Note PT-OP-A Visit Information Start: 09/26/22 08:30 Freq: Status: Active Protocol: Document 11/21/22 10:30 DCW (Rec: 11/21/22 11:13 DCW [id number]) Out-Patient Physical Therapy Visit Information Visit Information Visit Type Treatment Note Visit Start Time 10:30 Visit Stop Time 11:15 Total Visit Minutes 45 Visit Number 11 Number of TAX CONSULTANT Visits 0 Evaluation Information Evaluation Date 09/26/22 PT-OP-B Current Condition Start: 09/26/22 08:30 Freq: Status: Active Protocol: Document 09/26/22 11:15 AW (Rec: 09/26/22 08:50 AW [id number]) Current Condition History of Current Condition Onset Date chronic Current Complaints falls, decreased balance, decreased strength History of Current Condition Ale was diagnosed with Parkinson's disease ~12 years ago. She had good response to medication changes 3-4 years ago. In the past 6 months, her tremors (BUE primarily and now LLE>RLE) have worsened and are affecting her balance. She has fallen 4 times in the past six months - stepping off a curb, chasing her dog, moving her garbage cans outside in the dark, and missing a chair while attempting to sit at [employer]. She is unable to get herself off the floor and has had to call EMS. She now has a [email or web address] alert device. She is scheduled with [facility] neurology next week and hopes to have her medication adjusted again to see if that helps. She is now using a tripod cane when outside of the house. She is often carrying it as a backup in case she needs it. She lives alone in a single level home with 2 steps/railing to enter. She drives, cooks, and cleans . She has locomotive crane operator helper for deep cleaning and yard work. She has a bed rail and uses it to assist with bed mobility. She sleeps in either the bed or in her lift recliner. Prior Treatments and Tests PT for back pain in 2018. PT per [facility] protocol 2019. Treatment Goals Patient/Caregiver Goals Improve strength in arms and legs to be able to get up and down from the floor. Improve balance to the point of not needing assistive device. Personal Factors Other Personal Factors That May Effect Back pain, R knee pain, Therapy/Recovery intermittent vertigo related to allergies (takes meclizine prn and gets monthly shots), urinary incontinence, BMI>45. PT-OP-C Subjective Start: 09/26/22 08:30 Freq: Status: Active Protocol: Document 11/21/22 10:30 DCW (Rec: 11/21/22 11:13 DCW [id number]) OP-PT Subjective Patient Comments Patient Comments I'm having a good week, I think that's two in a row. I also had some blood work done earlier this week, the gave me an A- for the whole thing, so I'm pretty happy about that. PT-OP-D Balance Start: 09/26/22 08:30 Freq: Status: Active Protocol: Document 11/12/22 16:49 DCW (Rec: 11/12/22 17:15 DCW [id number]) Balance Tests Mejias Balance Test Mejias Balance Test Score 47/56 Mejias Impairment Rating 1 to 19% Impaired (Score 45-55 ) Mejias Balance Assessment Evaluation Sitting to Standing Ability Independent w/out Hands Unsupported Stance Safely- 2 minutes Sitting Unsupported, Feet on Floor Safely- 2 minutes Standing to Sitting Ability Safely, Minimal Hand Use Transfer Ability Safely, Minimal Hand Use Unsupported Stance- Eyes Closed Safely, 10 seconds Unsupported Stance- Eyes Open Independent, 1 minute Reaching Forward Standing Safely, 5 inches Pick- Up Object From Floor Independent/Safe Look Behind Shoulder - Standing Shifts Weight Well Turning 360 Degrees Turns slowly, but safely Unsupported Stance, Alternating Feet on 4 Steps w/Supervision Stair Unsupported Tandem Stance Holds Tandem- 30 seconds Unilateral Leg Stance Lifts Leg/Unable to Hold Total Score Mejias Total Score (out of 56 points) 47 Mejias Impairment Rating 1 to 19% Impaired (Score 45-55 ) PT-OP-E Functional Tests Start: 09/26/22 08:30 Freq: Status: Active Protocol: Document 11/12/22 16:49 DCW (Rec: 11/12/22 17:19 DCW [id number]) Functional Tests Five Times Sit to Stand Test Score 15.6 sec Comments no UE support; from black tx table at lowest height PT-OP-G Mobility & Gait Start: 09/26/22 08:30 Freq: Status: Active Protocol: Document 09/26/22 11:15 AW (Rec: 09/26/22 12:42 AW [id number]) OP Mobility Evaluation Bed Mobility Supine to and from Sit Uses bed rail at home. Needs min A in clinic. Needs cues to bridge hips for lateral scoot on the mat. Transfers Floor Transfers Not attempted OP Gait Assessment Comments Gait Comments Pt walks with feet turned out (B hip ER), reduced foot clearance but moderate step length. She uses tripod cane in RUE. Minimal trunk rotation noted. Minimal RUE swing. Absent LUE swing PT-OP-H Neuro Start: 09/26/22 08:30 Freq: Status: Active Protocol: Document 09/26/22 11:15 AW (Rec: 09/26/22 12:42 AW [id number]) Coordination Evaluation Upper Extremity Tests Left Finger to Nose Test Minimal Impairment Finger to Therapist's Finger Test Minimal Impairment Pronation/Supination Test Minimal Impairment Lower Extremity Tests Right Foot Tapping Test Minimal Impairment PT-OP-J Posture/Palpation/Skin Start: 09/26/22 08:30 Freq: Status: Active Protocol: Document 09/26/22 11:15 AW (Rec: 09/26/22 12:42 AW [id number]) Posture Evaluation Comments Posture Comments Pt has significantly forward head, increased thoracic kyphosis, and tendency toward bilateral hip ER in stance and in gait. PT-OP-M Strength Start: 09/26/22 08:30 Freq: Status: Active Protocol: Document 09/26/22 11:15 AW (Rec: 09/26/22 13:45 AW [id number]) Hip Strength Hip Manual Muscle Testing Left Flexion (L2) 4 Good Extension (S1) 4 Good Abduction 4 Good Right Flexion (L2) 4+ Good+ Extension (S1) 4 Good Abduction 4 Good Knee Strength Knee Manual Muscle Testing Left Flexion (S2) 4+ Good+ Extension (L3) 4+ Good+ Right Flexion (S2) 4 Good Extension (L3) 4+ Good+ Ankle/Foot Strength Ankle and Foot Manual Muscle Testing Left Dorsiflexion (L4) 4 Good Right Dorsiflexion (L4) 4+ Good+ PT-OP-Q Treatments Start: 09/26/22 08:30 Freq: Status: Active Protocol: Document 11/21/22 10:30 DCW (Rec: 11/21/22 11:13 DCW [id number]) Cardio Equipment Recumbent Elliptical ([employer]) Duration (Minutes) 5 Resistance 4 Seat Position 12 Gym Equipment Shuttle Recovery Bilateral Heel Raises Resistance 62# Reps/Time x20 unilateral squat Resistance 37# Reps/Time x20 each LE Bilateral Squats Details cued ft // Resistance 62# Reps/Time x20 Therapeutic Exercises Sitting Exercises LAQ Sitting Exercise Name LAQ Side bilateral Resistance 5# Standing Exercises Hamstring Curls Standing Exercise Name Hamstring Curls Side bilateral Resistance 5# Toe-Taps Standing Exercise Name Toe-taps Side bilateral Resistance 5# Equipment Used 6 step Comments Fwd, Lateral Neuro Re-Education Treatment Balance Activities foam stance Details foam stance Surface blue foam Equipment Rail R PRN Comments EO Head turns EC 10 s stride stance Details tandem stance Surface firm Equipment rail support prn PT-OP-T Assessment and Plan Start: 09/26/22 08:30 Freq: Status: Active Protocol: Document 11/21/22 10:30 DCW (Rec: 11/21/22 11:13 DCW [id number]) Physical Therapy Assessment Impairments Impairments Balance,Functional Activities, Gait,Pain,Posture,Strength, Transfers Goals Four Impairment balance Secondary School Principal Goal (LTG) Pt will score 45 or greater on Mejias Balance Scale as a measure of reduced falls risk. LTG Duration Met: 47/56 Three Impairment transfers Snf Goal (LTG) Pt will complete floor recovery with environmental support SBA. LTG Duration 12/19/22 Two Impairment transfers Short Term Goal (STG) Ale will complete 12 reps on 30 Second Sit to Stand test from standard height chair without use of UE's. STG Duration 11/07/22 Snf Goal (LTG) Pt will perform all bed mobility independently LTG Duration 12/19/22 One Impairment gait Short Term Goal (STG) Ale will walk 1010 feet on 6 Minute Walk Test with tripod cane or LRAD with no LOB. Snf Goal (LTG) Ale will walk 1100 feet or greater on 6 Minute Walk Test with tripod cane or LRAD with no LOB. LTG Duration 12/19/22 Assessment Summary Assessment Pt feeling much better overall , noticing she is having less difficulty with balance, still fatigues fairly quickly, required a few short rest breaks during today's session. Physical Therapy Plan Frequency and Duration Frequency of Treatment 2x/Week Plan of Care Start Date 09/26/22 Plan of Care End Date 12/19/22 Therapeutic Interventions Therapeutic Interventions Balance Training,Gait Training ,Home Exercise Program, Neuromuscular Re-education, Patient/Caregiver Education, Self-Care/Home Management, Therapeutic Activities, Therapeutic Exercises Next Visit Focus/Plan Next Note Type Treatment Note Next Visit Plan POC: Continue selected BIG exercises. Static balance. Dynamic balance as tolerated.
--- NOTE | 2022-11-23 14:30 | PT.OTN ---
Current Diagnoses Parkinson's disease (11/23/22) Other abnormalities of gait and mobility (11/23/22) Repeated falls (11/23/22) Weakness (11/23/22) Physical Therapy Treatment Note PT-OP-A Visit Information Start: 09/26/22 08:30 Freq: Status: Active Protocol: Document 11/23/22 13:47 SP (Rec: 11/23/22 14:30 SP [id number]) Out-Patient Physical Therapy Visit Information Visit Information Visit Type Treatment Note Visit Start Time 13:47 Visit Stop Time 14:30 Total Visit Minutes 43 Visit Number 12 Number of SUBSCRIPTION CREW LEADER Visits 1 Evaluation Information Evaluation Date 09/26/22 PT-OP-B Current Condition Start: 09/26/22 08:30 Freq: Status: Active Protocol: Document 09/26/22 11:15 AW (Rec: 09/26/22 08:50 AW [id number]) Current Condition History of Current Condition Onset Date chronic Current Complaints falls, decreased balance, decreased strength History of Current Condition Ale was diagnosed with Parkinson's disease ~12 years ago. She had good response to medication changes 3-4 years ago. In the past 6 months, her tremors (BUE primarily and now LLE>RLE) have worsened and are affecting her balance. She has fallen 4 times in the past six months - stepping off a curb, chasing her dog, moving her garbage cans outside in the dark, and missing a chair while attempting to sit at [employer]. She is unable to get herself off the floor and has had to call EMS. She now has a [employer] alert device. She is scheduled with [facility] neurology next week and hopes to have her medication adjusted again to see if that helps. She is now using a tripod cane when outside of the house. She is often carrying it as a backup in case she needs it. She lives alone in a single level home with 2 steps/railing to enter. She drives, cooks, and cleans . She has heater engineer helper for deep cleaning and yard work. She has a bed rail and uses it to assist with bed mobility. She sleeps in either the bed or in her lift recliner. Prior Treatments and Tests PT for back pain in 2018. PT per [facility] protocol 2019. Treatment Goals Patient/Caregiver Goals Improve strength in arms and legs to be able to get up and down from the floor. Improve balance to the point of not needing assistive device. Personal Factors Other Personal Factors That May Effect Back pain, R knee pain, Therapy/Recovery intermittent vertigo related to allergies (takes meclizine prn and gets monthly shots), urinary incontinence, BMI>45. PT-OP-C Subjective Start: 09/26/22 08:30 Freq: Status: Active Protocol: Document 11/23/22 13:47 SP (Rec: 11/23/22 14:30 SP [id number]) OP-PT Subjective Patient Comments Patient Comments Pt reports felt good after last tx. PT-OP-D Balance Start: 09/26/22 08:30 Freq: Status: Active Protocol: Document 11/12/22 16:49 DCW (Rec: 11/12/22 17:15 DCW [id number]) Balance Tests Mejias Balance Test Mejias Balance Test Score 47/56 Mejias Impairment Rating 1 to 19% Impaired (Score 45-55 ) Mejias Balance Assessment Evaluation Sitting to Standing Ability Independent w/out Hands Unsupported Stance Safely- 2 minutes Sitting Unsupported, Feet on Floor Safely- 2 minutes Standing to Sitting Ability Safely, Minimal Hand Use Transfer Ability Safely, Minimal Hand Use Unsupported Stance- Eyes Closed Safely, 10 seconds Unsupported Stance- Eyes Open Independent, 1 minute Reaching Forward Standing Safely, 5 inches Pick- Up Object From Floor Independent/Safe Look Behind Shoulder - Standing Shifts Weight Well Turning 360 Degrees Turns slowly, but safely Unsupported Stance, Alternating Feet on 4 Steps w/Supervision Stair Unsupported Tandem Stance Holds Tandem- 30 seconds Unilateral Leg Stance Lifts Leg/Unable to Hold Total Score Mejias Total Score (out of 56 points) 47 Mejias Impairment Rating 1 to 19% Impaired (Score 45-55 ) PT-OP-E Functional Tests Start: 09/26/22 08:30 Freq: Status: Active Protocol: Document 11/12/22 16:49 DCW (Rec: 11/12/22 17:19 DCW [id number]) Functional Tests Five Times Sit to Stand Test Score 15.6 sec Comments no UE support; from black tx table at lowest height PT-OP-G Mobility & Gait Start: 09/26/22 08:30 Freq: Status: Active Protocol: Document 09/26/22 11:15 AW (Rec: 09/26/22 12:42 AW [id number]) OP Mobility Evaluation Bed Mobility Supine to and from Sit Uses bed rail at home. Needs min A in clinic. Needs cues to bridge hips for lateral scoot on the mat. Transfers Floor Transfers Not attempted OP Gait Assessment Comments Gait Comments Pt walks with feet turned out (B hip ER), reduced foot clearance but moderate step length. She uses tripod cane in RUE. Minimal trunk rotation noted. Minimal RUE swing. Absent LUE swing PT-OP-H Neuro Start: 09/26/22 08:30 Freq: Status: Active Protocol: Document 09/26/22 11:15 AW (Rec: 09/26/22 12:42 AW [id number]) Coordination Evaluation Upper Extremity Tests Left Finger to Nose Test Minimal Impairment Finger to Therapist's Finger Test Minimal Impairment Pronation/Supination Test Minimal Impairment Lower Extremity Tests Right Foot Tapping Test Minimal Impairment PT-OP-J Posture/Palpation/Skin Start: 09/26/22 08:30 Freq: Status: Active Protocol: Document 09/26/22 11:15 AW (Rec: 09/26/22 12:42 AW [id number]) Posture Evaluation Comments Posture Comments Pt has significantly forward head, increased thoracic kyphosis, and tendency toward bilateral hip ER in stance and in gait. PT-OP-M Strength Start: 09/26/22 08:30 Freq: Status: Active Protocol: Document 09/26/22 11:15 AW (Rec: 09/26/22 13:45 AW [id number]) Hip Strength Hip Manual Muscle Testing Left Flexion (L2) 4 Good Extension (S1) 4 Good Abduction 4 Good Right Flexion (L2) 4+ Good+ Extension (S1) 4 Good Abduction 4 Good Knee Strength Knee Manual Muscle Testing Left Flexion (S2) 4+ Good+ Extension (L3) 4+ Good+ Right Flexion (S2) 4 Good Extension (L3) 4+ Good+ Ankle/Foot Strength Ankle and Foot Manual Muscle Testing Left Dorsiflexion (L4) 4 Good Right Dorsiflexion (L4) 4+ Good+ PT-OP-Q Treatments Start: 09/26/22 08:30 Freq: Status: Active Protocol: Document 11/23/22 13:47 SP (Rec: 11/23/22 14:30 SP [id number]) Cardio Equipment Recumbent Elliptical ([employer]) Duration (Minutes) 5 Resistance 4 Seat Position see 10 Other UEs/ LEs Therapeutic Exercises Sitting Exercises STS Sitting Exercise Name arms across chest, Resistance CGA Equipment Used mesh chair no UE, blue foam ( mesh chair) R HR ascend no UE descend Reps/Minutes x5 STS= 16 sec assessment, 5 reps on foam Comments good effort STS on foam ( states 50% UE support on rail) Standing Exercises heel raises to mini squat Standing Exercise Name in PT Equipment Used facing rail support Reps/Minutes x5 reps end tx. Comments good feedback calf feels like working lunges Standing Exercise Name added to HEP Equipment Used BUE on rail/chair Reps/Minutes 2x5 reps Comments good feedback, quad tiring Other Exercises self STMs Other Exercise Name quad, HS, calf, ITB, adductor Side bilateral Equipment Used rocking rolling Reps/Minutes 3 min Comments good feedback massage Therapeutic Activity Therapeutic Activity floor transfer/recovery Name ascend/descend 1 reps Reps/Minutes 1 Comments stand<>1/2 kneel<>tall kneel<> side sit<>long sitting 25%A to come side sit>kneeling , 1/2 kneel to stand 50% A. PT-OP-T Assessment and Plan Start: 09/26/22 08:30 Freq: Status: Active Protocol: Document 11/23/22 13:47 SP (Rec: 11/23/22 14:30 SP [id number]) Physical Therapy Assessment Goals Four Impairment balance [facility] Goal (LTG) Pt will score 45 or greater on Meijas Balance Scale as a measure of reduced falls risk. LTG Duration Met: 47/56 Three Impairment transfers [facility] Goal (LTG) Pt will complete floor recovery with environmental support SBA. 11/23/22: pt required Min A 1/2 quadruped<> side sit and 1/2 kneel to stand Mod A 50% trunk support. LTG Duration 12/19/22 progressing 11/23/22 Two Impairment transfers Short Term Goal (STG) Ale will complete 12 reps on 30 Second Sit to Stand test from standard height chair without use of UE's. 11/23/22: 16 sec without UE support. STG Duration 11/07/22 progressing 11/23/22 Research Asst Goal (LTG) Pt will perform all bed mobility independently 11/23/22: pt states uses bed rail, but usually sleeps in chair mostly due to being hard to get in/out bed. LTG Duration 12/19/22 slow progression One Impairment gait Short Term Goal (STG) Ale will walk 1010 feet on 6 Minute Walk Test with tripod cane or LRAD with no LOB. [facility] Goal (LTG) Ale will walk 1100 feet or greater on 6 Minute Walk Test with tripod cane or LRAD with no LOB. LTG Duration 12/19/22 Assessment Summary Assessment Pt pleased was able to complete floor transfer with rail environmental and added min-Mod A for trunk support. Added mini lunges for support to come to standing from floor transfer to perform in future reassessment to progress fall recovery. Good feedback self massage using rolling pin to quad relax tired/ sore quads post added mini lunges and hover mini squat to Heel raises with rail support. Physical Therapy Plan Frequency and Duration Frequency of Treatment 2x/Week Plan of Care Start Date 09/26/22 Plan of Care End Date 12/19/22 Therapeutic Interventions Therapeutic Interventions Balance Training,Gait Training ,Home Exercise Program, Neuromuscular Re-education, Patient/Caregiver Education, Self-Care/Home Management, Therapeutic Activities, Therapeutic Exercises Next Visit Focus/Plan Next Note Type Treatment Note Next Visit Plan Recheck mini lunges and mini squat to heel raise to add to home. Add corner balance for home self carry over. POC: Continue selected BIG exercises. Static balance. Dynamic balance as tolerated.
--- NOTE | 2022-11-26 17:37 | PT.OTN ---
Current Diagnoses Parkinson's disease (11/26/22) Other abnormalities of gait and mobility (11/26/22) Repeated falls (11/26/22) Weakness (11/26/22) Physical Therapy Treatment Note PT-OP-A Visit Information Start: 09/26/22 08:30 Freq: Status: Active Protocol: Document 11/26/22 13:56 NBM (Rec: 11/26/22 14:35 NBM [id number]) Out-Patient Physical Therapy Visit Information Visit Information Visit Type Treatment Note Visit Start Time 13:47 Visit Stop Time 14:33 Total Visit Minutes 46 Visit Number 12 Number of PREVENTIVE MAINTENANCE ENGINEER Visits 1 Evaluation Information Evaluation Date 09/26/22 PT-OP-B Current Condition Start: 09/26/22 08:30 Freq: Status: Active Protocol: Document 09/26/22 11:15 AW (Rec: 09/26/22 08:50 AW [id number]) Current Condition History of Current Condition Onset Date chronic Current Complaints falls, decreased balance, decreased strength History of Current Condition Ale was diagnosed with Parkinson's disease ~12 years ago. She had good response to medication changes 3-4 years ago. In the past 6 months, her tremors (BUE primarily and now LLE>RLE) have worsened and are affecting her balance. She has fallen 4 times in the past six months - stepping off a curb, chasing her dog, moving her garbage cans outside in the dark, and missing a chair while attempting to sit at [employer]. She is unable to get herself off the floor and has had to call EMS. She now has a [employer] alert device. She is scheduled with [facility] neurology next week and hopes to have her medication adjusted again to see if that helps. She is now using a tripod cane when outside of the house. She is often carrying it as a backup in case she needs it. She lives alone in a single level home with 2 steps/railing to enter. She drives, cooks, and cleans . She has dye room helper for deep cleaning and yard work. She has a bed rail and uses it to assist with bed mobility. She sleeps in either the bed or in her lift recliner. Prior Treatments and Tests PT for back pain in 2018. PT per [facility] protocol 2019. Treatment Goals Patient/Caregiver Goals Improve strength in arms and legs to be able to get up and down from the floor. Improve balance to the point of not needing assistive device. Personal Factors Other Personal Factors That May Effect Back pain, R knee pain, Therapy/Recovery intermittent vertigo related to allergies (takes meclizine prn and gets monthly shots), urinary incontinence, BMI>45. PT-OP-C Subjective Start: 09/26/22 08:30 Freq: Status: Active Protocol: Document 11/26/22 13:56 NBM (Rec: 11/26/22 14:35 NBM [id number]) OP-PT Subjective Patient Comments Patient Comments Pt reports she's been wobbly the last couple of days - she would swerve, or if leaning backwards would start falling backwards. Pt reports no actual falls. PT-OP-D Balance Start: 09/26/22 08:30 Freq: Status: Active Protocol: Document 11/12/22 16:49 DCW (Rec: 11/12/22 17:15 DCW [id number]) Balance Tests Mejias Balance Test Mejias Balance Test Score 47/56 Mejias Impairment Rating 1 to 19% Impaired (Score 45-55 ) Mejias Balance Assessment Evaluation Sitting to Standing Ability Independent w/out Hands Unsupported Stance Safely- 2 minutes Sitting Unsupported, Feet on Floor Safely- 2 minutes Standing to Sitting Ability Safely, Minimal Hand Use Transfer Ability Safely, Minimal Hand Use Unsupported Stance- Eyes Closed Safely, 10 seconds Unsupported Stance- Eyes Open Independent, 1 minute Reaching Forward Standing Safely, 5 inches Pick- Up Object From Floor Independent/Safe Look Behind Shoulder - Standing Shifts Weight Well Turning 360 Degrees Turns slowly, but safely Unsupported Stance, Alternating Feet on 4 Steps w/Supervision Stair Unsupported Tandem Stance Holds Tandem- 30 seconds Unilateral Leg Stance Lifts Leg/Unable to Hold Total Score Mejias Total Score (out of 56 points) 47 Mejias Impairment Rating 1 to 19% Impaired (Score 45-55 ) PT-OP-E Functional Tests Start: 09/26/22 08:30 Freq: Status: Active Protocol: Document 11/12/22 16:49 DCW (Rec: 11/12/22 17:19 DCW [id number]) Functional Tests Five Times Sit to Stand Test Score 15.6 sec Comments no UE support; from black tx table at lowest height PT-OP-G Mobility & Gait Start: 09/26/22 08:30 Freq: Status: Active Protocol: Document 09/26/22 11:15 AW (Rec: 09/26/22 12:42 AW [id number]) OP Mobility Evaluation Bed Mobility Supine to and from Sit Uses bed rail at home. Needs min A in clinic. Needs cues to bridge hips for lateral scoot on the mat. Transfers Floor Transfers Not attempted OP Gait Assessment Comments Gait Comments Pt walks with feet turned out (B hip ER), reduced foot clearance but moderate step length. She uses tripod cane in RUE. Minimal trunk rotation noted. Minimal RUE swing. Absent LUE swing PT-OP-H Neuro Start: 09/26/22 08:30 Freq: Status: Active Protocol: Document 09/26/22 11:15 AW (Rec: 09/26/22 12:42 AW [id number]) Coordination Evaluation Upper Extremity Tests Left Finger to Nose Test Minimal Impairment Finger to Therapist's Finger Test Minimal Impairment Pronation/Supination Test Minimal Impairment Lower Extremity Tests Right Foot Tapping Test Minimal Impairment PT-OP-J Posture/Palpation/Skin Start: 09/26/22 08:30 Freq: Status: Active Protocol: Document 09/26/22 11:15 AW (Rec: 09/26/22 12:42 AW [id number]) Posture Evaluation Comments Posture Comments Pt has significantly forward head, increased thoracic kyphosis, and tendency toward bilateral hip ER in stance and in gait. PT-OP-M Strength Start: 09/26/22 08:30 Freq: Status: Active Protocol: Document 09/26/22 11:15 AW (Rec: 09/26/22 13:45 AW [id number]) Hip Strength Hip Manual Muscle Testing Left Flexion (L2) 4 Good Extension (S1) 4 Good Abduction 4 Good Right Flexion (L2) 4+ Good+ Extension (S1) 4 Good Abduction 4 Good Knee Strength Knee Manual Muscle Testing Left Flexion (S2) 4+ Good+ Extension (L3) 4+ Good+ Right Flexion (S2) 4 Good Extension (L3) 4+ Good+ Ankle/Foot Strength Ankle and Foot Manual Muscle Testing Left Dorsiflexion (L4) 4 Good Right Dorsiflexion (L4) 4+ Good+ PT-OP-Q Treatments Start: 09/26/22 08:30 Freq: Status: Active Protocol: Document 11/26/22 13:56 NBM (Rec: 11/26/22 14:35 [facility] [id number]) Cardio Equipment Recumbent Stepper ([employer]) Duration (Minutes) 8 Resistance 1.5 Seat Position 12 Other 1.0 mi Gym Equipment Shuttle Recovery unilateral squat Resistance 37# Reps/Time x20 each LE Bilateral Squats Details cued ft // Resistance 62# Reps/Time x20 Therapeutic Exercises Standing Exercises Calf stretch Standing Exercise Name calf stretch into heel raise PF/DF Equipment Used YULISSA Therapeutic Activity Therapeutic Activity floor transfer/recovery Name ascend/descend 1 reps Reps/Minutes 1 Comments large chair for 1/2 kneel to standing. stand<>1/2 kneel<>tall kneel<> side sit<>long sitting 25%A to come side sit>kneeling , 1/2 kneel to stand 50% A. STS Name Sit to Stand on blue ex pad Reps/Minutes x5 Comments cues for controlled descent, glute squeeze at top 3/5 without UE support, 2/5 w/ RUE support. Performed after floor recovery ex, pt fatigued at 5 PT-OP-T Assessment and Plan Start: 09/26/22 08:30 Freq: Status: Active Protocol: Document 11/26/22 13:56 [facility] (Rec: 11/26/22 14:35 [facility] [id number]) Physical Therapy Assessment Impairments Impairments Balance,Functional Activities, Gait,Pain,Posture,Strength, Transfers Goals Four Impairment balance Field Crop Farmworker Goal (LTG) Pt will score 45 or greater on Mejias Balance Scale as a measure of reduced falls risk. LTG Duration Met: 47/56 Three Impairment transfers Field Crop Farmworker Goal (LTG) Pt will complete floor recovery with environmental support SBA. 11/23/22: pt required Min A 1/2 quadruped<> side sit and 1/2 kneel to stand Mod A 50% trunk support. LTG Duration 12/19/22 progressing 11/23/22 Two Impairment transfers Short Term Goal (STG) Ale will complete 12 reps on 30 Second Sit to Stand test from standard height chair without use of UE's. 11/23/22: 16 sec without UE support. STG Duration 11/07/22 progressing 11/23/22 [facility] Goal (LTG) Pt will perform all bed mobility independently 11/23/22: pt states uses bed rail, but usually sleeps in chair mostly due to being hard to get in/out bed. LTG Duration 12/19/22 slow progression One Impairment gait Short Term Goal (STG) Ale will walk 1010 feet on 6 Minute Walk Test with tripod cane or LRAD with no LOB. Prison Goal (LTG) Ale will walk 1100 feet or greater on 6 Minute Walk Test with tripod cane or LRAD with no LOB. LTG Duration 12/19/22 Assessment Summary Assessment Pt is able to complete floor recovery using large chair for 1/2 kneel to standing w/ Tal to modA w/ removal of shoes due to catching on ex mat. Pt follows floor recovery with a seated rest break and then sit to stand w/ cues for controlled descent and glute squeeze at top - pt is challenged with activity tolerance and fatigues after 5 reps, and is successful 3/5 without UE support, 2/5 w/ RUE support, 2 failed attempts. Pt will benefit from continued skilled therapeutic intervention. Physical Therapy Plan Frequency and Duration Frequency of Treatment 2x/Week Plan of Care Start Date 09/26/22 Plan of Care End Date 12/19/22 Therapeutic Interventions Therapeutic Interventions Balance Training,Gait Training ,Home Exercise Program, Neuromuscular Re-education, Patient/Caregiver Education, Self-Care/Home Management, Therapeutic Activities, Therapeutic Exercises Next Visit Focus/Plan Next Note Type Treatment Note Next Visit Plan Recheck mini lunges and mini squat to heel raise to add to home. Add corner balance for home self carry over. POC: Continue selected BIG exercises. Static balance. Dynamic balance as tolerated.
--- NOTE | 2022-12-07 14:32 | PT.OTN ---
Current Diagnoses Parkinson's disease (12/07/22) Other abnormalities of gait and mobility (12/07/22) Repeated falls (12/07/22) Weakness (12/07/22) Physical Therapy Treatment Note PT-OP-A Visit Information Start: 09/26/22 08:30 Freq: Status: Active Protocol: Document 12/07/22 13:45 DCW (Rec: 12/07/22 14:32 DCW [id number]) Out-Patient Physical Therapy Visit Information Visit Information Visit Type Progress Note Visit Start Time 13:45 Visit Stop Time 14:30 Total Visit Minutes 45 Visit Number 14 Number of CHEMICALS FERMENTATION OPERATOR Visits 0 Evaluation Information Evaluation Date 09/26/22 PT-OP-B Current Condition Start: 09/26/22 08:30 Freq: Status: Active Protocol: Document 09/26/22 11:15 AW (Rec: 09/26/22 08:50 AW [id number]) Current Condition History of Current Condition Onset Date chronic Current Complaints falls, decreased balance, decreased strength History of Current Condition Ale was diagnosed with Parkinson's disease ~12 years ago. She had good response to medication changes 3-4 years ago. In the past 6 months, her tremors (BUE primarily and now LLE>RLE) have worsened and are affecting her balance. She has fallen 4 times in the past six months - stepping off a curb, chasing her dog, moving her garbage cans outside in the dark, and missing a chair while attempting to sit at [employer]. She is unable to get herself off the floor and has had to call EMS. She now has a [employer] alert device. She is scheduled with [facility] neurology next week and hopes to have her medication adjusted again to see if that helps. She is now using a tripod cane when outside of the house. She is often carrying it as a backup in case she needs it. She lives alone in a single level home with 2 steps/railing to enter. She drives, cooks, and cleans . She has refinery operator helper cracking unit for deep cleaning and yard work. She has a bed rail and uses it to assist with bed mobility. She sleeps in either the bed or in her lift recliner. Prior Treatments and Tests PT for back pain in 2018. PT per [facility] protocol 2019. Treatment Goals Patient/Caregiver Goals Improve strength in arms and legs to be able to get up and down from the floor. Improve balance to the point of not needing assistive device. Personal Factors Other Personal Factors That May Effect Back pain, R knee pain, Therapy/Recovery intermittent vertigo related to allergies (takes meclizine prn and gets monthly shots), urinary incontinence, BMI>45. PT-OP-C Subjective Start: 09/26/22 08:30 Freq: Status: Active Protocol: Document 12/07/22 13:45 DCW (Rec: 12/07/22 14:32 DCW [id number]) OP-PT Subjective Patient Comments Patient Comments There are a few things at home that I worry about doing when I'm by myself, I don't feel really safe, since I might fall. PT-OP-D Balance Start: 09/26/22 08:30 Freq: Status: Active Protocol: Document 12/07/22 13:45 DCW (Rec: 12/07/22 14:06 DCW [id number]) Balance Tests Single Limb Standing Single Limb- Right 5 sec Single Limb- Left unable Semi-Tandem Standing Semi-Tandem Standing Balance ok with EO, unable with EC Tandem Tandem Standing unable PT-OP-E Functional Tests Start: 09/26/22 08:30 Freq: Status: Active Protocol: Document 12/07/22 13:45 DCW (Rec: 12/07/22 14:06 DCW [id number]) Functional Tests 6 Minute Walk Test Distance 888 feet Device Used none->tripod cane Five Times Sit to Stand Test Score 14.66 sec Comments no UE support; from mesh chair PT-OP-G Mobility & Gait Start: 09/26/22 08:30 Freq: Status: Active Protocol: Document 12/07/22 13:45 DCW (Rec: 12/07/22 14:06 DCW [id number]) OP Gait Assessment Comments Gait Comments Pt walks with feet turned out (B hip ER), reduced foot clearance but moderate step length. She uses tripod cane in RUE. Minimal trunk rotation noted. Minimal RUE swing. Absent LUE swing PT-OP-H Neuro Start: 09/26/22 08:30 Freq: Status: Active Protocol: Document 09/26/22 11:15 AW (Rec: 09/26/22 12:42 AW [id number]) Coordination Evaluation Upper Extremity Tests Left Finger to Nose Test Minimal Impairment Finger to Therapist's Finger Test Minimal Impairment Pronation/Supination Test Minimal Impairment Lower Extremity Tests Right Foot Tapping Test Minimal Impairment PT-OP-J Posture/Palpation/Skin Start: 09/26/22 08:30 Freq: Status: Active Protocol: Document 09/26/22 11:15 AW (Rec: 09/26/22 12:42 AW [id number]) Posture Evaluation Comments Posture Comments Pt has significantly forward head, increased thoracic kyphosis, and tendency toward bilateral hip ER in stance and in gait. PT-OP-M Strength Start: 09/26/22 08:30 Freq: Status: Active Protocol: Document 12/07/22 13:45 DCW (Rec: 12/07/22 14:06 DCW [id number]) Hip Strength Hip Manual Muscle Testing Left Flexion (L2) 4+ Good+ Abduction 4 Good Adduction 4- Good- Right Flexion (L2) 4+ Good+ Abduction 4 Good Adduction 4- Good- Knee Strength Knee Manual Muscle Testing Left Flexion (S2) 5 Normal Extension (L3) 5 Normal Right Flexion (S2) 4+ Good+ Extension (L3) 5 Normal Ankle/Foot Strength Ankle and Foot Manual Muscle Testing Left Dorsiflexion (L4) 4+ Good+ Right Dorsiflexion (L4) 4+ Good+ PT-OP-Q Treatments Start: 09/26/22 08:30 Freq: Status: Active Protocol: Document 12/07/22 13:45 DCW (Rec: 12/07/22 14:32 DCW [id number]) Gym Equipment Shuttle Recovery unilateral squat Resistance 37# Reps/Time x20 each LE Bilateral Squats Resistance 62# Reps/Time x20 Therapeutic Exercises Standing Exercises heel raises to mini squat Standing Exercise Name in PT Equipment Used facing rail support Reps/Minutes x5 reps end tx. lunges Equipment Used BUE on rail Reps/Minutes 2x5 reps Comments cues for neutral foot position Hamstring Curls Standing Exercise Name Hamstring Curls Side bilateral Resistance 5# Equipment Used handrail Reps/Minutes x5 ea Comments vc for slow eccentric and max height PT-OP-T Assessment and Plan Start: 09/26/22 08:30 Freq: Status: Active Protocol: Document 12/07/22 13:45 DCW (Rec: 12/07/22 14:32 DCW [id number]) Physical Therapy Assessment Impairments Impairments Balance,Functional Activities, Gait,Pain,Posture,Strength, Transfers Goals Four Impairment balance Telecasting Engineer Goal (LTG) Pt will score 45 or greater on Mejias Balance Scale as a measure of reduced falls risk. LTG Duration Met: 47/56 Three Impairment transfers Telecasting Engineer Goal (LTG) Pt will complete floor recovery with environmental support SBA. 11/23/22: pt required Min A 1/2 quadruped<> side sit and 1/2 kneel to stand Mod A 50% trunk support. LTG Duration 01/08/23 progressing Two Impairment transfers Short Term Goal (STG) Ale will complete 12 reps on 30 Second Sit to Stand test from standard height chair without use of UE's. 11/23/22: 16 sec without UE support. STG Duration 01/08/23 progressing Telecasting Engineer Goal (LTG) Pt will perform all bed mobility independently 11/23/22: pt states uses bed rail, but usually sleeps in chair mostly due to being hard to get in/out bed. LTG Duration 01/08/23 slow progression One Impairment gait Short Term Goal (STG) Ale will walk 1010 feet on 6 Minute Walk Test with tripod cane or LRAD with no LOB. Telecasting Engineer Goal (LTG) Ale will walk 1100 feet or greater on 6 Minute Walk Test with tripod cane or LRAD with no LOB. LTG Duration 01/08/23 - decreased reliance on cane 12/07/22 Assessment Summary Assessment Pt showing generally similar function compared to initial evaluation. Was able to ambulate nearly the same distance during her 6MWT, although today did not use her cane for 60% of the distance, which is an improvement from last time. With pt's diagnosis of Parkinson's, sometimes lack of functional decline is a reasonable goal for pt's continued participation in physical therapy. Pt does a fairly decent job with independent [facility], will likely benefit from another 4-6 weeks of PT, and then discharge to [facility]. Physical Therapy Plan Frequency and Duration Frequency of Treatment 2x/Week Plan of Care Start Date 12/07/22 Plan of Care End Date 01/11/23 Therapeutic Interventions Therapeutic Interventions Balance Training,Gait Training ,Home Exercise Program, Neuromuscular Re-education, Patient/Caregiver Education, Self-Care/Home Management, Therapeutic Activities, Therapeutic Exercises Next Visit Focus/Plan Next Note Type Treatment Note Next Visit Plan Recheck mini lunges and mini squat to heel raise to add to home. Add corner balance for home self carry over. POC: Continue selected BIG exercises. Static balance. Dynamic balance as tolerated.
--- NOTE | 2022-12-11 12:10 | PT.OTN ---
Current Diagnoses Parkinson's disease (12/11/22) Other abnormalities of gait and mobility (12/11/22) Repeated falls (12/11/22) Weakness (12/11/22) Physical Therapy Treatment Note PT-OP-A Visit Information Start: 09/26/22 08:30 Freq: Status: Active Protocol: Document 12/11/22 11:18 NBM (Rec: 12/11/22 12:10 NBM [id number]) Out-Patient Physical Therapy Visit Information Visit Information Visit Type Treatment Note Visit Start Time 11:18 Visit Stop Time 11:58 Total Visit Minutes 40 Visit Number 15 Number of APPRAISAL MANAGER Visits 1 PT-OP-B Current Condition Start: 09/26/22 08:30 Freq: Status: Active Protocol: Document 09/26/22 11:15 AW (Rec: 09/26/22 08:50 AW [id number]) Current Condition History of Current Condition Onset Date chronic Current Complaints falls, decreased balance, decreased strength History of Current Condition Ale was diagnosed with Parkinson's disease ~12 years ago. She had good response to medication changes 3-4 years ago. In the past 6 months, her tremors (BUE primarily and now LLE>RLE) have worsened and are affecting her balance. She has fallen 4 times in the past six months - stepping off a curb, chasing her dog, moving her garbage cans outside in the dark, and missing a chair while attempting to sit at [employer]. She is unable to get herself off the floor and has had to call EMS. She now has a [employer] alert device. She is scheduled with [facility] neurology next week and hopes to have her medication adjusted again to see if that helps. She is now using a tripod cane when outside of the house. She is often carrying it as a backup in case she needs it. She lives alone in a single level home with 2 steps/railing to enter. She drives, cooks, and cleans . She has kitchen help handyman for deep cleaning and yard work. She has a bed rail and uses it to assist with bed mobility. She sleeps in either the bed or in her lift recliner. Prior Treatments and Tests PT for back pain in 2018. PT per [facility] protocol 2019. Treatment Goals Patient/Caregiver Goals Improve strength in arms and legs to be able to get up and down from the floor. Improve balance to the point of not needing assistive device. Personal Factors Other Personal Factors That May Effect Back pain, R knee pain, Therapy/Recovery intermittent vertigo related to allergies (takes meclizine prn and gets monthly shots), urinary incontinence, BMI>45. PT-OP-C Subjective Start: 09/26/22 08:30 Freq: Status: Active Protocol: Document 12/11/22 11:18 NBM (Rec: 12/11/22 12:10 NBM [id number]) OP-PT Subjective Patient Comments Patient Comments Pt states her family commented Saturday that she is walking better. She states her cane is like a security blanket. Pt sat in a very low chair and struggled to get out but was able to get out by herself. She struggles to get out of bed PT-OP-D Balance Start: 09/26/22 08:30 Freq: Status: Active Protocol: Document 12/07/22 13:45 DCW (Rec: 12/07/22 14:06 DCW [id number]) Balance Tests Single Limb Standing Single Limb- Right 5 sec Single Limb- Left unable Semi-Tandem Standing Semi-Tandem Standing Balance ok with EO, unable with EC Tandem Tandem Standing unable PT-OP-E Functional Tests Start: 09/26/22 08:30 Freq: Status: Active Protocol: Document 12/07/22 13:45 DCW (Rec: 12/07/22 14:06 DCW [id number]) Functional Tests 6 Minute Walk Test Distance 888 feet Device Used none->tripod cane Five Times Sit to Stand Test Score 14.66 sec Comments no UE support; from mesh chair PT-OP-G Mobility & Gait Start: 09/26/22 08:30 Freq: Status: Active Protocol: Document 12/07/22 13:45 DCW (Rec: 12/07/22 14:06 DCW [id number]) OP Gait Assessment Comments Gait Comments Pt walks with feet turned out (B hip ER), reduced foot clearance but moderate step length. She uses tripod cane in RUE. Minimal trunk rotation noted. Minimal RUE swing. Absent LUE swing PT-OP-H Neuro Start: 09/26/22 08:30 Freq: Status: Active Protocol: Document 09/26/22 11:15 AW (Rec: 09/26/22 12:42 AW [id number]) Coordination Evaluation Upper Extremity Tests Left Finger to Nose Test Minimal Impairment Finger to Therapist's Finger Test Minimal Impairment Pronation/Supination Test Minimal Impairment Lower Extremity Tests Right Foot Tapping Test Minimal Impairment PT-OP-J Posture/Palpation/Skin Start: 09/26/22 08:30 Freq: Status: Active Protocol: Document 09/26/22 11:15 AW (Rec: 09/26/22 12:42 AW [id number]) Posture Evaluation Comments Posture Comments Pt has significantly forward head, increased thoracic kyphosis, and tendency toward bilateral hip ER in stance and in gait. PT-OP-M Strength Start: 09/26/22 08:30 Freq: Status: Active Protocol: Document 12/07/22 13:45 DCW (Rec: 12/07/22 14:06 DCW [id number]) Hip Strength Hip Manual Muscle Testing Left Flexion (L2) 4+ Good+ Abduction 4 Good Adduction 4- Good- Right Flexion (L2) 4+ Good+ Abduction 4 Good Adduction 4- Good- Knee Strength Knee Manual Muscle Testing Left Flexion (S2) 5 Normal Extension (L3) 5 Normal Right Flexion (S2) 4+ Good+ Extension (L3) 5 Normal Ankle/Foot Strength Ankle and Foot Manual Muscle Testing Left Dorsiflexion (L4) 4+ Good+ Right Dorsiflexion (L4) 4+ Good+ PT-OP-Q Treatments Start: 09/26/22 08:30 Freq: Status: Active Protocol: Document 12/11/22 11:18 NBM (Rec: 12/11/22 12:10 NBM [id number]) Gym Equipment Shuttle Recovery unilateral squat Resistance 37# Reps/Time 2x10 each LE Bilateral Squats Details cue for R neutral foot position Resistance 62# Reps/Time x20 Shuttle Balance blue clips Details WBOS (4's) Reps/Duration 5 min Comments -pt able to still board w and w/o perturbations - significant improvement w/ cue for glute squeeze, B BIOMEDICAL FIELD SERVICE ENGINEER prn. -balloon volleyball w/ PT aide w alternating UE reach, 1 BIOMEDICAL FIELD SERVICE ENGINEER at all times, CGA Therapeutic Exercises Sitting Exercises hip adduction Sitting Exercise Name ball squeeze - HEP Side bilateral Equipment Used blue/white ball, box along R foot for visual feedback Reps/Minutes 15 x 5 SH Hamstring stretch Sitting Exercise Name calf and HS Side bilateral Equipment Used mesh chair, 6 step Reps/Minutes 30s ea Comments + feedback response STS Sitting Exercise Name no UE support Equipment Used mesh chair no UE, blue foam ( mesh chair) R HR ascend no UE descend Reps/Minutes x5 STS= 16 sec assessment, 5 reps on foam Comments good effort STS on foam ( states 50% UE support on rail) Standing Exercises stretch Standing Exercise Name full body stretch: 1. lateral reach T 2. Overhead reach Reps/Minutes 2x15 s ea Comments feels really good Self-Care/Home Management Treatment Education Patient Education Home Exercise Program Other Education Ball squeeze added to HEP to reduce excessive hip external rotation - pt declines HO. PT-OP-T Assessment and Plan Start: 09/26/22 08:30 Freq: Status: Active Protocol: Document 12/11/22 11:18 NBM (Rec: 12/11/22 12:10 [facility] [id number]) Physical Therapy Assessment Impairments Impairments Balance,Functional Activities, Gait,Pain,Posture,Strength, Transfers Goals Four Impairment balance Appraisal Manager Goal (LTG) Pt will score 45 or greater on Mejias Balance Scale as a measure of reduced falls risk. LTG Duration Met: 47/56 Three Impairment transfers Assisted Goal (LTG) Pt will complete floor recovery with environmental support SBA. 11/23/22: pt required Min A 1/2 quadruped<> side sit and 1/2 kneel to stand Mod A 50% trunk support. LTG Duration 01/08/23 progressing Two Impairment transfers Short Term Goal (STG) Ale will complete 12 reps on 30 Second Sit to Stand test from standard height chair without use of UE's. 11/23/22: 16 sec without UE support. STG Duration 01/08/23 progressing Assisted Goal (LTG) Pt will perform all bed mobility independently 11/23/22: pt states uses bed rail, but usually sleeps in chair mostly due to being hard to get in/out bed. LTG Duration 01/08/23 slow progression One Impairment gait Short Term Goal (STG) Ale will walk 1010 feet on 6 Minute Walk Test with tripod cane or LRAD with no LOB. Assisted Goal (LTG) Ale will walk 1100 feet or greater on 6 Minute Walk Test with tripod cane or LRAD with no LOB. LTG Duration 01/08/23 - decreased reliance on cane 12/07/22 Assessment Summary Assessment Treatment focus on LE strengthening and balance today. Pt requires initial cues for RLE excessive external rotation with ex's but demonstrates improving self-awareness by end of session. She tolerates shuttle balance blue clips and is able to consistently steady balance board with cues for glute activation. Ball squeeze added to HEP to reduce excessive hip external rotation - pt declines HO. Physical Therapy Plan Frequency and Duration Frequency of Treatment 2x/Week Plan of Care Start Date 12/07/22 Plan of Care End Date 01/11/23 Therapeutic Interventions Therapeutic Interventions Balance Training,Gait Training ,Home Exercise Program, Neuromuscular Re-education, Patient/Caregiver Education, Self-Care/Home Management, Therapeutic Activities, Therapeutic Exercises Next Visit Focus/Plan Next Note Type Treatment Note Next Visit Plan Consider bed mobility (bridges , supine>sit EOB) next visit and progress Shuttle balance and corner balance. Recheck mini lunges and mini squat to heel raise to add to home. Add corner balance for home self carry over. POC: Continue selected BIG exercises. Static balance. Dynamic balance as tolerated.
--- NOTE | 2022-12-21 15:16 | PT.OTN ---
Current Diagnoses Parkinson's disease (12/21/22) Other abnormalities of gait and mobility (12/21/22) Repeated falls (12/21/22) Weakness (12/21/22) Physical Therapy Treatment Note PT-OP-A Visit Information Start: 09/26/22 08:30 Freq: Status: Active Protocol: Document 12/21/22 14:30 DCW (Rec: 12/21/22 15:16 DCW [id number]) Out-Patient Physical Therapy Visit Information Visit Information Visit Type Treatment Note Visit Start Time 14:30 Visit Stop Time 15:15 Total Visit Minutes 45 Visit Number 16 Number of BOILERMAKER HELPER Visits 0 Evaluation Information Evaluation Date 09/26/22 PT-OP-B Current Condition Start: 09/26/22 08:30 Freq: Status: Active Protocol: Document 09/26/22 11:15 AW (Rec: 09/26/22 08:50 AW [id number]) Current Condition History of Current Condition Onset Date chronic Current Complaints falls, decreased balance, decreased strength History of Current Condition Ale was diagnosed with Parkinson's disease ~12 years ago. She had good response to medication changes 3-4 years ago. In the past 6 months, her tremors (BUE primarily and now LLE>RLE) have worsened and are affecting her balance. She has fallen 4 times in the past six months - stepping off a curb, chasing her dog, moving her garbage cans outside in the dark, and missing a chair while attempting to sit at [employer]. She is unable to get herself off the floor and has had to call EMS. She now has a [employer] alert device. She is scheduled with [facility] neurology next week and hopes to have her medication adjusted again to see if that helps. She is now using a tripod cane when outside of the house. She is often carrying it as a backup in case she needs it. She lives alone in a single level home with 2 steps/railing to enter. She drives, cooks, and cleans . She has carpenter's helper for deep cleaning and yard work. She has a bed rail and uses it to assist with bed mobility. She sleeps in either the bed or in her lift recliner. Prior Treatments and Tests PT for back pain in 2018. PT per [facility] protocol 2019. Treatment Goals Patient/Caregiver Goals Improve strength in arms and legs to be able to get up and down from the floor. Improve balance to the point of not needing assistive device. Personal Factors Other Personal Factors That May Effect Back pain, R knee pain, Therapy/Recovery intermittent vertigo related to allergies (takes meclizine prn and gets monthly shots), urinary incontinence, BMI>45. PT-OP-C Subjective Start: 09/26/22 08:30 Freq: Status: Active Protocol: Document 12/21/22 14:30 DCW (Rec: 12/21/22 15:16 DCW [id number]) OP-PT Subjective Patient Comments Patient Comments It's been a rough week. I don 't know why, I just don't have any energy. Admits it happens frequently with her Parkinson's. PT-OP-D Balance Start: 09/26/22 08:30 Freq: Status: Active Protocol: Document 12/07/22 13:45 DCW (Rec: 12/07/22 14:06 DCW [id number]) Balance Tests Single Limb Standing Single Limb- Right 5 sec Single Limb- Left unable Semi-Tandem Standing Semi-Tandem Standing Balance ok with EO, unable with EC Tandem Tandem Standing unable PT-OP-E Functional Tests Start: 09/26/22 08:30 Freq: Status: Active Protocol: Document 12/07/22 13:45 DCW (Rec: 12/07/22 14:06 DCW [id number]) Functional Tests 6 Minute Walk Test Distance 888 feet Device Used none->tripod cane Five Times Sit to Stand Test Score 14.66 sec Comments no UE support; from mesh chair PT-OP-G Mobility & Gait Start: 09/26/22 08:30 Freq: Status: Active Protocol: Document 12/07/22 13:45 DCW (Rec: 12/07/22 14:06 DCW [id number]) OP Gait Assessment Comments Gait Comments Pt walks with feet turned out (B hip ER), reduced foot clearance but moderate step length. She uses tripod cane in RUE. Minimal trunk rotation noted. Minimal RUE swing. Absent LUE swing PT-OP-H Neuro Start: 09/26/22 08:30 Freq: Status: Active Protocol: Document 09/26/22 11:15 AW (Rec: 09/26/22 12:42 AW [id number]) Coordination Evaluation Upper Extremity Tests Left Finger to Nose Test Minimal Impairment Finger to Therapist's Finger Test Minimal Impairment Pronation/Supination Test Minimal Impairment Lower Extremity Tests Right Foot Tapping Test Minimal Impairment PT-OP-J Posture/Palpation/Skin Start: 09/26/22 08:30 Freq: Status: Active Protocol: Document 09/26/22 11:15 AW (Rec: 09/26/22 12:42 AW [id number]) Posture Evaluation Comments Posture Comments Pt has significantly forward head, increased thoracic kyphosis, and tendency toward bilateral hip ER in stance and in gait. PT-OP-M Strength Start: 09/26/22 08:30 Freq: Status: Active Protocol: Document 12/07/22 13:45 DCW (Rec: 12/07/22 14:06 DCW [id number]) Hip Strength Hip Manual Muscle Testing Left Flexion (L2) 4+ Good+ Abduction 4 Good Adduction 4- Good- Right Flexion (L2) 4+ Good+ Abduction 4 Good Adduction 4- Good- Knee Strength Knee Manual Muscle Testing Left Flexion (S2) 5 Normal Extension (L3) 5 Normal Right Flexion (S2) 4+ Good+ Extension (L3) 5 Normal Ankle/Foot Strength Ankle and Foot Manual Muscle Testing Left Dorsiflexion (L4) 4+ Good+ Right Dorsiflexion (L4) 4+ Good+ PT-OP-Q Treatments Start: 09/26/22 08:30 Freq: Status: Active Protocol: Document 12/21/22 14:30 DCW (Rec: 12/21/22 15:16 DCW [id number]) Cardio Equipment Recumbent Elliptical (Biodex) Duration (Minutes) 5 Resistance 5 Seat Position 11 Other UEs/ LEs Gym Equipment Shuttle Recovery unilateral squat Resistance 37# Reps/Time 2x10 each LE Bilateral Squats Details cue for R neutral foot position Resistance 62# Reps/Time x20 Shuttle Balance blue clips Details WBOS Reps/Duration 10 min Comments EO/EC, Head turns Therapeutic Exercises Sitting Exercises hip adduction Sitting Exercise Name ball squeeze - HEP Side bilateral Reps/Minutes 15 x 5 SH Marching Sitting Exercise Name Seated Marching Side bilateral Resistance 5# Comments cues slow eccentric LAQ Sitting Exercise Name LAQ Side bilateral Resistance 5# Standing Exercises Mini-squats Standing Exercise Name Mini-squat Equipment Used @rail lunges Equipment Used BUE on rail Reps/Minutes 2x5 reps Comments cues for shifting weight forward Hamstring Curls Standing Exercise Name Hamstring Curls Side bilateral Resistance 5# Equipment Used handrail Reps/Minutes x5 ea Comments vc for slow eccentric and max height PT-OP-T Assessment and Plan Start: 09/26/22 08:30 Freq: Status: Active Protocol: Document 12/21/22 14:30 DCW (Rec: 12/21/22 15:16 DCW [id number]) Physical Therapy Assessment Impairments Impairments Balance,Functional Activities, Gait,Pain,Posture,Strength, Transfers Goals Four Impairment balance Supply Chain Consultant Goal (LTG) Pt will score 45 or greater on Mejias Balance Scale as a measure of reduced falls risk. LTG Duration Met: 47/56 Three Impairment transfers Supply Chain Consultant Goal (LTG) Pt will complete floor recovery with environmental support SBA. 11/23/22: pt required Min A 1/2 quadruped<> side sit and 1/2 kneel to stand Mod A 50% trunk support. LTG Duration 01/08/23 progressing Two Impairment transfers Short Term Goal (STG) Ale will complete 12 reps on 30 Second Sit to Stand test from standard height chair without use of UE's. 11/23/22: 16 sec without UE support. STG Duration 01/08/23 progressing Supply Chain Consultant Goal (LTG) Pt will perform all bed mobility independently 11/23/22: pt states uses bed rail, but usually sleeps in chair mostly due to being hard to get in/out bed. LTG Duration 01/08/23 slow progression One Impairment gait Short Term Goal (STG) Ale will walk 1010 feet on 6 Minute Walk Test with tripod cane or LRAD with no LOB. Supply Chain Consultant Goal (LTG) Ale will walk 1100 feet or greater on 6 Minute Walk Test with tripod cane or LRAD with no LOB. LTG Duration 01/08/23 - decreased reliance on cane 12/07/22 Assessment Summary Assessment Pt responds fairly well to verbal cues for correcting technique during therapy, however seems to be minimal carry-over between visits. Physical Therapy Plan Frequency and Duration Frequency of Treatment 2x/Week Plan of Care Start Date 12/07/22 Plan of Care End Date 01/11/23 Therapeutic Interventions Therapeutic Interventions Balance Training,Gait Training ,Home Exercise Program, Neuromuscular Re-education, Patient/Caregiver Education, Self-Care/Home Management, Therapeutic Activities, Therapeutic Exercises Next Visit Focus/Plan Next Note Type Treatment Note Next Visit Plan Consider bed mobility (bridges , supine>sit EOB) next visit and progress Shuttle balance and corner balance. Recheck mini lunges and mini squat to heel raise to add to home. Add corner balance for home self carry over. POC: Continue selected BIG exercises. Static balance. Dynamic balance as tolerated.
--- NOTE | 2022-12-24 13:00 | PT.OTN ---
Current Diagnoses Parkinson's disease (12/24/22) Other abnormalities of gait and mobility (12/24/22) Repeated falls (12/24/22) Weakness (12/24/22) Physical Therapy Treatment Note PT-OP-A Visit Information Start: 09/26/22 08:30 Freq: Status: Active Protocol: Document 12/24/22 12:18 SP (Rec: 12/24/22 13:06 SP [id number]) Out-Patient Physical Therapy Visit Information Visit Information Visit Type Treatment Note Visit Note ANTONIETTA Mae assisted pt throughout treatment under direct supervision and instruction of JAIME Olsen. Visit Start Time 12:18 Visit Stop Time 13:00 Total Visit Minutes 42 Visit Number 17 Number of FIRE [employer]TER [employer]PORT Visits 1 Evaluation Information Evaluation Date 09/26/22 PT-OP-B Current Condition Start: 09/26/22 08:30 Freq: Status: Active Protocol: Document 09/26/22 11:15 AW (Rec: 09/26/22 08:50 AW [id number]) Current Condition History of Current Condition Onset Date chronic Current Complaints falls, decreased balance, decreased strength History of Current Condition Ale was diagnosed with Parkinson's disease ~12 years ago. She had good response to medication changes 3-4 years ago. In the past 6 months, her tremors (BUE primarily and now LLE>RLE) have worsened and are affecting her balance. She has fallen 4 times in the past six months - stepping off a curb, chasing her dog, moving her garbage cans outside in the dark, and missing a chair while attempting to sit at [employer]. She is unable to get herself off the floor and has had to call EMS. She now has a [employer] alert device. She is scheduled with [facility] neurology next week and hopes to have her medication adjusted again to see if that helps. She is now using a tripod cane when outside of the house. She is often carrying it as a backup in case she needs it. She lives alone in a single level home with 2 steps/railing to enter. She drives, cooks, and cleans . She has marine electrician helper for deep cleaning and yard work. She has a bed rail and uses it to assist with bed mobility. She sleeps in either the bed or in her lift recliner. Prior Treatments and Tests PT for back pain in 2018. PT per [facility] protocol 2019. Treatment Goals Patient/Caregiver Goals Improve strength in arms and legs to be able to get up and down from the floor. Improve balance to the point of not needing assistive device. Personal Factors Other Personal Factors That May Effect Back pain, R knee pain, Therapy/Recovery intermittent vertigo related to allergies (takes meclizine prn and gets monthly shots), urinary incontinence, BMI>45. PT-OP-C Subjective Start: 09/26/22 08:30 Freq: Status: Active Protocol: Document 12/24/22 12:18 SP (Rec: 12/24/22 13:06 SP [id number]) OP-PT Subjective Patient Comments Patient Comments About her energy Last couple days have been good Pt able to get out of overstuffed chair twice without any additional support from others PT-OP-D Balance Start: 09/26/22 08:30 Freq: Status: Active Protocol: Document 12/07/22 13:45 DCW (Rec: 12/07/22 14:06 DCW [id number]) Balance Tests Single Limb Standing Single Limb- Right 5 sec Single Limb- Left unable Semi-Tandem Standing Semi-Tandem Standing Balance ok with EO, unable with EC Tandem Tandem Standing unable PT-OP-E Functional Tests Start: 09/26/22 08:30 Freq: Status: Active Protocol: Document 12/07/22 13:45 DCW (Rec: 12/07/22 14:06 DCW [id number]) Functional Tests 6 Minute Walk Test Distance 888 feet Device Used none->tripod cane Five Times Sit to Stand Test Score 14.66 sec Comments no UE support; from mesh chair PT-OP-G Mobility & Gait Start: 09/26/22 08:30 Freq: Status: Active Protocol: Document 12/07/22 13:45 DCW (Rec: 12/07/22 14:06 DCW [id number]) OP Gait Assessment Comments Gait Comments Pt walks with feet turned out (B hip ER), reduced foot clearance but moderate step length. She uses tripod cane in RUE. Minimal trunk rotation noted. Minimal RUE swing. Absent LUE swing PT-OP-H Neuro Start: 09/26/22 08:30 Freq: Status: Active Protocol: Document 09/26/22 11:15 AW (Rec: 09/26/22 12:42 AW [id number]) Coordination Evaluation Upper Extremity Tests Left Finger to Nose Test Minimal Impairment Finger to Therapist's Finger Test Minimal Impairment Pronation/Supination Test Minimal Impairment Lower Extremity Tests Right Foot Tapping Test Minimal Impairment PT-OP-J Posture/Palpation/Skin Start: 09/26/22 08:30 Freq: Status: Active Protocol: Document 09/26/22 11:15 AW (Rec: 09/26/22 12:42 AW [id number]) Posture Evaluation Comments Posture Comments Pt has significantly forward head, increased thoracic kyphosis, and tendency toward bilateral hip ER in stance and in gait. PT-OP-M Strength Start: 09/26/22 08:30 Freq: Status: Active Protocol: Document 12/07/22 13:45 DCW (Rec: 12/07/22 14:06 DCW [id number]) Hip Strength Hip Manual Muscle Testing Left Flexion (L2) 4+ Good+ Abduction 4 Good Adduction 4- Good- Right Flexion (L2) 4+ Good+ Abduction 4 Good Adduction 4- Good- Knee Strength Knee Manual Muscle Testing Left Flexion (S2) 5 Normal Extension (L3) 5 Normal Right Flexion (S2) 4+ Good+ Extension (L3) 5 Normal Ankle/Foot Strength Ankle and Foot Manual Muscle Testing Left Dorsiflexion (L4) 4+ Good+ Right Dorsiflexion (L4) 4+ Good+ PT-OP-Q Treatments Start: 09/26/22 08:30 Freq: Status: Active Protocol: Document 12/24/22 12:18 SP (Rec: 12/24/22 13:06 SP [id number]) Cardio Equipment Recumbent Elliptical (Biodex) Duration (Minutes) 6 Resistance 3>4 Seat Position 9 Other UEs/ LEs Gym Equipment Shuttle Recovery unilateral squat Details cued foot/knee alignment Resistance 37# Reps/Time 2x12 each LE Bilateral Squats Details cue for R neutral foot position Resistance 62# Reps/Time x20 Shuttle Balance blue clips Details WBOS, NBOS, stagger Reps/Duration 10 min Comments WBOS: EO/EC 20 sec, Head turns NBOS: HTS stagger: WB even challenge LLE back position Therapeutic Exercises Supine Exercises SLR Supine Exercise Name added to HEP Reps/Minutes 10 Comments cued neutral ankle, neutral LS Bridges Supine Exercise Name added to HEP Reps/Minutes 5 Comments cued to hold bridge for 5 secs Sitting Exercises STS Sitting Exercise Name no UE support Equipment Used mesh chair no UE arms across chest Reps/Minutes 10 reps Comments good effort STS on foam ( states 50% UE support on rail) PT-OP-T Assessment and Plan Start: 09/26/22 08:30 Freq: Status: Active Protocol: Document 12/24/22 12:18 SP (Rec: 12/24/22 13:06 SP [id number]) Physical Therapy Assessment Goals Four Impairment balance Alf Goal (LTG) Pt will score 45 or greater on Mejias Balance Scale as a measure of reduced falls risk. LTG Duration Met: 47/56 Three Impairment transfers Wardrobe Assistant Goal (LTG) Pt will complete floor recovery with environmental support SBA. 11/23/22: pt required Min A 1/2 quadruped<> side sit and 1/2 kneel to stand Mod A 50% trunk support. LTG Duration 01/08/23 progressing Two Impairment transfers Short Term Goal (STG) Ale will complete 12 reps on 30 Second Sit to Stand test from standard height chair without use of UE's. 11/23/22: 16 sec without UE support. STG Duration 01/08/23 progressing Alf Goal (LTG) Pt will perform all bed mobility independently 11/23/22: pt states uses bed rail, but usually sleeps in chair mostly due to being hard to get in/out bed. LTG Duration 01/08/23 slow progression One Impairment gait Short Term Goal (STG) Ale will walk 1010 feet on 6 Minute Walk Test with tripod cane or LRAD with no LOB. Alf Goal (LTG) Ale will walk 1100 feet or greater on 6 Minute Walk Test with tripod cane or LRAD with no LOB. LTG Duration 01/08/23 - decreased reliance on cane 12/07/22 Assessment Summary Assessment Pt improved TATYANA with cues and able start self corrections TATYANA even BLE. Improved log roll Le support post supine ther ex, provided HOs for continue HEP home. Physical Therapy Plan Frequency and Duration Frequency of Treatment 2x/Week Plan of Care Start Date 12/07/22 Plan of Care End Date 01/11/23 Therapeutic Interventions Therapeutic Interventions Balance Training,Gait Training ,Home Exercise Program, Neuromuscular Re-education, Patient/Caregiver Education, Self-Care/Home Management, Therapeutic Activities, Therapeutic Exercises Next Visit Focus/Plan Next Note Type Treatment Note Next Visit Plan Consider bed mobility (bridges , supine>sit EOB) next visit and progress Shuttle balance and corner balance. Recheck mini lunges and mini squat to heel raise to add to home. Add corner balance for home self carry over. POC: Continue selected BIG exercises. Static balance. Dynamic balance as tolerated.
--- NOTE | 2023-01-01 15:13 | PT.OTN ---
Current Diagnoses Parkinson's disease (01/01/23) Other abnormalities of gait and mobility (01/01/23) Repeated falls (01/01/23) Weakness (01/01/23) Physical Therapy Treatment Note PT-OP-A Visit Information Start: 09/26/22 08:30 Freq: Status: Active Protocol: Document 01/01/23 13:51 NBM (Rec: 01/01/23 15:11 NBM [id number]) Out-Patient Physical Therapy Visit Information Visit Information Visit Type Treatment Note Visit Start Time 13:47 Visit Stop Time 14:30 Total Visit Minutes 43 Visit Number 18 Number of PLASTIC STRAIGHTENING ROLL OPERATOR Visits 2 PT-OP-B Current Condition Start: 09/26/22 08:30 Freq: Status: Active Protocol: Document 09/26/22 11:15 AW (Rec: 09/26/22 08:50 AW [id number]) Current Condition History of Current Condition Onset Date chronic Current Complaints falls, decreased balance, decreased strength History of Current Condition Ale was diagnosed with Parkinson's disease ~12 years ago. She had good response to medication changes 3-4 years ago. In the past 6 months, her tremors (BUE primarily and now LLE>RLE) have worsened and are affecting her balance. She has fallen 4 times in the past six months - stepping off a curb, chasing her dog, moving her garbage cans outside in the dark, and missing a chair while attempting to sit at [employer]. She is unable to get herself off the floor and has had to call EMS. She now has a [employer] alert device. She is scheduled with [facility] neurology next week and hopes to have her medication adjusted again to see if that helps. She is now using a tripod cane when outside of the house. She is often carrying it as a backup in case she needs it. She lives alone in a single level home with 2 steps/railing to enter. She drives, cooks, and cleans . She has ornamental plasterer helper for deep cleaning and yard work. She has a bed rail and uses it to assist with bed mobility. She sleeps in either the bed or in her lift recliner. Prior Treatments and Tests PT for back pain in 2018. PT per [facility] protocol 2019. Treatment Goals Patient/Caregiver Goals Improve strength in arms and legs to be able to get up and down from the floor. Improve balance to the point of not needing assistive device. Personal Factors Other Personal Factors That May Effect Back pain, R knee pain, Therapy/Recovery intermittent vertigo related to allergies (takes meclizine prn and gets monthly shots), urinary incontinence, BMI>45. PT-OP-C Subjective Start: 09/26/22 08:30 Freq: Status: Active Protocol: Document 01/01/23 13:51 NBM (Rec: 01/01/23 15:11 NBM [id number]) OP-PT Subjective Patient Comments Patient Comments Pt reports she hurt back last Wed or Thur picking up a case of water and had to miss last appointment. Her back is sore but getting better. Pt reports she used to use her lift chair at the highest level but she has been using a lower setting lately. A lot of people have been complimenting her walking. PT-OP-D Balance Start: 09/26/22 08:30 Freq: Status: Active Protocol: Document 12/07/22 13:45 DCW (Rec: 12/07/22 14:06 DCW [id number]) Balance Tests Single Limb Standing Single Limb- Right 5 sec Single Limb- Left unable Semi-Tandem Standing Semi-Tandem Standing Balance ok with EO, unable with EC Tandem Tandem Standing unable PT-OP-E Functional Tests Start: 09/26/22 08:30 Freq: Status: Active Protocol: Document 12/07/22 13:45 DCW (Rec: 12/07/22 14:06 DCW [id number]) Functional Tests 6 Minute Walk Test Distance 888 feet Device Used none->tripod cane Five Times Sit to Stand Test Score 14.66 sec Comments no UE support; from mesh chair PT-OP-G Mobility & Gait Start: 09/26/22 08:30 Freq: Status: Active Protocol: Document 12/07/22 13:45 DCW (Rec: 12/07/22 14:06 DCW [id number]) OP Gait Assessment Comments Gait Comments Pt walks with feet turned out (B hip ER), reduced foot clearance but moderate step length. She uses tripod cane in RUE. Minimal trunk rotation noted. Minimal RUE swing. Absent LUE swing PT-OP-H Neuro Start: 09/26/22 08:30 Freq: Status: Active Protocol: Document 09/26/22 11:15 AW (Rec: 09/26/22 12:42 AW [id number]) Coordination Evaluation Upper Extremity Tests Left Finger to Nose Test Minimal Impairment Finger to Therapist's Finger Test Minimal Impairment Pronation/Supination Test Minimal Impairment Lower Extremity Tests Right Foot Tapping Test Minimal Impairment PT-OP-J Posture/Palpation/Skin Start: 09/26/22 08:30 Freq: Status: Active Protocol: Document 09/26/22 11:15 AW (Rec: 09/26/22 12:42 AW [id number]) Posture Evaluation Comments Posture Comments Pt has significantly forward head, increased thoracic kyphosis, and tendency toward bilateral hip ER in stance and in gait. PT-OP-M Strength Start: 09/26/22 08:30 Freq: Status: Active Protocol: Document 12/07/22 13:45 DCW (Rec: 12/07/22 14:06 DCW [id number]) Hip Strength Hip Manual Muscle Testing Left Flexion (L2) 4+ Good+ Abduction 4 Good Adduction 4- Good- Right Flexion (L2) 4+ Good+ Abduction 4 Good Adduction 4- Good- Knee Strength Knee Manual Muscle Testing Left Flexion (S2) 5 Normal Extension (L3) 5 Normal Right Flexion (S2) 4+ Good+ Extension (L3) 5 Normal Ankle/Foot Strength Ankle and Foot Manual Muscle Testing Left Dorsiflexion (L4) 4+ Good+ Right Dorsiflexion (L4) 4+ Good+ PT-OP-Q Treatments Start: 09/26/22 08:30 Freq: Status: Active Protocol: Document 01/01/23 13:51 NBM (Rec: 01/01/23 15:11 NBM [id number]) Cardio Equipment Recumbent Elliptical (Biodex) Duration (Minutes) 6 Resistance 4 Seat Position 9 Other UEs/ LEs> trialed LE only 2 min Therapeutic Exercises Supine Exercises PPT Supine Exercise Name posterior pelvic tilt Reps/Minutes 5 x 2 breath cycles Comments tactile cueing and improves w/ glute squeeze hip adduction Supine Exercise Name ball squeeze Reps/Minutes 5 x 5SH/2 breath cycles SLR Supine Exercise Name HEP Reps/Minutes 10 Comments cued neutral ankle, neutral LS Bridges Supine Exercise Name 1. 2. bridge w/ ball squeeze. Reps/Minutes 5 Comments cued to hold bridge, no breathholding, glutes, max height Sitting Exercises STS Sitting Exercise Name no UE support Equipment Used cushioned chair, no UE use Reps/Minutes 10 reps Comments good effort Standing Exercises Hamstring stretch Side bilateral Equipment Used handrail Reps/Minutes 2x 30s Comments tightness L>R, cue for hip hinge heel raises to mini squat Standing Exercise Name in PT Equipment Used facing rail support Reps/Minutes x5 reps end tx. lunges Side bilateral Equipment Used BUE on rail Reps/Minutes 2x5 reps Comments cues for form Hamstring Curls Standing Exercise Name Hamstring Curls Side bilateral Resistance 5# Equipment Used handrail Reps/Minutes 2x5 ea Comments vc for max height Self-Care/Home Management Treatment Education Patient Education Home Exercise Program Other Education Educated pt on core and relationship between hip adductors, pelvic floor, TrA and diaphragm, and importance of not breathholding w/ ex's. PT-OP-T Assessment and Plan Start: 09/26/22 08:30 Freq: Status: Active Protocol: Document 01/01/23 13:51 [facility] (Rec: 01/01/23 15:11 [facility] [id number]) Physical Therapy Assessment Impairments Impairments Balance,Functional Activities, Gait,Pain,Posture,Strength, Transfers Goals Four Impairment balance Pipe Insulator Goal (LTG) Pt will score 45 or greater on Mejias Balance Scale as a measure of reduced falls risk. LTG Duration Met: 47/56 Three Impairment transfers Pipe Insulator Goal (LTG) Pt will complete floor recovery with environmental support SBA. 11/23/22: pt required Min A 1/2 quadruped<> side sit and 1/2 kneel to stand Mod A 50% trunk support. LTG Duration 01/08/23 progressing Two Impairment transfers Short Term Goal (STG) Ale will complete 12 reps on 30 Second Sit to Stand test from standard height chair without use of UE's. 11/23/22: 16 sec without UE support. STG Duration 01/08/23 progressing Long-Term Goal (LTG) Pt will perform all bed mobility independently 11/23/22: pt states uses bed rail, but usually sleeps in chair mostly due to being hard to get in/out bed. LTG Duration 01/08/23 slow progression One Impairment gait Short Term Goal (STG) Ale will walk 1010 feet on 6 Minute Walk Test with tripod cane or LRAD with no LOB. Long-Term Goal (LTG) Ale will walk 1100 feet or greater on 6 Minute Walk Test with tripod cane or LRAD with no LOB. LTG Duration 01/08/23 - decreased reliance on cane 12/07/22 Assessment Summary Assessment Treatment focus on LE stregnthening and core stability for improved floor recovery. Pt continues to work hard and is able to perfom 10 sit to stands without upper extremity support and minimal cueing today. She requires consistent cues for breathholding w/ hooklying ex' s (TrA activation, bridging, SLR) but improves breathing with cues to hold for 2 breath cycles, and tolerates progression to bridging w/ ball squeeze well. She demonstrates weak hamstrings w / 5# standing HS curls with hip extension compensation and L HS cramped two times throughout session. Physical Therapy Plan Frequency and Duration Frequency of Treatment 2x/Week Plan of Care Start Date 12/07/22 Plan of Care End Date 01/11/23 Therapeutic Interventions Therapeutic Interventions Balance Training,Gait Training ,Home Exercise Program, Neuromuscular Re-education, Patient/Caregiver Education, Self-Care/Home Management, Therapeutic Activities, Therapeutic Exercises Next Visit Focus/Plan Next Note Type Treatment Note Next Visit Plan Consider Bridging w/ ball squeeze and PPT for HEP. Consider bed mobility (bridges , supine>sit EOB) next visit and progress Shuttle balance and corner balance. Recheck mini lunges and mini squat to heel raise to add to home. Add corner balance for home self carry over. POC: Continue selected BIG exercises. Static balance. Dynamic balance as tolerated.
--- NOTE | 2023-01-08 15:40 | PT.OTN ---
Current Diagnoses Parkinson's disease (01/08/23) Other abnormalities of gait and mobility (01/08/23) Repeated falls (01/08/23) Weakness (01/08/23) Physical Therapy Treatment Note PT-OP-A Visit Information Start: 09/26/22 08:30 Freq: Status: Active Protocol: Document 01/08/23 13:10 NBM (Rec: 01/08/23 13:45 NBM [id number]) Out-Patient Physical Therapy Visit Information Visit Information Visit Type Treatment Note Visit Note Pt was present but unattended Visit Start Time 13:07 Visit Stop Time 13:45 Total Visit Minutes 38 Visit Number 19 Number of TEXTILE ENGRAVER Visits 3 Evaluation Information Evaluation Date 09/26/22 PT-OP-B Current Condition Start: 09/26/22 08:30 Freq: Status: Active Protocol: Document 09/26/22 11:15 AW (Rec: 09/26/22 08:50 AW [id number]) Current Condition History of Current Condition Onset Date chronic Current Complaints falls, decreased balance, decreased strength History of Current Condition Ale was diagnosed with Parkinson's disease ~12 years ago. She had good response to medication changes 3-4 years ago. In the past 6 months, her tremors (BUE primarily and now LLE>RLE) have worsened and are affecting her balance. She has fallen 4 times in the past six months - stepping off a curb, chasing her dog, moving her garbage cans outside in the dark, and missing a chair while attempting to sit at [employer]. She is unable to get herself off the floor and has had to call EMS. She now has a [employer] alert device. She is scheduled with [facility] neurology next week and hopes to have her medication adjusted again to see if that helps. She is now using a tripod cane when outside of the house. She is often carrying it as a backup in case she needs it. She lives alone in a single level home with 2 steps/railing to enter. She drives, cooks, and cleans . She has exterminator helper termite for deep cleaning and yard work. She has a bed rail and uses it to assist with bed mobility. She sleeps in either the bed or in her lift recliner. Prior Treatments and Tests PT for back pain in 2018. PT per [facility] protocol 2019. Treatment Goals Patient/Caregiver Goals Improve strength in arms and legs to be able to get up and down from the floor. Improve balance to the point of not needing assistive device. Personal Factors Other Personal Factors That May Effect Back pain, R knee pain, Therapy/Recovery intermittent vertigo related to allergies (takes meclizine prn and gets monthly shots), urinary incontinence, BMI>45. PT-OP-C Subjective Start: 09/26/22 08:30 Freq: Status: Active Protocol: Document 01/08/23 13:10 NBM (Rec: 01/08/23 13:45 NBM [id number]) OP-PT Subjective Patient Comments Patient Comments Ale states she doesn't use a cane at home but brings it to PT just in case she needs it when crossing the parking lot. She reports her back is mostly better from when she picked up the case of water - she noticed it when taking the garbage out yesterday. She's keeping the lift at nursing home level. PT-OP-D Balance Start: 09/26/22 08:30 Freq: Status: Active Protocol: Document 12/07/22 13:45 DCW (Rec: 12/07/22 14:06 DCW [id number]) Balance Tests Single Limb Standing Single Limb- Right 5 sec Single Limb- Left unable Semi-Tandem Standing Semi-Tandem Standing Balance ok with EO, unable with EC Tandem Tandem Standing unable PT-OP-E Functional Tests Start: 09/26/22 08:30 Freq: Status: Active Protocol: Document 12/07/22 13:45 DCW (Rec: 12/07/22 14:06 DCW [id number]) Functional Tests 6 Minute Walk Test Distance 888 feet Device Used none->tripod cane Five Times Sit to Stand Test Score 14.66 sec Comments no UE support; from mesh chair PT-OP-G Mobility & Gait Start: 09/26/22 08:30 Freq: Status: Active Protocol: Document 12/07/22 13:45 DCW (Rec: 12/07/22 14:06 DCW [id number]) OP Gait Assessment Comments Gait Comments Pt walks with feet turned out (B hip ER), reduced foot clearance but moderate step length. She uses tripod cane in RUE. Minimal trunk rotation noted. Minimal RUE swing. Absent LUE swing PT-OP-H Neuro Start: 09/26/22 08:30 Freq: Status: Active Protocol: Document 09/26/22 11:15 AW (Rec: 09/26/22 12:42 AW [id number]) Coordination Evaluation Upper Extremity Tests Left Finger to Nose Test Minimal Impairment Finger to Therapist's Finger Test Minimal Impairment Pronation/Supination Test Minimal Impairment Lower Extremity Tests Right Foot Tapping Test Minimal Impairment PT-OP-J Posture/Palpation/Skin Start: 09/26/22 08:30 Freq: Status: Active Protocol: Document 09/26/22 11:15 AW (Rec: 09/26/22 12:42 AW [id number]) Posture Evaluation Comments Posture Comments Pt has significantly forward head, increased thoracic kyphosis, and tendency toward bilateral hip ER in stance and in gait. PT-OP-M Strength Start: 09/26/22 08:30 Freq: Status: Active Protocol: Document 12/07/22 13:45 DCW (Rec: 12/07/22 14:06 DCW [id number]) Hip Strength Hip Manual Muscle Testing Left Flexion (L2) 4+ Good+ Abduction 4 Good Adduction 4- Good- Right Flexion (L2) 4+ Good+ Abduction 4 Good Adduction 4- Good- Knee Strength Knee Manual Muscle Testing Left Flexion (S2) 5 Normal Extension (L3) 5 Normal Right Flexion (S2) 4+ Good+ Extension (L3) 5 Normal Ankle/Foot Strength Ankle and Foot Manual Muscle Testing Left Dorsiflexion (L4) 4+ Good+ Right Dorsiflexion (L4) 4+ Good+ PT-OP-Q Treatments Start: 09/26/22 08:30 Freq: Status: Active Protocol: Document 01/08/23 13:10 NBM (Rec: 01/08/23 13:45 NBM [id number]) Cardio Equipment Recumbent Stepper (Sci-Fit) Duration (Minutes) 8 Resistance 1.5 Seat Position 11 Therapeutic Exercises Sitting Exercises Hamstring stretch Sitting Exercise Name calf and HS Side bilateral Equipment Used mesh chair, 6 step Reps/Minutes 30s ea x2 Comments + feedback response LAQ Sitting Exercise Name LAQ Side bilateral Resistance 5# Reps/Minutes x8 STS Sitting Exercise Name no UE support>thigh support Equipment Used cushioned chair, no UE use Reps/Minutes 10 reps Comments good effort (pt reports easier if she sits further back than scooting EOC). Standing Exercises marching Side bilateral Resistance 5# Equipment Used manuel TRANSPORTATION MODELER Reps/Minutes x10 ea heel raises to mini squat Standing Exercise Name in PT Equipment Used facing rail support Reps/Minutes x5 reps Hamstring Curls Standing Exercise Name Hamstring Curls Side bilateral Resistance 5# Equipment Used handrail manuel Reps/Minutes x10 ea Comments vc for max height Toe-Taps Standing Exercise Name Toe-taps Side bilateral Resistance 5# Equipment Used 6 step Reps/Minutes x10 Comments Fwd, pt knees buckled after 10 reps Therapeutic Activity Therapeutic Activity walking Name w/ AD Reps/Minutes 5# ankle weights Comments x20ft PT-OP-T Assessment and Plan Start: 09/26/22 08:30 Freq: Status: Active Protocol: Document 01/08/23 13:10 NBM (Rec: 01/08/23 13:45 NB [id number]) Physical Therapy Assessment Impairments Impairments Balance,Functional Activities, Gait,Pain,Posture,Strength, Transfers Goals Four Impairment balance Sulky Driver Goal (LTG) Pt will score 45 or greater on Mejias Balance Scale as a measure of reduced falls risk. LTG Duration Met: 47/56 Three Impairment transfers Sulky Driver Goal (LTG) Pt will complete floor recovery with environmental support SBA. 11/23/22: pt required Min A 1/2 quadruped<> side sit and 1/2 kneel to stand Mod A 50% trunk support. LTG Duration 01/08/23 progressing Two Impairment transfers Short Term Goal (STG) Ale will complete 12 reps on 30 Second Sit to Stand test from standard height chair without use of UE's. 11/23/22: 16 sec without UE support. STG Duration 01/08/23 progressing Sulky Driver Goal (LTG) Pt will perform all bed mobility independently 11/23/22: pt states uses bed rail, but usually sleeps in chair mostly due to being hard to get in/out bed. LTG Duration 01/08/23 slow progression One Impairment gait Short Term Goal (STG) Ale will walk 1010 feet on 6 Minute Walk Test with tripod cane or LRAD with no LOB. Senior Care Goal (LTG) Ale will walk 1100 feet or greater on 6 Minute Walk Test with tripod cane or LRAD with no LOB. LTG Duration 01/08/23 - decreased reliance on cane 12/07/22 Assessment Summary Assessment Ale requires cues for sit to stand when scooted to edge of queen-cushioned chair for anterior weight shifiting and foot positioning, but she is able to stand without UE support when seated further back without cues for anterior weightshifting. She requires cues with ambulation and standing marching for increasing hip flexion with and without 5# ankle weights. Two seated rest breaks and no cramping reported this treatment session. Physical Therapy Plan Frequency and Duration Frequency of Treatment 2x/Week Plan of Care Start Date 12/07/22 Plan of Care End Date 01/11/23 Therapeutic Interventions Therapeutic Interventions Balance Training,Gait Training ,Home Exercise Program, Neuromuscular Re-education, Patient/Caregiver Education, Self-Care/Home Management, Therapeutic Activities, Therapeutic Exercises Next Visit Focus/Plan Next Note Type Treatment Note Next Visit Plan Consider Bridging w/ ball squeeze and PPT for HEP. Consider bed mobility (bridges , supine>sit EOB) next visit and progress Shuttle balance and corner balance. Recheck mini lunges and mini squat to heel raise to add to home. Add corner balance for home self carry over. POC: Continue selected BIG exercises. Static balance. Dynamic balance as tolerated.
--- NOTE | 2023-01-11 14:29 | PT.OPDS ---
Current Diagnoses Parkinson's disease (01/11/23) Other abnormalities of gait and mobility (01/11/23) Repeated falls (01/11/23) Weakness (01/11/23) Visit Care Team Role Provider Type ALIDA Richards Attending Provider Advanced Cut In Station Operator Family Provider Primary Care Provider Referring Provider Specialty: Family Practice Address: [address] [place] [address], [facility] Email: [email or web address] Visit Number Visit Number 20 Discharge Summary PT-OP-B Current Condition Start: 09/26/22 08:30 Freq: Status: Active Protocol: Document 09/26/22 11:15 AW (Rec: 09/26/22 08:50 AW [id number]) Current Condition History of Current Condition Onset Date chronic Current Complaints falls, decreased balance, decreased strength History of Current Condition Ale was diagnosed with Parkinson's disease ~12 years ago. She had good response to medication changes 3-4 years ago. In the past 6 months, her tremors (BUE primarily and now LLE>RLE) have worsened and are affecting her balance. She has fallen 4 times in the past six months - stepping off a curb, chasing her dog, moving her garbage cans outside in the dark, and missing a chair while attempting to sit at [employer]. She is unable to get herself off the floor and has had to call EMS. She now has a Lifeline alert device. She is scheduled with [facility] neurology next week and hopes to have her medication adjusted again to see if that helps. She is now using a tripod cane when outside of the house. She is often carrying it as a backup in case she needs it. She lives alone in a single level home with 2 steps/railing to enter. She drives, cooks, and cleans . She has cell tender helper for deep cleaning and yard work. She has a bed rail and uses it to assist with bed mobility. She sleeps in either the bed or in her lift recliner. Prior Treatments and Tests PT for back pain in 2018. PT per [facility] protocol 2019. Treatment Goals Patient/Caregiver Goals Improve strength in arms and legs to be able to get up and down from the floor. Improve balance to the point of not needing assistive device. Personal Factors Other Personal Factors That May Effect Back pain, R knee pain, Therapy/Recovery intermittent vertigo related to allergies (takes meclizine prn and gets monthly shots), urinary incontinence, BMI>45. PT-OP-C Subjective Start: 09/26/22 08:30 Freq: Status: Active Protocol: Document 01/11/23 13:45 DCW (Rec: 01/11/23 14:29 DCW [id number]) OP-PT Subjective Patient Comments Patient Comments Pt understands she has largely plateaued, but is worried that she would decline if she is not coming in, because she doesn't do as well with follow -through at home. PT-OP-D Balance Start: 09/26/22 08:30 Freq: Status: Active Protocol: Document 12/07/22 13:45 DCW (Rec: 12/07/22 14:06 DCW [id number]) Balance Tests Single Limb Standing Single Limb- Right 5 sec Single Limb- Left unable Semi-Tandem Standing Semi-Tandem Standing Balance ok with EO, unable with EC Tandem Tandem Standing unable PT-OP-E Functional Tests Start: 09/26/22 08:30 Freq: Status: Active Protocol: Document 12/07/22 13:45 DCW (Rec: 12/07/22 14:06 DCW [id number]) Functional Tests 6 Minute Walk Test Distance 888 feet Device Used none->tripod cane Five Times Sit to Stand Test Score 14.66 sec Comments no UE support; from mesh chair PT-OP-G Mobility & Gait Start: 09/26/22 08:30 Freq: Status: Active Protocol: Document 12/07/22 13:45 DCW (Rec: 12/07/22 14:06 DCW [id number]) OP Gait Assessment Comments Gait Comments Pt walks with feet turned out (B hip ER), reduced foot clearance but moderate step length. She uses tripod cane in RUE. Minimal trunk rotation noted. Minimal RUE swing. Absent LUE swing PT-OP-H Neuro Start: 09/26/22 08:30 Freq: Status: Active Protocol: Document 09/26/22 11:15 AW (Rec: 09/26/22 12:42 AW [id number]) Coordination Evaluation Upper Extremity Tests Left Finger to Nose Test Minimal Impairment Finger to Therapist's Finger Test Minimal Impairment Pronation/Supination Test Minimal Impairment Lower Extremity Tests Right Foot Tapping Test Minimal Impairment PT-OP-J Posture/Palpation/Skin Start: 09/26/22 08:30 Freq: Status: Active Protocol: Document 09/26/22 11:15 AW (Rec: 09/26/22 12:42 AW [id number]) Posture Evaluation Comments Posture Comments Pt has significantly forward head, increased thoracic kyphosis, and tendency toward bilateral hip ER in stance and in gait. PT-OP-M Strength Start: 09/26/22 08:30 Freq: Status: Active Protocol: Document 12/07/22 13:45 DCW (Rec: 12/07/22 14:06 DCW [id number]) Hip Strength Hip Manual Muscle Testing Left Flexion (L2) 4+ Good+ Abduction 4 Good Adduction 4- Good- Right Flexion (L2) 4+ Good+ Abduction 4 Good Adduction 4- Good- Knee Strength Knee Manual Muscle Testing Left Flexion (S2) 5 Normal Extension (L3) 5 Normal Right Flexion (S2) 4+ Good+ Extension (L3) 5 Normal Ankle/Foot Strength Ankle and Foot Manual Muscle Testing Left Dorsiflexion (L4) 4+ Good+ Right Dorsiflexion (L4) 4+ Good+ PT-OP-T Assessment and Plan Start: 09/26/22 08:30 Freq: Status: Active Protocol: Document 01/11/23 13:45 DCW (Rec: 01/11/23 14:29 DCW [id number]) Physical Therapy Assessment Impairments Impairments Balance,Functional Activities, Gait,Pain,Posture,Strength, Transfers Goals Four Impairment balance Residential Program Manager Goal (LTG) Pt will score 45 or greater on Mejias Balance Scale as a measure of reduced falls risk. LTG Duration Met: 47/56 Three Impairment transfers Alf Goal (LTG) Pt will complete floor recovery with environmental support SBA. LTG Duration Met - performed independently Two Impairment transfers Short Term Goal (STG) Ale will complete 12 reps on 30 Second Sit to Stand test from standard height chair without use of UE's. 11/23/22: 16 sec without UE support. STG Duration Met Residential Program Manager Goal (LTG) Pt will perform all bed mobility independently 11/23/22: pt states uses bed rail, but usually sleeps in chair mostly due to being hard to get in/out bed. LTG Duration Still using bed rail One Impairment gait Short Term Goal (STG) Ale will walk 1010 feet on 6 Minute Walk Test with tripod cane or LRAD with no LOB. STG Duration Met Alf Goal (LTG) Ale will walk 1100 feet or greater on 6 Minute Walk Test with tripod cane or LRAD with no LOB. LTG Duration 01/11/23 - improving, 1018' Progress Towards Goals Progress Towards Goals Progressing Toward Goals Assessment Summary Assessment Pt has met nearly all goals, performed independent floor transfers x2. Largely plateauing with other areas. Pt understands that with a neurodegenerative disease like Parkinson's, there is a high likelihood of decline in function in the future. Pt will be discharged from skilled PT at this time, but understands that if she notices any decline in function, she can return with a new referral. Physical Therapy Plan Frequency and Duration Frequency of Treatment 2x/Week Plan of Care Start Date 12/07/22 Plan of Care End Date 01/11/23 Therapeutic Interventions Therapeutic Interventions Balance Training,Gait Training ,Home Exercise Program, Neuromuscular Re-education, Patient/Caregiver Education, Self-Care/Home Management, Therapeutic Activities, Therapeutic Exercises Discharge Physical Therapy Discharge Reasons Plateau in Progress Next Visit Focus/Plan Next Note Type Discharge Summary
== END 2023-01-15 12:51 | disposition home or self-care (01) ==
LOC: PHYS 13:45
PROVIDERS: Family Provider Nurse Practitioner; PCP Nurse Practitioner; Referring Provider Nurse Practitioner; Visit Provider Nurse Practitioner
DX: G20 Parkinson's disease (principal); R29.6 Repeated falls; R53.1 Weakness; R26.89 Other abnormalities of gait and mobility
CPT/HCPCS: 97110; 97112; 97116; 97162; 97530

== ENCOUNTER → 2023-02-15 08:43 | Outpatient (CLI) | payer MEDICARE, OTHER, SELFPAY ==
[2023-02-15 10:03] LABS: Alanine Aminotransferase 11 IU/L (<35); Albumin 4.7 g/dL (3.5-5.0); Albumin Globulin Ratio 1.4 (1.0-2.8); Alkaline Phosphatase 144 U/L (38-126); Aspartate Aminotransferase 29 IU/L (14-36); BUN Creatinine Ratio 33.3 (6-22); Bilirubin Total 1.3 mg/dL (0.2-1.3); Blood Urea Nitrogen 20 mg/dL (7-17); Calcium 10.1 mg/dL (8.4-10.2); Carbon Dioxide 31 mmol/L (22-32); Chloride 97 mmol/L (98-107); Estimated Glomerular Filt Rate > 60 mL/min (>60); Globulin 3.4 g/dL (1.7-4.1); Glucose 134 mg/dL (80-110); HEMOLYSIS < 15 (0-50); Potassium 4.5 mmol/L (3.4-5.1); Sodium 137 mmol/L (137-145); Total Protein 8.1 g/dL (6.3-8.2)
[2023-02-16 07:03] LABS: x Labcorp Estim. Avg Glu (eAG) 166 mg/dL (.); x Labcorp Hemoglobin A1c 7.4 % (4.8-5.6)
[2023-02-17 11:08] LABS: Calcium 10.3 mg/dL (8.7-10.3); Parathyroid Hormone, Intact 87 pg/mL (15-65)
[2023-02-19 14:22] LABS: Albumin 3.8 g/dL (2.9-4.4); Alpha-1-Globulin 0.3 g/dL (0.0-0.4); Alpha-2-Globulin 0.9 g/dL (0.4-1.0); Gamma Globulin 1.3 g/dL (0.4-1.8); Globulin Total 3.6 g/dL (2.2-3.9); Protein, Total 7.4 g/dL (6.0-8.5)
== END ==
PROVIDERS: Family Provider Nurse Practitioner; PCP Nurse Practitioner; Referring Provider Nurse Practitioner; Visit Provider Nurse Practitioner
DX: E11.69 Type 2 diabetes mellitus with other specified complication; E11.620 Type 2 diabetes mellitus with diabetic dermatitis; E78.5 Hyperlipidemia, unspecified; R77.8 Other specified abnormalities of plasma proteins; E83.52 Hypercalcemia
CPT/HCPCS: 36415; 80053; 82310; 83036; 83970; 84155; 84165

== ENCOUNTER 2023-04-07 12:21 | Emergency (ER) | payer OTHER, MEDICARE, SELFPAY ==
[2023-04-07] VITALS (11 sets, daily range): BP systolic 115–127; BP diastolic 56–90; PULSE 83–90; RESP 16–26; O2SAT 92–96
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
[2023-04-07 12:50] LABS: Add Manual Diff / Slide Review NO; Basophils Absolute Auto 0 /uL (0-100); Basophils Percent Auto 0.7 % (0-2); Eosinophils Absolute Auto 100 /uL (0-450); Eosinophils Percent Auto 1.7 % (2-4); Hemoglobin 13.8 g/dL (12.0-16.0); Lymphocytes Absolute Auto 1700 /uL (1100-4500); Lymphocytes Percent Auto 26.5 % (25-40); Mean Corpuscular HGB Conc 34.4 % (30-36); Mean Corpuscular Hemoglobin 31.1 PG (26-34); Mean Corpuscular Volume 90.4 fL (80-100); Monocytes Absolute Auto 500 /uL (0-900); Monocytes Percent Auto 7.8 % (3-14); Neutrophils Absolute Auto 4200 /uL (1500-7000); Neutrophils Percent Auto 63.3 % (50-75); Platelet Count 232 X10^3/uL (150-400); Red Blood Cell Count 4.42 X10^6/uL (4.0-5.2); Red Cell Distribution Width 14.1 % (11.6-14.8); White Blood Cell Count 6.6 X10^3/uL (4.5-11.0)
[2023-04-07 12:51] LABS: INR 1.1 (0.9-1.3); Prothrombin Time 12.6 SECONDS (10.1-12.7)
[2023-04-07 12:54] LABS: PTT Partial Thromboplastin Tim 39 SECONDS (26-36)
[2023-04-07 12:56] LABS: Alanine Aminotransferase 10 IU/L (<35); Albumin 4.2 g/dL (3.5-5.0); Albumin Globulin Ratio 1.2 (1.0-2.8); Alkaline Phosphatase 109 U/L (38-126); Aspartate Aminotransferase 39 IU/L (14-36); BUN Creatinine Ratio 34.8 (6-22); Bilirubin Total 1.2 mg/dL (0.2-1.3); Blood Urea Nitrogen 24 mg/dL (7-17); Calcium 9.8 mg/dL (8.4-10.2); Carbon Dioxide 27 mmol/L (22-32); Chloride 101 mmol/L (98-107); Creatine Kinase 45 U/L (30-135); Estimated Glomerular Filt Rate > 60 mL/min (>60); Ethanol (ETOH) < 10 mg/dL; Globulin 3.4 g/dL (1.7-4.1); Glucose 130 mg/dL (80-110); HEMOLYSIS < 15 (0-50); Sodium 137 mmol/L (137-145); Total Protein 7.6 g/dL (6.3-8.2)
[2023-04-07 13:08] LABS: Troponin I < 0.012 ng/mL (0.01-0.034)
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
[2023-04-07 14:07] LABS: UR Morphine/Opiate cutoff 300 Negative (Negative); Ur Creatinine Normal (Normal); Ur Specific Gravity Normal (Normal); Urine Amphetamines Negative (Negative); Urine Barbiturates Negative (Negative); Urine Benzodiazepines Negative (Negative); Urine Cocaine Negative (Negative); Urine MDMA Negative (Negative); Urine Methadone Negative (Negative); Urine Methamphetamines Negative (Negative); Urine Oxycodone Negative (Negative); Urine Phencyclidine Negative (Negative); Urine Tetrahydrocannabinol Negative (Negative); Urine Tricyclic Antidepressant Negative (Negative); Urine pH Normal (Normal)
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
[2023-04-07 14:49] LABS: COVID19 -Nasal RAPID Negative (Negative)
[2023-04-07 16:26] LABS: Appearance Urine UA CLEAR; Bilirubin Urine UA NEGATIVE (NEGATIVE); Color Urine UA YELLOW; Glucose Urine UA NEGATIVE (Negative); Ketones Urine UA TRACE (NEGATIVE); Leukocyte Esterase Urine UA TRACE (NEGATIVE); Nitrite Urine UA NEGATIVE (Negative); Occult Blood Urine UA NEGATIVE (Negative); Protein Urine UA TRACE (Negative); Specific Gravity Urine UA <=1.005 (1.000-1.035)
[2023-04-07 16:50] LABS: Bacteria Urine Many (>30); Calcium Oxalate Crystals Urine Few; Hyaline Casts Urine 0-1/LPF; RBC Urine None Seen (0-5/HPF); Squamous Epithelial Cell Urine None Seen (0-5/HPF); WBC Urine 5-10/HPF (0-5/HPF)
[2023-04-07 16:51] LABS: Culture Indicated Urine Specimen Cultured; Mucus Urine 1+ (Negative)
== END 2023-04-07 16:09 | disposition home or self-care (01) ==
PROVIDERS: Emergency Provider Emergency Medicine; Family Provider Nurse Practitioner; PCP Nurse Practitioner
DX: R41.0 Disorientation, unspecified (principal); S29.9XXA Unspecified injury of thorax, initial encounter; S09.90XA Unspecified injury of head, initial encounter; G20 Parkinson's disease; V89.2XXA Person injured in unspecified motor-vehicle accident, traffic, initial encounter; Z20.822 Contact with and (suspected) exposure to COVID-19
CPT/HCPCS: 36415; 70450; 70496; 70498; 71260; 74177; 80053; 80305; 80320; 81001; 81003; 82550; 82962; 84484; 85025; 85610; 85730; 87077; 87086; 87186; 87635; 99285; C9803; Q9967

== ENCOUNTER → 2023-04-16 16:06 | Outpatient (CLI) | payer MEDICARE, OTHER, SELFPAY ==
[2023-04-16 18:13] LABS: Glucose 96 mg/dL (80-110)
== END ==
PROVIDERS: Family Provider Nurse Practitioner; PCP Nurse Practitioner; Referring Provider Nurse Practitioner; Visit Provider Nurse Practitioner
DX: R55 Syncope and collapse (principal)
CPT/HCPCS: 36415; 82947

== ENCOUNTER → 2023-06-19 13:50 | Outpatient (CLI) | payer MEDICARE, OTHER, SELFPAY ==
[2023-06-19 15:40] LABS: Creatinine Urine Random 135.8 mg/dL
[2023-06-19 15:40] LABS: Hemoglobin A1C% w Est Avg Glu 5.8 % (4.0-6.0)
[2023-06-19 15:41] LABS: Alanine Aminotransferase 9 IU/L (<35); Albumin 4.2 g/dL (3.5-5.0); Albumin Globulin Ratio 1.4 (1.0-2.8); Alkaline Phosphatase 113 U/L (38-126); Aspartate Aminotransferase 26 IU/L (14-36); BUN Creatinine Ratio 34.8 (6-22); Blood Urea Nitrogen 23 mg/dL (7-17); Calcium 10.5 mg/dL (8.4-10.2); Carbon Dioxide 24 mmol/L (22-32); Chloride 101 mmol/L (98-107); Cholesterol 123 mg/dL (140-199); Estimated Glomerular Filt Rate > 60 mL/min (>60); Globulin 2.9 g/dL (1.7-4.1); Glucose 103 mg/dL (80-110); HDL Cholesterol 57 mg/dL (40-60); HEMOLYSIS < 15 (0-50); LDL Cholesterol Calculated 39 mg/dL (<100); Potassium 4.4 mmol/L (3.4-5.1); Sodium 136 mmol/L (137-145); Total Protein 7.1 g/dL (6.3-8.2); Triglycerides 135 mg/dL (35-150)
[2023-06-19 15:44] LABS: Microalbumi Creatinin Ratio Ur 55.2 ug/mg CR (<30); Microalbumin Urine Random 7.5 mg/dL (0-1.6)
[2023-06-19 15:59] LABS: Free T3, Triiodothyronine Free 3.65 pg/mL (2.77-5.27); Free T4, Direct Thyroxine 1.41 ng/dL (0.78-2.19)
[2023-06-19 16:13] LABS: Thyroid Stimulating Hormone 0.793 uIU/mL (0.47-4.68)
== END ==
PROVIDERS: Family Provider Nurse Practitioner; PCP Nurse Practitioner; Referring Provider Nurse Practitioner; Visit Provider Nurse Practitioner
DX: E11.69 Type 2 diabetes mellitus with other specified complication (principal); E78.5 Hyperlipidemia, unspecified; E11.9 Type 2 diabetes mellitus without complications; F32.9 Major depressive disorder, single episode, unspecified; E78.2 Mixed hyperlipidemia
CPT/HCPCS: 36415; 80053; 80061; 82043; 82570; 83036; 84439; 84443; 84481

== ENCOUNTER 2023-07-08 14:15 | Outpatient (RCR) | payer MEDICARE, OTHER, SELFPAY ==
--- NOTE | 2023-03-21 18:16 | PT.OIE ---
Current Diagnoses Low back pain, unspecified (03/21/23) Muscle weakness (generalized) (03/21/23) Difficulty in walking, not elsewhere classified (03/21/23) Unsteadiness on feet (03/21/23) Repeated falls (03/21/23) Past Medical History (Last Reviewed 02/20/23 @ 15:19 by ALIDA Richards) Allergic rhinitis Chronic back pain Chronic lower back pain Depression Deviated septum Diabetes Eczema Facet arthropathy, lumbar Foot pain Gastroesophageal reflux disease without esophagitis (09/27/15) GERD (gastroesophageal reflux disease) Hearing loss Hepatic steatosis Hyperlipemia Hyperlipidemia associated with type 2 diabetes mellitus Hypertension Leg edema, left Low back pain with sciatica Mixed hyperlipidemia (09/27/15) Obesity, Class III, BMI 40-49.9 (morbid obesity) Other dietary vitamin B12 deficiency anemia Overactive bladder (09/27/15) Parkinson's disease (09/27/15) Parkinson's disease (~2008) Plantar fasciitis of right foot (12/17/17) Pre-diabetes Seasonal allergic rhinitis (09/27/15) Urinary incontinence Urinary urgency Vertigo Past Surgical History (Last Reviewed 02/20/23 @ 15:19 by ALIDA Richards) Status post cholecystectomy Visit Care Team Role Provider Type ALIDA Richards Attending Provider Advanced Film Archivist Family Provider Primary Care Provider Referring Provider Specialty: [facility] Address: [address] [place] [address], [facility] Email: [email or web address] Physical Therapy Initial Evaluation PT-OP-A Visit Information Start: 03/13/23 12:55 Freq: Status: Active Protocol: Document 03/21/23 13:37 [facility] (Rec: 03/21/23 15:26 [facility] [id number]) Out-Patient Physical Therapy Visit Information Visit Information Visit Type Initial Evaluation Visit Note 09/25 Visit Start Time 13:35 Visit Stop Time 14:18 Total Visit Minutes 43 Visit Number 1 Number of SAVINGS COUNSELOR Visits 0 PT-OP-B Current Condition Start: 03/13/23 12:55 Freq: Status: Active Protocol: Document 03/21/23 13:37 [facility] (Rec: 03/21/23 15:26 [facility] [id number]) Current Condition History of Current Condition Current Complaints LBP, falls History of Current Condition Pt repots she has parkinson's and when she falls, she can't get back up. She has had 5 falls in the past couple years . She did PT from Sep to end of December. She felt like that helped and had one fall since then and she thinks her dog tripped her. She almost got up on her own but the table slid from her. 3/4 times she has fallen have been by the back door so she thinks it may be that entry way. Her back pain comes and goes. One day it feels good then the next is a bad day. No specific activity seems to make it worse. Pt reports it has been greater than 10 years that has had her parkinson's dx and is followed by neurologist. She gets dizziness with allergies and she gets shots for this. When seh doesn't get the shots , it makes her lay on her back . LBP has been on/off since about her 20s. Pt used to walk but doesn't like walking by herself when she knows her balance isn't great. 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 She did BIG therapy a few years ago but the therapy earlier this year helpe dhermore than anything. Prior Treatments and Tests lumbar MRI 2020: IMPRESSION: 1. Multilevel degenerative disc and facet disease, as well as ligamentum flavum hypertrophy and epidural lipomatosis. 2. Multilevel mild canal stenoses. 3. Multilevel foraminal stenoses, worst at L3-L4, L4- L5, and L5-S1 where there are moderate foraminal stenoses present. Treatment Goals Patient/Caregiver Goals Be able to move around and if she falls, get back up indep. Dec falls, get more UE and LE strength PT-OP-D Balance Start: 03/13/23 12:55 Freq: Status: Active Protocol: Document 03/21/23 13:37 [facility] (Rec: 03/21/23 15:26 [facility] [id number]) Balance Tests Mejias Balance Test Mejias Balance Test Score 37/56 PT-OP-E Functional Tests Start: 03/13/23 12:55 Freq: Status: Active Protocol: Document 03/21/23 13:37 [facility] (Rec: 03/21/23 15:26 [facility] [id number]) Functional Tests 6 Minute Walk Test Distance 1036 feet Device Used none 30 Second Sit to Stand Test Score 6x Five Times Sit to Stand Test Score 20 sec PT-OP-G Mobility & Gait Start: 03/13/23 12:55 Freq: Status: Active Protocol: Document 03/21/23 13:37 [facility] (Rec: 03/21/23 15:26 [facility] [id number]) OP Gait Assessment Comments Gait Comments dec step lenght and clearance w/LEs. occ uses SPC PT-OP-M Strength Start: 03/13/23 12:55 Freq: Status: Active Protocol: Document 03/21/23 13:37 [facility] (Rec: 03/21/23 15:26 [facility] [id number]) Hip Strength Hip Manual Muscle Testing Right Flexion (L2) 3+ Fair+ Abduction 4 Good Adduction 4+ Good+ External Rotation 3+ Fair+ Internal Rotation 3 Fair Left Flexion (L2) 3+ Fair+ Abduction 4 Good Adduction 5 Normal External Rotation 4 Good Internal Rotation 3 Fair Comments all tested seated Knee Strength Knee Manual Muscle Testing Right Flexion (S2) 4+ Good+ Extension (L3) 4+ Good+ Left Flexion (S2) 4+ Good+ Extension (L3) 4+ Good+ Ankle/Foot Strength Ankle and Foot Manual Muscle Testing Right Dorsiflexion (L4) 4+ Good+ Plantarflexion (S1) 4+ Good+ Left Dorsiflexion (L4) 4 Good Plantarflexion (S1) 4+ Good+ PT-OP-T Assessment and Plan Start: 03/13/23 12:55 Freq: Status: Active Protocol: Document 03/21/23 13:37 [facility] (Rec: 03/21/23 15:26 [facility] [id number]) Physical Therapy Assessment Rehab Potential Rehabilitation Potential Good Evaluation Complexity Number of Personal Factors/Comorbidities 3 or More Number of Body Systems Impaired 4 or More Clinical Presentation at Evaluation Unstable Impairments Impairments Activity Tolerance,Balance, Functional Activities, Functional Mobility,Gait,Pain, Posture,ROM,Soft Tissue Mobility,Strength,Transfers Goals activity Ic Designer Standard Cells Goal (LTG) Pt will be able to get up/down from ground w/outside surfaces indep LTG Duration 06/13 6 min walk Impairment 1036ft w/fwd bend and often dec foot clearance B after about 2 min Ic Designer Standard Cells Goal (LTG) Pt will be able to do walk at least 1300ft for 6 min walk test w/no more than 5 instances of dec foot clearance. LTG Duration 06/13/23 sit to stand Impairment 6 in 30 sec; 5x in 20 sec Short Term Goal (STG) Pt will be able to do 8 sit to sands in 30 sec to show dec fall risk and improved LE strength and activity tolerance STG Duration 04/26 Ic Designer Standard Cells Goal (LTG) Pt will be able to do 10 sit to sands in 30 sec to show dec fall risk and improved LE strength and activity tolerance LTG Duration 06/13/23 MEJIAS Impairment 37/56 Ic Designer Standard Cells Goal (LTG) Pt will score at least a 45/56 on MEJIAS to show dec risk for falls w/o AD LTG Duration 06/13 Assessment Summary Assessment Pt presents w/ history of falls, Parkinson's disease, chronic LBP and occasional dizziness d/t allergies. She has dec balance, dec LE and core and UE strength that makes it difficult for her to do floor transfters. She was doing well when attending PT earlier this year and has noticed a recent decline again . She is motivated to improve her mobiltiy and would benefit from skilled PT to work on strength, balance, gait and improved safety and dec LBP Physical Therapy Plan Frequency and Duration Frequency of Treatment 2x/Week Duration of treatment (weeks) 12 Plan of Care Start Date 03/21/23 Plan of Care End Date 06/13/23 Therapeutic Interventions Therapeutic Interventions Aquatic Therapy,Balance Training,Coordination Training ,Gait Training,Home Exercise Program,Joint Mobilizations, Manual Therapy,Neuromuscular Re-education,Orthotic/ Prosthetic Management,Patient/ Caregiver Education,Self-Care/ Home Management,Soft Tissue Mobilization,Taping, Therapeutic Activities, Therapeutic Exercises Modalities Cold Pack/Ice Massage,Electric Stimulation,Hot Packs, Infrared Therapy,Traction- Mechanical,Ultrasound Next Visit Focus/Plan Next Note Type Treatment Note Next Visit Plan HEP: sit to stands, marches, standing DF/PF, standing hip abd, supine bridge; progress balance exercsies in clinic on foam and firm ground, hurdles ,s idestep resisted
--- NOTE | 2023-03-21 18:16 | PT.OPPOC ---
Physical, Occupational & Speech Therapy At [facility] Current Diagnoses Low back pain, unspecified (03/21/23) Muscle weakness (generalized) (03/21/23) Difficulty in walking, not elsewhere classified (03/21/23) Unsteadiness on feet (03/21/23) Repeated falls (03/21/23) Visit Care Team Role Provider Type ALIDA Richards Attending Provider Advanced Building Official Family Provider Primary Care Provider Referring Provider Specialty: [facility] Practice Address: [address] [place] [address] Email: [email or web address] Plan Of Care PT-OP-T Assessment and Plan Start: 03/13/23 12:55 Freq: Status: Active Protocol: Document 03/21/23 13:37 [facility] (Rec: 03/21/23 15:26 [facility] [id number]) Physical Therapy Assessment Rehab Potential Rehabilitation Potential Good Evaluation Complexity Number of Personal Factors/Comorbidities 3 or More Number of Body Systems Impaired 4 or More Clinical Presentation at Evaluation Unstable Impairments Impairments Activity Tolerance,Balance, Functional Activities, Functional Mobility,Gait,Pain, Posture,ROM,Soft Tissue Mobility,Strength,Transfers Goals activity Intermediate Goal (LTG) Pt will be able to get up/down from ground w/outside surfaces indep LTG Duration 06/13 6 min walk Impairment 1036ft w/fwd bend and often dec foot clearance B after about 2 min Senior Sales Operations Manager Goal (LTG) Pt will be able to do walk at least 1300ft for 6 min walk test w/no more than 5 instances of dec foot clearance. LTG Duration 06/13/23 sit to stand Impairment 6 in 30 sec; 5x in 20 sec Short Term Goal (STG) Pt will be able to do 8 sit to sands in 30 sec to show dec fall risk and improved LE strength and activity tolerance STG Duration 04/26 Intermediate Goal (LTG) Pt will be able to do 10 sit to sands in 30 sec to show dec fall risk and improved LE strength and activity tolerance LTG Duration 06/13/23 CASAS Impairment 37/56 Intermediate Goal (LTG) Pt will score at least a 45/56 on CASAS to show dec risk for falls w/o AD LTG Duration 06/13 Assessment Summary Assessment Pt presents w/ history of falls, Parkinson's disease, chronic LBP and occasional dizziness d/t allergies. She has dec balance, dec LE and core and UE strength that makes it difficult for her to do floor transfters. She was doing well when attending PT earlier this year and has noticed a recent decline again . She is motivated to improve her mobiltiy and would benefit from skilled PT to work on strength, balance, gait and improved safety and dec LBP Physical Therapy Plan Frequency and Duration Frequency of Treatment 2x/Week Duration of treatment (weeks) 12 Plan of Care Start Date 03/21/23 Plan of Care End Date 06/13/23 Therapeutic Interventions Therapeutic Interventions Aquatic Therapy,Balance Training,Coordination Training ,Gait Training,Home Exercise Program,Joint Mobilizations, Manual Therapy,Neuromuscular Re-education,Orthotic/ Prosthetic Management,Patient/ Caregiver Education,Self-Care/ Home Management,Soft Tissue Mobilization,Taping, Therapeutic Activities, Therapeutic Exercises Modalities Cold Pack/Ice Massage,Electric Stimulation,Hot Packs, Infrared Therapy,Traction- Mechanical,Ultrasound Next Visit Focus/Plan Next Note Type Treatment Note Next Visit Plan HEP: sit to stands, marches, standing DF/PF, standing hip abd, supine bridge; progress balance exercsies in clinic on foam and firm ground, hurdles ,s idestep resisted Plan of Care Dates Plan of Care Start Date 03/21/23 Plan of Care End Date 06/13/23 Electronically Signed by: Sima Sesay, PT 03/21/23 5962 If you are in agreement with this Plan of Care, please return a signed and dated copy. I have reviewed this Plan of Care and certify that the skilled therapy services above are required to meet the patient?s needs. Physician Signature Date Printed Name and Credentials Clinical Instructor Signature Printed Name and Credentials
--- NOTE | 2023-03-27 17:55 | PT.OTN ---
Addendum entered and electronically signed by Sima Sesay, PT 03/28/23 08:45: PT direct supervision and direction to PT student. Original Note: Current Diagnoses Low back pain, unspecified (03/27/23) Muscle weakness (generalized) (03/27/23) Difficulty in walking, not elsewhere classified (03/27/23) Unsteadiness on feet (03/27/23) Repeated falls (03/27/23) Physical Therapy Treatment Note PT-OP-A Visit Information Start: 03/13/23 12:55 Freq: Status: Active Protocol: Document 03/27/23 13:36 (Rec: 03/27/23 13:54 [id number]) Out-Patient Physical Therapy Visit Information Visit Information Visit Type Treatment Note Visit Note 10/26 Visit Start Time 12:48 Visit Stop Time 01:33 Total Visit Minutes 45 Visit Number 2 Number of [employer]ER Visits 0 PT-OP-B Current Condition Start: 03/13/23 12:55 Freq: Status: Active Protocol: Document 03/21/23 13:37 [facility] (Rec: 03/21/23 15:26 [facility] [id number]) Current Condition History of Current Condition Current Complaints LBP, falls History of Current Condition Pt repots she has parkinson's and when she falls, she can't get back up. She has had 5 falls in the past couple years . She did PT from Sep to end of December. She felt like that helped and had one fall since then and she thinks her dog tripped her. She almost got up on her own but the table slid from her. 3/4 times she has fallen have been by the back door so she thinks it may be that entry way. Her back pain comes and goes. One day it feels good then the next is a bad day. No specific activity seems to make it worse. Pt reports it has been greater than 10 years that has had her parkinson's dx and is followed by neurologist. She gets dizziness with allergies and she gets shots for this. When seh doesn't get the shots , it makes her lay on her back . LBP has been on/off since about her 20s. Pt used to walk but doesn't like walking by herself when she knows her balance isn't great. 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 She did BIG therapy a few years ago but the therapy earlier this year helpe dhermore than anything. Prior Treatments and Tests lumbar MRI 2020: IMPRESSION: 1. Multilevel degenerative disc and facet disease, as well as ligamentum flavum hypertrophy and epidural lipomatosis. 2. Multilevel mild canal stenoses. 3. Multilevel foraminal stenoses, worst at L3-L4, L4- L5, and L5-S1 where there are moderate foraminal stenoses present. Treatment Goals Patient/Caregiver Goals Be able to move around and if she falls, get back up indep. Dec falls, get more UE and LE strength PT-OP-C Subjective Start: 03/13/23 12:55 Freq: Status: Active Protocol: Document 03/27/23 13:36 (Rec: 03/27/23 13:54 [id number]) OP-PT Subjective Patient Comments Patient Comments pt has nothing new to report PT-OP-D Balance Start: 03/13/23 12:55 Freq: Status: Active Protocol: Document 03/21/23 13:37 [facility] (Rec: 03/21/23 15:26 [facility] [id number]) Balance Tests Casas Balance Test Casas Balance Test Score 37/56 PT-OP-E Functional Tests Start: 03/13/23 12:55 Freq: Status: Active Protocol: Document 03/21/23 13:37 [facility] (Rec: 03/21/23 15:26 [facility] [id number]) Functional Tests 6 Minute Walk Test Distance 1036 feet Device Used none 30 Second Sit to Stand Test Score 6x Five Times Sit to Stand Test Score 20 sec PT-OP-G Mobility & Gait Start: 03/13/23 12:55 Freq: Status: Active Protocol: Document 03/21/23 13:37 [facility] (Rec: 03/21/23 15:26 [facility] [id number]) OP Gait Assessment Comments Gait Comments dec step lenght and clearance w/LEs. occ uses SPC PT-OP-M Strength Start: 03/13/23 12:55 Freq: Status: Active Protocol: Document 03/21/23 13:37 [facility] (Rec: 03/21/23 15:26 [facility] [id number]) Hip Strength Hip Manual Muscle Testing Right Flexion (L2) 3+ Fair+ Abduction 4 Good Adduction 4+ Good+ External Rotation 3+ Fair+ Internal Rotation 3 Fair Left Flexion (L2) 3+ Fair+ Abduction 4 Good Adduction 5 Normal External Rotation 4 Good Internal Rotation 3 Fair Comments all tested seated Knee Strength Knee Manual Muscle Testing Right Flexion (S2) 4+ Good+ Extension (L3) 4+ Good+ Left Flexion (S2) 4+ Good+ Extension (L3) 4+ Good+ Ankle/Foot Strength Ankle and Foot Manual Muscle Testing Right Dorsiflexion (L4) 4+ Good+ Plantarflexion (S1) 4+ Good+ Left Dorsiflexion (L4) 4 Good Plantarflexion (S1) 4+ Good+ PT-OP-Q Treatments Start: 03/13/23 12:55 Freq: Status: Active Protocol: Document 03/27/23 13:36 (Rec: 03/27/23 13:54 [id number]) Cardio Equipment Recumbent Elliptical (Biodex) Duration (Minutes) 6 Resistance 5 Seat Position 10 Other 4 min @Resistance 5, 2 min @R3 Therapeutic Exercises Sitting Exercises Sit to Stand Side bilateral Reps/Minutes 10x Comments cues for not plopping down Knee Extension Side bilateral Equipment Used orange band Reps/Minutes 15x Knee flexion Side bilateral Equipment Used orange band Reps/Minutes 15x dorsiflexion Side bilateral Equipment Used orange band Reps/Minutes 15x HS stretch Sitting Exercise Name seated, bolster under foot so heel can touch Side bilateral Reps/Minutes 2x30 sec ea Comments cues for leg postioning Standing Exercises calf stretch Standing Exercise Name @bar Side bilateral Reps/Minutes 2x30 sec hurdles Side bilateral Reps/Minutes 3 laps ea Comments max cues for posture and stepping marches Side bilateral Equipment Used bar Reps/Minutes 20x Comments max cues for posture, moving slow, alternating legs. balance Standing Exercise Name 1. one foot on each tpad neutral stance WBOS, 2. modified tandem Side bilateral Equipment Used blue tpads Reps/Minutes 2x30 sec ea Comments EO, EC, head turns Neuro Re-Education Treatment Balance Activities balance Equipment blue tpads Reps/Duration 2x 30 sec ea Comments 1. one foot on each tpad neutral stance WBOS; EO, EC, head turns 2. modified tandem; EO, EC, head turns hurdles Details hurdles at bar Reps/Duration 3 laps ea Comments fwrd, step over. max cues for posture PT-OP-T Assessment and Plan Start: 03/13/23 12:55 Freq: Status: Active Protocol: Document 03/27/23 13:36 (Rec: 03/27/23 13:54 [id number]) Physical Therapy Assessment Goals activity [facility]ci Goal (LTG) Pt will be able to get up/down from ground w/outside surfaces indep LTG Duration 06/13 6 min walk Impairment 1036ft w/fwd bend and often dec foot clearance B after about 2 min [facility]ci Goal (LTG) Pt will be able to do walk at least 1300ft for 6 min walk test w/no more than 5 instances of dec foot clearance. LTG Duration 06/13/23 sit to stand Impairment 6 in 30 sec; 5x in 20 sec Short Term Goal (STG) Pt will be able to do 8 sit to sands in 30 sec to show dec fall risk and improved LE strength and activity tolerance STG Duration 04/26 Raw Sampler Goal (LTG) Pt will be able to do 10 sit to sands in 30 sec to show dec fall risk and improved LE strength and activity tolerance LTG Duration 06/13/23 CASAS Impairment 37/56 Raw Sampler Goal (LTG) Pt will score at least a 45/56 on CASAS to show dec risk for falls w/o AD LTG Duration 06/13 Assessment Summary Assessment Pt came in ready to get moving . Resting tremor increased 25 min into treatment in L hand and R leg when seated. Pt required max cues for posture during all exercises. She was hesitant to lift her feet when she wasnt able to look directly at her extremeties. Balance exercises fatigued her quickly. Physical Therapy Plan Frequency and Duration Frequency of Treatment 2x/Week Duration of treatment (weeks) 12 Plan of Care Start Date 03/21/23 Plan of Care End Date 06/13/23 Next Visit Focus/Plan Next Visit Plan Review HEP. progress balance exercises, add standing hip abd, ext; supine bridges.
--- NOTE | 2023-03-29 13:17 | PT.OTN ---
Current Diagnoses Low back pain, unspecified (03/29/23) Muscle weakness (generalized) (03/29/23) Difficulty in walking, not elsewhere classified (03/29/23) Unsteadiness on feet (03/29/23) Repeated falls (03/29/23) Physical Therapy Treatment Note PT-OP-A Visit Information Start: 03/13/23 12:55 Freq: Status: Active Protocol: Document 03/29/23 12:07 [facility] (Rec: 03/29/23 13:16 [facility] [id number]) Out-Patient Physical Therapy Visit Information Visit Information Visit Type Treatment Note Visit Note 11/23 Visit Start Time 12:16 Visit Stop Time 13:04 Total Visit Minutes 48 Visit Number 3 Number of [employer]OWER [employer] ELECTRICIAN Visits 1 PT-OP-B Current Condition Start: 03/13/23 12:55 Freq: Status: Active Protocol: Document 03/21/23 13:37 [facility] (Rec: 03/21/23 15:26 [facility] [id number]) Current Condition History of Current Condition Current Complaints LBP, falls History of Current Condition Pt repots she has parkinson's and when she falls, she can't get back up. She has had 5 falls in the past couple years . She did PT from Sep to end of December. She felt like that helped and had one fall since then and she thinks her dog tripped her. She almost got up on her own but the table slid from her. 3/4 times she has fallen have been by the back door so she thinks it may be that entry way. Her back pain comes and goes. One day it feels good then the next is a bad day. No specific activity seems to make it worse. Pt reports it has been greater than 10 years that has had her parkinson's dx and is followed by neurologist. She gets dizziness with allergies and she gets shots for this. When seh doesn't get the shots , it makes her lay on her back . LBP has been on/off since about her 20s. Pt used to walk but doesn't like walking by herself when she knows her balance isn't great. 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 She did BIG therapy a few years ago but the therapy earlier this year helpe dhermore than anything. Prior Treatments and Tests lumbar MRI 2019: IMPRESSION: 1. Multilevel degenerative disc and facet disease, as well as ligamentum flavum hypertrophy and epidural lipomatosis. 2. Multilevel mild canal stenoses. 3. Multilevel foraminal stenoses, worst at L3-L4, L4- L5, and L5-S1 where there are moderate foraminal stenoses present. Treatment Goals Patient/Caregiver Goals Be able to move around and if she falls, get back up indep. Dec falls, get more UE and LE strength PT-OP-C Subjective Start: 03/13/23 12:55 Freq: Status: Active Protocol: Document 03/29/23 12:07 [facility] (Rec: 03/29/23 13:16 [facility] [id number]) OP-PT Subjective Patient Comments Patient Comments Ale reports no new falls. PT-OP-D Balance Start: 03/13/23 12:55 Freq: Status: Active Protocol: Document 03/21/23 13:37 [facility] (Rec: 03/21/23 15:26 [facility] [id number]) Balance Tests Casas Balance Test Casas Balance Test Score 37/56 PT-OP-E Functional Tests Start: 03/13/23 12:55 Freq: Status: Active Protocol: Document 03/21/23 13:37 [facility] (Rec: 03/21/23 15:26 [facility] [id number]) Functional Tests 6 Minute Walk Test Distance 1036 feet Device Used none 30 Second Sit to Stand Test Score 6x Five Times Sit to Stand Test Score 20 sec PT-OP-G Mobility & Gait Start: 03/13/23 12:55 Freq: Status: Active Protocol: Document 03/21/23 13:37 [facility] (Rec: 03/21/23 15:26 [facility] [id number]) OP Gait Assessment Comments Gait Comments dec step lenght and clearance w/LEs. occ uses SPC PT-OP-M Strength Start: 03/13/23 12:55 Freq: Status: Active Protocol: Document 03/21/23 13:37 [facility] (Rec: 03/21/23 15:26 [facility] [id number]) Hip Strength Hip Manual Muscle Testing Right Flexion (L2) 3+ Fair+ Abduction 4 Good Adduction 4+ Good+ External Rotation 3+ Fair+ Internal Rotation 3 Fair Left Flexion (L2) 3+ Fair+ Abduction 4 Good Adduction 5 Normal External Rotation 4 Good Internal Rotation 3 Fair Comments all tested seated Knee Strength Knee Manual Muscle Testing Right Flexion (S2) 4+ Good+ Extension (L3) 4+ Good+ Left Flexion (S2) 4+ Good+ Extension (L3) 4+ Good+ Ankle/Foot Strength Ankle and Foot Manual Muscle Testing Right Dorsiflexion (L4) 4+ Good+ Plantarflexion (S1) 4+ Good+ Left Dorsiflexion (L4) 4 Good Plantarflexion (S1) 4+ Good+ PT-OP-Q Treatments Start: 03/13/23 12:55 Freq: Status: Active Protocol: Document 03/29/23 12:07 [facility] (Rec: 03/29/23 13:16 [facility] [id number]) Cardio Equipment Recumbent Elliptical (Biodex) Duration (Minutes) 6 Resistance 5 Seat Position 10 Other Lvl 5 sustained throughout. Therapeutic Exercises Sitting Exercises Sit to Stand Side bilateral Reps/Minutes 10x Comments cues for not plopping down, full upright posture Knee Extension Side bilateral Equipment Used orange band Reps/Minutes 15x ea Knee flexion Side bilateral Equipment Used orange band Reps/Minutes 15x ea dorsiflexion Side bilateral Equipment Used orange band Reps/Minutes 10x ea HS stretch Sitting Exercise Name seated, bolster under foot so heel can touch Side bilateral Reps/Minutes 2x30 sec ea Comments cues for leg postioning Standing Exercises marches Side bilateral Equipment Used // bar Reps/Minutes 20x Comments max cues for posture, moving slow, alternating legs. Neuro Re-Education Treatment Balance Activities balance Equipment blue tpads Reps/Duration 2x 30 sec ea Comments 1. one foot on each tpad neutral stance WBOS; EO, EC, head turns 2. modified tandem; EO, EC, head turns hurdles Details hurdles at bar Reps/Duration 4x10ft fwd, 2x10 ea lat Comments fwrd, sidestep. max cues for posture, distant focal point, excessive hip ER. PT-OP-T Assessment and Plan Start: 03/13/23 12:55 Freq: Status: Active Protocol: Document 03/29/23 12:07 [facility] (Rec: 03/29/23 13:16 [facility] [id number]) Physical Therapy Assessment Impairments Impairments Activity Tolerance,Balance, Functional Activities, Functional Mobility,Gait,Pain, Posture,ROM,Soft Tissue Mobility,Strength,Transfers Goals activity Care Home Goal (LTG) Pt will be able to get up/down from ground w/outside surfaces indep LTG Duration 06/13 6 min walk Impairment 1036ft w/fwd bend and often dec foot clearance B after about 2 min Care Home Goal (LTG) Pt will be able to do walk at least 1300ft for 6 min walk test w/no more than 5 instances of dec foot clearance. LTG Duration 06/13/23 sit to stand Impairment 6 in 30 sec; 5x in 20 sec Short Term Goal (STG) Pt will be able to do 8 sit to sands in 30 sec to show dec fall risk and improved LE strength and activity tolerance STG Duration 04/26 Care Home Goal (LTG) Pt will be able to do 10 sit to sands in 30 sec to show dec fall risk and improved LE strength and activity tolerance LTG Duration 06/13/23 CASAS Impairment 37/56 Care Home Goal (LTG) Pt will score at least a 45/56 on CASAS to show dec risk for falls w/o AD LTG Duration 06/13 Assessment Summary Assessment Pt presents without Assistive Device (cane left in car). Treatment focus today on HEP review, LE strengthening and balance using energy conservation by alternating sitting and standing activites . Ale is particularly challenged with balance with eyes closed in tandem stance on blue therapads and requires cues for glute activation and upright posture. She is able to perform seated resisted knee flexion/extension with neutral foot positioning with initial max cues but demonstrates good carryover for self-awareness with repetition. R foot cramped x2 with standing balance activity . Pt left with [employer] to schedule more PT visits. Physical Therapy Plan Frequency and Duration Frequency of Treatment 2x/Week Duration of treatment (weeks) 12 Plan of Care Start Date 03/21/23 Plan of Care End Date 06/13/23 Therapeutic Interventions Therapeutic Interventions Aquatic Therapy,Balance Training,Coordination Training ,Gait Training,Home Exercise Program,Joint Mobilizations, Manual Therapy,Neuromuscular Re-education,Orthotic/ Prosthetic Management,Patient/ Caregiver Education,Self-Care/ Home Management,Soft Tissue Mobilization,Taping, Therapeutic Activities, Therapeutic Exercises Modalities Cold Pack/Ice Massage,Electric Stimulation,Hot Packs, Infrared Therapy,Traction- Mechanical,Ultrasound Next Visit Focus/Plan Next Note Type Treatment Note Next Visit Plan Floor recovery each visit per pt request. POC: progress balance exercises, add standing hip abd, ext; supine bridges.
--- NOTE | 2023-04-05 14:04 | PT.OTN ---
Current Diagnoses Low back pain, unspecified (04/05/23) Muscle weakness (generalized) (04/05/23) Difficulty in walking, not elsewhere classified (04/05/23) Unsteadiness on feet (04/05/23) Repeated falls (04/05/23) Physical Therapy Treatment Note PT-OP-A Visit Information Start: 03/13/23 12:55 Freq: Status: Active Protocol: Document 04/05/23 10:35 [facility] (Rec: 04/05/23 11:32 [facility] [id number]) Out-Patient Physical Therapy Visit Information Visit Information Visit Type Treatment Note Visit Note 12/24 Visit Start Time 10:36 Visit Stop Time 11:20 Total Visit Minutes 44 Visit Number 4 Number of ELECTRICAL CONTINUITY TESTER Visits 2 PT-OP-B Current Condition Start: 03/13/23 12:55 Freq: Status: Active Protocol: Document 03/21/23 13:37 [facility] (Rec: 03/21/23 15:26 [facility] [id number]) Current Condition History of Current Condition Current Complaints LBP, falls History of Current Condition Pt repots she has parkinson's and when she falls, she can't get back up. She has had 5 falls in the past couple years . She did PT from Sep to end of December. She felt like that helped and had one fall since then and she thinks her dog tripped her. She almost got up on her own but the table slid from her. 3/4 times she has fallen have been by the back door so she thinks it may be that entry way. Her back pain comes and goes. One day it feels good then the next is a bad day. No specific activity seems to make it worse. Pt reports it has been greater than 10 years that has had her parkinson's dx and is followed by neurologist. She gets dizziness with allergies and she gets shots for this. When seh doesn't get the shots , it makes her lay on her back . LBP has been on/off since about her 20s. Pt used to walk but doesn't like walking by herself when she knows her balance isn't great. 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 She did BIG therapy a few years ago but the therapy earlier this year helpe dhermore than anything. Prior Treatments and Tests lumbar MRI 2019: IMPRESSION: 1. Multilevel degenerative disc and facet disease, as well as ligamentum flavum hypertrophy and epidural lipomatosis. 2. Multilevel mild canal stenoses. 3. Multilevel foraminal stenoses, worst at L3-L4, L4- L5, and L5-S1 where there are moderate foraminal stenoses present. Treatment Goals Patient/Caregiver Goals Be able to move around and if she falls, get back up indep. Dec falls, get more UE and LE strength PT-OP-C Subjective Start: 03/13/23 12:55 Freq: Status: Active Protocol: Document 04/05/23 10:35 [facility] (Rec: 04/05/23 11:32 [facility] [id number]) OP-PT Subjective Patient Comments Patient Comments Ale reports she's doing well and no new falls. She left her cane in the car. PT-OP-D Balance Start: 03/13/23 12:55 Freq: Status: Active Protocol: Document 03/21/23 13:37 [facility] (Rec: 03/21/23 15:26 [facility] [id number]) Balance Tests Casas Balance Test Casas Balance Test Score 37/56 PT-OP-E Functional Tests Start: 03/13/23 12:55 Freq: Status: Active Protocol: Document 03/21/23 13:37 [facility] (Rec: 03/21/23 15:26 [facility] [id number]) Functional Tests 6 Minute Walk Test Distance 1036 feet Device Used none 30 Second Sit to Stand Test Score 6x Five Times Sit to Stand Test Score 20 sec PT-OP-G Mobility & Gait Start: 03/13/23 12:55 Freq: Status: Active Protocol: Document 03/21/23 13:37 [facility] (Rec: 03/21/23 15:26 [facility] [id number]) OP Gait Assessment Comments Gait Comments dec step lenght and clearance w/LEs. occ uses SPC PT-OP-M Strength Start: 03/13/23 12:55 Freq: Status: Active Protocol: Document 03/21/23 13:37 [facility] (Rec: 03/21/23 15:26 [facility] [id number]) Hip Strength Hip Manual Muscle Testing Right Flexion (L2) 3+ Fair+ Abduction 4 Good Adduction 4+ Good+ External Rotation 3+ Fair+ Internal Rotation 3 Fair Left Flexion (L2) 3+ Fair+ Abduction 4 Good Adduction 5 Normal External Rotation 4 Good Internal Rotation 3 Fair Comments all tested seated Knee Strength Knee Manual Muscle Testing Right Flexion (S2) 4+ Good+ Extension (L3) 4+ Good+ Left Flexion (S2) 4+ Good+ Extension (L3) 4+ Good+ Ankle/Foot Strength Ankle and Foot Manual Muscle Testing Right Dorsiflexion (L4) 4+ Good+ Plantarflexion (S1) 4+ Good+ Left Dorsiflexion (L4) 4 Good Plantarflexion (S1) 4+ Good+ PT-OP-Q Treatments Start: 03/13/23 12:55 Freq: Status: Active Protocol: Document 04/05/23 10:35 [facility] (Rec: 04/05/23 11:32 [facility] [id number]) Cardio Equipment Recumbent Elliptical (Easydiagnosis) Duration (Minutes) 6 Resistance 5 Seat Position 10 Other Lvl 5 sustained throughout. Therapeutic Exercises Sitting Exercises hip adduction Side bilateral Equipment Used blue/white ball Reps/Minutes 10 x 5SH Comments cues for initial breathholding . hip abduction Sitting Exercise Name seated clamshells Side bilateral Resistance [place] Tb (Lvl 2) Reps/Minutes x15 marching Side bilateral Equipment Used queen chair. Reps/Minutes x10 ea Knee Extension Side bilateral Equipment Used orange band around ankles. Reps/Minutes 15x ea Knee flexion Side bilateral Equipment Used orange band Reps/Minutes 15x ea dorsiflexion Side bilateral Equipment Used orange band Reps/Minutes 15x ea HS stretch Sitting Exercise Name seated, bolster under foot so heel can touch Side bilateral Reps/Minutes 2x30 sec ea Therapeutic Activity Therapeutic Activity floor recovery Reps/Minutes x1 Comments large chair for 1/2 kneel to standing. stand<>1/2 kneel<>tall kneel<> side sit<>long sitting-> kneeling, 1/2 kneel to stand 0 % A. PT-OP-T Assessment and Plan Start: 03/13/23 12:55 Freq: Status: Active Protocol: Document 04/05/23 10:35 [facility] (Rec: 04/05/23 11:32 [facility] [id number]) Physical Therapy Assessment Goals activity Jumbo Operator Goal (LTG) Pt will be able to get up/down from ground w/outside surfaces indep LTG Duration 06/13 6 min walk Impairment 1036ft w/fwd bend and often dec foot clearance B after about 2 min Jumbo Operator Goal (LTG) Pt will be able to do walk at least 1300ft for 6 min walk test w/no more than 5 instances of dec foot clearance. LTG Duration 06/13/23 sit to stand Impairment 6 in 30 sec; 5x in 20 sec Short Term Goal (STG) Pt will be able to do 8 sit to sands in 30 sec to show dec fall risk and improved LE strength and activity tolerance STG Duration 04/26 Longterm Goal (LTG) Pt will be able to do 10 sit to sands in 30 sec to show dec fall risk and improved LE strength and activity tolerance LTG Duration 06/13/23 CASAS Impairment 37/56 Longterm Goal (LTG) Pt will score at least a 45/56 on CASAS to show dec risk for falls w/o AD LTG Duration 06/13 Assessment Summary Assessment Pt presents without Assistive device again (cane left in car ). She is fatigued with 3 min at level 5 on Biodex for 7 total minutes and rests prior to floor recovery. She requires cues throughout, particularly for foot positioning, and requires heavy arm support with chair for transition from 1/2 kneel to standing, consistent with LE weakness. She feels shaky end of session and uses clinic SPC and is escorted to car with directions to bring SPC to PT appts for safety going forward. Physical Therapy Plan Frequency and Duration Frequency of Treatment 2x/Week Duration of treatment (weeks) 12 Plan of Care Start Date 03/21/23 Plan of Care End Date 06/13/23 Therapeutic Interventions Therapeutic Interventions Aquatic Therapy,Balance Training,Coordination Training ,Gait Training,Home Exercise Program,Joint Mobilizations, Manual Therapy,Neuromuscular Re-education,Orthotic/ Prosthetic Management,Patient/ Caregiver Education,Self-Care/ Home Management,Soft Tissue Mobilization,Taping, Therapeutic Activities, Therapeutic Exercises Modalities Cold Pack/Ice Massage,Electric Stimulation,Hot Packs, Infrared Therapy,Traction- Mechanical,Ultrasound Next Visit Focus/Plan Next Note Type Treatment Note Next Visit Plan Floor recovery each visit per pt request. Continue Quad/ glute strengthening for carryover with floor recovery. POC: progress balance exercises, add standing hip abd, ext; supine bridges.
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
--- NOTE | 2023-07-03 12:25 | PT-OP ANOTE ---
Pt called, sick unable to make appt.
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
== END 2023-07-10 11:29 | disposition home or self-care (01) ==
LOC: PHYS 14:15
PROVIDERS: Family Provider Nurse Practitioner; PCP Nurse Practitioner; Referring Provider Nurse Practitioner; Visit Provider Nurse Practitioner
DX: R29.6 Repeated falls (principal); R26.81 Unsteadiness on feet; M62.81 Muscle weakness (generalized); M54.50 Low back pain, unspecified
CPT/HCPCS: 97110; 97112; 97116; 97163; 97164; 97530

== ENCOUNTER → 2023-07-19 12:30 | Outpatient (CLI) | payer MEDICARE, OTHER, SELFPAY ==
--- NOTE | 2023-07-19 12:31 | DI.ECHO.S_ITS ---
[facility]---------+ [facility] +---------+ : : [address] [place] : : : : [id number] : : : : Phone: [phone]+ Echocardiogram Report + + :Name: YASH CARBONE Study Date: 07/19/2023 Height: 68 in : :[facility] ReadingLocation: Weight: 270 lb : : Gender: Female BSA: 2.3 m2 : :: 1950 Age: 73 yrs BP: 137/92 mmHg: :Reason For Study: Syncope and Collapse : :Ordering Physician: TOPHER, : :DARIUS Performed By: Gricelda Sheridan : :Referring: DARIUS OBANDO : + + Interpretation Summary The study quality was technically difficult. The ejection fraction is estimated to be 60-65%. The right ventricle is normal in size and function. No significant valvular abnormality. Procedure: A two-dimensional transthoracic echocardiogram with color flow and Doppler was performed. The study quality was technically difficult. There is no prior echocardiogram noted for this patient. A contrast injection of Definity was performed to improve assessment of LV function. Images from the parasternal window were difficult to obtain and are suboptimal in quality. The apical views were difficult to obtain and are suboptimal in quality. The patient was in normal sinus rhythm during the exam. Left Ventricle: The left ventricle is normal in size. The ejection fraction is estimated to be 60-65%. There are no obvious focal wall motion abnormalities noted but poor endocardial definition reduces the sensitivity for the detection of such. Right Ventricle: The right ventricle is normal in size and function. Atria: The left atrial size is normal. Right atrial size is normal. The interatrial septum is not well visualized. There is no Doppler evidence for an interatrial shunt. Mitral Valve: The mitral valve is not well visualized. There is no mitral valve stenosis. There is no mitral regurgitation noted. Aortic Valve: The aortic valve is not well visualized. There is no aortic valve stenosis. No aortic regurgitation is present. Tricuspid Valve: The tricuspid valve is not well visualized. There is no tricuspid stenosis. No tricuspid regurgitation. Pulmonic Valve: The pulmonic valve is not well visualized. There is no pulmonic valvular stenosis. There is trace pulmonic regurgitation. Great Vessels: The aortic root is not well visualized. The ascending aorta is at the upper limits of normal in size. The pulmonary artery is normal size. The inferior vena cava was not well visualized. Pericardium/ Pleura There is a trivial pericardial effusion noted. MMode/2D Measurements & Calculations LVOT diam: 1.9 cm LA A2 area: 16.2 cm2 Ao root diam: 3.0 cm LA A4 area: 16.5 cm2 asc Aorta Diam: 3.8 cm LA length (vol): 5.2 cm LA vol: 43.3 ml LA vol index: 18.6 ml/m2 LVLs ap4: 5.8 cm LVLd ap2: 7.0 cm LVLs ap2: 6.4 cm TAPSE_phl: 2.2 cm Doppler Measurements & Calculations Ao V2 max: 107.3 cm/sec LVOT Max Eamon: 107.5 cm/sec Ao V2 mean: 72.6 cm/sec LV V1 max P.6 mmHg Ao max P.0 mmHg LV V1 VTI: 19.9 cm Ao mean P.3 mmHg HENNA(I,D): 2.7 cm2 Ao V2 VTI: 21.0 cm HENNA(V,D): 2.8 cm2 sev ratio: 0.95 HENNA indexed to BSA (cm^2/m^2): 1.2 MV E max eamon: 67.5 cm/sec PA V2 max: 84.5 cm/sec MV A max eamon: 80.6 cm/sec PA V2 mean: 62.1 cm/sec MV E/A: 0.84 PA mean P.0 mmHg Lat Peak E' Eamon: 8.4 cm/sec PA pr(Accel): 31.3 mmHg E/E' lat: 8.0 MV dec time: 0.21 sec SV(LVOT): 56.4 ml AV VR_phl: 1.0 HENNA(VTI)/BSA_phl: 1.2 Reading Physician:PRASHANT
== END ==
PROVIDERS: Family Provider Nurse Practitioner; PCP Nurse Practitioner; Referring Provider Family Medicine; Visit Provider Family Medicine
DX: R55 Syncope and collapse; G20.A1 Parkinson's disease without dyskinesia, without mention of fluctuations; E11.9 Type 2 diabetes mellitus without complications; E66.01 Morbid (severe) obesity due to excess calories
CPT/HCPCS: 93306; Q9957

== ENCOUNTER 2023-10-12 19:22 | Inpatient (IN) | payer MEDICARE, OTHER, SELFPAY ==
[2023-10-12] VITALS (8 sets, daily range): BP systolic 103–121; BP diastolic 56–77; PULSE 99–105; RESP 20–22; TEMP 36.8–37; O2SAT 91–93; BMI 39.6
--- NOTE | 2023-10-12 19:48 | DI.RAD.S_ITS ---
PROCEDURE: XR CHEST 1V INDICATIONS: fever TECHNIQUE: One view of the chest was acquired. COMPARISON: [facility], CHEST 1 VIEW, 05/03/2008, 19:35. [facility], CHEST 2 VIEW, 01/30/2008, 7:06. FINDINGS: Surgical changes and devices: None. Lungs and pleura: Lungs are clear. No pleural effusions or pneumothorax. Mediastinum: Mediastinal contours appear normal. Heart size is normal. Bones and chest wall: No suspicious bony lesions. Overlying soft tissues appear unremarkable. IMPRESSION: No acute cardiopulmonary abnormality is seen. Dictated by: Bib Proctor M.D. on 10/12/2023 at 20:39 Approved by: Bib Proctor M.D. on 10/12/2023 at 20:39
[2023-10-12 19:56] LABS: Add Manual Diff / Slide Review NO; Basophils Absolute Auto 0 /uL (0-100); Basophils Percent Auto 0.3 % (0-2); Eosinophils Absolute Auto 0 /uL (0-450); Hematocrit 39.5 % (36-46); Hemoglobin 13.4 g/dL (12.0-16.0); Lymphocytes Absolute Auto 800 /uL (1100-4500); Lymphocytes Percent Auto 5.6 % (25-40); Mean Corpuscular Hemoglobin 31.3 PG (26-34); Mean Corpuscular Volume 92.1 fL (80-100); Monocytes Absolute Auto 1500 /uL (0-900); Monocytes Percent Auto 9.7 % (3-14); Neutrophils Absolute Auto 12700 /uL (1500-7000); Neutrophils Percent Auto 84.4 % (50-75); Platelet Count 210 X10^3/uL (150-400); Red Blood Cell Count 4.29 X10^6/uL (4.0-5.2)
[2023-10-12 20:03] LABS: Lactate (Lactic Acid) 1.6 mmol/L (0.7-2.1)
[2023-10-12 20:04] LABS: Alanine Aminotransferase 16 IU/L (<35); Albumin Globulin Ratio 1.1 (1.0-2.8); Alkaline Phosphatase 151 U/L (38-126); Aspartate Aminotransferase 39 IU/L (14-36); BUN Creatinine Ratio 38.5 (6-22); Bilirubin Total 2.2 mg/dL (0.2-1.3); Blood Urea Nitrogen 25 mg/dL (7-17); Carbon Dioxide 20 mmol/L (22-32); Chloride 96 mmol/L (98-107); Creatine Kinase 37 U/L (30-135); Estimated Glomerular Filt Rate > 60 mL/min (>60); Globulin 3.6 g/dL (1.7-4.1); Glucose 162 mg/dL (80-110); HEMOLYSIS < 15 (0-50); Potassium 3.9 mmol/L (3.4-5.1); Sodium 130 mmol/L (137-145); Total Protein 7.6 g/dL (6.3-8.2)
[2023-10-12 20:16] LABS: Troponin I < 0.012 ng/mL (0.01-0.034)
[2023-10-12 20:20] LABS: Procalcitonin 0.24 ng/mL (<0.5)
[2023-10-12 20:58] LABS: NT-proBNP (BNP-Adult 18+) 267 pg/mL (<125)
[2023-10-12] MEDS: SODIUM CHLORIDE 0.9% 1,000 ML 1000 ML IV ×2 (21:04→23:13)
[2023-10-12] MEDS: PIPERACILLIN/TAZO 4.5 GM in SODIUM CHLORIDE 0.9% 100 ML IV (21:05)
[2023-10-12 21:06] LABS: Influenza A - CEPHEID Flu A NEGATIVE (NEGATIVE); Influenza B - CEPHEID Flu B NEGATIVE (NEGATIVE); Respiratory Syncytial Virus Negative (Negative)
[2023-10-12 21:24] LABS: COVID-19 CEPHEID 4-PLEX PCR Negative (Negative)
[2023-10-12 21:24] LABS: Appearance Urine UA CLEAR; Bilirubin Urine UA NEGATIVE (NEGATIVE); Color Urine UA YELLOW; Glucose Urine UA NEGATIVE (Negative); Ketones Urine UA 2+ (NEGATIVE); Leukocyte Esterase Urine UA 1+ (NEGATIVE); Nitrite Urine UA NEGATIVE (Negative); Occult Blood Urine UA TRACE-INTACT (Negative); Protein Urine UA NEGATIVE (Negative); Specific Gravity Urine UA <=1.005 (1.000-1.035)
[2023-10-12 21:25] LABS: pH Urine UA 6.5 (4.5-8.0)
[2023-10-12 21:31] LABS: Bacteria Urine Many (>30); Culture Indicated Urine Specimen Cultured; RBC Urine None Seen (0-5/HPF); Squamous Epithelial Cell Urine 0-1 /HPF (0-5/HPF); Urine Volume 10mL (spun); WBC Urine 1-5/HPF (0-5/HPF)
--- NOTE | 2023-10-12 21:33 | ED_ITS ---
HPI - Weakness General Chief complaint: Weakness Stated complaint: Weakness,Fever Time Seen by Provider: 10/12/23 19:48 Source: patient and EMS Mode of arrival: EMS History of Present Illness HPI Narrative: Patient is a 73-year-old female history of multiple sclerosis, diabetes presenting today with weakness. She lives alone she is normally able to walk with a walker and a cane she has a [employer] lift at home if needed. However today she really is not able to assist herself all. He has had increasing weakness some body aches. No significant abdominal pain nausea or vomiting. No chest pain cough or shortness of breath. Just feeling generally weak. Sister at bedside reports that she is mildly confused Related Data Home Medications Medication Instructions Recorded Confirmed ASPIRIN (Aspirin EC) 81 mg PO Q DAY ##0 01/10/11 10/12/23 carbidopa ER 50 mg-levodopa 200 mg 1 tab PO BEDTIME 11/16/19 10/12/23 tablet,extended release magnesium oxide 250 mg PO DAILY 11/16/19 07/10/23 ropinirole 8 mg tablet,extended 8 mg PO DAILY 11/16/19 10/13/23 release 24 hr (Requip XL) acetaminophen 500 mg capsule 1,000 mg PO TID 02/24/20 10/13/23 meclizine 25 mg tablet 25 mg PO DAILY 02/24/20 07/10/23 omega-3 fatty acids 1,000 mg 1,000 mg PO BID 05/11/21 07/10/23 capsule (Fish Oil Concentrate) rivastigmine tartrate 1.5 mg 3 mg PO DAILY 08/13/22 10/12/23 capsule Previous Rx's Medication Instructions Recorded celecoxib 200 mg capsule See Rx Instructions .Route 10/06/22 .COMPLEX #180 caps cholecalciferol (vitamin D3) 50 50 mcg PO DAILY #90 caps 10/06/22 mcg (2,000 unit) capsule duloxetine 30 mg capsule,delayed See Rx Instructions .Route 10/06/22 release .COMPLEX #180 caps Disabled Parking Permit See Rx Instructions .Route 02/20/23 .COMPLEX #1 unit semaglutide 0.25 mg or 0.5 mg (2 0.25 mg (0.187 mL) SUBCUT QWEEK 02/20/23 mg/1.5 mL) subcutaneous pen #1.5 mL injector glucometer #1 ea 04/16/23 glucose test strips #100 ea 04/16/23 christelle #1 ea 04/16/23 rosuvastatin 5 mg tablet 5 mg PO DAILY #90 tabs 06/21/23 metformin 500 mg tablet,extended 500 mg PO QPM #90 tabs 07/09/23 release 24hr blood pressure test kit-large #1 ea 07/10/23 carbidopa 25 mg-levodopa 100 mg 2 tab PO 4XD #720 tabs 07/10/23 tablet lancette #100 ea 07/10/23 tolterodine 2 mg capsule,extended 4 mg (2 x 2 mg) PO DAILY #180 caps 07/10/23 release 24 hr omeprazole 40 mg capsule,delayed See Rx Instructions .Route 10/07/23 release .COMPLEX #90 caps Allergies Allergy/AdvReac Type Severity Reaction Status Date / Time CONSUELO Inhibitors Allergy Mild COUGH Verified 07/10/23 15:35 [CONSUELO INHIBITORS] Patient History Medical History Hyperlipidemia associated with type 2 diabetes mellitus Chronic lower back pain Pre-diabetes Hepatic steatosis Other dietary vitamin B12 deficiency anemia Urinary urgency Leg edema, left Depression Facet arthropathy, lumbar Obesity, Class III, BMI 40-49.9 (morbid obesity) Low back pain with sciatica GERD (gastroesophageal reflux disease) Deviated septum Eczema Urinary incontinence Parkinson's disease (~2008) Chronic back pain Foot pain Diabetes Hyperlipemia Hypertension Allergic rhinitis Hearing loss Vertigo Plantar fasciitis of right foot (12/17/17) Seasonal allergic rhinitis (09/27/15) Parkinson's disease (09/27/15) Overactive bladder (09/27/15) Mixed hyperlipidemia (09/27/15) Gastroesophageal reflux disease without esophagitis (09/27/15) Surgical History Status post cholecystectomy Family History Brother Stroke Father No problems noted. Mother No problems noted. Sister No problems noted. Social History household members: none Smoking Status: Never smoker alcohol intake: never Smoking Status: Never smoker Substance Use Type: does not use Exam Initial Vital Signs Initial Vital Signs: Vital Signs Temperature 98.6 F 10/12/23 19:26 Pulse Rate 104 H 10/12/23 19:26 Respiratory Rate 22 10/12/23 19:26 Blood Pressure 121/58 L 10/12/23 19:26 Pulse Oximetry 92 10/12/23 19:26 Oxygen Delivery Method Room Air 10/12/23 19:26 GENERAL: Weak alert 73-year-old female HEENT: Head atraumatic,EOMI, pupils reactive, face symmetric, moist mucous membranes CARDIOVASCULAR: Regular rate and rhythm without murmurs, rubs or gallops. RESPIRATORY: Breath sounds equal bilaterally, no wheezes rales or rhonchi. ABDOMEN: Soft, nontender. Normoactive bowel sounds all 4 quadrants. No guarding or rebound. No significant right upper quadrant pain EXTREMITIES: Normal range of motion, no clubbing or edema. Neurovascularly intact NEUROLOGICAL: Alert and oriented x4 SKIN: Warm, dry, no laceration, no petechiae, no rashes or lesions. Course Orders Ordered: ED Orders 10/12/23 19:48 XR chest 1V Stat 10/12/23 19:49 EKG-12 Lead Stat 10/12/23 19:53 BNP [NT-proBNP (BNP-Adult 18+)] Stat Complete Blood Count AUTO DIFF Stat Comprehensive Metabolic Panel Stat D Dimer Stat Lactate (Lactic Acid) Stat Procalcitonin Stat Troponin & CK Cardiac Panel Stat 10/12/23 20:00 Blood Culture Stat 10/12/23 20:09 Covid-19 + FLU A/B + RSV - PCR Stat 10/12/23 21:10 Urinalysis and Microscopic Stat Urine Culture Stat 10/12/23 22:43 CT abdomen pelvis w con Stat CT head/brain wo con Stat Carbidopa/Levodopa (Carbidopa-Levodopa 25/100 Tablet) 2 each PO 4XD TETE Carbidopa/Levodopa (Carbidopa-Levodopa Er 50/200 Tablet) 1 each PO BEDTIME TETE Duloxetine HCl (Duloxetine 30 Mg Capsule) 0 mg PO .COMPLEX TETE Metformin HCl (Metformin Xr 500 Mg Tablet) 500 mg PO QPM TETE Non-Formulary Medication (Aspirin (Aspirin Ec)) 81 mg PO Q DAY TETE Non-Formulary Medication (Disabled Parking Permit) 0 tab .ROUTE .COMPLEX TETE Non-Formulary Medication (Omeprazole) 0 mg .ROUTE .COMPLEX TETE Non-Formulary Medication (Rivastigmine Tartrate) 3 mg PO DAILY TETE Non-Formulary Medication (Ropinirole [Requip Xl]) 8 mg PO DAILY TETE Non-Formulary Medication (Rosuvastatin) 5 mg PO DAILY TETE Non-Formulary Medication (Tolterodine) 4 mg PO DAILY TETE Vitamin D (Cholecalciferol (Vitamin D3) 1,000 Unit Tablet) unit PO DAILY TETE Discontinued Medications Sodium Chloride (Normal Saline 0.9%) 1,000 mls @ 1,000 mls/hr IV BOLUS ONE Stop: 10/12/23 21:27 Last Admin: 10/12/23 21:04 Dose: 1,000 mls/hr Documented By: MOUNIKA Piperacillin Sod/Tazobactam (Sod 4.5 gm/ Sodium Chloride) 100 mls @ 200 mls/hr IV NOW ONE Stop: 10/12/23 20:29 Last Admin: 10/12/23 21:05 Dose: 200 mls/hr Documented By: MOUNIKA Sodium Chloride (Normal Saline 0.9%) 1,000 mls @ 1,000 mls/hr IV BOLUS ONE Stop: 10/12/23 23:43 Last Admin: 10/12/23 23:13 Dose: 1,000 mls/hr Documented By: MOUNIKA Vital Signs Vital signs: Vital Signs - 8 hr 10/12/23 19:26 10/12/23 19:27 10/12/23 19:28 Temperature 98.6 F Pulse Rate 104 H 105 H Respiratory Rate 22 Blood Pressure 121/58 L Pulse Oximetry 92 93 91 Oxygen Delivery Method Room Air 10/12/23 19:28 10/12/23 19:30 10/12/23 19:30 Temperature Pulse Rate 105 H Respiratory Rate Blood Pressure 120/60 121/58 L Pulse Oximetry 93 Oxygen Delivery Method 10/12/23 20:00 10/12/23 20:00 10/12/23 20:30 Temperature Pulse Rate 103 H 104 H Respiratory Rate Blood Pressure 118/74 Pulse Oximetry 91 92 Oxygen Delivery Method Room Air 10/12/23 20:30 10/12/23 21:09 10/12/23 21:09 Temperature 98.3 F Pulse Rate 103 H Respiratory Rate Blood Pressure 107/56 L 120/77 Pulse Oximetry 91 Oxygen Delivery Method Room Air 10/12/23 21:30 10/12/23 21:30 Temperature Pulse Rate 99 H Respiratory Rate 20 Blood Pressure 103/59 L Pulse Oximetry 91 Oxygen Delivery Method Room Air MDM - Weakness Lab Data 10/12/23 19:53 10/12/23 19:53 Labs: Lab Results 10/12/23 10/12/23 10/12/23 Range/Units 19:53 20:09 21:10 WBC 15.0 H (4.5-11.0) X10^3/uL RBC 4.29 (4.0-5.2) X10^6/uL Hgb 13.4 (12.0-16.0) g/dL Hct 39.5 (36-46) % MCV 92.1 (80-100) fL MCH 31.3 (26-34) PG MCHC 34.0 (30-36) % RDW 14.0 (11.6-14.8) % Plt Count 210 (150-400) X10^3/uL Neut % (Auto) 84.4 H (50-75) % Lymph % (Auto) 5.6 L (25-40) % Thurston % (Auto) 9.7 (3-14) % Eos % (Auto) 0.0 L (2-4) % Baso % (Auto) 0.3 (0-2) % Neut # (Auto) 58832 H (0266-3494) /uL Lymph # (Auto) 800 L (4063-5926) /uL Thurston # (Auto) 1500 H (0-900) /uL Eos # (Auto) 0 (0-450) /uL Baso # (Auto) 0 (0-100) /uL D-Dimer 515 H (<500) ng/ml Sodium 130 L (137-145) mmol/L Potassium 3.9 (3.4-5.1) mmol/L Chloride 96 L (98-107) mmol/L Carbon Dioxide 20 L (22-32) mmol/L BUN 25 H (7-17) mg/dL Creatinine 0.65 (0.52-1.04) mg/dL Estimated GFR > 60 (>60) mL/min BUN/Creatinine Ratio 38.5 H (6-22) Glucose 162 H (80-110) mg/dL Lactate 1.6 (0.7-2.1) mmol/L Calcium 10.0 (8.4-10.2) mg/dL Total Bilirubin 2.2 H (0.2-1.3) mg/dL AST 39 H (14-36) IU/L ALT 16 (<35) IU/L Alkaline Phosphatase 151 H (38-126) U/L Total Creatine Kinase 37 (30-135) U/L Troponin I < 0.012 (0.01-0.034) ng/mL NT-Pro-B Natriuret Pep 267 H (<125) pg/mL Total Protein 7.6 (6.3-8.2) g/dL Albumin 4.0 (3.5-5.0) g/dL Globulin 3.6 (1.7-4.1) g/dL Albumin/Globulin Ratio 1.1 (1.0-2.8) Procalcitonin 0.24 (<0.5) ng/mL Urine Color Yellow Urine Appearance Clear Urine pH 6.5 (4.5-8.0) Ur Specific [place] <=1.005 (1.000-1.035) Urine Protein Negative (Negative) Urine Glucose (UA) Negative (Negative) g/dL Urine Ketones 2+ H (NEGATIVE) Urine Occult Blood Trace-intact (Negative) Urine Nitrate Negative (Negative) Urine Bilirubin Negative (NEGATIVE) Urine Urobilinogen 2.0 H (0.2) E.U./dL Ur Leukocyte Esterase 1+ H (NEGATIVE) Urine RBC None seen (0-5/HPF) Urine WBC 1-5/hpf (0-5/HPF) Ur Squamous Epith Cells 0-1 /hpf (0-5/HPF) Urine Bacteria Many (>30) H (None) Ur Culture Indicated? Specimen cultured Vol Urine Centrifuged 10ml (spun) SARS-CoV-2 (PCR) Negative (Negative) Influenza A (RT-PCR) Flu a negative (NEGATIVE) Influenza B (RT-PCR) Flu b negative (NEGATIVE) RSV (PCR) Negative (Negative) Imaging Data Chest x-ray: Radiologist Impression: PROCEDURE: XR CHEST 1V INDICATIONS: fever TECHNIQUE: One view of the chest was acquired. COMPARISON: [facility], CHEST 1 VIEW, 05/03/2008, 19:35. [facility], CHEST 2 VIEW, 01/30/2008, 7:06. FINDINGS: Surgical changes and devices: None. Lungs and pleura: Lungs are clear. No pleural effusions or pneumothorax. Mediastinum: Mediastinal contours appear normal. Heart size is normal. Bones and chest wall: No suspicious bony lesions. Overlying soft tissues appear unremarkable. IMPRESSION: No acute cardiopulmonary abnormality is seen. Dictated by: Bib Proctor M.D. on 10/12/2023 at 20:39 CT scan - head: Radiologist Impression: PROCEDURE: CT HEAD/BRAIN WO CON INDICATIONS: weak confusion TECHNIQUE: Noncontrast 4.5 mm thick angled axial sections acquired from the foramen magnum to the vertex, with coronal and sagittal reformats. For radiation dose reduction, the following was used: automated exposure control, adjustment of mA and/or kV according to patient size. COMPARISON: None. FINDINGS: Image quality: Diagnostic. CSF spaces: Basal cisterns are patent. No extra-axial fluid collections. The ventricles are symmetric in size and shape. Brain: No intracranial bleeds or masses. There is cerebral volume loss for age, with resultant ventricular and sulcal prominence. There are periventricular and deep white matter chronic small vessel ischemic changes. There is intracranial internal carotid artery atherosclerosis. Skull and face: Calvarium and visualized facial bones appear intact, without suspicious lesions. Sinuses: Visualized sinuses and mastoids are clear except for the presence of mild mucosal thickening at the posterior right maxillary sinus. IMPRESSION: Mild mucosal thickening posterior right maxillary sinus without air-fluid level. Mild patient motion during image acquisition. Dictated by: Bib Proctor M.D. on 10/13/2023 at 0:02 CT scan - abdomen/pelvis: Radiologist Impression: PROCEDURE: CT ABDOMEN PELVIS W CON INDICATIONS: elevated kj fever TECHNIQUE: After the administration of intravenous contrast, axial sections acquired from the lung bases to the pubic symphysis. Coronal and sagittal reformats were performed. For radiation dose reduction, the following was used: automated exposure control, adjustment of mA and/or kV according to patient size. COMPARISON: [facility], CT, CT CHEST ABD PEL W CON, 04/07/2023, 12:45. FINDINGS: Image quality: Diagnostic. Lower Chest: No significant findings. ABDOMEN: Liver: No solid mass. Gallbladder: Previously resected Biliary ducts: The common bile duct measures up to 1.6 cm in maximal dimension but this is similar to the findings of previous CT scanning 04/07/23. A calcified common duct stone is not identified.. Pancreas: No ductal dilation. Spleen: Size is within normal limits. Adrenal Glands: No adrenal nodules. Kidneys and Ureters: No hydronephrosis. No solid mass. No complex renal cystic lesion which requires follow up. Stomach and Bowel: Normal colonic caliber, without significant wall thickening. Peritoneum: No abnormal intraperitoneal fluid. No free air. Ventral Wall: No hernia. Abdominal Nodes: No retroperitoneal or mesenteric adenopathy by size criteria. Vessels: Aorta and inferior vena cava are normal in size. PELVIS: Pelvic Organs: Unremarkable. Bladder: Unremarkable. Pelvic Nodes: No enlarged lymph nodes. Miscellaneous: No inguinal hernias are seen. Bones: No aggressive osseous abnormality. IMPRESSION: Prior cholecystectomy, prominence of the common bile duct has not increased significantly from the comparison CT from a March of last year. No hepatic lesion is found, no intrahepatic biliary distention is present. Dictated by: Bib Proctor M.D. on 10/13/2023 at 0:03 Approved by: Bib Proctor M.D. on 10/13/2023 at 0:06 ECG Data Interpretation: Sinus rhythm rate 104 NV interval 252 QRS [address] changes no T-wave inversions MDM Narrative Medical decision making narrative: Patient is a 73-year-old female history of multiple sclerosis who lives alone presenting today with generalized weakness. Blood work has been reviewed she is leukocytosis 15 with left shift, sodium 130 potassium 3.9, chloride 96, bicarb 20, BUN 25, creatinine 0.65, bilirubin 2.2, AST 39, alk-phos 151, trop is negative BNP 267, D-dimer 516, lactate 1.6, procalcitonin 0.24 urinalysis 1+ leuks with many bacteria Imaging has been reviewed head CT abdominal CT and chest x-ray do not show any acute abnormality Concern that patient has UTI sepsis. Blood pressure has decreased slightly she has been get an IV fluids, she was given Zosyn prior to urinalysis results. She does not have evidence of severe sepsis but was mildly confused. Q sofa score of 2, MEWS 4. She is noted to be mildly hypoxic chest x-ray is negative she has no history or evidence of congestive heart failure or fluid overload. She tolerated 2 L of IV fluids without shoe. D-dimer is stab of 500 but less than 1000. I do not suspect PE, years scoring is 0. At this time she is normally supposed to transfer herself she is unable to transfer herself she has a [employer] lift home but nobody lifts or to help her. She is overall extremely weak. Dr. Miguel accepts patient qSOFA (Quick SOFA) Score for Sepsis from [employer] on 10/13/2023 All calculations should be rechecked by clinician prior to use RESULT SUMMARY: 2 points qSOFA Score High risk qSOFA Scores 2-3 are associated with a 3- to 14-fold increase in in-hospital mortality. Assess for evidence of organ dysfunction with blood testing including serum lactate and calculation of the full SOFA Score. Patients meeting these qSOFA criteria should have infection considered even if it was previously not. INPUTS: Altered mental status ?> 1 = Yes Respiratory rate >=2 ?> 1 = Yes Systolic BP <=00 ?> 0 = No Modified Early Warning Score (MEWS) for Clinical Deterioration from [employer] on 10/13/2023 All calculations should be rechecked by clinician prior to use RESULT SUMMARY: 4 points 12.7% chance of ICU admission or within 60 days. INPUTS: Systolic BP ?> 1 = 81-100 mmHg Heart rate ?> 1 = 101-110 bpm Respiratory rate ?> 2 = 21-29 bpm Temperature ?> 0 = 35?38.4?C / 95?101.1?F AVPU Score ?> 0 = Alert YEARS Algorithm for Pulmonary Embolism (PE) from [employer] on 10/13/2023 All calculations should be rechecked by clinician prior to use RESULT SUMMARY: PE excluded YEARS algorithm rules out PE (0.43% with symptomatic VTE during 3-month follow- up) INPUTS: patient ?> 0 = No Clinical signs of DVT ?> 0 = No Hemoptysis ?> 0 = No PE most likely diagnosis ?> 0 = No D-dimer >=,000 ng/mL ?> 0 = No Discharge Plan Departure Patient Disposition: Admitted As Inpatient Clinical Impression: Parkinson's Disease, Hypotensive episode Admit Date/Time: 10/12/23 22:44 Admit Provider: Daniel Miguel
[2023-10-12 21:55] LABS: D Dimer 515 ng/ml (<500)
--- NOTE | 2023-10-12 22:43 | DI.CT.S_ITS ---
PROCEDURE: CT ABDOMEN PELVIS W CON INDICATIONS: elevated kj fever TECHNIQUE: After the administration of intravenous contrast, axial sections acquired from the lung bases to the pubic symphysis. Coronal and sagittal reformats were performed. For radiation dose reduction, the following was used: automated exposure control, adjustment of mA and/or kV according to patient size. COMPARISON: [facility], CT, CT CHEST ABD PEL W CON, 04/07/2023, 12:45. FINDINGS: Image quality: Diagnostic. Lower Chest: No significant findings. ABDOMEN: Liver: No solid mass. Gallbladder: Previously resected Biliary ducts: The common bile duct measures up to 1.6 cm in maximal dimension but this is similar to the findings of previous CT scanning 04/07/23. A calcified common duct stone is not identified.. Pancreas: No ductal dilation. Spleen: Size is within normal limits. Adrenal Glands: No adrenal nodules. Kidneys and Ureters: No hydronephrosis. No solid mass. No complex renal cystic lesion which requires follow up. Stomach and Bowel: Normal colonic caliber, without significant wall thickening. Peritoneum: No abnormal intraperitoneal fluid. No free air. Ventral Wall: No hernia. Abdominal Nodes: No retroperitoneal or mesenteric adenopathy by size criteria. Vessels: Aorta and inferior vena cava are normal in size. PELVIS: Pelvic Organs: Unremarkable. Bladder: Unremarkable. Pelvic Nodes: No enlarged lymph nodes. Miscellaneous: No inguinal hernias are seen. Bones: No aggressive osseous abnormality. IMPRESSION: Prior cholecystectomy, prominence of the common bile duct has not increased significantly from the comparison CT from a March of last year. No hepatic lesion is found, no intrahepatic biliary distention is present. Dictated by: Bib Proctor M.D. on 10/13/2023 at 0:03 Approved by: Bib Proctor M.D. on 10/13/2023 at 0:06
--- NOTE | 2023-10-12 22:43 | DI.CT.S_ITS ---
PROCEDURE: CT HEAD/BRAIN WO CON INDICATIONS: weak confusion TECHNIQUE: Noncontrast 4.5 mm thick angled axial sections acquired from the foramen magnum to the vertex, with coronal and sagittal reformats. For radiation dose reduction, the following was used: automated exposure control, adjustment of mA and/or kV according to patient size. COMPARISON: None. FINDINGS: Image quality: Diagnostic. CSF spaces: Basal cisterns are patent. No extra-axial fluid collections. The ventricles are symmetric in size and shape. Brain: No intracranial bleeds or masses. There is cerebral volume loss for age, with resultant ventricular and sulcal prominence. There are periventricular and deep white matter chronic small vessel ischemic changes. There is intracranial internal carotid artery atherosclerosis. Skull and face: Calvarium and visualized facial bones appear intact, without suspicious lesions. Sinuses: Visualized sinuses and mastoids are clear except for the presence of mild mucosal thickening at the posterior right maxillary sinus. IMPRESSION: Mild mucosal thickening posterior right maxillary sinus without air-fluid level. Mild patient motion during image acquisition. Dictated by: Bib Proctor M.D. on 10/13/2023 at 0:02 Approved by: Bib Proctor M.D. on 10/13/2023 at 0:03
--- NOTE | 2023-10-12 23:30 | PC.NURSE ---
To CT via wheelchair. Will transport to floor (Room 218) following completion of ordered CTs. Report previously called to NANCY Medeiros.
--- NOTE | 2023-10-12 23:55 | PC.NURSE ---
Returned to exam room [address] per ERMD order pending Radiologist reading of CTs. Pt. remains A&OX4, speech clear & appropriate. Decreased weakness w/ improved ability to transfer from supine to wheelchair/BSC compared to arrival.
[2023-10-13] VITALS (14 sets, daily range): BP systolic 103–160; BP diastolic 40–73; PULSE 90–105; RESP 14–24; TEMP 36.2–37.8; O2SAT 93–97
--- NOTE | 2023-10-13 00:50 | PC.NURSE ---
To M/S via wheelchair. Pt. remains A&OX4 w/ reported mild, lingering posterior neck soreness.
--- NOTE | 2023-10-13 02:15 | PC.ADMIT ---
[address] [place] [address] Admission Note: Patient admitted to AC unit from ED at 01:00, transported via wheelchair. Alert and oriented x 4, cooperative with care. Oriented to room and call light. Bed in low and locked position, bed alarm on and call light within reach. The patient,Ale Schulz,73 y/o, was given written information regarding hospital policies, unit procedures and contact persons. Patient's smoking status: Never smoker. Vital Signs - 8 hr 10/12/23 19:26 10/12/23 19:27 10/12/23 19:28 Temperature 98.6 F Pulse Rate 104 H 105 H Respiratory Rate 22 Blood Pressure 121/58 L Pulse Oximetry 92 93 91 Oxygen Delivery Method Room Air 10/12/23 19:28 10/12/23 19:30 10/12/23 19:30 Temperature Pulse Rate 105 H Respiratory Rate Blood Pressure 120/60 121/58 L Pulse Oximetry 93 Oxygen Delivery Method 10/12/23 20:00 10/12/23 20:00 10/12/23 20:30 Temperature Pulse Rate 103 H 104 H Respiratory Rate Blood Pressure 118/74 Pulse Oximetry 91 92 Oxygen Delivery Method Room Air 10/12/23 20:30 10/12/23 21:09 10/12/23 21:09 Temperature 98.3 F Pulse Rate 103 H Respiratory Rate Blood Pressure 107/56 L 120/77 Pulse Oximetry 91 Oxygen Delivery Method Room Air 10/12/23 21:30 10/12/23 21:30 10/13/23 00:48 Temperature 100.1 F H Pulse Rate 99 H 96 H Respiratory Rate 20 22 Blood Pressure 103/59 L 140/72 Pulse Oximetry 91 97 Oxygen Delivery Method Room Air Room Air 10/13/23 01:00 Temperature 97.1 F L Pulse Rate 101 H Respiratory Rate 19 Blood Pressure 119/55 L Pulse Oximetry 96 Oxygen Delivery Method
--- NOTE | 2023-10-13 02:58 | PM.HP.1 ---
History of Present Illness History of Present Illness Date Patient Seen: 10/13/23 Time Patient Seen: 02:30 Chief complaint: Weakness,Fever Narrative: 73 years old female with a past medical history of diabetes mellitus type 2 Parkinson's disease, hypertension, GERD, chronic back pain, depression, dyslipidemia, multiple sclerosis and multiple other medical issues was brought to the emergency room for progressive weakness with chills. Patient lives at home by herself and uses a walker with the lift chair but able to manage her activities of daily living fairly independently to the past few days when she had increasing weakness. Today she had a ground-level fall with no injuries and unable to get up with significant weakness. Denies any chest pain cough wheezing or upper respiratory symptoms. Denies any nausea or vomiting. Denies any bowel movement issues. In the emergency room noted to be tachycardic with a heart rate in the 100s and O2 saturation 91% on room air. Labs revealed a white count of 15,000 with a urinalysis positive for WBCs/leukocyte esterase. Bilirubin was elevated at 2.2. Chest x-ray shows mild acute process. CT brain shows no acute process in the CT abdomen shows prior cholecystectomy but otherwise no acute intra-abdominal pathology. Patient was initiated on IV fluids with IV Zosyn and admitted for further evaluation [facility] Medical History Hyperlipidemia associated with type 2 diabetes mellitus Chronic lower back pain Pre-diabetes Hepatic steatosis Other dietary vitamin B12 deficiency anemia Urinary urgency Leg edema, left Depression Facet arthropathy, lumbar Obesity, Class III, BMI 40-49.9 (morbid obesity) Low back pain with sciatica GERD (gastroesophageal reflux disease) Deviated septum Eczema Urinary incontinence Parkinson's disease (~2008) Chronic back pain Foot pain Diabetes Hyperlipemia Hypertension Allergic rhinitis Hearing loss Vertigo Plantar fasciitis of right foot (12/17/17) Seasonal allergic rhinitis (09/27/15) Parkinson's disease (09/27/15) Overactive bladder (09/27/15) Mixed hyperlipidemia (09/27/15) Gastroesophageal reflux disease without esophagitis (09/27/15) Surgical History Status post cholecystectomy Family History Brother Stroke Father No problems noted. Mother No problems noted. Sister No problems noted. Social History household members: none Smoking Status: Never smoker alcohol intake: never Meds Home Medications and Allergies Home Medications Medication Instructions Recorded Confirmed Type ASPIRIN (Aspirin EC) 81 mg PO Q DAY ##0 01/10/11 10/12/23 History carbidopa ER 50 mg-levodopa 200 mg 1 tab PO BEDTIME 11/16/19 10/12/23 History tablet,extended release magnesium oxide 250 mg PO DAILY 11/16/19 07/10/23 History ropinirole 8 mg tablet,extended 8 mg PO DAILY 11/16/19 10/13/23 History release 24 hr (Requip XL) acetaminophen 500 mg capsule 1,000 mg PO TID 02/24/20 10/13/23 History meclizine 25 mg tablet 25 mg PO DAILY 02/24/20 07/10/23 History omega-3 fatty acids 1,000 mg 1,000 mg PO BID 05/11/21 07/10/23 History capsule (Fish Oil Concentrate) rivastigmine tartrate 1.5 mg 3 mg PO DAILY 08/13/22 10/12/23 History capsule celecoxib 200 mg capsule See Rx Instructions .Route 10/06/22 10/12/23 Rx .COMPLEX #180 caps cholecalciferol (vitamin D3) 50 50 mcg PO DAILY #90 caps 10/06/22 10/12/23 Rx mcg (2,000 unit) capsule duloxetine 30 mg capsule,delayed See Rx Instructions .Route 10/06/22 10/12/23 Rx release .COMPLEX #180 caps Disabled Parking Permit See Rx Instructions .Route 02/20/23 10/12/23 Rx .COMPLEX #1 unit semaglutide 0.25 mg or 0.5 mg (2 0.25 mg (0.187 mL) SUBCUT QWEEK 02/20/23 07/10/23 Rx mg/1.5 mL) subcutaneous pen #1.5 mL injector glucometer #1 ea 04/16/23 10/12/23 Rx glucose test strips #100 ea 04/16/23 10/12/23 Rx christelle #1 ea 04/16/23 10/12/23 Rx rosuvastatin 5 mg tablet 5 mg PO DAILY #90 tabs 06/21/23 10/12/23 Rx metformin 500 mg tablet,extended 500 mg PO QPM #90 tabs 07/09/23 10/12/23 Rx release 24hr blood pressure test kit-large #1 ea 07/10/23 10/12/23 Rx carbidopa 25 mg-levodopa 100 mg 2 tab PO 4XD #720 tabs 07/10/23 10/12/23 Rx tablet lancette #100 ea 07/10/23 10/12/23 Rx tolterodine 2 mg capsule,extended 4 mg (2 x 2 mg) PO DAILY #180 caps 07/10/23 10/12/23 Rx release 24 hr omeprazole 40 mg capsule,delayed See Rx Instructions .Route 10/07/23 10/12/23 Rx release .COMPLEX #90 caps Allergies Allergy/AdvReac Type Severity Reaction Status Date / Time CONSUELO Inhibitors Allergy Mild COUGH Verified 07/10/23 15:35 [CONSUELO INHIBITORS] Review of Systems Review of Systems Narrative: A 12 point review of system is negative unless otherwise stated in the history of present illness Exam Vital Signs (past 8 hours): - 10/12/23 19:26 10/12/23 19:10/12/23 19:28 Temperature 98.6 F Pulse Rate 104 H 105 H Respiratory Rate 22 Blood Pressure 121/58 L Pulse Oximetry 92 93 91 Oxygen Delivery Method Room Air 10/12/23 19:28 10/12/23 19:30 10/12/23 19:30 Temperature Pulse Rate 105 H Respiratory Rate Blood Pressure 120/60 121/58 L Pulse Oximetry 93 Oxygen Delivery Method 10/12/23 20:00 10/12/23 20:00 10/12/23 20:30 Temperature Pulse Rate 103 H 104 H Respiratory Rate Blood Pressure 118/74 Pulse Oximetry 91 92 Oxygen Delivery Method Room Air 10/12/23 20:30 10/12/23 21:09 10/12/23 21:09 Temperature 98.3 F Pulse Rate 103 H Respiratory Rate Blood Pressure 107/56 L 120/77 Pulse Oximetry 91 Oxygen Delivery Method Room Air 10/12/23 21:30 10/12/23 21:30 10/13/23 00:48 Temperature 100.1 F H Pulse Rate 99 H 96 H Respiratory Rate 20 22 Blood Pressure 103/59 L 140/72 Pulse Oximetry 91 97 Oxygen Delivery Method Room Air Room Air 10/13/23 01:00 10/13/23 02:14 Temperature 97.1 F L Pulse Rate 101 H Respiratory Rate 19 Blood Pressure 119/55 L Pulse Oximetry 96 96 Oxygen Delivery Method Room Air Oxygen Delivery Method Room Air Narrative Exam Narrative: Patient is awake alert. Following commands. No acute distress. Abdomen is soft nontender Objective Labs 10/12/23 19:53 10/12/23 19:53 Labs: Laboratory Results - last 24 hr 10/12/23 10/12/23 10/12/23 19:53 20:09 21:10 WBC 15.0 H RBC 4.29 Hgb 13.4 Hct 39.5 MCV 92.1 MCH 31.3 MCHC 34.0 RDW 14.0 Plt Count 210 Neut % (Auto) 84.4 H Lymph % (Auto) 5.6 L [place] % (Auto) 9.7 Eos % (Auto) 0.0 L Baso % (Auto) 0.3 Neut # (Auto) 50851 H Lymph # (Auto) 800 L [place] # (Auto) 1500 H Eos # (Auto) 0 Baso # (Auto) 0 D-Dimer 515 H Sodium 130 L Potassium 3.9 Chloride 96 L Carbon Dioxide 20 L BUN 25 H Creatinine 0.65 Estimated GFR > 60 BUN/Creatinine Ratio 38.5 H Glucose 162 H Lactate 1.6 Calcium 10.0 Total Bilirubin 2.2 H AST 39 H ALT 16 Alkaline Phosphatase 151 H Total Creatine Kinase 37 Troponin I < 0.012 NT-Pro-B Natriuret Pep 267 H Total Protein 7.6 Albumin 4.0 Globulin 3.6 Albumin/Globulin Ratio 1.1 Procalcitonin 0.24 Urine Color Yellow Urine Appearance Clear Urine pH 6.5 Ur Specific [place] <=1.005 Urine Protein Negative Urine Glucose (UA) Negative Urine Ketones 2+ H Urine Occult Blood Trace-intact Urine Nitrate Negative Urine Bilirubin Negative Urine Urobilinogen 2.0 H Ur Leukocyte Esterase 1+ H Urine RBC None seen Urine WBC 1-5/hpf Ur Squamous Epith Cells 0-1 /hpf Urine Bacteria Many (>30) H Ur Culture Indicated? Specimen cultured Vol Urine Centrifuged 10ml (spun) SARS-CoV-2 (PCR) Negative Influenza A (RT-PCR) Flu a negative Influenza B (RT-PCR) Flu b negative RSV (PCR) Negative Assessment & Plan Assessment & Plan narrative: 73 years old female with a past medical history of diabetes mellitus type 2 Parkinson's disease, hypertension, GERD, chronic back pain, depression, dyslipidemia, multiple sclerosis and multiple other medical issues was brought to the emergency room for progressive weakness with chills. Patient lives at home by herself and uses a walker with the lift chair but able to manage her activities of daily living fairly independently to the past few days when she had increasing weakness. Today she had a ground-level fall with no injuries and unable to get up with significant weakness. Denies any chest pain cough wheezing or upper respiratory symptoms. Denies any nausea or vomiting. Denies any bowel movement issues. In the emergency room noted to be tachycardic with a heart rate in the 100s and O2 saturation 91% on room air. Labs revealed a white count of 15,000 with a urinalysis positive for WBCs/leukocyte esterase. Bilirubin was elevated at 2.2. Chest x-ray shows mild acute process. CT brain shows no acute process in the CT abdomen shows prior cholecystectomy but otherwise no acute intra-abdominal pathology. Patient was initiated on IV fluids with IV Zosyn and admitted for further evaluation 1. Generalized weakness with chills suspect an element of deconditioning with underlying urinary tract infection in the setting of Parkinson's disease and other medical issues. Treat the reversible factors including infection/electrolyte imbalance and consult physical therapy for further input 2. Urinary tract infection. Did receive a dose of Zosyn but would de-escalate to IV Rocephin pending culture and sensitivity report. Lactic acid is normal 3 hypotension on admission with fluid responsive. Continue the fluids for now and treat the infection and watching the blood pressures closely 4. Diabetes mellitus type 2 resume the home metformin and watch the blood sugar ACHS with insulin sliding scale 5 Parkinson's disease resume the home Sinemet 6 dyslipidemia resume home statin 7 DVT prophylaxis will be Lovenox CODE STATUS has been discussed and patient is full code Patient will be admitted under inpatient services. Given the deconditioning/weakness with urinary tract infection/hypotension needing IV fluids IV antibiotics, patient meets criteria for inpatient with expected length of stay greater than 2 midnights Patient was evaluated with the help of video communication device. Location of the provider is [facility] Deep Vein Thrombosis/Pulmonary Embolism Present on Admission: No
[2023-10-13] MEDS: cefTRIAXone 1,000 MG in SODIUM CHLORIDE 0.9% 100 ML 200 MG IV (03:17)
[2023-10-13] MEDS: SODIUM CHLORIDE 0.45% 1,000 ML 100 ML IV ×3 (03:17→22:31)
[2023-10-13] MEDS: CARBIDOPA-LEVODOPA 25/100 TABLET 2 EACH PO ×4 (05:49→18:00)
[2023-10-13] MEDS: PANTOPRAZOLE DR 40 MG TABLET PO (05:49)
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
[2023-10-13 08:44] LABS: Add Manual Diff / Slide Review NO; Basophils Absolute Auto 100 /uL (0-100); Basophils Percent Auto 0.7 % (0-2); Eosinophils Absolute Auto 0 /uL (0-450); Eosinophils Percent Auto 0.1 % (2-4); Hematocrit 35.8 % (36-46); Hemoglobin 12.3 g/dL (12.0-16.0); Lymphocytes Absolute Auto 800 /uL (1100-4500); Lymphocytes Percent Auto 6.6 % (25-40); Mean Corpuscular HGB Conc 34.3 % (30-36); Mean Corpuscular Hemoglobin 31.7 PG (26-34); Mean Corpuscular Volume 92.4 fL (80-100); Monocytes Absolute Auto 1200 /uL (0-900); Monocytes Percent Auto 10.1 % (3-14); Neutrophils Absolute Auto 9700 /uL (1500-7000); Neutrophils Percent Auto 82.5 % (50-75); Platelet Count 177 X10^3/uL (150-400); Red Blood Cell Count 3.87 X10^6/uL (4.0-5.2); White Blood Cell Count 11.8 X10^3/uL (4.5-11.0)
[2023-10-13 08:50] LABS: INR 1.4 (0.9-1.3); Prothrombin Time 16.6 SECONDS (9.4-12.5)
[2023-10-13 08:52] LABS: Hemoglobin A1C% w Est Avg Glu 5.7 % (4.0-6.0)
[2023-10-13 08:54] LABS: BUN Creatinine Ratio 29.1 (6-22); Blood Urea Nitrogen 16 mg/dL (7-17); Calcium 9.4 mg/dL (8.4-10.2); Carbon Dioxide 23 mmol/L (22-32); Chloride 103 mmol/L (98-107); Estimated Glomerular Filt Rate > 60 mL/min (>60); Glucose 138 mg/dL (80-110); HEMOLYSIS < 15 (0-50); Magnesium 1.4 mg/dL (1.6-2.3); Phosphorous 1.9 mg/dL (2.8-4.1); Potassium 3.7 mmol/L (3.4-5.1); Sodium 132 mmol/L (137-145)
--- NOTE | 2023-10-13 09:02 | P.HP_ITS ---
History of Present Illness History of Present Illness Chief complaint: Weakness,Fever Narrative: From [employer]: 73 years old female with a past medical history of diabetes mellitus type 2 Parkinson's disease, hypertension, GERD, chronic back pain, depression, dyslipidemia, multiple sclerosis and multiple other medical issues was brought to the emergency room for progressive weakness with chills. Patient lives at home by herself and uses a walker with the lift chair but able to manage her activities of daily living fairly independently to the past few days when she had increasing weakness. Today she had a ground-level fall with no injuries and unable to get up with significant weakness. Denies any chest pain cough wheezing or upper respiratory symptoms. Denies any nausea or vomiting. Denies any bowel movement issues. In the emergency room noted to be tachycardic with a heart rate in the 100s and O2 saturation 91% on room air. Labs revealed a white count of 15,000 with a urinalysis positive for WBCs/leukocyte esterase. Bilirubin was elevated at 2.2. Chest x-ray shows mild acute process. CT brain shows no acute process in the CT abdomen shows prior cholecystectomy but otherwise no acute intra-abdominal pathology. Patient was initiated on IV fluids with IV Zosyn and admitted for further evaluation. Additional history: She denies fevers but has been feeling cold recently. She also denies dysuria. No recent diarrhea, or abdominal pain. She does feel better this morning after initial antibiotics and IV fluids. No URI symptoms including rhinorrhea, cough or sore throat. [facility] Medical History Hyperlipidemia associated with type 2 diabetes mellitus Chronic lower back pain Pre-diabetes Hepatic steatosis Other dietary vitamin B12 deficiency anemia Urinary urgency Leg edema, left Depression Facet arthropathy, lumbar Obesity, Class III, BMI 40-49.9 (morbid obesity) Low back pain with sciatica GERD (gastroesophageal reflux disease) Deviated septum Eczema Urinary incontinence Parkinson's disease (~2008) Chronic back pain Foot pain Diabetes Hyperlipemia Hypertension Allergic rhinitis Hearing loss Vertigo Plantar fasciitis of right foot (12/17/17) Seasonal allergic rhinitis (09/27/15) Parkinson's disease (09/27/15) Overactive bladder (09/27/15) Mixed hyperlipidemia (09/27/15) Gastroesophageal reflux disease without esophagitis (09/27/15) Surgical History Status post cholecystectomy Family History Brother Stroke Father No problems noted. Mother No problems noted. Sister No problems noted. Social History household members: none Smoking Status: Never smoker alcohol intake: never Meds Home Medications and Allergies Home Medications Medication Instructions Recorded Confirmed Type ASPIRIN (Aspirin EC) 81 mg PO Q DAY ##0 01/10/11 10/12/23 History carbidopa ER 50 mg-levodopa 200 mg 1 tab PO BEDTIME 11/16/19 10/12/23 History tablet,extended release ropinirole 8 mg tablet,extended 8 mg PO DAILY 11/16/19 10/13/23 History release 24 hr (Requip XL) acetaminophen 500 mg capsule 1,000 mg PO TID 02/24/20 10/13/23 History rivastigmine tartrate 1.5 mg 3 mg PO DAILY 08/13/22 10/12/23 History capsule celecoxib 200 mg capsule See Rx Instructions .Route 10/06/22 10/12/23 Rx .COMPLEX #180 caps cholecalciferol (vitamin D3) 50 50 mcg PO DAILY #90 caps 10/06/22 10/12/23 Rx mcg (2,000 unit) capsule duloxetine 30 mg capsule,delayed See Rx Instructions .Route 10/06/22 10/12/23 Rx release .COMPLEX #180 caps Disabled Parking Permit See Rx Instructions .Route 02/20/23 10/12/23 Rx .COMPLEX #1 unit semaglutide 0.25 mg or 0.5 mg (2 0.25 mg (0.187 mL) SUBCUT QWEEK 02/20/23 10/13/23 Rx mg/1.5 mL) subcutaneous pen #1.5 mL injector glucometer #1 ea 04/16/23 10/12/23 Rx glucose test strips #100 ea 04/16/23 10/12/23 Rx christelle #1 ea 04/16/23 10/12/23 Rx rosuvastatin 5 mg tablet 5 mg PO DAILY #90 tabs 06/21/23 10/12/23 Rx metformin 500 mg tablet,extended 500 mg PO QPM #90 tabs 07/09/23 10/12/23 Rx release 24hr blood pressure test kit-large #1 ea 07/10/23 10/12/23 Rx carbidopa 25 mg-levodopa 100 mg 2 tab PO 4XD #720 tabs 07/10/23 10/12/23 Rx tablet lancette #100 ea 07/10/23 10/12/23 Rx tolterodine 2 mg capsule,extended 4 mg (2 x 2 mg) PO DAILY #180 caps 07/10/23 10/12/23 Rx release 24 hr omeprazole 40 mg capsule,delayed See Rx Instructions .Route 10/07/23 10/12/23 Rx release .COMPLEX #90 caps Allergies Allergy/AdvReac Type Severity Reaction Status Date / Time CONSUELO Inhibitors Allergy Mild COUGH Verified 07/10/23 15:35 [CONSUELO INHIBITORS] Review of Systems Review of Systems Narrative: All else reviewed and otherwise unremarkable except as noted in the history and physical. Exam Vital Signs (past 8 hours): - 10/13/23 02:14 10/13/23 06:14 10/13/23 08:05 Temperature 98.5 F 98.0 F Pulse Rate 96 H 94 H Respiratory Rate 18 20 Blood Pressure 113/47 L 103/40 L Pulse Oximetry 96 94 93 Oxygen Delivery Method Room Air Oxygen Flow Rate 0 0 Oxygen Delivery Method Room Air Oxygen Flow Rate 0 Narrative Exam Narrative: NAD, fluent speech. Resting tremor of left arm. Normocephalic, anicteric sclera. Neck is supple, midline trachea. No adenopathy. Lungs are clear, normal rate and effort. Heart is regular, no murmur. Abdomen is distended, nontender. Extremities are free of edema. Good pedal and radial pulses. Skin is free of rash or lesions. Joints are free of deformity. She moves arms and legs, has a left arm tremor is noted. She has no facial droop. Normal judgment. Objective Imaging CT scan - head: Radiologist's impression: Mild mucosal thickening posterior right maxillary sinus without air-fluid level. Mild patient motion during image acquisition. CT scan - abdomen: Radiologist's impression: Prior cholecystectomy, prominence of the common bile duct has not increased significantly from the comparison CT from a March of last year. No hepatic lesion is found, no intrahepatic biliary distention is present. Chest x-ray: Radiologist's impression: No acute cardiopulmonary abnormality is seen. Labs 10/13/23 08:35 10/13/23 08:35 Labs: Laboratory Results - last 24 hr 10/12/23 10/12/23 10/12/23 19:53 20:09 21:10 WBC 15.0 H RBC 4.29 Hgb 13.4 Hct 39.5 MCV 92.1 MCH 31.3 MCHC 34.0 RDW 14.0 Plt Count 210 Neut % (Auto) 84.4 H Lymph % (Auto) 5.6 L [place] % (Auto) 9.7 Eos % (Auto) 0.0 L Baso % (Auto) 0.3 Neut # (Auto) 36775 H Lymph # (Auto) 800 L [place] # (Auto) 1500 H Eos # (Auto) 0 Baso # (Auto) 0 PT INR D-Dimer 515 H Sodium 130 L Potassium 3.9 Chloride 96 L Carbon Dioxide 20 L BUN 25 H Creatinine 0.65 Estimated GFR > 60 BUN/Creatinine Ratio 38.5 H Glucose 162 H Hemoglobin A1c Lactate 1.6 Calcium 10.0 Phosphorus Magnesium Total Bilirubin 2.2 H AST 39 H ALT 16 Alkaline Phosphatase 151 H Total Creatine Kinase 37 Troponin I < 0.012 NT-Pro-B Natriuret Pep 267 H Total Protein 7.6 Albumin 4.0 Globulin 3.6 Albumin/Globulin Ratio 1.1 Procalcitonin 0.24 Urine Color Yellow Urine Appearance Clear Urine pH 6.5 Ur Specific [place] <=1.005 Urine Protein Negative Urine Glucose (UA) Negative Urine Ketones 2+ H Urine Occult Blood Trace-intact Urine Nitrate Negative Urine Bilirubin Negative Urine Urobilinogen 2.0 H Ur Leukocyte Esterase 1+ H Urine RBC None seen Urine WBC 1-5/hpf Ur Squamous Epith Cells 0-1 /hpf Urine Bacteria Many (>30) H Ur Culture Indicated? Specimen cultured Vol Urine Centrifuged 10ml (spun) SARS-CoV-2 (PCR) Negative Influenza A (RT-PCR) Flu a negative Influenza B (RT-PCR) Flu b negative RSV (PCR) Negative 10/13/23 08:35 WBC 11.8 H RBC 3.87 L Hgb 12.3 Hct 35.8 L MCV 92.4 MCH 31.7 MCHC 34.3 RDW 14.0 Plt Count 177 Neut % (Auto) 82.5 H Lymph % (Auto) 6.6 L [place] % (Auto) 10.1 Eos % (Auto) 0.1 L Baso % (Auto) 0.7 Neut # (Auto) 9700 H Lymph # (Auto) 800 L [place] # (Auto) 1200 H Eos # (Auto) 0 Baso # (Auto) 100 PT 16.6 H INR 1.4 H D-Dimer Sodium 132 L Potassium 3.7 Chloride 103 Carbon Dioxide 23 BUN 16 Creatinine 0.55 Estimated GFR > 60 BUN/Creatinine Ratio 29.1 H Glucose 138 H Hemoglobin A1c 5.7 Lactate Calcium 9.4 Phosphorus 1.9 L Magnesium 1.4 L Total Bilirubin AST ALT Alkaline Phosphatase Total Creatine Kinase Troponin I NT-Pro-B Natriuret Pep Total Protein Albumin Globulin Albumin/Globulin Ratio Procalcitonin Urine Color Urine Appearance Urine pH Ur Specific [place] Urine Protein Urine Glucose (UA) Urine Ketones Urine Occult Blood Urine Nitrate Urine Bilirubin Urine Urobilinogen Ur Leukocyte Esterase Urine RBC Urine WBC Ur Squamous Epith Cells Urine Bacteria Ur Culture Indicated? Vol Urine Centrifuged SARS-CoV-2 (PCR) Influenza A (RT-PCR) Influenza B (RT-PCR) RSV (PCR) Assessment & Plan Assessment & Plan narrative: [employer] summary:73 years old female with a past medical history of diabetes mellitus type 2 Parkinson's disease, hypertension, GERD, chronic back pain, depression, dyslipidemia, multiple sclerosis and multiple other medical issues was brought to the emergency room for progressive weakness with chills. Patient lives at home by herself and uses a walker with the lift chair but able to manage her activities of daily living fairly independently to the past few days when she had increasing weakness. Today she had a ground-level fall with no injuries and unable to get up with significant weakness. Denies any chest pain cough wheezing or upper respiratory symptoms. Denies any nausea or vomiting. Denies any bowel movement issues. In the emergency room noted to be tachycardic with a heart rate in the 100s and O2 saturation 91% on room air. Labs revealed a white count of 15,000 with a urinalysis positive for WBCs/leukocyte esterase. Bilirubin was elevated at 2.2. Chest x-ray shows mild acute process. CT brain shows no acute process in the CT abdomen shows prior cholecystectomy but otherwise no acute intra-abdominal pathology. Patient was initiated on IV fluids with IV Zosyn and admitted for further evaluation 1. Generalized weakness with chills suspect an element of deconditioning with underlying urinary tract infection in the setting of Parkinson's disease and other medical issues. Treat the reversible factors including infection/electrolyte imbalance and consult physical therapy for further input 2. Urinary tract infection. Present on admission and active. Did receive Zosyn, but will de-escalate to IV Rocephin pending culture and sensitivity report. Lactic acid is normal 3 Hypovolemic hypotension, fluid responsive. Present on admission and improving. 4. Diabetes mellitus type 2, present on admission and active. 5. Parkinson's disease, present on admission and active. 6. Dyslipidemia, present on admission and active. 7 DVT prophylaxis will be Lovenox PLAN: -continue antibiotics with ceftriaxone, await cultures. Follow blood and urine cultures. -physical therapy assessment. -continue IV fluids at 100 mL/hour. Proxy decision maker is her sister, who lives locally. CODE STATUS has been discussed and patient is full code Patient will be admitted under inpatient services. Given the deconditioning/weakness with urinary tract infection/hypotension needing IV fluids IV antibiotics, patient meets criteria for inpatient with expected length of stay greater than 2 midnights Time Spent With Patient Time with patient: 30 to 49 minutes with 50% spent counseling/coordinating care Quality VTE Deep Vein Thrombosis/Pulmonary Embolism Present on Admission: No MIPS - Admit I confirm the patient?s Advance Care Plan is present, Code status is documented, Surrogate decision maker is in patient?s record [If Yes, STOP here]: Yes MIPS - Meds 'Current medications' to include all prescriptions, [id number] products, herbals, cannabis/cannabidiol products, and vitamin/mineral/dietary (nutritional) supplements. I have utilized all available resources to obtain, update, or review the patient?s current medications. [If Yes, STOP here]: Yes
[2023-10-13 09:03] LABS: NT-proBNP (BNP-Adult 18+) 820 pg/mL (<125)
[2023-10-13] MEDS: DULOXETINE 30 MG CAPSULE PO (09:14)
[2023-10-13] MEDS: ENOXAPARIN 40 MG/0.4 ML SYRINGE SUBCUT (09:14)
[2023-10-13] MEDS: OXYBUTYNIN 5 MG ER TAB 10 MG PO (09:14)
[2023-10-13] MEDS: CHOLECALCIFEROL (VITAMIN D3) 1,000 UNIT TABLET 2000 UNIT PO (09:14)
[2023-10-13] MEDS: ASPIRIN EC 81 MG TABLET PO (09:14)
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
[2023-10-13] MEDS: METFORMIN XR 500 MG TABLET PO (18:00)
[2023-10-13] MEDS: ACETAMINOPHEN 325 MG TABLET 650 MG PO (18:00)
--- NOTE | 2023-10-13 19:30 | PC.NURSE ---
Upon waking form nap this afternoon, pt was noted to have a temperature of 100F and seemed to be experiencing some word finding difficulty and confusion. Tylenol administered per NOV, ice pack placed on patients neck, Dr notified and assessed patient at bedside. No changes to orders at this time. Upon recheck, temperature 99.8F.
[2023-10-13] MEDS: CARBIDOPA-LEVODOPA ER 50/200 TABLET 1 EACH PO (20:55)
[2023-10-13] MEDS: ATORVASTATIN 20 MG TABLET 10 MG PO (20:56)
--- NOTE | 2023-10-13 23:02 | PC.NURSE ---
Addendum entered by Jasmin Adames R.N. 10/14/23 02:44: Patient has been up every 30 minutes to 1 hour to urinate although denies any dysuria. Purewick placed per patient request in order to allow her more rest. Original Note: Patient is alert and oriented except to day of month; stated age was 53 but then corrected to 73 and took 3 times to state correct year. Breath sounds CTA with RA sat of 93%. HRR w/telemetry reading of SR w/1st degree AVB. Denied nausea. BT present and abdomen is soft. Denied any dysuria with urination. Is able to reposition with some help from staff. Due to weakness, she did require use of walker and 2 assists to get up to BSC/recliner and back to bed; gait not assessed. Skin is moist and has reddened area under left breast and peeling skin in left abdominal fold. Denied pain. Wearing bilateral calf SCD's. Fall risk score is high and bed alarm is activated.
[2023-10-14] VITALS (10 sets, daily range): BP systolic 109–123; BP diastolic 60–67; PULSE 77–84; RESP 16–19; TEMP 36.3–36.9; O2SAT 93–96
[2023-10-14] MEDS: cefTRIAXone 1,000 MG in SODIUM CHLORIDE 0.9% 100 ML 200 MG IV (04:25)
[2023-10-14] MEDS: CARBIDOPA-LEVODOPA 25/100 TABLET 2 EACH PO ×4 (05:40→19:20)
[2023-10-14] MEDS: PANTOPRAZOLE DR 40 MG TABLET PO (05:40)
[2023-10-14] MEDS: SODIUM,POTASSIUM PHOSPHATES PACKET 2 EACH PO (08:04)
--- NOTE | 2023-10-14 08:40 | P.PN_ITS ---
Subjective Subjective Interval history: Feeling a little bit stronger. Urinating a lot overnight with her IV fluids. She has chronic back pain, nothing new. Overall she feels improved. Exam Vital Signs (past 8 hours): - 10/14/23 04:47 10/14/23 04:47 10/14/23 05:50 Temperature 97.3 F L 98.3 F Pulse Rate 78 Respiratory Rate 16 Blood Pressure 123/63 Pulse Oximetry 94 94 Oxygen Delivery Method Room Air Oxygen Flow Rate 0 10/14/23 08:29 Temperature 98.4 F Pulse Rate 81 Respiratory Rate 18 Blood Pressure 121/67 Pulse Oximetry 94 Oxygen Delivery Method Oxygen Flow Rate 0 Oxygen Delivery Method Room Air Oxygen Flow Rate 0 Narrative Exam Narrative: NAD, alert and oriented. Fluent speech. Resting tremor affects entire body. Lungs are clear, normal rate and effort Heart is regular without murmur. Abdomen is nondistended. Extremities are free of edema with tremor. Objective Labs 10/13/23 08:35 10/13/23 08:35 Labs: Laboratory Results - last 24 hr 10/13/23 08:35 WBC 11.8 H RBC 3.87 L Hgb 12.3 Hct 35.8 L MCV 92.4 MCH 31.7 MCHC 34.3 RDW 14.0 Plt Count 177 Neut % (Auto) 82.5 H Lymph % (Auto) 6.6 L [place] % (Auto) 10.1 Eos % (Auto) 0.1 L Baso % (Auto) 0.7 Neut # (Auto) 9700 H Lymph # (Auto) 800 L [place] # (Auto) 1200 H Eos # (Auto) 0 Baso # (Auto) 100 PT 16.6 H INR 1.4 H Sodium 132 L Potassium 3.7 Chloride 103 Carbon Dioxide 23 BUN 16 Creatinine 0.55 Estimated GFR > 60 BUN/Creatinine Ratio 29.1 H Glucose 138 H Hemoglobin A1c 5.7 Calcium 9.4 Phosphorus 1.9 L Magnesium 1.4 L NT-Pro-B Natriuret Pep 820 H [facility] Medical History Hyperlipidemia associated with type 2 diabetes mellitus Chronic lower back pain Pre-diabetes Hepatic steatosis Other dietary vitamin B12 deficiency anemia Urinary urgency Leg edema, left Depression Facet arthropathy, lumbar Obesity, Class III, BMI 40-49.9 (morbid obesity) Low back pain with sciatica GERD (gastroesophageal reflux disease) Deviated septum Eczema Urinary incontinence Parkinson's disease (~2008) Chronic back pain Foot pain Diabetes Hyperlipemia Hypertension Allergic rhinitis Hearing loss Vertigo Plantar fasciitis of right foot (12/17/17) Seasonal allergic rhinitis (09/27/15) Parkinson's disease (09/27/15) Overactive bladder (09/27/15) Mixed hyperlipidemia (09/27/15) Gastroesophageal reflux disease without esophagitis (09/27/15) Surgical History Status post cholecystectomy Family History Brother Stroke Father No problems noted. Mother No problems noted. Sister No problems noted. Social History household members: none Smoking Status: Never smoker alcohol intake: never Assessment & Plan Assessment & Plan narrative: 1. Generalized weakness, present on admission and active. 2. Urinary tract infection. Present on admission and active. E coli sensitive to ceftriaxone, continue ceftriaxone. 3 Hypovolemic hypotension, present on admission and resolved. 4. Diabetes mellitus type 2, present on admission and active. This is stable. 5. Parkinson's disease, present on admission and active. This is stable. 6. Dyslipidemia, present on admission and active. 7 DVT prophylaxis will be Lovenox PLAN: -continue antibiotics with ceftriaxone -stop IV fluids. -we will for alternative to ropinirole -physical therapy assessment and see if she is improved to the point that she could be discharged. DISPO: Home with home health. Quality VTE Deep Vein Thrombosis/Pulmonary Embolism Present on Admission: No
[2023-10-14] MEDS: OXYBUTYNIN 5 MG ER TAB 10 MG PO (09:33)
[2023-10-14] MEDS: DULOXETINE 30 MG CAPSULE PO (09:33)
[2023-10-14] MEDS: CHOLECALCIFEROL (VITAMIN D3) 1,000 UNIT TABLET 2000 UNIT PO (09:33)
[2023-10-14] MEDS: ENOXAPARIN 40 MG/0.4 ML SYRINGE SUBCUT (09:34)
[2023-10-14] MEDS: MAGNESIUM OXIDE 400 MG TABLET PO ×2 (09:34→20:36)
[2023-10-14] MEDS: ASPIRIN EC 81 MG TABLET PO (09:34)
--- NOTE | 2023-10-14 10:15 | CM.DPC ---
DCP HH planning: Per MD, pt to have IV-Abx today and attempting to get back on pt's home Parkinsons meds as Pharmacist trying to get appropriate meds in-house for pt and likely will be stable for d/c home with HH tomorrow Tu. Per PT, recommending home with family assist and HH. Per RN this morning, pt was able to do bed mobility independently this AM and was SBA with FWW in room. SW met bedside with pt and discussed HH recommendation and pt is agreeable to HH and no HH preference after reviewing HH Choice list and [facility] referral made based on Vendor Calendar. Gricelda at [facility] confirms they can accept the referral with SOC within 48 hours. F2F and HH orders completed and sent to [facility] as well. Pt provided with [facility] brochure. Plan: SW to follow for plan of d/c home tomorrow if medically stable via family POV and [facility] referral made and to start this week. SW to fax d/c summary to [facility] at discharge. Miya Escobar MSW
[2023-10-14 12:56] LABS: Add Manual Diff / Slide Review NO; Basophils Absolute Auto 0 /uL (0-100); Basophils Percent Auto 0.6 % (0-2); Eosinophils Absolute Auto 0 /uL (0-450); Eosinophils Percent Auto 0.7 % (2-4); Hematocrit 35.7 % (36-46); Hemoglobin 12.2 g/dL (12.0-16.0); Lymphocytes Absolute Auto 1100 /uL (1100-4500); Lymphocytes Percent Auto 16.3 % (25-40); Mean Corpuscular HGB Conc 34.2 % (30-36); Mean Corpuscular Hemoglobin 31.6 PG (26-34); Mean Corpuscular Volume 92.3 fL (80-100); Monocytes Absolute Auto 900 /uL (0-900); Monocytes Percent Auto 12.2 % (3-14); Neutrophils Absolute Auto 4900 /uL (1500-7000); Neutrophils Percent Auto 70.2 % (50-75); Platelet Count 180 X10^3/uL (150-400); Red Blood Cell Count 3.87 X10^6/uL (4.0-5.2); Red Cell Distribution Width 14.1 % (11.6-14.8)
[2023-10-14 13:21] LABS: Alanine Aminotransferase 12 IU/L (<35); Albumin 3.3 g/dL (3.5-5.0); Albumin Globulin Ratio 1.1 (1.0-2.8); Alkaline Phosphatase 170 U/L (38-126); Aspartate Aminotransferase 58 IU/L (14-36); Bilirubin Total 1.1 mg/dL (0.2-1.3); Blood Urea Nitrogen 13 mg/dL (7-17); Calcium 9.7 mg/dL (8.4-10.2); Carbon Dioxide 24 mmol/L (22-32); Chloride 102 mmol/L (98-107); Estimated Glomerular Filt Rate > 60 mL/min (>60); Glucose 114 mg/dL (80-110); HEMOLYSIS 23 (0-50); Potassium 3.6 mmol/L (3.4-5.1); Sodium 133 mmol/L (137-145); Total Protein 6.3 g/dL (6.3-8.2)
--- NOTE | 2023-10-14 13:57 | OT.IP.EVAL ---
Current Diagnoses Urinary tract infection, site not specified (10/12/23) Past Medical History (Last Reviewed 10/13/23 @ 09:02 by Luis Alberto Fleming MD) Allergic rhinitis Chronic back pain Chronic lower back pain Depression Deviated septum Diabetes Eczema Facet arthropathy, lumbar Foot pain Gastroesophageal reflux disease without esophagitis (09/27/15) GERD (gastroesophageal reflux disease) Hearing loss Hepatic steatosis Hyperlipemia Hyperlipidemia associated with type 2 diabetes mellitus Hypertension Leg edema, left Low back pain with sciatica Mixed hyperlipidemia (09/27/15) Obesity, Class III, BMI 40-49.9 (morbid obesity) Other dietary vitamin B12 deficiency anemia Overactive bladder (09/27/15) Parkinson's disease (09/27/15) Parkinson's disease (~2008) Plantar fasciitis of right foot (12/17/17) Pre-diabetes Seasonal allergic rhinitis (09/27/15) Urinary incontinence Urinary urgency Vertigo Surgical History (Last Reviewed 10/13/23 @ 09:02 by Luis Alberto Fleming MD) Status post cholecystectomy Occupational Therapy Inpatient Evaluation/Re-Eval M1 PT/OT-IP Prior Functional Status Start: 10/13/23 09:27 Freq: NEEDED Status: Active Protocol: Document 10/14/23 14:05 CGR (Rec: 10/14/23 14:18 CGR [id number]) Medical Review Prior Functional Status Medical History Reviewed Yes Diet/Fluid Consistency Regular Communication WNLs Mobility and Gait I with 4WW when she needs to carry things, otherwise she usually uses the SPC. Activities of Daily Living and IADL's Mod I, drove to [employer]. Pt has a shower stool and grab bars but is otherwise IND in her ADLs. She manages her own medications and finances. Social History Household Members none Living Arrangements House Number of Floors (Floors) One Floor Number of Stairs To Enter/Railing? 2 steps with left rail to enter Home Environment High Toilet,Tub/Shower Home Equipment Front Wheel Walker,Four Wheel Walker,Quad Cane,Straight Cane ,Shower Seat without Backrest, Hand Held Shower,Grab Bars Near Toilet,Grab Bars In Shower Employment Status Retired Additional Social History Comment Pt sleeps in a lift chair M2 OT-IP Current Condition Start: 10/14/23 14:05 Freq: Status: Active Protocol: Document 10/14/23 14:05 CGR (Rec: 10/14/23 14:18 CGR [id number]) Occupational Therapy Current Condition Current Condition Evaluation Date 10/14/23 Treatment Diagnosis GLF, weakness, UTI Diagnosis Onset Date 10/12/23 M3 OT- IP Subjective and Pain Start: 10/14/23 14:05 Freq: Status: Active Protocol: Document 10/14/23 14:05 CGR (Rec: 10/14/23 14:18 CGR [id number]) OT- Subjective Occupational Therapy Visit Type Type Initial Evaluation Visit Start Time 13:37 Visit Stop Time 13:57 Notes Attempted to see x2 in AM, pt first with visitors then eating lunch. Pt was agreeable to OT services after lunch. OT Pain Assessment Pain When Pain Assessed At Rest Pain Present Pain Present Denied Pain M4 OT- IP ADL's Start: 10/14/23 14:05 Freq: Status: Active Protocol: Document 10/14/23 14:05 CGR (Rec: 10/14/23 14:18 CGR [id number]) OT [id number] Comments OT Self-Feeding Comments Not meal time OT ADL-Grooming General Evaluation Grooming Ability Standby Assistance Comments OT Grooming Comments washing hands at sink standing . OT ADL-Oral Care Comments Oral Care Comments not performed, pt states she just performed. OT ADL-Dressing General Eval Lower Body Dressing Ability Independent Areas Needing Assistance Socks Comments OT Dressing Comments Pt performed seated in chair in room. OT ADL-Toileting General Evaluation Toileting Ability Independent Comments OT Toileting Comments Pt urinated seated on toilet OT ADL-Bathing Comments OT Bathing Comments not performed M5 OT- IP IADL's Start: 10/14/23 14:05 Freq: Status: Active Protocol: Document 10/14/23 14:05 CGR (Rec: 10/14/23 14:18 CGR [id number]) OT-Instrumental Activities of Daily Living Deficits IADL Deficits Identified No Deficits Home Safety Awareness Awareness of Need for Assistance at Home Good Awareness Ability to Problem Solve Emergency Able to Problem Solve Situations Medication Management Medication Management No Deficits Identified Money Management Money Management No Deficits Identified Meal Preparation Meal Preparation No Deficits Identified [place] 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 M6 OT- IP Functional Cognition Start: 10/14/23 14:05 Freq: Status: Active Protocol: Document 10/14/23 14:05 CGR (Rec: 10/14/23 14:18 CGR [id number]) Cognitive Factors Limiting Selfcare Function Cognitive Ability Level of Alertness Alert Patient Orientation Name,Age,Birthday,Month,Date, Year,Day of Week,Place, Situation Attention Span Ability Capable of Focused Attention, Capable of Sustained Attention Ability to Follow Commands Able to Follow Multi-Step Commands OT- Vision and Hearing OT- Hearing Assessment OT- Hearing Assessment WFL OT- Vision Assessment Visual Acuity Glasses All The Time Visual Attentiveness WFL Occular Pursuits WFL Visual Convergence WFL Vision Assessment Comments Pt wears bifocals M7 OT- IP Mobility and Balance Start: 10/14/23 14:05 Freq: Status: Active Protocol: Document 10/14/23 14:05 CGR (Rec: 10/14/23 14:18 CGR [id number]) OT-Transfer Assessment Sit to and From Stand Sit to and from Stand Standby Assistance Transfers Transfer Ability Standby Assistance Technique Transfer Destination Chair,Toilet Transfer Technique Stand Step Pivot Devices Transfer Assistive Devices Gait Belt,Front Wheeled Walker Comments Mobility Comments Pt states that she is more comfortable using the walker today and that she plans to use the 4ww at home when she returns. OT- Gait Assessment Gait Gait Assistance Required: Standby Assistance Assistive Devices Assistive Device Gait Belt,Front Wheeled Walker Comments Gait Ability Comments mobility around the room. OT- Balance Assessment Sitting Balance and Reactions Static Sitting Balance Ability Normal Dynamic Sitting Balance Ability Normal M8 OT- IP Objective Assessments Start: 10/14/23 14:05 Freq: Status: Active Protocol: Document 10/14/23 14:05 CGR (Rec: 10/14/23 14:18 CGR [id number]) OT Gross Range of Motion Upper Extremity Range of Motion Assessment Within Functional Limits OT Strength Upper Extremity Strength Assessment Within Functional Limits Comments Strength Comments 5/5 OT- Coordination Assessment Upper Extremity Finger to Nose Test Within Functional Limits Finger Tapping Test Within Functional Limits Comments Coordination Comments slight tremmor OT-Muscle Tone Assessment Muscle Tone WNL Yes OT Sensation Assessment Edema Edema Absent M9 OT- IP Assessment and Plan Start: 10/14/23 14:05 Freq: Status: Active Protocol: Document 10/14/23 14:05 CGR (Rec: 10/14/23 14:18 CGR [id number]) OT Summary Assessment and Plan Potential Rehabilitation Potential Excellent Analytic Complexity at Evaluation Low Summary OT Impairments Activity Tolerance Progress Towards Goals Safe For Discharge,Goals Met Assessment Summary Pt presents as a low complexity evaluation s/p admit for GLF, weakness, and UTI. Pt has progressed and appears to be at or close to her baseline. Pt is requesting to go home. Discussed with pt then with MD. Pt is likely safe for discharge home with home health follow up and sister's support. Frequency of Treatment Frequency Of Treatment Discharge Discharge Recommendations OT Discharge Recommendations Home Transportation Needs at Discharge Private Vehicle
--- NOTE | 2023-10-14 14:56 | PT.IPTN ---
Current Diagnoses Urinary tract infection, site not specified (10/12/23) Physical Therapy Treatment Note M2 PT-IP Current Condition Start: 10/13/23 09:27 Freq: NEEDED Status: Active Protocol: Document 10/13/23 11:32 MB (Rec: 10/13/23 12:15 MB [id number]) Physical Therapy Current Condition Current Condition Evaluation Date 10/13/23 Treatment Diagnosis UTI, fall M3 PT-IP Subjective Start: 10/13/23 09:27 Freq: NEEDED Status: Active Protocol: Document 10/14/23 14:56 AW (Rec: 10/14/23 15:09 AW [id number]) Subjective Physical Therapy Visit Type Type Treatment Note Visit Start Time 14:40 Visit Stop Time 14:56 Number of PROFESSOR OF OCEANOGRAPHY Visits 0 Physical Therapy Visit Comments Patient Comments I slept in the chair because the bed doesn't agree with me Therapy Pain Assessment Pain When Pain Assessed During Mobility Pain Present Pain Present Pain Reported M4 PT-IP Mobility and Gait Start: 10/13/23 09:27 Freq: NEEDED Status: Active Protocol: Document 10/14/23 14:56 AW (Rec: 10/14/23 15:09 AW [id number]) PT-Transfer Assessment Sit to and From Stand Sit to and from Stand Standby Assistance,Use of Upper Extremities Equipment Transfer Assistive Device Gait Belt,Front Wheeled Walker Orthotic/Prosthetic Devices or Brace: No Transfers Transfer Destination Chair Transfer Technique ambulated Transfer Ability Level of Assist Standby Assistance,Use of Upper Extremities Comments Mobility Comments Pt is found sitting in the chair. She does not sleep in a bed at home and finds the hospital bed too uncomfortable . SBA for sit to stand transfers with SPC today. Gait Assessment Gait Gait Assistance Required: Standby Assistance Distance (Feet) 200 Assistive Devices Assistive Device Gait Belt,Straight Cane Gait Deviations General Gait Pattern Decreased Stride Length, Decreased Feet Clearance, Festinating,Flexed Trunk Factors Limiting Gait Function Factors Limiting Gait Function Pain,Poor Balance Comments Gait Comments Pt states she typically uses a SPC at home and is hoping to walk with SPC today. Pt ambulates from her room to the PT stairs and back without undue effort. Gait is bradykinetic and hypokinetic but pt responds well to cues for amplitude. She has quite rigid LUE and no arm swing on the left during gait attempts. Stair Climbing Assessment Evaluation Level of Assist On Stairs Standby Assistance Devices Stair Climbing Assistive Devices Straight Cane,Left Railing Technique/Endurance Stair Climbing Direction Ascend and Descend Stair Climbing Technique Step to Step Number of Steps Climbed 3 Stair Climbing Set # Repetitions (reps) 1 Comments Stair Climbing Comments Pt catches her toe on the first step but recovers independently and compensates well. She improves her amplitude for subsequent reps. PT-Balance Assessment Sitting Balance and Reactions Static Sitting Balance Ability Good Dynamic Sitting Balance Ability Good Standing Balance and Reactions Static Standing Balance Ability Good Dynamic Standing Balance Ability Fair Device Used SPC M5 PT-IP Objective Assessments Start: 10/13/23 09:27 Freq: NEEDED Status: Active Protocol: Document 10/13/23 11:32 MB (Rec: 10/13/23 12:15 MB [id number]) Orientation Orientation/Cognition Level of Alertness Alert Orientation Name,Age,Birthday,Month,Place, Situation Language Function Ability No Deficits Noted Safety Awareness Decreased Safety Awareness Memory Description No Deficits Noted Comments Pt has mild confusion with other questioning during PT assessment Gross Range of Motion Upper Extremity ROM Impairments Tremor LUE and pt with decreased full range shoulder flexion B Lower Extremity ROM Impairments Mild decreased left ankle DF and decreased left toe great extension Strength Comments Strength Comments LLE is mildly weaker than the right M6 PT-IP Treatment Start: 10/13/23 09:27 Freq: NEEDED Status: Active Protocol: Document 10/14/23 14:56 AW (Rec: 10/14/23 15:09 AW [id number]) Physical Therapy Treatment Other Treatments Other Treatment Performed Continued education on the benefits of refreshing and supplementing her BIG treatment with community based and outpatient options. M7 PT-IP Assessment and Plan Start: 10/13/23 09:27 Freq: NEEDED Status: Active Protocol: Document 10/14/23 14:56 AW (Rec: 10/14/23 15:09 AW [id number]) PT Summary Assessment and Plan Summary Progress Towards Goals Progressing Toward Goals Assessment Summary Ale progressed her mobility significantly today, nearly meeting all acute PT goals. If she remains hospitalized, will follow up for further transfer training. PT continues to recommend discharge home with assist and home PT. Goals Transfer Goal Independent,Front Wheeled Walker,Four Wheeled Walker Gait Goal Independent,Front Wheel Walker ,Four Wheel Walker Gait Distance 100 Other Goals Pt will ascend and descend 2 steps with left rail and no more than SBA to allow safe home entrance. Days to Meet Goals 2 Frequency of Treatment Frequency Of Treatment Once a Day Treatment Plan Physical Therapy Treatment Plan Transfer Training,Gait Training,Therapeutic Exercise, Balance Retraining,Discharge Planning,Neuromuscular Re-ed Other Recommendations and Next Treatment transfers with SPC; cue Focus amplitude Discharge Recommendations PT Discharge Recommendations Home with Assistance,Home Health Transportation Needs at Discharge Private Vehicle
[2023-10-14] MEDS: METFORMIN XR 500 MG TABLET PO (17:11)
[2023-10-14] MEDS: ATORVASTATIN 20 MG TABLET 10 MG PO (20:35)
[2023-10-14] MEDS: CARBIDOPA-LEVODOPA ER 50/200 TABLET 1 EACH PO (20:36)
[2023-10-15 00:21] VITALS: BP 123/70; PULSE 74; RESP 20; TEMP 36.4; O2SAT 94
[2023-10-15 01:00] VITALS: O2SAT 94
[2023-10-15] MEDS: cefTRIAXone 1,000 MG in SODIUM CHLORIDE 0.9% 100 ML 200 MG IV (03:27)
[2023-10-15 04:00] VITALS: BP 107/62; PULSE 78; RESP 19; TEMP 36.3; O2SAT 91
[2023-10-15 04:37] VITALS: O2SAT 95
[2023-10-15 05:09] LABS: Add Manual Diff / Slide Review NO; Basophils Absolute Auto 0 /uL (0-100); Basophils Percent Auto 0.7 % (0-2); Eosinophils Absolute Auto 200 /uL (0-450); Eosinophils Percent Auto 2.5 % (2-4); Hematocrit 34.6 % (36-46); Hemoglobin 11.8 g/dL (12.0-16.0); Lymphocytes Absolute Auto 1200 /uL (1100-4500); Lymphocytes Percent Auto 18.8 % (25-40); Mean Corpuscular HGB Conc 34.1 % (30-36); Mean Corpuscular Hemoglobin 31.1 PG (26-34); Mean Corpuscular Volume 91.2 fL (80-100); Monocytes Absolute Auto 900 /uL (0-900); Monocytes Percent Auto 13.4 % (3-14); Neutrophils Absolute Auto 4300 /uL (1500-7000); Neutrophils Percent Auto 64.6 % (50-75); Platelet Count 193 X10^3/uL (150-400); Red Blood Cell Count 3.79 X10^6/uL (4.0-5.2); Red Cell Distribution Width 13.9 % (11.6-14.8); White Blood Cell Count 6.6 X10^3/uL (4.5-11.0)
[2023-10-15 05:27] LABS: Blood Urea Nitrogen 18 mg/dL (7-17); Calcium 9.6 mg/dL (8.4-10.2); Carbon Dioxide 27 mmol/L (22-32); Chloride 103 mmol/L (98-107); Estimated Glomerular Filt Rate > 60 mL/min (>60); Glucose 128 mg/dL (80-110); HEMOLYSIS 15 (0-50); Potassium 3.5 mmol/L (3.4-5.1); Sodium 135 mmol/L (137-145)
[2023-10-15] MEDS: CARBIDOPA-LEVODOPA 25/100 TABLET 2 EACH PO ×2 (05:38→10:33)
[2023-10-15] MEDS: PANTOPRAZOLE DR 40 MG TABLET PO (05:39)
[2023-10-15 08:00] VITALS: BP 127/56; PULSE 78; RESP 18; TEMP 36.4; O2SAT 93
--- NOTE | 2023-10-15 08:57 | P.DS_ITS ---
History of Present Illness History of Present Illness Chief complaint: Weakness,Fever Narrative: From Director Dietetics Department: 73 years old female with a past medical history of diabetes mellitus type 2 Parkinson's disease, hypertension, GERD, chronic back pain, depression, dyslipidemia, multiple sclerosis and multiple other medical issues was brought to the emergency room for progressive weakness with chills. Patient lives at home by herself and uses a walker with the lift chair but able to manage her activities of daily living fairly independently to the past few days when she had increasing weakness. Today she had a ground-level fall with no injuries and unable to get up with significant weakness. Denies any chest pain cough wheezing or upper respiratory symptoms. Denies any nausea or vomiting. Denies any bowel movement issues. In the emergency room noted to be tachycardic with a heart rate in the 100s and O2 saturation 91% on room air. Labs revealed a white count of 15,000 with a urinalysis positive for WBCs/leukocyte esterase. Bilirubin was elevated at 2.2. Chest x-ray shows mild acute process. CT brain shows no acute process in the CT abdomen shows prior cholecystectomy but otherwise no acute intra-abdominal pathology. Patient was initiated on IV fluids with IV Zosyn and admitted for further evaluation. Additional history: She denies fevers but has been feeling cold recently. She also denies dysuria. No recent diarrhea, or abdominal pain. She does feel better this morning after initial antibiotics and IV fluids. No URI symptoms including rhinorrhea, cough or sore throat. Discharge Providers Provider Date of admission: 10/12/23 22:44 Discharge Date: 10/15/23 Primary care physician: ALIDA Richards Consults: 10/13/23 02:18 Consult to Occupational Therapy Evaluate & Treat Comment: Physician Instructions: Evaluate and treat Consult to Physical Therapy Evaluate & Treat Comment: Physician Instructions: Evaluate and Treat 10/14/23 08:21 Consult to Home Health Routine Comment: Parkinsons, UTI, confusion, weakness, diabetes Reason For Exam: Set up RN/PT/OT/REPORTING PROCESS CONSULTANT for home when stable Discharge provider: Luis Alberto Fleming MD Summary Hospital Course Discharge Diagnosis: 1. Generalized weakness, present on admission and improved. 2. Urinary tract infection. Present on admission and improved. E. coli sensitive to ceftriaxone, discharge on Cephalexin. . 3 Hypovolemic hypotension, present on admission and resolved. 4. Diabetes mellitus type 2, present on admission and active. This is stable. 5. Parkinson's disease, present on admission and active. This is stable. 6. Dyslipidemia, present on admission and active. Hospital Course: The patient was admitted for weakness and urinary tract infection. She was treated initially with ceftriaxone and sensitivities confirmed E coli which was sensitive to ceftriaxone and cephalosporins. Her weakness improved dramatically with treatment and she advanced her progression with physical therapy. She was stable for discharge on the morning of October 15 and was able to ambulate at her baseline. Blood cultures were negative. Status at Discharge Cognitive/behavioral status at discharge: oriented Functional status at discharge: independent ambulation Overall status at discharge: patient is back to baseline Time Spent with Patient Time spent: Greater than 30 minutes Exam Vital Signs (past 8 hours): - 10/15/23 01:00 10/15/23 04:00 10/15/23 04:37 Temperature 97.4 F L Pulse Rate 78 Respiratory Rate 19 Blood Pressure 107/62 Pulse Oximetry 94 91 95 Oxygen Delivery Method Room Air Room Air Oxygen Flow Rate 0 10/15/23 08:00 Temperature 97.6 F Pulse Rate 78 Respiratory Rate 18 Blood Pressure 127/56 L Pulse Oximetry 93 Oxygen Delivery Method Oxygen Flow Rate 0 Oxygen Delivery Method Room Air Oxygen Flow Rate 0 Narrative Exam Narrative: No acute distress, fluent speech. She is up sitting in chair. Lungs are clear with cone normal rate and effort. Heart is regular without murmur. Abdomen is non-distended. Extremities are free of edema. Objective Imaging CT scan - abdomen: Radiologist's impression: Prior cholecystectomy, prominence of the common bile duct has not increased significantly from the comparison CT from a March of last year. No hepatic lesion is found, no intrahepatic biliary distention is present. CT scan - head: Radiologist's impression: Mild mucosal thickening posterior right maxillary sinus without air-fluid level. Mild patient motion during image acquisition Chest x-ray: Radiologist's impression: No acute cardiopulmonary abnormality is seen. Labs 10/15/23 04:59 10/15/23 04:59 Labs: Laboratory Results - last 24 hr 10/14/23 10/15/23 12:35 04:59 WBC 7.0 6.6 RBC 3.87 L 3.79 L Hgb 12.2 11.8 L Hct 35.7 L 34.6 L MCV 92.3 91.2 MCH 31.6 31.1 MCHC 34.2 34.1 RDW 14.1 13.9 Plt Count 180 193 Neut % (Auto) 70.2 64.6 Lymph % (Auto) 16.3 L 18.8 L Sterling % (Auto) 12.2 13.4 Eos % (Auto) 0.7 L 2.5 Baso % (Auto) 0.6 0.7 Neut # (Auto) 4900 4300 Lymph # (Auto) 1100 1200 Sterling # (Auto) 900 900 Eos # (Auto) 0 200 Baso # (Auto) 0 0 Sodium 133 L 135 L Potassium 3.6 3.5 Chloride 102 103 Carbon Dioxide 24 27 BUN 13 18 H Creatinine 0.52 0.60 Estimated GFR > 60 > 60 BUN/Creatinine Ratio 25.0 H 30.0 H Glucose 114 H 128 H Calcium 9.7 9.6 Total Bilirubin 1.1 AST 58 H ALT 12 Alkaline Phosphatase 170 H Total Protein 6.3 Albumin 3.3 L Globulin 3.0 Albumin/Globulin Ratio 1.1 PFSH Medical History Hyperlipidemia associated with type 2 diabetes mellitus Chronic lower back pain Pre-diabetes Hepatic steatosis Other dietary vitamin B12 deficiency anemia Urinary urgency Leg edema, left Depression Facet arthropathy, lumbar Obesity, Class III, BMI 40-49.9 (morbid obesity) Low back pain with sciatica GERD (gastroesophageal reflux disease) Deviated septum Eczema Urinary incontinence Parkinson's disease (~2008) Chronic back pain Foot pain Diabetes Hyperlipemia Hypertension Allergic rhinitis Hearing loss Vertigo Plantar fasciitis of right foot (12/17/17) Seasonal allergic rhinitis (09/27/15) Parkinson's disease (09/27/15) Overactive bladder (09/27/15) Mixed hyperlipidemia (09/27/15) Gastroesophageal reflux disease without esophagitis (09/27/15) Surgical History Status post cholecystectomy Family History Brother Stroke Father No problems noted. Mother No problems noted. Sister No problems noted. Social History household members: none Smoking Status: Never smoker alcohol intake: never Discharge Assessment & Plan Assessment and Plan Assessment: 1. Generalized weakness, present on admission and improved. 2. Urinary tract infection. Present on admission and improved. E. coli sensitive to ceftriaxone, discharge on Cephalexin. . 3 Hypovolemic hypotension, present on admission and resolved. 4. Diabetes mellitus type 2, present on admission and active. This is stable. 5. Parkinson's disease, present on admission and active. This is stable. 6. Dyslipidemia, present on admission and active. Plan of Treatment: Discharge home today, will be transported by sister. Cephalexin q.i.d. for 5 additional days. This was sent to [facility] and Jess. [facility] is also ordered for PT, OT and home RN. Discharge Plan Discharge Plan Patient Disposition: Home Health Service Provider Discharge Comment: Stable for discharge. Walking well. Discharge orders & Medications Prescriptions: New cephalexin 500 mg capsule 500 mg PO QID Qty: 20 0RF Continued ASPIRIN (Aspirin EC) 81 mg PO Q DAY Qty: 0 celecoxib 200 mg capsule See Rx Instructions .ROUTE .COMPLEX Qty: 180 3RF Dose Instruction: TAKE ONE CAPSULE BY MOUTH TWICE DAILY Rx Instructions: TAKE ONE CAPSULE BY MOUTH TWICE DAILY duloxetine 30 mg capsule,delayed release(DR/EC) See Rx Instructions .ROUTE .COMPLEX Qty: 180 3RF Dose Instruction: TAKE ONE CAPSULE BY MOUTH TWICE DAILY Rx Instructions: TAKE ONE CAPSULE BY MOUTH TWICE DAILY cholecalciferol (vitamin D3) 50 mcg (2,000 unit) capsule 50 mcg PO DAILY Qty: 90 3RF rosuvastatin 5 mg tablet 5 mg PO DAILY Qty: 90 3RF Rx Instructions: Take 1 tab daily with evening meal metformin 500 mg tablet extended release 24hr 500 mg PO QPM Qty: 90 3RF Rx Instructions: Take 1 tab with food with evening meal daily carbidopa-levodopa 25-100 mg tablet 2 tab PO 4XD Qty: 720 3RF omeprazole 40 mg capsule,delayed release(DR/EC) See Rx Instructions .ROUTE .COMPLEX Qty: 90 3RF Dose Instruction: TAKE ONE CAPSULE BY MOUTH ONE TIME DAILY Rx Instructions: TAKE ONE CAPSULE BY MOUTH ONE TIME DAILY ropinirole [Requip XL] 8 mg tablet extended release 24 hr 8 mg PO DAILY carbidopa-levodopa 50-200 mg tablet extended release 1 tab PO BEDTIME rivastigmine tartrate 1.5 mg capsule 3 mg PO DAILY Disabled Parking Permit See Rx Instructions .ROUTE .COMPLEX Qty: 1 0RF Rx Instructions: I find this patient to be medically disabled and qualify for disabled parking as indicated and signed on the accompanying disabled parking application for individuals. semaglutide 0.25 mg or 0.5 mg(2 mg/1.5 mL) pen injector 0.25 mg SUBCUT QWEEK Qty: 1.5 3RF Rx Instructions: Inject weekly tolterodine 2 mg capsule,extended release 24hr 4 mg PO DAILY Qty: 180 3RF Hold Instructions: waiting to see urology, did not start Rx Instructions: Take 2 tabs daily for urinary frequency (DME) lancette See Rx Instructions .Route .MEDSUPPLY Qty: 100 3RF Rx Instructions: check blood sugars daily (DME) blood pressure test kit-large Kit See Rx Instructions .Route Qty: 1 0RF Rx Instructions: As directed (DME) glucometer See Rx Instructions .Route .MEDSUPPLY Qty: 1 0RF Rx Instructions: Check blood sugars daily (DME) glucose test strips See Rx Instructions .Route .MEDSUPPLY Qty: 100 3RF Rx Instructions: Check blood sugars daily (DME) christelle See Rx Instructions .Route .MEDSUPPLY Qty: 1 0RF Rx Instructions: Check blood sugars daily acetaminophen 500 mg capsule 1,000 mg PO TID Medication counseling provided by Pharmacist: No Follow up/Referrals: Kaye Cox ARNP [Primary Care Provider] - Diet/Activity/Treatments Diet: Carb-consistent/Diabetic Diet comment: ad ez (will be followed by [facility]) Visit Report/Discharge Packet Stand Alone Forms: Patient Portal/API Discharge Data Primary Care Provider: Kaye Cox Quality VTE Deep Vein Thrombosis/Pulmonary Embolism Present on Admission: No
[2023-10-15 09:00] VITALS: O2SAT 93
[2023-10-15] MEDS: ASPIRIN EC 81 MG TABLET PO (09:01)
[2023-10-15] MEDS: MAGNESIUM OXIDE 400 MG TABLET PO (09:01)
[2023-10-15] MEDS: DULOXETINE 30 MG CAPSULE PO (09:01)
[2023-10-15] MEDS: CHOLECALCIFEROL (VITAMIN D3) 1,000 UNIT TABLET 2000 UNIT PO (09:01)
[2023-10-15] MEDS: ENOXAPARIN 40 MG/0.4 ML SYRINGE SUBCUT (09:02)
[2023-10-15] MEDS: OXYBUTYNIN 5 MG ER TAB 10 MG PO (09:02)
--- NOTE | 2023-10-15 09:14 | CM.DPC ---
DCP Cont. Reviewed EMR and team rounds for status updates. Plan is for pt to d/c home today around 11:00am, her sister will transport her home. Called [facility] and updated them of her d/c today, faxed F/F sheet. No further d/c needs identified at this time.
--- NOTE | 2023-10-15 10:08 | PT.IPTN ---
Current Diagnoses Urinary tract infection, site not specified (10/12/23) Physical Therapy Treatment Note M2 PT-IP Current Condition Start: 10/13/23 09:27 Freq: NEEDED Status: Active Protocol: Document 10/13/23 11:32 MB (Rec: 10/13/23 12:15 MB [id number]) Physical Therapy Current Condition Current Condition Evaluation Date 10/13/23 Treatment Diagnosis UTI, fall M3 PT-IP Subjective Start: 10/13/23 09:27 Freq: NEEDED Status: Active Protocol: Document 10/15/23 10:31 TS (Rec: 10/15/23 10:42 TS [id number]) Subjective Physical Therapy Visit Type Type Treatment Note Visit Start Time 10:08 Visit Stop Time 10:31 Number of FLOUR MIXER HELPER Visits 1 Physical Therapy Visit Comments Patient Comments Pt found resting in bed, reports feeling better this morning, sister will be picking her up to go home at 11:30 today. M4 PT-IP Mobility and Gait Start: 10/13/23 09:27 Freq: NEEDED Status: Active Protocol: Document 10/15/23 10:31 TS (Rec: 10/15/23 10:42 TS [id number]) PT-Transfer Assessment Sit to and From Stand Sit to and from Stand Contact Guard Assistance,Use of Upper Extremities Equipment Transfer Assistive Device Gait Belt,Straight Cane Orthotic/Prosthetic Devices or Brace: No Comments Mobility Comments Sit to stand from chair with SPC CGA, pt has some posterior LOB, maintains balance with use of back of LEs against chair. She ambulated in hallway ~200' SBA with use of SPC, has some swaying and unsteadiness but no LOB. Pt ambulated back to room, requested to use toilet. pt performed own pericare. STS from toilet use of grab SBA. Pt ambulated to chair, was left in chair with alarm on, RN notified of pt wanting to get dressed. Gait Assessment Gait Gait Assistance Required: Standby Assistance Distance (Feet) 200 Able to Maintain Weight Bearing Status Yes During Gait Assistive Devices Assistive Device Gait Belt,Straight Cane Orthotic/Prosthetic Devices or Brace: No Gait Deviations General Gait Pattern Decreased Stride Length, Decreased Feet Clearance, Festinating,Flexed Trunk Factors Limiting Gait Function Factors Limiting Gait Function Decreased Activity Tolerance, Poor Balance Comments Gait Comments See mobility comments PT-Balance Assessment Sitting Balance and Reactions Static Sitting Balance Ability Good Dynamic Sitting Balance Ability Good Standing Balance and Reactions Static Standing Balance Ability Good Dynamic Standing Balance Ability Fair Device Used SPC M5 PT-IP Objective Assessments Start: 10/13/23 09:27 Freq: NEEDED Status: Active Protocol: Document 10/13/23 11:32 MB (Rec: 10/13/23 12:15 MB [id number]) Orientation Orientation/Cognition Level of Alertness Alert Orientation Name,Age,Birthday,Month,Place, Situation Language Function Ability No Deficits Noted Safety Awareness Decreased Safety Awareness Memory Description No Deficits Noted Comments Pt has mild confusion with other questioning during PT assessment Gross Range of Motion Upper Extremity ROM Impairments Tremor LUE and pt with decreased full range shoulder flexion B Lower Extremity ROM Impairments Mild decreased left ankle DF and decreased left toe great extension Strength Comments Strength Comments LLE is mildly weaker than the right M6 PT-IP Treatment Start: 10/13/23 09:27 Freq: NEEDED Status: Active Protocol: Document 10/15/23 10:31 TS (Rec: 10/15/23 10:42 TS [id number]) Physical Therapy Treatment Education Education Provided Safety M7 PT-IP Assessment and Plan Start: 10/13/23 09:27 Freq: NEEDED Status: Active Protocol: Document 10/15/23 10:31 TS (Rec: 10/15/23 10:42 TS [id number]) PT Summary Assessment and Plan Potential Rehabilitation Potential Good Summary Progress Towards Goals Progressing Toward Goals Assessment Summary Ale is making progress to her goals. She continues to amblate ~200'SBA with use of SPC. She has some unsteadiness and swaying but no LOB with gait. She had some posterior leaning coming into standing requring CGA with use of SPC. PT continues to recommend d/c home with assist and HHPT. Goals Transfer Goal Independent,Front Wheeled Walker,Four Wheeled Walker Gait Goal Independent,Front Wheel Walker ,Four Wheel Walker Gait Distance 100 Other Goals Pt will ascend and descend 2 steps with left rail and no more than SBA to allow safe home entrance. Days to Meet Goals 2 Frequency of Treatment Frequency Of Treatment Once a Day Treatment Plan Physical Therapy Treatment Plan Transfer Training,Gait Training,Therapeutic Exercise, Balance Retraining,Discharge Planning,Neuromuscular Re-ed Other Recommendations and Next Treatment transfers with SPC; cue Focus amplitude Weight Bearing Status Weight Bearing Status Weight Bear as Tolerated Recommendations To Nursing Amount of Assist Needed Standby Assistance Discharge Recommendations PT Discharge Recommendations Home with Assistance,Home Health Transportation Needs at Discharge Private Vehicle
== END 2023-10-15 11:42 | disposition home health service (06) | DRG 689 ==
LOC: ED 19:48 → AC 22:45
PROVIDERS: Hospitalist; Admitting Provider Internal Medicine; Emergency Provider Emergency Medicine; Family Provider Nurse Practitioner; PCP Nurse Practitioner; Referring Provider Emergency Medicine; Visit Provider Internal Medicine
DX: N39.0 Urinary tract infection, site not specified (principal); G93.41 Metabolic encephalopathy; G20.A1 Parkinson's disease without dyskinesia, without mention of fluctuations; E11.9 Type 2 diabetes mellitus without complications; E78.5 Hyperlipidemia, unspecified; I95.9 Hypotension, unspecified; E86.1 Hypovolemia; B96.20 Unspecified Escherichia coli [E. coli] as the cause of diseases classified elsewhere; N32.81 Overactive bladder; K21.9 Gastro-esophageal reflux disease without esophagitis; Z79.85 Long-term (current) use of injectable non-insulin antidiabetic drugs; Z79.84 Long term (current) use of oral hypoglycemic drugs
CPT/HCPCS: 0241U; 36415; 70450; 71045; 74177; 80048; 80053; 81001; 82550; 82962; 83036; 83605; 83735; 83880; 84100; 84145; 84484; 85025; 85379; 85610; 87040; 87077; 87086; 87186; 93005; 96365; 97116; 97161; 97165; 97530; 97535; 99284; J0696; J1650; J2543; J7050; Q9967

== ENCOUNTER → 2023-10-21 08:53 | Outpatient (CLI) | payer MEDICARE, OTHER, SELFPAY ==
[2023-10-12 23:00] VITALS: BMI 39.6
[2023-10-21 10:41] LABS: Hemoglobin A1C% w Est Avg Glu 5.9 % (4.0-6.0)
[2023-10-21 11:17] LABS: Alanine Aminotransferase 8 IU/L (<35); Albumin Globulin Ratio 1.3 (1.0-2.8); Alkaline Phosphatase 118 U/L (38-126); Aspartate Aminotransferase 37 IU/L (14-36); BUN Creatinine Ratio 28.6 (6-22); Bilirubin Total 1.1 mg/dL (0.2-1.3); Blood Urea Nitrogen 16 mg/dL (7-17); Calcium 10.6 mg/dL (8.4-10.2); Carbon Dioxide 29 mmol/L (22-32); Chloride 101 mmol/L (98-107); Estimated Glomerular Filt Rate > 60 mL/min (>60); Globulin 3.2 g/dL (1.7-4.1); Glucose 119 mg/dL (80-110); HEMOLYSIS < 15 (0-50); Potassium 5.3 mmol/L (3.4-5.1); Sodium 137 mmol/L (137-145); Total Protein 7.2 g/dL (6.3-8.2)
[2023-10-21 11:33] LABS: Free T3, Triiodothyronine Free 3.84 pg/mL (2.77-5.27); Free T4, Direct Thyroxine 1.62 ng/dL (0.78-2.19)
[2023-10-21 11:47] LABS: Thyroid Stimulating Hormone 0.712 uIU/mL (0.47-4.68)
[2023-10-22 19:06] LABS: Creatinine Urine Random 167.7 mg/dL
[2023-10-22 19:32] LABS: Microalbumi Creatinin Ratio Ur 24.4 ug/mg CR (<30); Microalbumin Urine Random 4.1 mg/dL (0-1.6)
== END ==
PROVIDERS: Family Provider Nurse Practitioner; PCP Nurse Practitioner; Referring Provider Nurse Practitioner; Visit Provider Nurse Practitioner
DX: E11.9 Type 2 diabetes mellitus without complications (principal); E78.5 Hyperlipidemia, unspecified; E66.01 Morbid (severe) obesity due to excess calories; E78.2 Mixed hyperlipidemia; G20.A1 Parkinson's disease without dyskinesia, without mention of fluctuations
CPT/HCPCS: 36415; 80053; 82043; 82570; 83036; 84439; 84443; 84481

== ENCOUNTER → 2023-10-31 15:17 | Outpatient (CLI) | payer MEDICARE, OTHER, SELFPAY ==
[2023-10-22 15:35] VITALS: BMI 39.6
== END ==
LOC: CAR 15:18
PROVIDERS: Family Provider Nurse Practitioner; PCP Nurse Practitioner; Referring Provider Nurse Practitioner; Visit Provider Nurse Practitioner
DX: I49.9 Cardiac arrhythmia, unspecified (principal); R55 Syncope and collapse
CPT/HCPCS: 93246

== ENCOUNTER → 2023-11-14 11:30 | Outpatient (CLI) | payer MEDICARE, OTHER, SELFPAY ==
[2023-10-22 15:35] VITALS: BMI 39.6
--- NOTE | 2023-11-14 11:32 | DI.RAD.S_ITS ---
PROCEDURE: XR HIP W PEL IF DONE BREN MIN 4V INDICATIONS: left hip pain TECHNIQUE: AP pelvis with lateral view(s) of the bilateral hip(s). COMPARISON: None. FINDINGS: Bones: No fractures or dislocations. Pelvic ring appears intact. No suspicious bony lesions. Mild bilateral hip osteoarthritis. Soft tissues: The visualized bowel gas pattern is normal. No suspicious soft tissue calcifications. IMPRESSION: No displaced fracture. If there remains a high clinical concern or the patient cannot bear weight, consider cross-sectional imaging to exclude an occult fracture. Dictated by: Jef Tanner M.D. on 11/14/2023 at 14:11 Approved by: Jef Tanner M.D. on 11/14/2023 at 14:12
[2023-11-14 12:33] LABS: Add Manual Diff / Slide Review NO; Basophils Absolute Auto 100 /uL (0-100); Basophils Percent Auto 0.7 % (0-2); Eosinophils Absolute Auto 100 /uL (0-450); Hematocrit 42.4 % (36-46); Hemoglobin 14.2 g/dL (12.0-16.0); Lymphocytes Absolute Auto 2100 /uL (1100-4500); Lymphocytes Percent Auto 28.7 % (25-40); Mean Corpuscular HGB Conc 33.5 % (30-36); Mean Corpuscular Hemoglobin 30.9 PG (26-34); Mean Corpuscular Volume 92.3 fL (80-100); Monocytes Absolute Auto 500 /uL (0-900); Monocytes Percent Auto 6.4 % (3-14); Neutrophils Absolute Auto 4500 /uL (1500-7000); Neutrophils Percent Auto 62.2 % (50-75); Platelet Count 232 X10^3/uL (150-400); Red Blood Cell Count 4.59 X10^6/uL (4.0-5.2); Red Cell Distribution Width 14.6 % (11.6-14.8); White Blood Cell Count 7.2 X10^3/uL (4.5-11.0)
[2023-11-14 13:07] LABS: Alanine Aminotransferase 8 IU/L (<35); Albumin 4.1 g/dL (3.5-5.0); Albumin Globulin Ratio 1.3 (1.0-2.8); Alkaline Phosphatase 101 U/L (38-126); Aspartate Aminotransferase 24 IU/L (14-36); BUN Creatinine Ratio 31.8 (6-22); Bilirubin Total 1.1 mg/dL (0.2-1.3); Blood Urea Nitrogen 21 mg/dL (7-17); Calcium 10.8 mg/dL (8.4-10.2); Carbon Dioxide 33 mmol/L (22-32); Chloride 103 mmol/L (98-107); Estimated Glomerular Filt Rate > 60 mL/min (>60); Globulin 3.1 g/dL (1.7-4.1); Glucose 108 mg/dL (80-110); HEMOLYSIS < 15 (0-50); Potassium 4.8 mmol/L (3.4-5.1); Sodium 139 mmol/L (137-145); Total Protein 7.2 g/dL (6.3-8.2)
[2023-11-14 13:21] LABS: Free T3, Triiodothyronine Free 3.61 pg/mL (2.77-5.27); Free T4, Direct Thyroxine 1.26 ng/dL (0.78-2.19)
[2023-11-14 15:27] LABS: Appearance Urine UA CLEAR; Bilirubin Urine UA NEGATIVE (NEGATIVE); Color Urine UA YELLOW; Glucose Urine UA NEGATIVE (Negative); Ketones Urine UA TRACE (NEGATIVE); Leukocyte Esterase Urine UA NEGATIVE (NEGATIVE); Nitrite Urine UA NEGATIVE (Negative); Occult Blood Urine UA NEGATIVE (Negative); Protein Urine UA NEGATIVE (Negative); Specific Gravity Urine UA 1.015 (1.000-1.035)
[2023-11-14 15:31] LABS: pH Urine UA 5.5 (4.5-8.0)
[2023-11-14 15:39] LABS: Bacteria Urine Occasional (0-1); Culture Indicated Urine Cult Not Indicated; Mucus Urine 1+ (Negative); RBC Urine 0-1/HPF (0-5/HPF); Squamous Epithelial Cell Urine 1-5 /HPF (0-5/HPF); Urine Volume 10mL (spun); WBC Urine 0-1/HPF (0-5/HPF)
== END ==
LOC: RAD 11:31
PROVIDERS: Family Provider Nurse Practitioner; PCP Nurse Practitioner; Referring Provider Nurse Practitioner; Visit Provider Nurse Practitioner
DX: D64.9 Anemia, unspecified; M25.552 Pain in left hip; E11.9 Type 2 diabetes mellitus without complications; E87.5 Hyperkalemia; N39.0 Urinary tract infection, site not specified
CPT/HCPCS: 36415; 73522; 80053; 81001; 84439; 84443; 84481; 85025

== ENCOUNTER → 2023-11-21 13:39 | Outpatient (CLI) | payer MEDICARE, OTHER, SELFPAY ==
[2023-10-22 15:35] VITALS: BMI 39.6
--- NOTE | 2023-11-21 13:41 | DI.RAD.S_ITS ---
Bone Density Report Name: YASH CARBONE Age: 73 Sex: Female Ethnicity: White Date of : 1950 Indication: postmenopausal; screening for osteoporosis; Referring Provider: CRISTIANE HORVATH Study: Bone densitometry was performed. Exam Date: November 21, 2023 Accession number: [id number] Bone Density: Region BMD T-score Z-score Classification AP Spine(L1-L4) 1.003 -0.4 1.9 Normal Femoral Neck (Left) 0.699 -1.4 0.6 Osteopenia Total Hip (Left) 0.888 -0.4 1.2 Normal Femoral Neck (Right) 0.781 -0.6 1.3 Normal Total Hip (Right) 0.979 0.3 1.9 Normal Total Hip Mean 0.934 -0.1 1.6 Normal World Health Organization criteria for BMD impression classify patients as: Normal (T-score at or above -1.0), Osteopenia (T-score between -1.0 and -2.5), or Osteoporosis (T-score at or below -2.5). 10-year Fracture Risk(1): Major Osteoporotic Fracture 9.1% Hip Fracture 1.3% Reported Risk Factors: [place] (), Neck BMD=0.699, BMI=38.0 (1) FRAX(R) Version 3.08. Fracture probability calculated for an untreated patient. Fracture probability may be lower if the patient has received treatment. Previous Exams: -- Region Exam Age BMD T-score BMD Change BMD Change Date g/cm2 vs Baseline vs Previous -- AP Spine (L1-L4) 11/21/2023 73 1.003 -0.4 -0.071 (-6.6%)# -0.071 (-6.6%)# 04/04/2009 58 1.074 0.2 Total Hip(Left) 11/21/2023 73 0.888 -0.4 -0.153 (-14.7%)# -0.153 (-14.7%)# 04/04/2009 58 1.041 0.8 Total Hip(Right) 11/21/2023 73 0.979 0.3 -0.091 (-8.5%)# -0.091 (-8.5%)# 04/04/2009 58 1.070 1.0 -- *Denotes significance at 95% confidence level, LSC for AP Spine = 0.022 g/cm2, LSC for Total Hip = 0.027 g/cm2 # Denotes dissimilar scan types or analysis methods Impression: The patient has low bone mass, based on the Left Femoral Neck T-score. The patient has an estimated ten-year risk of hip fracture of 1.3% and an estimated ten-year risk of major fracture of 9.1%, based on the WHO FRAX algorithm. No significant bone loss was observed. Discussion: BONE DENSITY IS LOW AT ONE OR MORE SKELETAL SITES. This patient's lowest T-score is low at one or more skeletal sites. It meets the World Health Organization's (WHO) criteria for low bone mass (T-score between -1.0 and -2.5). The patient's 10-year risk of fracture as calculated by FRAX is less than the threshold where pharmacological therapy is recommended by the National Osteoporosis Foundation (NOF). However, all treatment decisions require clinical judgment and consideration of individual patient factors, including patient preferences, comorbidities, previous drug use, risk factors not captured in the FRAX model (e.g., frailty, falls, vitamin D deficiency, increased bone turnover, interval significant decline in bone density) and possible under or overestimation of fracture risk by FRAX. The patient should follow a healthful lifestyle (good nutrition with adequate calcium and vitamin D, and appropriate weight-bearing exercise). Follow-Up: Consider repeating this study in 2 to 3 years to reassess this patient's status, or sooner if there is some new clinical indication. Reported by: BHUMI FOUNTAIN MD on 11/21/2023 3:05:00 PM.
--- NOTE | 2023-11-21 13:41 | DI.MG.S_ITS ---
BILATERAL DIGITAL SCREENING MAMMOGRAM 3D/2D WITH CAD: 11/21/2023 CLINICAL: Routine screening. Comparison is made to exams dated: 06/03/2017 mammogram, 06/05/2019 mammogram, and 03/27/2016 mammogram - [facility]. Both breasts are almost entirely fatty (category a/<25% glandular tissue). Current study was also evaluated with a Computer Aided Detection (CAD) system. There are new regional heterogeneous calcifications in the right breast at 11 o'clock middle depth. No other significant masses, calcifications, or other findings are seen in either breast. IMPRESSION: INCOMPLETE: NEEDS ADDITIONAL IMAGING EVALUATION The new regional heterogeneous calcifications in the right breast are indeterminate. Diagnostic mammogram for additional views to include mediolateral and spot magnification views is recommended. Based on the Tyrer Cuzick model (a risk assessment model) the patient's lifetime risk is 2.7% and her 10 year risk is 2.0%. According to the ACR, ACS, and NCCN guidelines, an annual breast MRI exam along with mammogram is recommended if the patient's lifetime risk is 20% or greater. This exam was interpreted at Station ID: [id number]. NOTE: For mammograms, a report in lay terms will be sent to the patient. Approximately 15% of breast malignancies will not be visualized mammographically. In the management of a palpable breast mass, a negative mammogram must not discourage biopsy of a clinically suspicious lesion. Electronically Signed By: Herminio López M.D. aty/:11/21/2023 16:40:09 letter sent: Additional Imaging Needed ACR BI-RADS Category 0: Incomplete 3340F
== END ==
PROVIDERS: Family Provider Nurse Practitioner; PCP Nurse Practitioner; Referring Provider Nurse Practitioner; Visit Provider Nurse Practitioner
DX: Z12.31 Encounter for screening mammogram for malignant neoplasm of breast (principal); M81.0 Age-related osteoporosis without current pathological fracture
CPT/HCPCS: 77063; 77067; 77080

== ENCOUNTER → 2023-12-16 16:08 | Outpatient (CLI) | payer MEDICARE, OTHER, SELFPAY ==
[2023-10-22 15:35] VITALS: BMI 39.6
--- NOTE | 2023-12-16 16:10 | DI.RAD.S_ITS ---
PROCEDURE: XR HIP W PEL IF DONE LT 2V INDICATIONS: chronic left hip pain TECHNIQUE: AP pelvis with lateral view(s) of the left hip(s). COMPARISON: [facility], CR, XR HIP W PEL IF DONE BREN 3TO4V, 11/14/2023, 11:40. FINDINGS: Bones: No fractures or dislocations. Pelvic ring appears intact. No suspicious bony lesions. Mild bilateral hip degenerative change. Soft tissues: The visualized bowel gas pattern is normal. No suspicious soft tissue calcifications. IMPRESSION: Mild bilateral hip degenerative change. No acute bony abnormality. Dictated by: Federico Wilcox M.D. on 12/16/2023 at 16:56 Approved by: Federico Wilcox M.D. on 12/16/2023 at 16:57
[2023-12-18 09:29] LABS: Ionized Calcium 5.1 mg/dL (4.5-5.6)
== END ==
PROVIDERS: Family Provider Nurse Practitioner; PCP Nurse Practitioner; Referring Provider Nurse Practitioner; Visit Provider Nurse Practitioner
DX: M25.552 Pain in left hip (principal); E83.52 Hypercalcemia
CPT/HCPCS: 36415; 73502; 82330; 82397

== ENCOUNTER → 2023-12-20 11:57 | Outpatient (CLI) | payer MEDICARE, OTHER, SELFPAY ==
[2023-10-22 15:35] VITALS: BMI 39.6
--- NOTE | 2023-12-20 12:02 | DI.MG.S_ITS ---
UNILATERAL RIGHT DIGITAL DIAGNOSTIC MAMMOGRAM 3D/2D WITH ADDITIONAL VIEWS: 12/20/2023 CLINICAL: Additional evaluation requested from prior study. Comparison is made to exams dated: 11/21/2023 mammogram, 06/05/2019 mammogram, and 06/03/2017 mammogram - [facility]. The right breast is almost entirely fatty (category a/<25% glandular tissue). There are grouped dystrophic calcifications in the right breast at 11 o'clock middle depth. Some are lucent centered, some are curvilinear, almost rim-like. No other significant masses or calcifications are seen in the breast. IMPRESSION: PROBABLY BENIGN The calcifications in the right breast most likely are post traumatic fat necrosis or a degenerating fibroadenoma and are probably benign. A follow-up right mammogram in 6 months is recommended to demonstrate stability. Findings and recommendations were conveyed to the patient at time of exam. Based on the Tyrer Cuzick model (a risk assessment model) the patient's lifetime risk is 2.7% and her 10 year risk is 2.0%. According to the ACR, ACS, and NCCN guidelines, an annual breast MRI exam along with mammogram is recommended if the patient's lifetime risk is 20% or greater. This exam was interpreted at Station ID: [id number]. NOTE: For mammograms, a report in lay terms will be sent to the patient. Approximately 15% of breast malignancies will not be visualized mammographically. In the management of a palpable breast mass, a negative mammogram must not discourage biopsy of a clinically suspicious lesion. Electronically Signed By: Annia walker/:12/20/2023 12:48:49 letter sent: Followup Recommended ACR BI-RADS Category 3: Probably benign [id number]
== END ==
LOC: MAMMO 11:58
PROVIDERS: Family Provider Nurse Practitioner; PCP Nurse Practitioner; Referring Provider Nurse Practitioner; Visit Provider Nurse Practitioner
DX: R92.8 Other abnormal and inconclusive findings on diagnostic imaging of breast (principal); R92.1 Mammographic calcification found on diagnostic imaging of breast; R92.311 Mammographic fatty tissue density, right breast
CPT/HCPCS: 77065; G0279

== ENCOUNTER → 2023-12-23 15:15 | Outpatient (CLI) | payer MEDICARE, OTHER, SELFPAY ==
[2023-10-22 15:35] VITALS: BMI 39.6
--- NOTE | 2023-12-23 15:17 | DI.MRI.S_ITS ---
PROCEDURE: MR HIP LT WO CON INDICATIONS: Acute on chronic hip pain TECHNIQUE: Noncontrast coronal T1 spin echo and STIR through the bony pelvis. Coronal and axial T2 fast spin echo with fat saturation, sagittal T1 spin echo, and oblique axial T2 fast spin echo with fat saturation through the hip. COMPARISON: [facility], CR, XR HIP W PEL IF DONE LT 2V, 12/16/2023, 16:27. FINDINGS: Image quality: Excellent. Bones and joints: Mild fibrovascular end plate change at the left aspect of L5-S1. No acute fracture of the sacrum. The sacrum is intact. The marrow signal of the iliac wing, bilateral proximal femur are normal for age. No avascular necrosis of either femoral head. Tendons and ligaments: The left iliopsoas, adductor, hamstring tendon are unremarkable. The left gluteal minimus and medius tendons are unremarkable. No muscle edema. Labrum and cartilage: Labral degeneration without tear. No focal chondral defect of the left hip. Soft tissues: Unremarkable IMPRESSION: 1. Mild fibrovascular endplate change at L5-S1, incompletely evaluated. 2. Labral degeneration without tear of the left hip. Dictated by: Mary Salazar M.D. on 12/24/2023 at 19:15 Approved by: Mary Saalzar M.D. on 12/24/2023 at 19:21
== END ==
LOC: MRI 15:17
PROVIDERS: Family Provider Nurse Practitioner; PCP Nurse Practitioner; Referring Provider Nurse Practitioner; Visit Provider Nurse Practitioner
DX: M25.552 Pain in left hip (principal); R29.898 Other symptoms and signs involving the musculoskeletal system; M19.90 Unspecified osteoarthritis, unspecified site
CPT/HCPCS: 73721

== ENCOUNTER → 2024-02-07 12:46 | Outpatient (CLI) | payer MEDICARE, OTHER, SELFPAY ==
[2023-10-22 15:35] VITALS: BMI 39.6
--- NOTE | 2024-02-07 12:47 | DI.MRI.S_ITS ---
PROCEDURE: MR LUMBAR SPINE WO CON INDICATIONS: Spinal stenosis, lumbar region TECHNIQUE: Noncontrast sagittal T1 spin echo and T2 fast echo, sagittal STIR, and T2 fast spin echo through the lumbar spine. In cases with scoliosis, additional coronal T2 fast spin echo may be performed. COMPARISON: [facility], MR, MR LUMBAR SPINE WO CON, 09/14/2020, 16:01. FINDINGS: Image quality: Excellent Localizer image: Unremarkable In keeping with prior nomenclature, the last well-formed disc space is considered as L5-S1. The T12 ribs appears hypoplastic. Mild retrolisthesis of L1 on L2, L2-L3, and L5 on S1. Vertebral body height of the lumbar spine are well maintained. Mild fibrovascular end plate change at L5-S1. No suspicious marrow replacing lesion. Multilevel disc moderate disc desiccation. Conus terminates at the level of L1-2, and is unremarkable. Right paracentral disc osteophyte complex at T11-T12, resulting in mild central canal stenosis at T11-T12. Axial levels: T12-L1: Mild disc bulge. No stenosis. L1-2: Mild disc bulge. No stenosis. L2-3: Mild disc bulge. Mild bilateral facet arthropathy. Moderate central canal stenosis. Epidural lipomatosis. Mild right neural foraminal stenosis. No left neural foraminal stenosis. L3-4: Disc bulge. Mild bilateral facet arthropathy. Epidural lipomatosis. Moderate central canal stenosis without mild right and left neural foraminal stenosis. L4-5: Disc bulge. Mild bilateral facet arthropathy. Moderate central canal stenosis. Mild right and moderate left neural foraminal stenosis. L5-S1: Diffuse disc bulge. Moderate bilateral facet arthropathy. No central canal stenosis. Mild right and severe left neural foraminal stenosis. The visualized sacrum is unremarkable. No abdominal aortic aneurysm. 1.3 cm left adrenal nodule, incompletely evaluated. 2.1 cm infrarenal dilatation. No abdominal aneurysm. IMPRESSION: 1. Multilevel degenerative changes of the lumbar spine, most pronounced at L5-S1, where there is mild right and severe left neural foraminal stenosis, progressed from prior exam. 2. Multilevel moderate central canal stenosis of the lumbar spine. 3. 1.3 cm left adrenal nodule, incompletely evaluated but is grossly unchanged from CT on 10/12/2023. Dictated by: Mary Salazar M.D. on 02/07/2024 at 21:33 Approved by: Mary Salazar M.D. on 02/07/2024 at 21:43
== END ==
PROVIDERS: Family Provider Nurse Practitioner; PCP Nurse Practitioner; Referring Provider Physical Medicine & Rehabilitation Pain Medicine; Visit Provider Physical Medicine & Rehabilitation Pain Medicine
DX: M48.062 Spinal stenosis, lumbar region with neurogenic claudication (principal); M48.07 Spinal stenosis, lumbosacral region; M47.816 Spondylosis without myelopathy or radiculopathy, lumbar region; M47.817 Spondylosis without myelopathy or radiculopathy, lumbosacral region; E27.9 Disorder of adrenal gland, unspecified
CPT/HCPCS: 72148

== ENCOUNTER → 2024-03-14 11:18 | Outpatient (CLI) | payer MEDICARE, OTHER, SELFPAY ==
[2023-10-22 15:35] VITALS: BMI 39.6
[2024-03-14 11:45] LABS: Hemoglobin A1C% w Est Avg Glu 5.9 % (4.0-6.0)
[2024-03-14 11:57] LABS: Alanine Aminotransferase 5 IU/L (<35); Albumin Globulin Ratio 1.3 (1.0-2.8); Alkaline Phosphatase 97 U/L (38-126); Aspartate Aminotransferase 21 IU/L (14-36); BUN Creatinine Ratio 45.6 (6-22); Bilirubin Total 1.2 mg/dL (0.2-1.3); Blood Urea Nitrogen 26 mg/dL (7-17); Calcium 9.5 mg/dL (8.4-10.2); Carbon Dioxide 26 mmol/L (22-32); Chloride 104 mmol/L (98-107); Estimated Glomerular Filt Rate > 60 mL/min (>60); Glucose 117 mg/dL (80-110); HEMOLYSIS < 15 (0-50); Magnesium 1.8 mg/dL (1.6-2.3); Potassium 4.4 mmol/L (3.4-5.1); Sodium 136 mmol/L (137-145)
== END ==
PROVIDERS: Family Provider Nurse Practitioner; PCP Nurse Practitioner; Referring Provider Nurse Practitioner; Visit Provider Nurse Practitioner
DX: E11.9 Type 2 diabetes mellitus without complications (principal); E83.42 Hypomagnesemia
CPT/HCPCS: 80053; 83036; 83735

== ENCOUNTER → 2024-05-24 16:27 | Outpatient (CLI) | payer MEDICARE, OTHER, SELFPAY ==
[2023-10-22 15:35] VITALS: BMI 39.6
[2024-05-24 17:30] LABS: Influenza A - CEPHEID Flu A NEGATIVE (NEGATIVE); Influenza B - CEPHEID Flu B NEGATIVE (NEGATIVE); Respiratory Syncytial Virus Negative (Negative)
[2024-05-24 17:56] LABS: COVID-19 CEPHEID 4-PLEX PCR Negative (Negative)
== END ==
PROVIDERS: Family Provider Nurse Practitioner; PCP Nurse Practitioner; Visit Provider Student in an Organized Health Care Education/Training Program
DX: R05.9 Cough, unspecified (principal)
CPT/HCPCS: 0241U

== ENCOUNTER → 2024-05-25 12:26 | Outpatient (CLI) | payer MEDICARE, OTHER, SELFPAY ==
[2023-10-22 15:35] VITALS: BMI 39.6
--- NOTE | 2024-05-25 12:28 | DI.RAD.S_ITS ---
PROCEDURE: XR CHEST 2V INDICATIONS: cough, chest congestion, poss R upper PNA TECHNIQUE: 2 views of the chest were acquired. COMPARISON: [facility], CR, XR CHEST 1V, 10/12/2023, 20:22. FINDINGS: Surgical changes and devices: None. Lungs and pleura: Lungs are clear. No pleural effusions or pneumothorax. Mediastinum: Mediastinal contours are normal. Heart size is enlarged. Bones and chest wall: No suspicious bony abnormalities. Soft tissues appear unremarkable. IMPRESSION: No acute pulmonary process. Dictated by: Nereyda Meehan M.D. on 05/25/2024 at 13:07 Approved by: Nereyda Meehan M.D. on 05/25/2024 at 13:08
== END ==
LOC: RAD 12:28
PROVIDERS: Family Provider Nurse Practitioner; PCP Nurse Practitioner; Referring Provider Student in an Organized Health Care Education/Training Program; Visit Provider Student in an Organized Health Care Education/Training Program
DX: R09.89 Other specified symptoms and signs involving the circulatory and respiratory systems (principal); R05.9 Cough, unspecified
CPT/HCPCS: 71046

== ENCOUNTER → 2024-09-21 14:11 | Outpatient (CLI) | payer MEDICARE, OTHER, SELFPAY ==
[2023-10-22 15:35] VITALS: BMI 39.6
[2024-09-21 15:24] LABS: Hemoglobin A1C% w Est Avg Glu 5.9 % (4.0-6.0)
[2024-09-21 15:44] LABS: Alanine Aminotransferase 9 IU/L (<35); Albumin 4.1 g/dL (3.5-5.0); Albumin Globulin Ratio 1.5 (1.0-2.8); Alkaline Phosphatase 88 U/L (38-126); Aspartate Aminotransferase 22 IU/L (14-36); BUN Creatinine Ratio 39.4 (6-22); Blood Urea Nitrogen 28 mg/dL (7-17); Calcium 9.9 mg/dL (8.4-10.2); Carbon Dioxide 27 mmol/L (22-32); Chloride 103 mmol/L (98-107); Estimated Glomerular Filt Rate > 60 mL/min (>60); Globulin 2.7 g/dL (1.7-4.1); Glucose 132 mg/dL (80-110); HEMOLYSIS < 15 (0-50); Potassium 4.8 mmol/L (3.4-5.1); Sodium 138 mmol/L (137-145); Total Protein 6.8 g/dL (6.3-8.2)
== END ==
PROVIDERS: Family Provider Nurse Practitioner; PCP Family Medicine; Referring Provider Family Medicine; Visit Provider Family Medicine
DX: E11.9 Type 2 diabetes mellitus without complications (principal); E11.69 Type 2 diabetes mellitus with other specified complication; E78.5 Hyperlipidemia, unspecified; G20.A1 Parkinson's disease without dyskinesia, without mention of fluctuations
CPT/HCPCS: 36415; 80053; 83036

== ENCOUNTER → 2024-11-10 13:29 | Outpatient (CLI) | payer MEDICARE, OTHER, SELFPAY ==
[2023-10-22 15:35] VITALS: BMI 39.6
--- NOTE | 2024-11-10 | DI.MG.S_ITS ---
BILATERAL DIGITAL DIAGNOSTIC MAMMOGRAM 3D/2D: 11/10/2024 CLINICAL: Short term follow up, due bilateral. Comparison is made to exams dated: 12/20/2023 mammogram, 11/21/2023 mammogram, 06/05/2019 mammogram, and 06/03/2017 mammogram - [facility]. The breasts are almost entirely fatty (category a/<25% glandular tissue). There is a calcification in the right breast at 11 o'clock middle depth. Calcifications are increased but are now characterized as benign dystrophic calcifications. No other significant masses, calcifications, or other findings are seen in either breast. IMPRESSION: BENIGN There is no mammographic evidence of malignancy. The calcification in the right breast are dystrophic and most consistent with fat necrosis and are benign. A 1 year screening mammogram is recommended. Exam findings were conveyed to the patient. Based on the Tyrer Cuzick model (a risk assessment model) the patient's lifetime risk is 2.6% and her 10 year risk is 2.1%. According to the ACR, ACS, and NCCN guidelines, an annual breast MRI exam along with mammogram is recommended if the patient's lifetime risk is 20% or greater. This exam was interpreted at Station ID: [id number]. NOTE: For mammograms, a report in lay terms will be sent to the patient. Approximately 15% of breast malignancies will not be visualized mammographically. In the management of a palpable breast mass, a negative mammogram must not discourage biopsy of a clinically suspicious lesion. Electronically Signed By: Ruperto Parisi M.D. slc/:11/10/2024 14:18:36 letter sent: Normal Exam ACR BI-RADS Category 2: Benign
== END ==
PROVIDERS: Family Provider Nurse Practitioner; PCP Family Medicine; Referring Provider Family Medicine; Visit Provider Family Medicine
DX: R92.1 Mammographic calcification found on diagnostic imaging of breast; N63.10 Unspecified lump in the right breast, unspecified quadrant; R92.313 Mammographic fatty tissue density, bilateral breasts
CPT/HCPCS: 77066; G0279

== ENCOUNTER → 2025-03-12 14:47 | Outpatient (CLI) | payer MEDICARE, OTHER, SELFPAY ==
[2023-10-22 15:35] VITALS: BMI 39.6
[2025-03-12 15:06] LABS: Hematocrit 42.5 % (36-46); Hemoglobin 14.4 g/dL (12.0-16.0); Mean Corpuscular HGB Conc 33.9 % (30-36); Mean Corpuscular Hemoglobin 32.8 PG (26-34); Mean Corpuscular Volume 96.6 fL (80-100); Platelet Count 222 X10^3/uL (150-400); Red Blood Cell Count 4.41 X10^6/uL (4.0-5.2); Red Cell Distribution Width 13.8 % (11.6-14.8); White Blood Cell Count 6.6 X10^3/uL (4.5-11.0)
[2025-03-12 15:24] LABS: Hemoglobin A1C% w Est Avg Glu 5.7 % (4.0-6.0)
[2025-03-12 15:30] LABS: BUN Creatinine Ratio 36.9 (6-22); Blood Urea Nitrogen 24 mg/dL (7-17); Calcium 10.1 mg/dL (8.4-10.2); Carbon Dioxide 30 mmol/L (22-32); Chloride 100 mmol/L (98-107); Estimated Glomerular Filt Rate > 60 mL/min (>60); Glucose 110 mg/dL (70-99); HEMOLYSIS 16 (0-50); Potassium 4.6 mmol/L (3.4-5.1); Sodium 137 mmol/L (137-145)
[2025-03-12 16:18] LABS: Vitamin B12 448 pg/mL (239-931)
== END ==
PROVIDERS: Family Provider Nurse Practitioner; PCP Family Medicine; Referring Provider Family Medicine; Visit Provider Family Medicine
DX: G20.A2 Parkinson's disease without dyskinesia, with fluctuations (principal); E11.620 Type 2 diabetes mellitus with diabetic dermatitis
CPT/HCPCS: 36415; 80048; 82607; 83036; 85027

== ENCOUNTER 2025-06-07 14:40 | Emergency (ER) | payer MEDICARE, OTHER, SELFPAY ==
[2023-10-22 15:35] VITALS: BMI 39.6
[2025-06-07 14:46] VITALS: BP 126/59; PULSE 85; RESP 18; TEMP 36.1; O2SAT 97; BMI 38.7
--- NOTE | 2025-06-07 14:56 | EKG_ITS ---
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
[2025-06-07] MEDS: ONDANSETRON 4 MG ODT PO (16:08)
[2025-06-07 16:16] VITALS: PULSE 89; O2SAT 97
--- NOTE | 2025-06-07 16:24 | ED.NAVMDI ---
HPI - Nausea/Vomiting/Diarrhea General Chief complaint: Nausea/Vomiting/Diarrhea Stated complaint: dizzy lightheaded vomiting Time Seen by Provider: 06/07/25 15:36 Source: patient Mode of arrival: Ambulatory History of Present Illness HPI Narrative: 75-year-old woman with a history of Parkinson's disease diabetes, hyperlipidemia presents complaining of nausea vomiting started 4 days ago, dry heaves 3 days ago last 48 hours she has felt a bit queasy no further vomiting. No abdominal pain no diarrhea. No fever cough or chills. No change to medications. She notes that she has not had any test strips for her diabetes in the last week but that typically is not a problem she currently is only on metformin for her diabetes. With the continued mild queasiness she felt she should come in and be further evaluated. No complaints of chest pain or palpitations, no dyspnea. Related Data Home Medications ?Medication ?Instructions ?Recorded ?Confirmed ASPIRIN (Aspirin EC) 81 mg PO Q DAY ##0 01/10/11 06/07/25 carbidopa ER 50 mg-levodopa 200 mg 1 tab PO BEDTIME 11/16/19 06/07/25 tablet,extended release acetaminophen 500 mg capsule 1,000 mg PO TID 02/24/20 06/07/25 memantine 10 mg tablet 10 mg PO BID 11/06/24 06/07/25 rivastigmine tartrate 1.5 mg 1.5 mg PO BID 11/06/24 06/07/25 capsule memantine 5 mg tablet 5 mg PO BID 01/12/25 06/07/25 Previous Rx's ?Medication ?Instructions ?Recorded Disabled Parking Permit See Rx Instructions .Route 02/20/23 .COMPLEX #1 unit glucometer #1 ea 04/16/23 blood pressure test kit-large #1 ea 07/10/23 duloxetine 30 mg capsule,delayed See Rx Instructions .Route 09/21/24 release .COMPLEX #180 caps metformin 500 mg tablet,extended 500 mg PO DAILY diabetes #100 tabs 09/21/24 release 24 hr lancets 33 gauge (TRUEplus Lancets) #200 ea 09/22/24 carbidopa 25 mg-levodopa 100 mg 2 tab PO 4XD #720 tabs 11/06/24 tablet tolterodine 2 mg capsule,extended 4 mg (2 x 2 mg) PO DAILY for 11/06/24 release 24 hr overactive bladder #180 caps rosuvastatin 5 mg tablet 5 mg PO DAILY cholesterol #90 tabs 11/27/24 gabapentin 100 mg capsule See Rx Instructions .Route 03/12/25 .COMPLEX #270 caps gabapentin 300 mg capsule 300 mg PO .COMPLEX #90 caps 03/12/25 cholecalciferol (vitamin D3) 50 50 mcg PO DAILY #90 caps 04/12/25 mcg (2,000 unit) capsule omeprazole 40 mg capsule,delayed 40 mg PO DAILY #90 caps 04/12/25 release blood sugar diagnostic (True #200 strips 05/31/25 Metrix Glucose Test Strip) metoprolol succinate 25 mg 25 mg PO DAILY #90 tabs 06/07/25 tablet,extended release 24 hr Allergies Allergy/AdvReac Type Severity Reaction Status Date / Time CONSUELO Inhibitors (CONSUELO Allergy Mild COUGH Verified 06/07/25 14:49 INHIBITORS) Review of Systems Review of Systems Narrative: Pertinent positive and negative findings as per HPI Patient History Medical History Osteopenia after menopause Supraventricular tachycardia Overactive bladder (09/27/15) Hyperlipidemia associated with type 2 diabetes mellitus Chronic lower back pain Pre-diabetes Hepatic steatosis Other dietary vitamin B12 deficiency anemia Urinary urgency Leg edema, left Depression Facet arthropathy, lumbar Obesity, Class III, BMI 40-49.9 (morbid obesity) Low back pain with sciatica GERD (gastroesophageal reflux disease) Deviated septum Eczema Urinary incontinence Parkinson's disease (~2008) Chronic back pain Foot pain Diabetes Hyperlipemia Hypertension Allergic rhinitis Hearing loss Vertigo Plantar fasciitis of right foot (12/17/17) Seasonal allergic rhinitis (09/27/15) Parkinson's disease (09/27/15) Gastroesophageal reflux disease without esophagitis (09/27/15) Surgical History Status post cholecystectomy Family History Brother Stroke Father No problems noted. Mother No problems noted. Sister No problems noted. Social History household members: none alcohol intake: never Exam Initial Vital Signs Initial Vital Signs: Vital Signs Temperature 97.0 F L 06/07/25 14:46 Pulse Rate 85 06/07/25 14:46 Respiratory Rate 18 06/07/25 14:46 Blood Pressure 126/59 L 06/07/25 14:46 Pulse Oximetry 97 06/07/25 14:46 Oxygen Delivery Method Room Air 06/07/25 14:46 General: Healthy appearing, in no acute distress. Able to give a complete and coherent history. Well-nourished well-developed HEENT: Moist mucous membranes, normal sclera with reactive pupils, Respiratory: Lungs are clear to auscultation, no wheezing no rales no rhonchi. Full and symmetrical air movement Cardiac: Regular rate and rhythm no murmurs no bruits Abdomen: Soft, nontender, no rebound or guarding, no flank pain Skin: Warm and dry, no rashes Neurologic: Grossly neurologically intact with no obvious asymmetries or abnormalities Extremities: No trauma, well perfused Psych: Cooperative, appropriate insight and affect Course Orders Ordered: ED Orders 06/07/25 14:50 EKG-12 Lead Stat 06/07/25 16:15 Urine Culture Stat Urine Microscopic Stat 06/07/25 18:30 Complete Blood Count AUTO DIFF Stat Comprehensive Metabolic Panel Stat Ketones (Beta-Hydroxybutyrate) Stat Lactate (Lactic Acid) Stat Lipase Stat Magnesium Stat NT-proBNP (BNP-Adult 18+) Stat Troponin I Stat Carbidopa/Levodopa (Carbidopa-Levodopa Er 50/200 Tablet) 1 each PO NOW ONE Stop: 06/08/25 01:01 Ondansetron HCl (Ondansetron 4 Mg/2 Ml Inj) 4 mg IV NOW PRN PRN Reason: Nausea And Vomiting Ondansetron HCl (Ondansetron 4 Mg Odt) 4 mg PO NOW PRN PRN Reason: Nausea And Vomiting Last Admin: 06/07/25 16:08 Dose: 4 mg Documented By: ADRIANNA Discontinued Medications Carbidopa/Levodopa (Carbidopa-Levodopa 25/100 Tablet) 2 each PO NOW ONE Stop: 06/07/25 18:55 Last Admin: 06/07/25 19:19 Dose: 2 each Documented By: BRIANNA Vital Signs Vital signs: Vital Signs - 8 hr 06/07/25 14:46 06/07/25 16:16 06/07/25 16:30 Temperature 97.0 F L Pulse Rate 85 89 89 Respiratory Rate 18 Blood Pressure 126/59 L Pulse Oximetry 97 97 98 Oxygen Delivery Method Room Air 06/07/25 17:00 06/07/25 17:30 Temperature Pulse Rate 86 86 Respiratory Rate 18 Blood Pressure Pulse Oximetry 98 97 Oxygen Delivery Method Room Air MDM - Nausea/Vomiting/Diarrhea Lab Data 06/07/25 18:30 06/07/25 18:30 Labs: Lab Results 06/07/25 06/07/25 Range/Units 16:15 18:30 WBC 9.4 (4.5-11.0) X10^3/uL RBC 4.42 (4.0-5.2) X10^6/uL Hgb 14.2 (12.0-16.0) g/dL Hct 41.9 (36-46) % MCV 94.7 (80-100) fL MCH 32.0 (26-34) PG MCHC 33.8 (30-36) % RDW 13.1 (11.6-14.8) % Plt Count 263 (150-400) X10^3/uL Neut % (Auto) 68.1 (50-75) % Lymph % (Auto) 23.3 L (25-40) % [place] % (Auto) 7.0 (3-14) % Eos % (Auto) 0.9 L (2-4) % Baso % (Auto) 0.7 (0-2) % Neut # (Auto) 6400 (3719-2270) /uL Lymph # (Auto) 2200 (1455-8120) /uL [place] # (Auto) 700 (0-900) /uL Eos # (Auto) 100 (0-450) /uL Baso # (Auto) 100 (0-100) /uL Sodium 140 (137-145) mmol/L Potassium 3.9 (3.4-5.1) mmol/L Chloride 102 (98-107) mmol/L Carbon Dioxide 28 (22-32) mmol/L BUN 22 H (7-17) mg/dL Creatinine 0.71 (0.52-1.04) mg/dL Estimated GFR > 60 (>60) mL/min BUN/Creatinine Ratio 31.0 H (6-22) Glucose 118 H (70-99) mg/dL Lactate 1.4 (0.7-2.1) mmol/L Calcium 10.4 H (8.4-10.2) mg/dL Magnesium 2.0 (1.6-2.3) mg/dL Total Bilirubin 1.1 (0.2-1.3) mg/dL AST 25 (14-36) IU/L ALT 11 (<35) IU/L Alkaline Phosphatase 104 (38-126) U/L Troponin I < 0.012 (0.01-0.034) ng/mL NT-Pro-B Natriuret Pep 131 H (<125) pg/mL Total Protein 8.1 (6.3-8.2) g/dL Albumin 4.6 (3.5-5.0) g/dL Globulin 3.5 (1.7-4.1) g/dL Albumin/Globulin Ratio 1.3 (1.0-2.8) Lipase 52 (23-300) U/L Urine RBC None seen (0-5/HPF) Urine WBC 10-30/hpf H (0-5/HPF) Ur Squamous Epith Cells 5-10 /hpf H (0-5/HPF) Urine Bacteria Many (>30) H (None) Ur Culture Indicated? Specimen cultured Vol Urine Centrifuged 10ml (spun) Ketones 0.04 (<0.27) mmol/L Urine Dip Bedside Urine Glucose Negative Bedside Urine Bilirubin - Negative Bedside Urine Ketone - Negative Urine Specific Brock 1.020 Bedside Urine Occult Blood - Negative Bedside Urine pH 6.0 Bedside Urine Protein - Negative Bedside Urine Urobilinogen +/- 1mg Bedside Urine Nitrite - Negative Bedside Urine Leukocytes +++ 500 Esterase MDM Narrative Medical decision making narrative: CC: Persistent nausea Complicating co-morbidities: Parkinson's disease, diabetes, and hypertension, Data collected from: patient Medical records reviewed: Patient describes her symptoms as dizziness with the room spinning prior to her ER visit. With me she is describing queasiness with dizziness after vomiting 48 hours ago. Differential considered: Dehydration, electrolyte abnormality, gastroenteritis, viral syndrome, doubt coronary syndrome Exam documented above, pertinent findings include: Exam is entirely benign Lab Test results independently reviewed as above. Pertinent findings: CBC is unremarkable Chemistries are fairly reassuring. Calcium is minimally elevated at 10.4 Troponin is undetectable BNP is unremarkable Urine has multiple squamous cells along with white cells and bacteria, will await culture prior to treating this. She currently does not have any UTI symptoms Independently reviewed EKG: Sinus rhythm at a rate of 84 with no acute ischemic changes Treatments: Zofran, carbidopa levodopa Discussion: 75-year-old woman who presents complaining of nausea and vomiting that seems to be improving. Symptoms overall been going on for 4 days. Two days ago after a 2nd episode of emesis she was a bit lightheaded. Now feels slightly queasy. She has had some Zofran in the emergency department and lab work is entirely reassuring. There does not appear to be evidence of significant electrolyte abnormalities, liver dysfunction, renal failure, acute coronary syndrome or infection. Abdomen is re-examined, nontender, certainly not an acute surgical abdomen. She is anxious for discharge. She is given a couple of tablets of Zofran to use at home should she need them. There was no indication for hospitalization and she is safe for discharge Discharge Plan Departure Patient Disposition: Home Clinical Impression: Nausea & vomiting Qualifiers: Vomiting type: unspecified Qualified Code(s): R11.2 - Nausea with vomiting, unspecified Instructions: DI for Vomiting -- Adult Activity Restrictions/Additional Instructions: Thank you for coming in today The Zofran/ondansetron seemed to help control your nausea a bit. Blood work was very reassuring. There was no evidence of infection, heart problems, kidney problems, significant dehydration and electrolyte abnormalities. Your urine did have some abnormalities and we have cultured it. If it returns positive to suggest a urinary tract infection we will call you and call in antibiotics. I have sent you home with some Zofran/ondansetron to use should your nausea returned. If you find that you are getting worse or develop any new symptoms, please feel free to return to the emergency department for further evaluation. Prescriptions: No Action memantine 5 mg tablet 5 mg PO BID ASPIRIN (Aspirin EC) 81 mg PO Q DAY Qty: 0 (DME) lancets [TRUEplus Lancets] 33 gauge misc See Rx Instructions .ROUTE .COMPLEX Qty: 200 3RF Dose Instruction: use to CHECK BLOOD SUGAR DAILY Rx Instructions: Use to check blood glucose daily, may repeat if blood glucose over 150 up to 3 times daily BRAND PER INSURANCE rosuvastatin 5 mg tablet 5 mg PO DAILY Qty: 90 3RF omeprazole 40 mg capsule,delayed release(DR/EC) 40 mg PO DAILY Qty: 90 8RF cholecalciferol (vitamin D3) 50 mcg (2,000 unit) capsule 50 mcg PO DAILY Qty: 90 3RF (DME) True Metrix Glucose Test Strip Strip See Rx Instructions .ROUTE .COMPLEX Qty: 200 3RF Dose Instruction: use to CHECK BLOOD SUGAR DAILY Rx Instructions: Use to check blood glucose daily, may repeat if blood gluose is over 150. BRAND PER INSURANCE metoprolol succinate 25 mg tablet extended release 24 hr 25 mg PO DAILY Qty: 90 3RF Rx Instructions: Take 1 tab daily carbidopa-levodopa 50-200 mg tablet extended release 1 tab PO BEDTIME rivastigmine tartrate 1.5 mg capsule 1.5 mg PO BID Disabled Parking Permit See Rx Instructions .ROUTE .COMPLEX Qty: 1 0RF Rx Instructions: I find this patient to be medically disabled and qualify for disabled parking as indicated and signed on the accompanying disabled parking application for individuals. memantine 10 mg tablet 10 mg PO BID tolterodine 2 mg capsule,extended release 24hr 4 mg PO DAILY Qty: 180 3RF carbidopa-levodopa 25-100 mg tablet 2 tab PO 4XD Qty: 720 4RF (DME) blood pressure test kit-large Kit See Rx Instructions .Route Qty: 1 0RF Rx Instructions: As directed (DME) glucometer See Rx Instructions .Route .MEDSUPPLY Qty: 1 0RF Rx Instructions: Check blood sugars daily duloxetine 30 mg capsule,delayed release(DR/EC) See Rx Instructions .ROUTE .COMPLEX Qty: 180 3RF Dose Instruction: TAKE ONE CAPSULE BY MOUTH TWICE DAILY Rx Instructions: TAKE ONE CAPSULE BY MOUTH TWICE DAILY metformin 500 mg tablet extended release 24 hr 500 mg PO DAILY Qty: 100 3RF gabapentin 300 mg capsule 300 mg PO .COMPLEX Qty: 90 3RF Rx Instructions: 300 mg orally 1 cap at bedtime daily in addition to the PRN dosing 100mg TID gabapentin 100 mg capsule See Rx Instructions .ROUTE .COMPLEX Qty: 270 3RF Rx Instructions: Take 1 capsule 3x/day in addition to evening dose. For back and hip pain/insomnia acetaminophen 500 mg capsule 1,000 mg PO TID Referrals: Mateo Vincent DO [Primary Care Provider, Family Practice] Stand Alone Forms: Patient Portal/API
[2025-06-07 16:30] VITALS: PULSE 89; O2SAT 98
[2025-06-07 16:50] LABS: Culture Indicated Urine Specimen Cultured
[2025-06-07 17:00] VITALS: PULSE 86; O2SAT 98
[2025-06-07 17:30] VITALS: PULSE 86; RESP 18; O2SAT 97
[2025-06-07 18:39] LABS: Add Manual Diff / Slide Review NO; Hematocrit 41.9 % (36-46); Hemoglobin 14.2 g/dL (12.0-16.0); Lymphocytes Absolute Auto 2200 /uL (1100-4500); Mean Corpuscular HGB Conc 33.8 % (30-36); Mean Corpuscular Hemoglobin 32.0 PG (26-34); Mean Corpuscular Volume 94.7 fL (80-100); Platelet Count 263 X10^3/uL (150-400)
[2025-06-07 18:59] LABS: HEMOLYSIS < 15 (0-50)
[2025-06-07 19:04] LABS: Alanine Aminotransferase 11 IU/L (<35); Albumin 4.6 g/dL (3.5-5.0); Albumin Globulin Ratio 1.3 (1.0-2.8); Alkaline Phosphatase 104 U/L (38-126); Blood Urea Nitrogen 22 mg/dL (7-17); Calcium 10.4 mg/dL (8.4-10.2); Carbon Dioxide 28 mmol/L (22-32); Chloride 102 mmol/L (98-107); Estimated Glomerular Filt Rate > 60 mL/min (>60); Globulin 3.5 g/dL (1.7-4.1); Glucose 118 mg/dL (70-99); Lipase 52 U/L (23-300); Magnesium 2.0 mg/dL (1.6-2.3); Potassium 3.9 mmol/L (3.4-5.1); Sodium 140 mmol/L (137-145); Total Protein 8.1 g/dL (6.3-8.2)
[2025-06-07 19:05] LABS: Lactate (Lactic Acid) 1.4 mmol/L (0.7-2.1)
[2025-06-07 19:16] LABS: NT-proBNP (BNP-Adult 18+) 131 pg/mL (<125); Troponin I < 0.012 ng/mL (0.01-0.034)
[2025-06-07] MEDS: CARBIDOPA-LEVODOPA 25/100 TABLET 2 EACH PO (19:19)
[2025-06-07 19:39] LABS: Ketones (Beta-Hydroxybutyrate) 0.04 mmol/L (<0.27)
[2025-06-07] MEDS: ONDANSETRON 4 MG ODT PREPACK 1 BOTTLE MISC (20:38)
[2025-06-07 20:39] VITALS: BP 124/60; PULSE 85; RESP 18; O2SAT 97
== END 2025-06-07 20:40 | disposition home or self-care (01) ==
PROVIDERS: Emergency Provider Emergency Medicine; Family Provider Nurse Practitioner; PCP Family Medicine
DX: R11.2 Nausea with vomiting, unspecified (principal)
CPT/HCPCS: 36415; 80053; 81003; 81015; 82009; 83605; 83690; 83735; 83880; 84484; 85025; 87077; 87086; 87186; 93005; 99284

== ENCOUNTER → 2025-06-18 08:40 | Outpatient (CLI) | payer MEDICARE, OTHER, SELFPAY ==
[2023-10-22 15:35] VITALS: BMI 39.6
--- NOTE | 2025-06-18 08:42 | DI.RAD.S_ITS ---
PROCEDURE: XR LUMBAR SPINE 2-3V INDICATIONS: LBP TECHNIQUE: 3 views of the lumbar spine were acquired. COMPARISON: [facility], CR, XR LUMBAR SPINE MIN 4V, 02/11/2020, 10:48. [facility], CR, XR LUMBAR SPINE 2-3V, 04/23/2018, 9:24. FINDINGS: Limited visualization on lateral films, possibly secondary to overlying soft tissue and underpenetration. Within limitations: Bones: 5 [id number] vertebrae are present. There is levo dextro curvature of the lumbar spine.. No vertebral body compression fractures. No high-grade degenerative changes are noted on suboptimal lateral radiograph. Soft tissues: Overlying bowel gas pattern is normal. No suspicious soft tissue calcifications. Right upper quadrant cholecystectomy surgical clips. IMPRESSION: Significantly limited evaluation of lateral radiographs given overlying soft tissue and underpenetration. Within limitations, no acute osseous abnormality. Mild multiolevel degenerative changes of the spine without obvious high grade findings. Dictated by: Merritt Choi M.D. on 06/20/2025 at 23:51 Approved by: Merritt Choi M.D. on 06/20/2025 at 23:59
[2025-06-18 09:44] LABS: Appearance Urine UA SL CLOUDY; Bilirubin Urine UA NEGATIVE (NEGATIVE); Color Urine UA YELLOW; Glucose Urine UA NEGATIVE (Negative); Ketones Urine UA TRACE (NEGATIVE); Leukocyte Esterase Urine UA TRACE (NEGATIVE); Nitrite Urine UA POSITIVE (Negative); Occult Blood Urine UA 2+ (Negative); Protein Urine UA NEGATIVE (Negative); Specific Gravity Urine UA 1.015 (1.000-1.035); Urobilinogen Urine UA 1.0 E.U./dL (0.2)
[2025-06-18 09:45] LABS: pH Urine UA 6.0 (4.5-8.0)
[2025-06-18 09:49] LABS: Culture Indicated Urine Specimen Cultured
== END ==
PROVIDERS: Family Provider Nurse Practitioner; PCP Family Medicine; Referring Provider Family Medicine; Visit Provider Family Medicine
DX: N39.0 Urinary tract infection, site not specified (principal); M54.50 Low back pain, unspecified
CPT/HCPCS: 72100; 81001; 87077; 87086; 87186

== ENCOUNTER 2025-08-01 01:52 | Emergency (ER) | payer MEDICARE, OTHER, SELFPAY ==
[2023-10-22 15:35] VITALS: BMI 39.6
[2025-08-01] VITALS (8 sets, daily range): BP systolic 104–116; BP diastolic 52–58; PULSE 88–95; RESP 17–26; TEMP 36.8; O2SAT 91–98; BMI 38.9
--- NOTE | 2025-08-01 01:56 | ED.FALL ---
HPI - Fall General Chief Complaint: Fall Stated Complaint: Unwitnessed GLF Time Seen by Provider: 08/01/25 01:55 History of Present Illness HPI Narrative: 75-year-old female patient with a history of Parkinson's, diabetes, depression, SVT and obesity who woke up and found herself down on the floor and could not get up and used her call button to get help from the paramedics. They brought her in for the sole reason that she could not remember how she got on the ground. She denies any pain or injury. This has happened to her before. Related Data Home Medications ?Medication ?Instructions ?Recorded ?Confirmed ASPIRIN (Aspirin EC) 81 mg PO Q DAY ##0 01/10/11 08/01/25 carbidopa ER 50 mg-levodopa 200 mg 1 tab PO BEDTIME 11/16/19 08/01/25 tablet,extended release acetaminophen 500 mg capsule 1,000 mg PO TID 02/24/20 07/09/25 memantine 10 mg tablet 10 mg PO BID 11/06/24 08/01/25 rivastigmine tartrate 1.5 mg 1.5 mg PO BID 11/06/24 08/01/25 capsule memantine 5 mg tablet 5 mg PO BID 01/12/25 08/01/25 Previous Rx's ?Medication ?Instructions ?Recorded glucometer #1 ea 04/16/23 blood pressure test kit-large #1 ea 07/10/23 duloxetine 30 mg capsule,delayed See Rx Instructions .Route 09/21/24 release .COMPLEX #180 caps metformin 500 mg tablet,extended 500 mg PO DAILY diabetes #100 tabs 09/21/24 release 24 hr lancets 33 gauge (TRUEplus Lancets) #200 ea 09/22/24 carbidopa 25 mg-levodopa 100 mg 2 tab PO 4XD #720 tabs 11/06/24 tablet tolterodine 2 mg capsule,extended 4 mg (2 x 2 mg) PO DAILY for 11/06/24 release 24 hr overactive bladder #180 caps rosuvastatin 5 mg tablet 5 mg PO DAILY cholesterol #90 tabs 11/27/24 gabapentin 100 mg capsule See Rx Instructions .Route 03/12/25 .COMPLEX #270 caps gabapentin 300 mg capsule 300 mg PO .COMPLEX #90 caps 03/12/25 cholecalciferol (vitamin D3) 50 50 mcg PO DAILY #90 caps 04/12/25 mcg (2,000 unit) capsule omeprazole 40 mg capsule,delayed 40 mg PO DAILY #90 caps 04/12/25 release metoprolol succinate 25 mg 25 mg PO DAILY #90 tabs 06/07/25 tablet,extended release 24 hr blood sugar diagnostic (True #200 strips 06/14/25 Metrix Glucose Test Strip) meloxicam 15 mg tablet 15 mg PO DAILY PRN pain #90 tabs 06/18/25 Allergies Allergy/AdvReac Type Severity Reaction Status Date / Time CONSUELO Inhibitors (CONSUELO Allergy Mild COUGH Verified 08/01/25 01:52 INHIBITORS) Review of Systems Review of Systems ROS Unobtainable: All systems reviewed & are unremarkable except as noted in HPI and below Neurologic Neurologic: Reports as per HPI Patient History Medical History (Updated 08/01/25 @ 04:47 by Bean Sharp MD) Morbid obesity Osteopenia after menopause Supraventricular tachycardia Overactive bladder (09/27/15) Hyperlipidemia associated with type 2 diabetes mellitus Chronic lower back pain Pre-diabetes Hepatic steatosis Other dietary vitamin B12 deficiency anemia Urinary urgency Leg edema, left Depression Facet arthropathy, lumbar Obesity, Class III, BMI 40-49.9 (morbid obesity) Low back pain with sciatica GERD (gastroesophageal reflux disease) Deviated septum Eczema Urinary incontinence Parkinson's disease (~2008) Chronic back pain Foot pain Diabetes Hyperlipemia Hypertension Allergic rhinitis Hearing loss Vertigo Plantar fasciitis of right foot (12/17/17) Seasonal allergic rhinitis (09/27/15) Parkinson's disease (09/27/15) Gastroesophageal reflux disease without esophagitis (09/27/15) Surgical History Status post cholecystectomy Family History Brother Stroke Father No problems noted. Mother No problems noted. Sister No problems noted. Social History household members: none Smoking Status: Never smoker alcohol intake: never Exam Narrative Exam Narrative: General: Alert and conversant. No distress. Appears well nourished and well hydrated Craniofacial: No evidence of trauma. Nontender and no swelling. Eyes: PERRLA EOMI conjunctiva clear HEENT: Oropharynx clear with no swelling, exudate or asymmetry of the pharynx. Nares clear. No sinus tenderness Neck: No tenderness or adenopathy. No meningismus. No JVD Lungs: Clear to auscultation with good air movement. No wheezing, rales or rhonchi. No respiratory distress Cardiac: Regular rate and rhythm with no appreciable murmur or gallop Abdomen: Soft, nontender with no distention or masses. Normal bowel sounds. No rebound or guarding Musculoskeletal: Exam of the extremities, axial spine and ribcage reveals no deformity, bony tenderness or swelling. Range of motion intact Neuro: Alert and oriented. Cranial nerves, motor, sensory and cerebellar all grossly intact. No focal deficit Skin: Warm and normal color. No rashes Psychological: Normal affect and interaction. No evidence of delusion or psychosis. Normal mood. Initial Vital Signs Initial Vital Signs: Vital Signs Temperature 98.3 F 08/01/25 01:55 Pulse Rate 88 08/01/25 01:55 Respiratory Rate 17 08/01/25 01:55 Blood Pressure 114/58 L 08/01/25 01:55 Pulse Oximetry 98 08/01/25 01:55 Oxygen Delivery Method Room Air 08/01/25 01:55 Course Orders Ordered: ED Orders 08/01/25 02:10 CBC Auto Diff [Complete Blood Count AUTO DIFF] Stat CMP [Comprehensive Metabolic Panel] Stat CPK [Creatine Kinase] Stat 08/01/25 04:12 Urine Culture Stat Urine Microscopic Stat Vital Signs Vital signs: Vital Signs - 8 hr 08/01/25 01:55 08/01/25 02:00 08/01/25 02:08 Temperature 98.3 F Pulse Rate 88 94 H Respiratory Rate 17 Blood Pressure 114/58 L 116/55 L Pulse Oximetry 98 95 Oxygen Delivery Method Room Air 08/01/25 02:08 08/01/25 02:30 08/01/25 02:30 Temperature Pulse Rate 92 H 94 H Respiratory Rate 26 H 21 Blood Pressure 106/52 L Pulse Oximetry 94 91 Oxygen Delivery Method Room Air 08/01/25 03:00 08/01/25 03:00 08/01/25 03:30 Temperature Pulse Rate 89 91 H Respiratory Rate 21 25 H Blood Pressure 104/54 L Pulse Oximetry 93 92 Oxygen Delivery Method 08/01/25 03:30 08/01/25 04:00 08/01/25 04:00 Temperature Pulse Rate 94 H Respiratory Rate 20 Blood Pressure 112/57 L 110/54 L Pulse Oximetry 93 Oxygen Delivery Method 08/01/25 04:30 08/01/25 04:30 Temperature Pulse Rate 95 H Respiratory Rate 23 Blood Pressure 111/57 L Pulse Oximetry 92 Oxygen Delivery Method - Fall Lab Data Attestation: I reviewed the patient's lab results. 08/01/25 02:10 08/01/25 02:10 Labs: Lab Results 08/01/25 08/01/25 Range/Units 02:10 04:12 WBC 10.5 (4.5-11.0) X10^3/uL RBC 4.19 (4.0-5.2) X10^6/uL Hgb 13.5 (12.0-16.0) g/dL Hct 39.0 (36-46) % MCV 93.1 (80-100) fL MCH 32.1 (26-34) PG MCHC 34.5 (30-36) % RDW 13.4 (11.6-14.8) % Plt Count 218 (150-400) X10^3/uL Neut % (Auto) 86.6 H (50-75) % Lymph % (Auto) 4.0 L (25-40) % Stokes % (Auto) 7.3 (3-14) % Eos % (Auto) 1.2 L (2-4) % Baso % (Auto) 0.9 (0-2) % Neut # (Auto) 9100 H (6364-9143) /uL Lymph # (Auto) 400 L (8573-7234) /uL Stokes # (Auto) 800 (0-900) /uL Eos # (Auto) 100 (0-450) /uL Baso # (Auto) 100 (0-100) /uL Sodium 136 L (137-145) mmol/L Potassium 4.0 (3.4-5.1) mmol/L Chloride 101 (98-107) mmol/L Carbon Dioxide 24 (22-32) mmol/L BUN 32 H (7-17) mg/dL Creatinine 0.88 (0.52-1.04) mg/dL Estimated GFR > 60 (>60) mL/min BUN/Creatinine Ratio 36.4 H (6-22) Glucose 178 H (70-99) mg/dL Calcium 10.0 (8.4-10.2) mg/dL Total Bilirubin 1.3 (0.2-1.3) mg/dL AST 19 (14-36) IU/L ALT 8 (<35) IU/L Alkaline Phosphatase 99 (38-126) U/L Total Creatine Kinase 79 (30-135) U/L Total Protein 7.4 (6.3-8.2) g/dL Albumin 4.2 (3.5-5.0) g/dL Globulin 3.2 (1.7-4.1) g/dL Albumin/Globulin Ratio 1.3 (1.0-2.8) Urine RBC None seen (0-5/HPF) Urine WBC 1-5/hpf (0-5/HPF) Ur Squamous Epith Cells 1-5 /hpf (0-5/HPF) Urine Bacteria Many (>30) H (None) Ur Culture Indicated? Specimen cultured Vol Urine Centrifuged 10ml (spun) Urine Dip Bedside Urine Glucose Negative Bedside Urine Bilirubin - Negative Bedside Urine Ketone - Negative Urine Specific [place] 1.010 Bedside Urine Occult Blood + Bedside Urine pH 6.5 Bedside Urine Protein + 30 Bedside Urine Urobilinogen - Negative Bedside Urine Nitrite - Negative Bedside Urine Leukocytes +++ 500 Esterase ECG Data Attestation: I personally reviewed and interpreted this ECG as follows: (Sinus rhythm with first-degree AV block. Poor R-wave progression. Rate 94. No ischemic changes) [facility] Narrative Medical decision making narrative: Patient apparently slumped to the floor and and possibly fell asleep and then woke up on the floor. No evidence of injury on physical exam or symptoms. Lab work is unremarkable other than bacteriuria with limited pyuria and negative nitrite. She has no bladder symptoms and I believe she probably does not have a UTI and that it is appropriate to wait for culture before prescribing antibiotics. She was instructed on hydration, rest and avoiding falls. Follow up with her doctor within the next week for which she already has an appointment. Follow up on urine culture. Return to the ER if worse. Discharge Plan Departure Patient Disposition: Home Clinical Impression: Fall, Bacteriuria Instructions: How to Prevent Falls Activity Restrictions/Additional Instructions: Plan: Hydration, rest and supportive care. Follow up with your doctor as needed. Make sure you provider follows up on your urine culture. We will only use antibiotics if culture is positive. Return to the ER if worse Prescriptions: No Action memantine 5 mg tablet 5 mg PO BID ASPIRIN (Aspirin EC) 81 mg PO Q DAY Qty: 0 (DME) lancets [TRUEplus Lancets] 33 gauge misc See Rx Instructions .ROUTE .COMPLEX Qty: 200 3RF Dose Instruction: use to CHECK BLOOD SUGAR DAILY Rx Instructions: Use to check blood glucose daily, may repeat if blood glucose over 150 up to 3 times daily BRAND PER INSURANCE rosuvastatin 5 mg tablet 5 mg PO DAILY Qty: 90 3RF omeprazole 40 mg capsule,delayed release(DR/EC) 40 mg PO DAILY Qty: 90 8RF cholecalciferol (vitamin D3) 50 mcg (2,000 unit) capsule 50 mcg PO DAILY Qty: 90 3RF metoprolol succinate 25 mg tablet extended release 24 hr 25 mg PO DAILY Qty: 90 3RF Rx Instructions: Take 1 tab daily (DME) True Metrix Glucose Test Strip Strip See Rx Instructions .ROUTE .COMPLEX Qty: 200 3RF Dose Instruction: use to CHECK BLOOD SUGAR DAILY Rx Instructions: Use to check blood glucose daily, may repeat if blood gluose is over 150. BRAND PER INSURANCE carbidopa-levodopa 50-200 mg tablet extended release 1 tab PO BEDTIME rivastigmine tartrate 1.5 mg capsule 1.5 mg PO BID memantine 10 mg tablet 10 mg PO BID tolterodine 2 mg capsule,extended release 24hr 4 mg PO DAILY Qty: 180 3RF carbidopa-levodopa 25-100 mg tablet 2 tab PO 4XD Qty: 720 4RF meloxicam 15 mg tablet 15 mg PO DAILY PRN (Reason: pain) Qty: 90 3RF Rx Instructions: with food (DME) blood pressure test kit-large Kit See Rx Instructions .Route Qty: 1 0RF Rx Instructions: As directed ([facility] [place] glucometer See Rx Instructions .Route .MEDSUPPLY Qty: 1 0RF Rx Instructions: Check blood sugars daily duloxetine 30 mg capsule,delayed release(DR/EC) See Rx Instructions .ROUTE .COMPLEX Qty: 180 3RF Dose Instruction: TAKE ONE CAPSULE BY MOUTH TWICE DAILY Rx Instructions: TAKE ONE CAPSULE BY MOUTH TWICE DAILY metformin 500 mg tablet extended release 24 hr 500 mg PO DAILY Qty: 100 3RF gabapentin 300 mg capsule 300 mg PO .COMPLEX Qty: 90 3RF Rx Instructions: 300 mg orally 1 cap at bedtime daily in addition to the PRN dosing 100mg TID gabapentin 100 mg capsule See Rx Instructions .ROUTE .COMPLEX Qty: 270 3RF Rx Instructions: Take 1 capsule 3x/day in addition to evening dose. For back and hip pain/insomnia acetaminophen 500 mg capsule 1,000 mg PO TID Referrals: Mateo Vincent DO [Primary Care Provider, Family Practice] Stand Alone Forms: Patient Portal/API
--- NOTE | 2025-08-01 02:06 | EKG_ITS ---
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
[2025-08-01 02:20] LABS: Add Manual Diff / Slide Review NO; Hematocrit 39.0 % (36-46); Hemoglobin 13.5 g/dL (12.0-16.0); Lymphocytes Absolute Auto 400 /uL (1100-4500); Mean Corpuscular HGB Conc 34.5 % (30-36); Mean Corpuscular Hemoglobin 32.1 PG (26-34); Mean Corpuscular Volume 93.1 fL (80-100); Platelet Count 218 X10^3/uL (150-400)
[2025-08-01 02:36] LABS: Alanine Aminotransferase 8 IU/L (<35); Albumin 4.2 g/dL (3.5-5.0); Albumin Globulin Ratio 1.3 (1.0-2.8); Alkaline Phosphatase 99 U/L (38-126); Blood Urea Nitrogen 32 mg/dL (7-17); Calcium 10.0 mg/dL (8.4-10.2); Carbon Dioxide 24 mmol/L (22-32); Chloride 101 mmol/L (98-107); Creatine Kinase 79 U/L (30-135); Estimated Glomerular Filt Rate > 60 mL/min (>60); Globulin 3.2 g/dL (1.7-4.1); Glucose 178 mg/dL (70-99); HEMOLYSIS < 15 (0-50); Potassium 4.0 mmol/L (3.4-5.1); Sodium 136 mmol/L (137-145); Total Protein 7.4 g/dL (6.3-8.2)
[2025-08-01 04:36] LABS: Culture Indicated Urine Specimen Cultured
== END 2025-08-01 05:04 | disposition home or self-care (01) ==
PROVIDERS: Emergency Provider Emergency Medicine; Family Provider Nurse Practitioner; PCP Family Medicine
DX: R82.71 Bacteriuria (principal); W19.XXXA Unspecified fall, initial encounter
CPT/HCPCS: 36415; 80053; 81003; 81015; 82550; 85025; 87077; 87086; 87186; 93005; 99283; 99284

== ENCOUNTER → 2025-09-06 12:40 | Outpatient (CLI) | payer MEDICARE, OTHER, SELFPAY ==
[2023-10-22 15:35] VITALS: BMI 39.6
--- NOTE | 2025-09-06 12:43 | DI.MRI.S_ITS ---
PROCEDURE: MR LUMBAR SPINE WO CON INDICATIONS: chronic worsening low back pain TECHNIQUE: Noncontrast sagittal T1 spin echo and T2 fast echo, sagittal STIR, and T2 fast spin echo through the lumbar spine. In cases with scoliosis, additional coronal T2 fast spin echo may be performed. COMPARISON: Located Within [facility], CR, XR LUMBAR SPINE 2-3V, 06/18/2025, 8:43. Located Within [facility], MR, MR LUMBAR SPINE WO CON, 02/07/2024, 13:00. FINDINGS: Image quality: Excellent Mild levoscoliosis of the lumbar spine, centered at L3. Mild retrolisthesis L5 on S1. Vertebral body height of the lumbar spine are well maintained. The marrow signal is normal for age. Multilevel disc bulge and disc desiccation. Conus terminates at the level of L2, and is unremarkable. Right neural foraminal stenosis: Mild at L2-3, moderate at L3-4, mild at L4-5, and L5-S1. Left neural foraminal stenosis: Mild at L2-3, moderate at L3-4, severe at L4-5, and L5-S1. axial images: T12-L1: No central canal stenosis. L1-2: Mild bilateral facet arthropathy. Disc bulge. No central canal stenosis. L2-3: Mild bilateral facet arthropathy. Disc bulge. Epidural lipomatosis. Moderate to severe central canal stenosis. L3-4: Mild bilateral facet arthropathy. Mild disc bulge. Moderate central canal stenosis. L4-5: Moderate bilateral facet arthropathy. Mild central canal stenosis. L5-S1: Moderate bilateral facet arthropathy, left greater right. Mild disc bulge. No central canal stenosis. The visualized sacrum is unremarkable. Small bilateral renal cysts. Small left adrenal nodule. IMPRESSION: 1. Multilevel degenerative changes, most pronounced at L2-3, where there is moderate to severe central canal stenosis, slightly progressed from prior exam. 2. Severe left neural foraminal stenosis at L4-5 and L5-S1, unchanged. Dictated by: Mary Salazar M.D. on 09/06/2025 at 14:21 Approved by: Mary Salazar M.D. on 09/06/2025 at 14:32
== END ==
LOC: MRI 12:41
PROVIDERS: PCP Family Medicine; Referring Provider Physical Medicine & Rehabilitation; Visit Provider Physical Medicine & Rehabilitation
DX: M47.816 Spondylosis without myelopathy or radiculopathy, lumbar region (principal); M47.817 Spondylosis without myelopathy or radiculopathy, lumbosacral region; M48.061 Spinal stenosis, lumbar region without neurogenic claudication; M48.07 Spinal stenosis, lumbosacral region; M54.50 Low back pain, unspecified; N28.1 Cyst of kidney, acquired; E27.9 Disorder of adrenal gland, unspecified
CPT/HCPCS: 72148